=== PATIENT | male | born 1950 | race Caucasian/White ===

== ENCOUNTER 2016-09-15 16:57 | Emergency (ER) | payer OTHER, MEDICARE ==
[2016-09-15 17:01] VITALS: BMI 30.6
[2016-09-15] MEDS ORDERED: SODIUM CHLORIDE 1,000 ML IV STA (18:00)
[2016-09-15] MEDS ORDERED: ACETAMINOPHEN 500 MG TABLET (FP) PO ONE (18:12)
[2016-09-15] MEDS ORDERED: ACETAMINOPHEN 325 MG TABLET (FP) ONE (18:14)
--- NOTE | 2016-09-15 18:36 | PDOC ---
[id number] Source: Patient Exam Limitations: No Limitations - History of Present Illness Initial Comments: 09/15/16 18:06 65-year-old male presents to ED complaints of generalized fatigue, myalgia, and mild cough for the past few days. Patient states went to see his PCP Dr. Ro but with close so went to a nearby clinic noted patient having elevated heart rate and sent into the ER since he may require IV fluids and further workup. Patient denies chest pain, shortness of breath, abdominal pain, vomiting, diarrhea, dysuria, rash, or recent illness. Patient does complain of mild nausea and states has not ate or drank anything since yesterday at 4 PM. patient with history of diabetes, hypertension, and dyspidemia Timing/Duration: other Severity: moderate Associated Symptoms: reports: cough, loss of appetite, nausea/vomiting, weakness <Neyda Hernandez - Last Filed: 09/20/16 08:38> - General Chief Complaint: Weakness Stated Complaint: PAIN Time Seen by Provider: 09/15/16 17:22 Past History <Isak Lopez - Last Filed: 09/15/16 21:35> - Past Medical History Anemia: No Asthma: No Cancer: No Cardiac Disorders: No CVA: No COPD: No CHF: No Dementia: No Diabetes: Yes (PT HAS PUMP) GI Disorders: No Disorders: No HTN: Yes Hypercholesterolemia: Yes Liver Disease: No Seizures: No Thyroid Disease: No - Surgical History Abdominal Surgery: No Appendectomy: Yes Cardiac Surgery: No Cholecystectomy: No Lung Surgery: No Neurologic Surgery: No Orthopedic Surgery: Yes (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) - Psycho/Social/Smoking Cessation Hx Anxiety: No Suicidal Ideation: No Smoking History: Former smoker Have you smoked in the past 12 months: No If you are a former smoker, when did you quit?: 1973 Information on smoking cessation initiated: No Hx Alcohol Use: No Drug/Substance Use Hx: No Substance Use Type: None Hx Substance Use Treatment: No Patient Lives Alone: No <Neyda Hernandez - Last Filed: 09/20/16 08:38> - Past Medical History Allergies/Adverse Reactions: Allergies Allergy/AdvReac Type Severity Reaction Status Date / Time Penicillins Allergy Verified 09/15/16 16:58 ampicillin sodium AdvReac Verified 09/15/16 16:58 [From Unasyn] sulbactam sodium AdvReac Verified 09/15/16 16:58 [From Unasyn] Home Medications: Ambulatory Orders Cholecalciferol (Vitamin D3) [Vitamin D3] 1,000 unit PO DAILY 01/10/15 Cyanocobalamin [Vitamin B12 -] 2,000 mcg PO DAILY 01/10/15 Folic Acid 1 mg PO DAILY 01/10/15 Quinapril HCl [Accupril -] 5 mg PO DAILY 01/10/15 Simvastatin 10 mg PO DAILY 01/10/15 Insulin Pump Controller [Snap Insulin Pump Controller] 1 each MC DAILY 10/01/15 Review of Systems - Review of Systems Able to Perform ROS?: Yes Constitutional: Yes: Loss of Appetite, Weakness HEENTM: No: Symptoms Reported Respiratory: Yes: Cough Cardiac (ROS): No: Symptoms Reported ABD/GI: Yes: Nausea, Poor Appetite, Poor Fluid Intake Integumentary: No: Symptoms Reported Neurological: No: Symptoms reported Endocrine: No: Symptoms Reported Hematologic/Lymphatic: No: Symptoms Reported <Neyda Hernandez - Last Filed: 09/20/16 08:38> *Physical Exam - Vital Signs Last Vital Signs Temp Pulse Resp BP Pulse Ox 97.9 F 95 H 25 H 121/65 97 09/15/16 19:25 09/15/16 19:25 09/15/16 19:25 09/15/16 19:25 09/15/16 19:25 <Isak Lopez - Last Filed: 09/15/16 21:35> - Vital Signs Last Vital Signs Temp Pulse Resp BP Pulse Ox 100.8 F H 110 H 18 142/69 100 09/15/16 18:10 09/15/16 18:10 09/15/16 16:59 09/15/16 16:59 09/15/16 16:59 - Physical Exam General Appearance: Yes: Nourished, Appropriately Dressed. No: Apparent Distress HEENT: positive: EOMI, CIRILO, TMs Normal, Pharynx Normal. negative: Pale Conjunctivae Neck: positive: Supple Respiratory/Chest: positive: Lungs Clear, Normal Breath Sounds. negative: Respiratory Distress, Accessory Muscle Use Cardiovascular: positive: Regular Rhythm, Tachycardia. negative: Murmur Gastrointestinal/Abdominal: positive: Soft. negative: Tenderness Extremity: positive: Normal Capillary Refill. negative: Pedal Edema Integumentary: positive: Normal Color, Warm, Moist Neurologic: positive: Motor Strength 5/5 (ambulatory) <Neyda Hernandez - Last Filed: 09/20/16 08:38> Heart Score/ECG Review - ECG Intrepretation Rhythm: Regular Rhythm (sinus tachycardia at 110. No acute findings) <Neyda Hernandez - Last Filed: 09/20/16 08:38> ED Treatment Course - LABORATORY CBC & Chemistry Diagram: 09/15/16 18:23 09/15/16 18:23 - ADDITIONAL ORDERS Additional order review: Laboratory Results 09/15/16 09/15/16 09/15/16 20:00 18:23 18:23 Sodium 136 Potassium 4.4 Chloride 102 Carbon Dioxide 25 Anion Gap 9 BUN 24 H Creatinine 1.3 Creat Clearance w eGFR 55.23 Random Glucose 233 H Lactic Acid 1.335 1.483 Calcium 8.5 Total Bilirubin 0.6 AST 22 ALT 27 Alkaline Phosphatase 61 Creatine Kinase 159 Creatine Kinase Index 1.9 CK-MB (CK-2) 2.980 Troponin I < 0.02 Total Protein 6.6 Albumin 3.5 Urine Color Urine Appearance Urine pH Ur Specific [place] Urine Protein Urine Glucose (UA) Urine Ketones Urine Blood Urine Nitrite Urine Bilirubin Urine Urobilinogen Ur Leukocyte Esterase 09/15/16 18:23 Sodium Potassium Chloride Carbon Dioxide Anion Gap BUN Creatinine Creat Clearance w eGFR Random Glucose Lactic Acid Calcium Total Bilirubin AST ALT Alkaline Phosphatase Creatine Kinase Creatine Kinase Index CK-MB (CK-2) Troponin I Total Protein Albumin Urine Color Lt. yellow Urine Appearance Clear Urine pH 6.0 Ur Specific [place] 1.025 Urine Protein Negative Urine Glucose (UA) 2+ H Urine Ketones 1+ H Urine Blood Negative Urine Nitrite Negative Urine Bilirubin 1+ H Urine Urobilinogen 0.2 e.u/dl Ur Leukocyte Esterase Negative 09/15/16 18:00 Influenza Types A,B Antigen (ZENY) - Final Nasopharyngeal Swab - Final 09/15/16 18:23 RBC 5.35 MCV 86.8 MCHC 32.3 RDW 13.1 MPV 8.2 Neutrophils % 89.0 H Lymphocytes % 6.5 L Monocytes % 3.8 Eosinophils % 0.5 Basophils % 0.2 - Medications Given in the ED: ED Medications Discontinued Medications Generic Name Dose Route Start Last Admin Trade Name Freq PRN Reason Stop Dose Admin Acetaminophen 975 mg 09/15/16 18:12 09/15/16 18:15 Tylenol - PO 09/15/16 18:13 975 mg ONCE ONE Administration Sodium Chloride 1,000 mls @ 1,000 mls/hr 09/15/16 18:00 09/15/16 19:12 Normal Saline - IV 09/15/16 18:59 1,000 mls/hr ASDIR STA Administration <Isak Lopez - Last Filed: 09/15/16 21:35> - LABORATORY CBC & Chemistry Diagram: 09/15/16 18:23 09/15/16 18:23 - RADIOLOGY Radiology Studies Ordered: Category Date Time Status CHEST X-RAY PORTABLE* [RAD] Stat Radiology 09/15/16 18:00 Ordered - Medications Given in the ED: ED Medications Discontinued Medications Generic Name Dose Route Start Last Admin Trade Name Freq PRN Reason Stop Dose Admin Acetaminophen 975 mg 09/15/16 18:12 09/15/16 18:15 Tylenol - PO 09/15/16 18:13 975 mg ONCE ONE Administration <Neyda Hernandez - Last Filed: 09/20/16 08:38> Medical Decision Making - Medical Decision Making 09/15/16 21:35 Vitals: 128/87, HR-95 O2-99% <Isak Lopez - Last Filed: 09/15/16 21:35> - Medical Decision Making 09/15/16 18:09 patient presents with myalgia, weakness, cough, decreased appetite. Patient also arrived with a heart rate of 116. Septic workup was initiated including a rectal temperature. Patient was also swabbed for influenza. patient concerning for sepsis,dehydration, electrolyte imbalance. 09/15/16 18:40 Selected Entries 09/15/16 18:10 Temperature 100.8 F H Pulse Rate 110 H Tylenol ordered 09/15/16 18:41 Influenza negative 09/15/16 18:57 Laboratory Tests 09/15/16 09/15/16 18:23 18:23 WBC 9.6 Hgb 15.0 Hct 46.4 Neutrophils % 89.0 H Urine Glucose (UA) 2+ H Urine Ketones 1+ H Urine Bilirubin 1+ H Ur Leukocyte Esterase Negative chest x-ray shows no acute findings. Will endorse. <Neyda Hernandez - Last Filed: 09/20/16 08:38> *DC/Admit/Observation/Transfer - Discharge Dispostion Admit: No <Isak Lopez - Last Filed: 09/15/16 21:35> <Neyda Hernandez - Last Filed: 09/20/16 08:38> Diagnosis at time of Disposition: Dehydration - Discharge Dispostion Disposition: HOME Condition at time of disposition: Stable - Referrals Referrals: Nino Ro MD [Primary Care Provider] - - Patient Instructions Printed Discharge Instructions: DI for Dehydration -- Adult Additional Instructions: FOLLOW UP WITH YOUR PRIMARY CARE PROVIDER THIS WEEK. CALL TO SCHEDULE APPOINTMENT. RETURN IF SYMPTOMS WORSEN, OR ANY CONCERNS FOR FURTHER EVALUATION. Print Language: CUBAN
[2016-09-15 18:49] LABS: URINE APPEARANCE CLEAR; URINE BILIRUBIN 1+ (NEGATIVE); URINE BLOOD NEGATIVE (NEGATIVE); URINE COLOR LT. YELLOW; URINE GLUCOSE (UA) 2+ (NEGATIVE); URINE KETONE 1+ (NEGATIVE); URINE LEUK ESTERASE NEGATIVE (NEGATIVE); URINE NITRITE NEGATIVE (NEGATIVE); URINE PROTEIN NEGATIVE (NEGATIVE); URINE UROBILINOGEN 0.2 E.U/dl E.U./dl (0.2-1.0)
[2016-09-15 18:50] LABS: BASOPHIL 0.2 % (0-2.0); EOSINOPHIL 0.5 % (0-4.5); MCHC 32.3 g/dl (32.0-35.9); MEAN CELL VOLUME 86.8 fl (80-96); MEAN PLT VOLUME 8.2 fl (7.5-11.1); PLATELET COUNT 213 K/MM3 (134-434); RDW 13.1 % (11.9-15.9); WHITE BLOOD COUNT 9.6 K/mm3 (4.0-10.0)
[2016-09-15 19:14] LABS: ALBUMIN 3.5 g/dl (3.4-5.0); ANION GAP 9 (8-16); BILIRUBIN,TOTAL 0.6 mg/dL (0.2-1.0); CALCIUM 8.5 mg/dL (8.5-10.1); CO2 25 mmol/L (21-32); CREATININE 1.3 mg/dL (0.7-1.3); GLUCOSE,RANDOM 233 mg/dL (74-106); SGOT/AST 22 U/L (15-37); SGPT/ALT 27 U/L (12-78); TOT PROT 6.6 g/dl (6.4-8.2)
[2016-09-15 19:16] LABS: ALK PHOS 61 U/L (45-117); TROPONIN I < 0.02 ng/ml (0.00-0.05)
[2016-09-15 19:41] VITALS: TEMP 97.9
[2016-09-15 22:02] VITALS: BP 128/86; PULSE 92
--- NOTE | 2016-09-16 09:37 | EKG ---
Test Reason : Blood Pressure : / mmHG Vent. Rate : 110 BPM Atrial Rate : 110 BPM P-R Int : 174 ms QRS Dur : 076 ms QT Int : 326 ms P-R-T Axes : 058 006 075 degrees QTc Int : 441 ms SINUS TACHYCARDIA ANTEROSEPTAL INFARCT , AGE UNDETERMINED ABNORMAL ECG NO PREVIOUS ECGS AVAILABLE Confirmed by DINA VYAS MD ([id number]) on 09/16/2016 9:36:43 AM Referred By: Confirmed By:DINA VYAS MD
== END 2016-09-15 21:53 | disposition home or self-care (01) ==
LOC: JER 16:57
PROC: 3E0337Z Introduction of Electrolytic and Water Balance Substance into Peripheral Vein, Percutaneous Approach (ICD-10-PCS; principal; 2016-09-15)
DX: E86.0 Dehydration (principal); I10 Essential (primary) hypertension; E11.9 Type 2 diabetes mellitus without complications; Z79.4 Long term (current) use of insulin; Z96.41 Presence of insulin pump (external) (internal); E78.00 Pure hypercholesterolemia, unspecified
CPT/HCPCS: 36415; 71010-TC; 80053; 81003; 82550; 82553; 83605; 84484; 85025; 87040; 87086; 87804; 93005; 93010; 96360; 99285-25

== ENCOUNTER 2018-02-10 10:37 | Emergency (ER) | payer OTHER, MEDICARE ==
[2018-02-10 10:43] VITALS: TEMP 97.5; BMI 32.0
[2018-02-10] MEDS ORDERED: SODIUM CHLORIDE 1,000 ML IV STA ×2 (11:09→12:17)
[2018-02-10 11:41] LABS: BASO % 0.3 % (0-2.0); EOS % 0.4 % (0-4.5); HEMATOCRIT 45.1 % (35.4-49); LYMPH % 10.3 % (8-40); MCH 29.1 pg (25.7-33.7); MCHC 33.2 g/dl (32.0-35.9); MEAN CELL VOLUME 87.8 fl (80-96); MEAN PLT VOLUME 8.2 fl (7.5-11.1); MONO % 8.4 % (3.8-10.2); NEUT % 80.6 % (42.8-82.8); PLATELET COUNT 179 K/MM3 (134-434); RBC 5.13 M/mm3 (4.00-5.60); RDW 13.4 % (11.9-15.9); WHITE BLOOD COUNT 13.8 K/mm3 (4.0-10.0)
[2018-02-10 12:05] LABS: ALBUMIN 3.6 g/dl (3.4-5.0); ANION GAP 7 (8-16); BLOOD UREA NITROGEN 19 mg/dL (7-18); CALCIUM 8.8 mg/dL (8.5-10.1); CHLORIDE 101 mmol/L (98-107); CO2 26 mmol/L (21-32); GLUCOSE,RANDOM 164 mg/dL (74-106); SODIUM 134 mmol/L (136-145)
[2018-02-10 12:07] LABS: CREATININE 1.3 mg/dL (0.7-1.3); SGPT/ALT 33 U/L (12-78)
[2018-02-10 12:08] LABS: ALK PHOS 54 U/L (45-117); BILIRUBIN,TOTAL 0.7 mg/dL (0.2-1.0); TOT PROT 7.2 g/dl (6.4-8.2)
[2018-02-10 12:09] LABS: MAGNESIUM 2.5 mg/dL (1.8-2.4); POTASSIUM 4.5 mmol/L (3.5-5.1); SGOT/AST 35 U/L (15-37)
[2018-02-10 12:18] LABS: URINE APPEARANCE SLCLOUDY; URINE BILIRUBIN NEGATIVE (<2.0 mg/dL); URINE BLOOD NEGATIVE (NEGATIVE); URINE COLOR DKYELLOW; URINE GLUCOSE (UA) 1+ (NEGATIVE); URINE KETONE TRACE (NEGATIVE); URINE LEUK ESTERASE NEGATIVE (NEGATIVE); URINE NITRITE NEGATIVE (NEGATIVE); URINE PROTEIN NEGATIVE (NEGATIVE)
--- NOTE | 2018-02-10 13:26 | PDOC ---
History of Present Illness - General Chief Complaint: Weakness Stated Complaint: LETHARGIC, LIGHTHEADED (PCP SENT) Time Seen by Provider: 02/10/18 10:59 History Source: Patient Exam Limitations: No Limitations - History of Present Illness Initial Comments: 02/10/18 13:22 67-year-old male with history of hypertension diabetes presents to the ED for evaluation for generalized weakness, fatigue, and achy lower back and lower neck. Patient denies fever, chills, decreased appetite, decreased urine output, diarrhea, recent illness or recent travel. Patient states glucose was 150 this morning which he normally ranges anywhere from 105 to 1:15. Patient went to his primary care physician office today Dr. Ramirez who recommended he come to the ER for evaluation since he has blood pressure was borderline low and appeared weak Timing/Duration: constant, getting worse Severity: mild, moderate Associated Symptoms: reports: malaise, weakness Past History - Travel Traveled outside of the country in the last 30 days: No - Past Medical History Allergies/Adverse Reactions: Allergies Allergy/AdvReac Type Severity Reaction Status Date / Time Penicillins Allergy Verified 02/10/18 10:38 ampicillin sodium AdvReac Verified 02/10/18 10:38 [From Unasyn] sulbactam sodium AdvReac Verified 02/10/18 10:38 [From Unasyn] Home Medications: Ambulatory Orders Cholecalciferol (Vitamin D3) [Vitamin D3] 1,000 unit PO DAILY 01/10/15 Cyanocobalamin [Vitamin B12 -] 2,000 mcg PO DAILY 01/10/15 Folic Acid 1 mg PO DAILY 01/10/15 Quinapril HCl [Accupril -] 5 mg PO DAILY 01/10/15 Simvastatin 10 mg PO DAILY 01/10/15 Insulin Pump Controller [Snap Insulin Pump Controller] 1 each MC DAILY 10/01/15 Aripiprazole [Abilify -] 2 mg PO DAILY 02/10/18 Budesonide/Formeterol Fumarate [SYMBICORT 160/4.5mcg -] 1 inh PO BID 02/10/18 Fluticasone/Salmeterol [Advair Hfa 230-21 Mcg Inhaler] 1 inh PO BID 02/10/18 Insulin (LOG) Aspart [NovoLOG -] 0 unit SQ DAILY 02/10/18 Tamsulosin HCl 0.4 mg PO DAILY 02/10/18 Anemia: No Asthma: No Cancer: No Cardiac Disorders: No CVA: No COPD: No CHF: No Dementia: No Diabetes: Yes (PT HAS PUMP) GI Disorders: No Disorders: No HTN: Yes Hypercholesterolemia: Yes Liver Disease: No Seizures: No Thyroid Disease: No - Surgical History Abdominal Surgery: No Appendectomy: Yes Cardiac Surgery: No Cholecystectomy: No Lung Surgery: No Neurologic Surgery: No Orthopedic Surgery: Yes (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) - Suicide/Smoking/Psychosocial Hx Smoking History: Former smoker Have you smoked in the past 12 months: No If you are a former smoker, when did you quit?: 1973 Information on smoking cessation initiated: No Hx Alcohol Use: No Drug/Substance Use Hx: No Substance Use Type: None Hx Substance Use Treatment: No Patient Lives Alone: Yes Lives with/in: lives alone Review of Systems - Review of Systems Able to Perform ROS?: No Constitutional: Yes: Malaise, Weakness HEENTM: No: Symptoms Reported Respiratory: No: Symptoms reported Cardiac (ROS): No: Symptoms Reported ABD/GI: No: Symptoms Reported : No: Symptoms Reported Musculoskeletal: Yes: Neck Pain Integumentary: No: Symptoms Reported Neurological: Yes: Weakness Endocrine: No: Symptoms Reported Hematologic/Lymphatic: No: Symptoms Reported *Physical Exam - Vital Signs Last Vital Signs Temp Pulse Resp BP Pulse Ox 97.5 F L 88 18 110/60 100 02/10/18 10:39 02/10/18 10:43 02/10/18 10:39 02/10/18 10:43 02/10/18 10:39 - Physical Exam General Appearance: Yes: Nourished, Appropriately Dressed. No: Apparent Distress HEENT: positive: EOMI, CIRILO, TMs Normal, Pharynx Normal. negative: Pale Conjunctivae Neck: positive: Supple Respiratory/Chest: positive: Lungs Clear, Normal Breath Sounds. negative: Chest Tender, Respiratory Distress, Accessory Muscle Use Cardiovascular: positive: Regular Rhythm, Regular Rate. negative: Murmur Gastrointestinal/Abdominal: positive: Soft. negative: Tenderness Extremity: positive: Normal Capillary Refill. negative: Pedal Edema Integumentary: positive: Normal Color, Warm, Moist Neurologic: positive: Motor Strength 5/5 (ambulatory) Heart Score/ECG Review - ECG Intrepretation Rhythm: Regular Rhythm (rate 80. Normal sinus rhythm) ED Treatment Course - LABORATORY CBC & Chemistry Diagram: 02/10/18 11:13 02/10/18 11:13 - ADDITIONAL ORDERS Additional order review: Laboratory Results 02/10/18 02/10/18 12:06 11:13 Sodium 134 L Potassium 4.5 Chloride 101 Carbon Dioxide 26 Anion Gap 7 L BUN 19 H D Creatinine 1.3 Creat Clearance w eGFR 54.90 Random Glucose 164 H D Calcium 8.8 Magnesium 2.5 H Total Bilirubin 0.7 AST 35 D ALT 33 D Alkaline Phosphatase 54 Total Protein 7.2 Albumin 3.6 Urine Color Dkyellow Urine Appearance Slcloudy Urine pH 5.0 Ur Specific [place] 1.019 Urine Protein Negative Urine Glucose (UA) 1+ H Urine Ketones Trace H Urine Blood Negative Urine Nitrite Negative Urine Bilirubin Negative Urine Urobilinogen 2.0 Ur Leukocyte Esterase Negative 02/10/18 11:13 RBC 5.13 MCV 87.8 MCHC 33.2 RDW 13.4 MPV 8.2 Neutrophils % 80.6 Lymphocytes % 10.3 D Monocytes % 8.4 D Eosinophils % 0.4 Basophils % 0.3 - RADIOLOGY Radiology Studies Ordered: Category Date Time Status CHEST X-RAY PORTABLE* [RAD] Stat Radiology 02/10/18 11:09 Completed - Medications Given in the ED: ED Medications Discontinued Medications Generic Name Dose Route Start Last Admin Trade Name Freq PRN Reason Stop Dose Admin Sodium Chloride 1,000 mls @ 1,000 mls/hr 02/10/18 11:09 02/10/18 11:25 Normal Saline - IV 02/10/18 12:08 1,000 mls/hr ASDIR STA Administration Sodium Chloride 1,000 mls @ 1,000 mls/hr 02/10/18 12:17 02/10/18 12:28 Normal Saline - IV 02/10/18 13:16 1,000 mls/hr ASDIR STA Administration Medical Decision Making - Medical Decision Making 02/10/18 13:09 Patient here for evaluation generalized fatigue and weakness and malaise. Patient on exam with normal vital signs and mildly orthostatic. Patient concerning for electrolyte derangement, infection, uncontrolled diabetes, fluid depletion, or viral illness. Patient ordered for labs, EKG, urine and urine culture, IV fluids and after speaking with patient's family care physician he is requesting a lactic acid and blood culture. 02/10/18 13:31 Selected Entries 02/10/18 10:43 Blood Pressure 110/60 [Left Arm] Blood Pressure 134/55 [Right Arm] Laboratory Tests 09/15/16 02/10/18 02/10/18 18:23 11:13 11:13 WBC 13.8 H D Hgb 15.0 Hct 45.1 Plt Count 179 Absolute Neuts (auto) 11.1 Neutrophils % 80.6 Sodium 134 L Potassium 4.5 Chloride 101 Carbon Dioxide 26 BUN 19 H D Creatinine 1.3 1.3 Creat Clearance w eGFR 54.90 Random Glucose 164 H D Lactic Acid Calcium 8.8 Magnesium 2.5 H Urine Glucose (UA) Urine Ketones Urine Nitrite Ur Leukocyte Esterase 02/10/18 02/10/18 12:06 13:02 WBC Hgb Hct Plt Count Absolute Neuts (auto) Neutrophils % Sodium Potassium Chloride Carbon Dioxide BUN Creatinine Creat Clearance w eGFR Random Glucose Lactic Acid Pending Calcium Magnesium Urine Glucose (UA) 1+ H Urine Ketones Trace H Urine Nitrite Negative Ur Leukocyte Esterase Negative 02/10/18 14:06 Laboratory Tests 02/10/18 13:02 Lactic Acid 1.1 02/10/18 14:[address] ramirez and migt will f/u on wednesday in office with him. Pt has no complaints and states he feels much better after receiving ivf. Pt understands to eat small meals throughout the day and to stay well hydrated. pt understands to return to the E if s/s return/worsen. 02/10/18 14:44 Selected Entries 02/10/18 14:32 Pulse Rhythm [ Regular Apical] Blood Pressure 117/52 [Left Arm] Blood Pressure 117/52 [Right Arm] Blood Pressure 73 Mean [Right Arm ] *DC/Admit/Observation/Transfer Diagnosis at time of Disposition: Weak, Dehydration - Discharge Dispostion Disposition: HOME Condition at time of disposition: Improved - Referrals Referrals: Nino Ramirez MD [Primary Care Provider] - - Patient Instructions Printed Discharge Instructions: DI for Dehydration -- Adult Additional Instructions: Please eat small frequent meals and drink plenty of fluids. If symptoms return please go to the nearest ED. Otherwise follow up with Dr. Ramirez on Wednesday - Post Discharge Activity
[2018-02-10 14:33] VITALS: BP 117/52; PULSE 87
--- NOTE | 2018-02-10 16:10 | EKG ---
Test Reason : Blood Pressure : / mmHG Vent. Rate : 080 BPM Atrial Rate : 080 BPM P-R Int : 176 ms QRS Dur : 078 ms QT Int : 368 ms P-R-T Axes : 060 000 049 degrees QTc Int : 424 ms NORMAL SINUS RHYTHM MINIMAL VOLTAGE CRITERIA FOR LVH, MAY BE NORMAL VARIANT SEPTAL INFARCT (CITED ON OR BEFORE 15-SEP-2016) ABNORMAL ECG WHEN COMPARED WITH ECG OF 15-SEP-2016 17:42, QUESTIONABLE CHANGE IN INITIAL FORCES OF SEPTAL LEADS Confirmed by MILDRED SUBRAMANIAN MD ([id number]) on 02/10/2018 4:10:18 PM Referred By: Confirmed By:MILDRED SUBRAMANIAN MD
== END 2018-02-10 15:00 | disposition home or self-care (01) ==
LOC: JER 10:37
PROC: 3E0337Z Introduction of Electrolytic and Water Balance Substance into Peripheral Vein, Percutaneous Approach (ICD-10-PCS; principal; 2018-02-10)
DX: E86.0 Dehydration (principal); I10 Essential (primary) hypertension; E78.00 Pure hypercholesterolemia, unspecified; E11.9 Type 2 diabetes mellitus without complications; Z79.4 Long term (current) use of insulin; Z96.41 Presence of insulin pump (external) (internal)
CPT/HCPCS: 36415; 71045-TC-FY; 80053; 81003; 83605; 83735; 85025; 87040; 87086; 93005; 93010; 99283-25; J7030

== ENCOUNTER 2018-11-30 12:04 | Emergency (ER) | payer OTHER, MEDICARE ==
[2018-11-30 12:09] VITALS: TEMP 98.1; BMI 32.1
[2018-11-30] MEDS ORDERED: MAGNESIUM CITRATE 300 ML BOTTLE ONE (12:30)
[2018-11-30] MEDS ORDERED: SODIUM PHOSPHATE/NA BIPHOS 133 ML ENEMA PR ONE ×2 (12:31→14:39)
[2018-11-30] MEDS ORDERED: MAGNESIUM CITRATE 300 ML BOTTLE PO ONE (12:31)
[2018-11-30] MEDS ORDERED: BISACODYL 10 MG SUPP.RECT RC ONE (12:37)
[2018-11-30] MEDS ORDERED: BISACODYL 10 MG SUPP.RECT PR ONE (12:39)
--- NOTE | 2018-11-30 12:40 | PDOC ---
History of Present Illness - General Chief Complaint: Constipation Stated Complaint: constipation Time Seen by Provider: 11/30/18 12:14 - History of Present Illness Initial Comments: 11/30/18 12:40 Chief complaint: Constipation History of present illness: Patient complains of constipation since Wednesday. Last bowel movement was Wednesday, and he usually goes every 1-2 days. He has mild discomfort in the rectal area but no abdominal pain, nausea, or vomiting. He is eating normally. He is on no new medications, unknown narcotics, but recently switched from MiraLAX to another preparation due to insurance coverage. Since that his bowel movements have been erratic. Review of systems: Denies fever/chills, URI symptoms, sore throat, cough, chest pain, shortness of breath, abdominal pain, nausea, vomiting, diarrhea, visual or focal neurologic symptoms, unsteadiness of gait, urinary tract symptoms. Remainder systems reviewed and negative Past medical history: Insulin-dependent diabetes, high blood pressure, elevated cholesterol, and mood disorder. Medications: Accupril, simvastatin, Abilify, insulin pump Social history: Denies alcohol drugs or tobacco. Active and without significant disability. Cares for self Family history: Reviewed and significant for diabetes. No early coronary artery disease, other metabolic diseases, or cancer Physical exam: Alert, oriented, no acute distress, cheerful and cooperative. No pallor or icterus. PERRLA, ENT clear Neck supple without bruit mass or nodes Chest clear CV regular without murmur rub or gallop Abdomen nondistended. Bowel sounds normal. Soft without mass tenderness organomegaly. No CVAT Rectal exam: No masses, tenderness, or lesions. There does not appear to be an impaction, although there is a large amount of formed stool present at the tip of the finger. It is medium brown in color. Impression: Constipation, without abdominal pain or other sign or symptom of abdominal disease Plan: Dulcolax and magnesium citrate, further evaluation depending on results, consider enema Past History - Past Medical History Allergies/Adverse Reactions: Allergies Allergy/AdvReac Type Severity Reaction Status Date / Time Penicillins Allergy Severe Verified 11/30/18 12:38 ampicillin sodium AdvReac Verified 11/30/18 12:06 [From Unasyn] sulbactam sodium AdvReac Verified 11/30/18 12:06 [From Unasyn] Home Medications: Ambulatory Orders Cholecalciferol (Vitamin D3) [Vitamin D3] 1,000 unit PO DAILY 01/10/15 Cyanocobalamin [Vitamin B12 -] 2,000 mcg PO DAILY 01/10/15 Quinapril HCl [Accupril -] 5 mg PO DAILY 01/10/15 Simvastatin 10 mg PO DAILY 01/10/15 Insulin Pump Controller [Snap Insulin Pump Controller] 1 each MC DAILY 10/01/15 Aripiprazole [Abilify -] 2 mg PO DAILY 02/10/18 Insulin (LOG) Aspart [NovoLOG -] 0 unit SQ DAILY 02/10/18 Polyethylene Glycol 3350 [Miralax (For Bowel Prep) -] 17 gm PO DAILY #1 bottle 11/30/18 Anemia: No Asthma: No Cancer: No Cardiac Disorders: No CVA: No COPD: No CHF: No Dementia: No Diabetes: Yes (PT HAS INSULIN PUMP) GI Disorders: No Disorders: No HTN: Yes Hypercholesterolemia: Yes Liver Disease: No Seizures: No Thyroid Disease: No - Surgical History Abdominal Surgery: No Appendectomy: Yes Cardiac Surgery: No Cholecystectomy: No Lung Surgery: No Neurologic Surgery: No Orthopedic Surgery: Yes (KIRSTINA FOOT SURGERY DUE TO CHAROT FEET) - Suicide/Smoking/Psychosocial Hx Smoking History: Never smoked Have you smoked in the past 12 months: No If you are a former smoker, when did you quit?: 1974 Hx Alcohol Use: No Drug/Substance Use Hx: No Substance Use Type: None Hx Substance Use Treatment: No *Physical Exam - Vital Signs Last Vital Signs Temp Pulse Resp BP Pulse Ox 98.1 F 78 18 137/69 97 11/30/18 12:05 11/30/18 12:05 11/30/18 12:05 11/30/18 12:05 11/30/18 12:05 Medical Decision Making - Medical Decision Making 11/30/18 14:41 Patient administered Dulcolax suppository and magnesium citrate, without results A fleets saline enema was administered, after which the patient immediately had a large bowel movement, feels much better. Abdomen remains soft and nontender. No blood in the stool. Discharged with GI referral, refill of MiraLAX, and follow-up primary M.D. *DC/Admit/Observation/Transfer Diagnosis at time of Disposition: Constipation Qualifiers: Constipation type: chronic idiopathic constipation Qualified Code(s): K59.04 - Chronic idiopathic constipation - Discharge Dispostion Disposition: HOME Condition at time of disposition: Improved Decision to Admit order: No - Prescriptions Prescriptions: Polyethylene Glycol 3350 [Miralax (For Bowel Prep) -] 17 gm PO DAILY #1 bottle - Referrals Referrals: Nino Ro MD [Primary Care Provider] - Markie Riddle MD [Staff Physician] - - Patient Instructions Printed Discharge Instructions: DI for Constipation - Post Discharge Activity
[2018-11-30 14:45] VITALS: BP 123/64; PULSE 90
== END 2018-11-30 14:53 | disposition home or self-care (01) ==
LOC: FER 12:04
DX: K59.04 Chronic idiopathic constipation (principal); Z87.891 Personal history of nicotine dependence; E11.9 Type 2 diabetes mellitus without complications; I10 Essential (primary) hypertension; E78.00 Pure hypercholesterolemia, unspecified; Z96.41 Presence of insulin pump (external) (internal)
CPT/HCPCS: 36415; 82272; 99282-25

== ENCOUNTER 2019-06-25 12:09 | Inpatient (IN) | payer OTHER, MEDICARE ==
--- NOTE | 2019-06-25 13:19 | PDOC ---
History of Present Illness - General Chief Complaint: Weakness Stated Complaint: WEAKNESS/ FATIGUE Time Seen by Provider: 06/25/19 12:46 History Source: Patient, Family (Son) - History of Present Illness Initial Comments: 06/25/19 13:12 68 yo M PMH IDDM, HTN, HLD, anxiety, orthostatic hypotension, known heart murmur , presenting with fatigue and generalized weakness over the past 5 days. Patient states that it has been affecting his ability to do his ADLs, and further complains of feeling like "my joints are locking up". Reports that he stood up quickly yesterday, felt dizzy and like his joints "locked up", and fell , knocking over a lamp. Reports mild head trauma with no LOC. Son is in room and states that the family has been concerned about worsening tremors and deteriorating mental status over the past month, worst last night. Cites examples such as not knowing what day it is, or saying the year is 2010 instead of 2018. Reportedly patient went to restaurant last night with a friend, who also commented that he did not seem like himself. Last seen by PCP on 05/11/2019, before these worsening symptoms. Specifically CP, SOB, abd pain, urinary changes, constipation/diarrhea, fevers/ chills, WOLF, N/V, tingling, numbness. Endorses tremors, generalized fatigue, generalized weakness. Past History - Past Medical History Allergies/Adverse Reactions: Allergies Allergy/AdvReac Type Severity Reaction Status Date / Time Penicillins Allergy Severe Verified 06/25/19 12:16 ampicillin sodium AdvReac Verified 06/25/19 12:16 [From Unasyn] sulbactam sodium AdvReac Verified 06/25/19 12:16 [From Unasyn] Home Medications: Ambulatory Orders Cholecalciferol (Vitamin D3) [Vitamin D3] 1,000 unit PO DAILY 01/10/15 Cyanocobalamin [Vitamin B12 -] 2,000 mcg PO DAILY 01/10/15 Quinapril HCl [Accupril -] 5 mg PO DAILY 01/10/15 Simvastatin 10 mg PO DAILY 01/10/15 Insulin Pump Controller [Snap Insulin Pump Controller] 1 each MC DAILY 10/01/15 Insulin (LOG) Aspart [NovoLOG -] 0 unit SQ DAILY 02/10/18 Polyethylene Glycol 3350 [Miralax (For Bowel Prep) -] 17 gm PO DAILY #1 bottle 11/30/18 Benztropine Mesylate 1 mg PO DAILY 06/25/19 Diaplex 2 cap PO TIDCM 06/25/19 Escitalopram Oxalate [Lexapro -] 20 mg PO DAILY 06/25/19 Anemia: No Asthma: No Cancer: No Cardiac Disorders: No CVA: No COPD: No CHF: No Dementia: No Diabetes: Yes (PT HAS INSULIN PUMP) GI Disorders: No Disorders: No HTN: Yes Hypercholesterolemia: Yes Liver Disease: No Seizures: No Thyroid Disease: No - Surgical History Abdominal Surgery: No Appendectomy: Yes Cardiac Surgery: No Cholecystectomy: No Lung Surgery: No Neurologic Surgery: No Orthopedic Surgery: Yes (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) - Psycho Social/Smoking Cessation Hx Smoking History: Never smoked Have you smoked in the past 12 months: No If you are a former smoker, when did you quit?: 1974 Hx Alcohol Use: No Drug/Substance Use Hx: No Substance Use Type: None Hx Substance Use Treatment: No *Physical Exam - Vital Signs Last Vital Signs Temp Pulse Resp BP Pulse Ox 98.3 F 77 18 156/63 99 06/25/19 12:14 06/25/19 12:14 06/25/19 12:14 06/25/19 12:14 06/25/19 12:14 - Physical Exam Comments: 06/25/19 13:26 Gen: well-developed, well-nourished, NAD, appears pale Neuro: AAOX4, CN II-XII intact, FTN intact, baseline tremor worsened with activity, b/l clonus R>L, EOMI, PERRLA, 5/5 strength, SILT HEENT: atraumatic, normocephalic, dry mucous membranes Neck: trachea midline, supple CV: regular rate, regular rhythm, heart murmur Pulm: CTA b/l, no wheezing Abd: soft, non-distended, non-tender, red suprapubic rash MSK: full ROM, intact pulses Extr: no edema, no deformities Skin: warm, dry ED Treatment Course - LABORATORY CBC & Chemistry Diagram: 06/25/19 14:15 06/25/19 14:15 Medical Decision Making - Medical Decision Making 06/25/19 13:29 Patient with fatigue for 5 days, recent fall yesterday, also worsening mental status and tremors over last month. - Head CT w/o contrast - CBC, CMP, trop - EKG, chest PA + L - UA/UC - patient reports that he always gets this stomach rash - reassess 06/25/19 15:09 Patient with clonus in both feet, R>L. Patient on escitalopram, concerning for serotonin syndrome. No ocular clonus, hyperthermia, hypertension, tachycardia, hyperreflexia, increased bowel sonds, or diaphoresis, but meets Isidro criteria for serotonin syndrome with clonus alone. Will hold up on benzodiazepine for now , will f/u CT scan. 06/25/19 15:31 Labs unremarkable. 06/25/19 15:32 EKG normal sinus at 67 bpm, no ST segment elevations or T wave inversions. 06/25/19 16:03 CT scan shows no evidence of bleed, mass, or infarct. 06/25/19 16:[address] Gomez in neurology about tremors, will see inpatient tomorrow if patient is admitted or outpatient if patient is dc'd with close follow up. Phone number is [phone]. Discharge - Discharge Information Problems reviewed: Yes Clinical Impression/Diagnosis: Fatigue - Follow up/Referral Referrals: Nino Ro MD [Primary Care Provider] - - Patient Discharge Instructions - Post Discharge Activity
[2019-06-25 14:30] LABS: BASO % 0.4 % (0-2.0); EOS % 1.4 % (0-4.5); HEMATOCRIT 42.2 % (35.4-49); HEMOGLOBIN 14.5 GM/dL (11.7-16.9); LYMPH % 16.9 % (8-40); MCH 30.8 pg (25.7-33.7); MCHC 34.4 g/dl (32.0-35.9); MEAN CELL VOLUME 89.5 fl (80-96); MEAN PLT VOLUME 7.8 fl (7.5-11.1); MONO % 6.9 % (3.8-10.2); NEUT % 74.4 % (42.8-82.8); PLATELET COUNT 182 K/MM3 (134-434); RBC 4.71 M/mm3 (4.00-5.60); RDW 13.5 % (11.9-15.9); WHITE BLOOD COUNT 8.3 K/mm3 (4.0-10.0)
[2019-06-25 14:48] LABS: ALBUMIN 3.9 g/dl (3.4-5.0); ALK PHOS 57 U/L (45-117); ANION GAP 6 MMOL/L (8-16); BILIRUBIN,TOTAL 0.5 mg/dL (0.2-1); BLOOD UREA NITROGEN 21.5 mg/dL (7-18); CALCIUM 8.8 mg/dL (8.5-10.1); CHLORIDE 106 mmol/L (98-107); CO2 27 mmol/L (21-32); CREATININE 1.1 mg/dL (0.55-1.3); GLUCOSE,RANDOM 106 mg/dL (74-106); MAGNESIUM 2.4 mg/dL (1.8-2.4); PHOSPHOROUS 3.4 mg/dL (2.5-4.9); POTASSIUM 4.1 mmol/L (3.5-5.1); SGOT/AST 24 U/L (15-37); SGPT/ALT 22 U/L (13-61); SODIUM 140 mmol/L (136-145); TOT PROT 7.1 g/dl (6.4-8.2)
--- NOTE | 2019-06-25 15:16 | PDOC ---
Documentation entered by Jason Ocasio SCRIBE, acting as scribe for Jose Manuel Carbone MD. Jose Manuel Carbone MD: This documentation has been prepared by the Amarjit moctezuma Daniel, SCRIBE, under my direction and personally reviewed by me in its entirety. I confirm that the documentation accurately reflects all work, treatment, procedures, and medical decision making performed by me. Attending Attestation - Resident Resident Name: Kira Lepe - ED Attending Attestation I have performed the following: I have examined & evaluated the patient, The case was reviewed & discussed with the resident, I agree w/resident's findings & plan, Exceptions are as noted - HPI HPI: 06/25/19 13:52 The patient is a 68 year old male with a past medical history of insulin dependent diabetes, HTN, HLD and orthostatic hypotension here today for evaluation of generalized weakness. The patient reports that he has had 5 days of worsening generalized weakness. He notes that yesterday he stood up too quickly, felt lightheaded, and fell. He confirms hitting his head, denies any loss of consciousness, and states that this felt like his usual orthostatic hypotension. Patients family reports that the patient has had "quite a few months" of worsening b/l UE and LE tremors and progressive confusion. 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 Of note, pt was taken off abilify 1 month ago due to the tremors and was put on buproprion and benztropine instead. He was started on escitalopram 1 year ago for depression which he is still on. Patient denies headache, focal weakness/numbness, dizziness. Denies fever, chills, stiff neck. Denies chest pain, shortness of breath. Denies nausea, vomiting, abdominal pain. Allergies: penicillins, ampicillin sodium, sulbactam sodium PCP: Nino Ro - Physicial Exam PE: 06/25/19 13:53 GENERAL: Awake, alert, and fully oriented, in no acute distress HEAD: No signs of trauma EYES: PERRLA, EOMI, sclera anicteric, conjunctiva clear. ENT: Auricles normal inspection, hearing grossly normal, nares patent, oropharynx clear without exudates. Moist mucosa NECK: Normal ROM, supple, no lymphadenopathy, JVD, or masses LUNGS: Breath sounds equal, clear to auscultation bilaterally. No wheezes, and no crackles HEART: Regular rate and rhythm, normal S1 and S2, no murmurs, rubs or gallops ABDOMEN: Soft, nontender, normoactive bowel sounds. No guarding, no rebound. No masses EXTREMITIES: Normal range of motion, no edema. No clubbing or cyanosis. No cords , erythema, or tenderness BACK: No midline spinal tenderness in cervical/thoracic/lumbar region NEUROLOGICAL: Normal speech, cranial nerves intact, 5/5 strength in all 4 extremities, normal sensation to light touch in all 4 extremities, +b/l UE tremors at rest and with activity affecting FNF, +RLE>LLE spontaneous clonus, normal gait, mildly increased tone SKIN: +superficial abrasion to L elbow, L dorsum of hand. Warm, Dry, normal turgor, no rashes or lesions noted. - Medical Decision Making 06/25/19 15:14 68yo M presents to the emergency department with generalized weakness for 5 days in the setting of months of confusion and new tremors. Vitals unremarkable. Exam remarkable for bilateral upper extremity tremors with mildly increased tone and spontaneous clonus in the right lower extremity, less noticeable in the left lower extremity. We will plan for metabolic versus neurologic versus infectious versus ischemic work-up for evaluation of the symptoms. I suspect the initiation of the citalopram 1 year ago may be contributing to the symptoms, and patient may have mild serotonin syndrome. We will consult with neurology, hold SSRI for now. Anticipate admission. 06/25/19 16:[address] Gomez who will see the patient. Case discussed with Dr. Ro. Patient will be admitted to hospitalist, and he will take over tomorrow. Requests consult for patient's wire tinner which has been placed. Patient admitted to the hospitalist for further management. Case discussed in detail with admitting physician by Dr. Lepe including history, physical exam and ancillary studies. Admitting physician has assumed care for the patient, will follow all pending diagnostics and will complete the evaluation and treatment.
--- NOTE | 2019-06-25 17:09 | HP ---
CHIEF COMPLAINT: bilateral hand tremors and weakness, incoherance PCP:Dr. Ro Endocrinilogist: Dr. Fan HISTORY OF PRESENT ILLNESS: This is a 68 year old male with past medical history significant for IDDM(has insulin pump),hypertension, hyperlipidemia, depression, anxiety, orthostatic hypotension, and known heart murmur who presents with fatigue and generalized weakness over the past 5 days. He reports that he stood up quickly yesterday, felt dizzy and fell. He denied loss of consciousness. Son reports he has worsening bilateral hand tremors and deteriorating mental status over the past month, worst last night with incoherane. He denies chest pain, shortness of breath, fevers/chills, anorexia, or headache. He endorses bilateral hand tremors , generalized fatigue and weakness. 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 Social History: Smoking:denies Alcohol:denies Drugs: denies Allergies Penicillins Allergy (Severe, Verified 06/25/19 12:16) ampicillin sodium [From Unasyn] Adverse Reaction (Verified 06/25/19 12:16) sulbactam sodium [From Unasyn] Adverse Reaction (Verified 06/25/19 12:16) HOME MEDICATIONS: Home Medications Medication Instructions Recorded Cholecalciferol (Vitamin D3) 1,000 unit PO DAILY 01/10/15 [Vitamin D3] Cyanocobalamin [Vitamin B12 -] 2,000 mcg PO DAILY 01/10/15 Quinapril HCl [Accupril -] 5 mg PO DAILY 01/10/15 Simvastatin 10 mg PO DAILY 01/10/15 Insulin Pump Controller [Snap 1 each MC DAILY 10/01/15 Insulin Pump Controller] Insulin (LOG) Aspart [NovoLOG -] 0 unit SQ DAILY 02/10/18 Polyethylene Glycol 3350 [Miralax 17 gm PO DAILY #1 bottle 11/30/18 (For Bowel Prep) -] Benztropine Mesylate 1 mg PO DAILY 06/25/19 Diaplex 2 cap PO TIDCM 06/25/19 Escitalopram Oxalate [Lexapro -] 20 mg PO DAILY 06/25/19 REVIEW OF SYSTEMS CONSTITUTIONAL: Absent: fever, chills, diaphoresis, generalized weakness, malaise, loss of appetite, weight change HEENT: Absent: rhinorrhea, nasal congestion, throat pain, throat swelling, difficulty swallowing, mouth swelling, ear pain, eye pain, visual changes CARDIOVASCULAR: Absent: chest pain, syncope, palpitations, irregular heart rate, lightheadedness , peripheral edema RESPIRATORY: Absent: cough, shortness of breath, dyspnea with exertion, orthopnea, wheezing, stridor, hemoptysis GASTROINTESTINAL: Absent: abdominal pain, abdominal distension, nausea, vomiting, diarrhea, constipation, melena, hematochezia GENITOURINARY: Absent: dysuria, frequency, urgency, hesitancy, hematuria, flank pain, genital pain MUSCULOSKELETAL: Absent: myalgia, arthralgia, joint swelling, back pain, neck pain SKIN: Absent: rash, itching, pallor HEMATOLOGIC/IMMUNOLOGIC: Absent: easy bleeding, easy bruising, lymphadenopathy, frequent infections ENDOCRINE: Absent: unexplained weight gain, unexplained weight loss, heat intolerance, cold intolerance NEUROLOGIC: Absent: headache, focal weakness or paresthesias, dizziness, unsteady gait, seizure, mental status changes/incoherance bladder or bowel incontinence, tremors PSYCHIATRIC: Absent: anxiety, depression, suicidal or homicidal ideation, hallucinations. PHYSICAL EXAMINATION Vital Signs - 24 hr 06/25/19 12:14 Temperature 98.3 F Pulse Rate 77 Respiratory 18 Rate Blood Pressure 156/63 O2 Sat by Pulse 99 Oximetry (%) GENERAL: awake, alert, and fully oriented, no acute distress HEAD: normal no head trauma EYES: pupils equal round and reactive to light extraocular movements intact EARS, NOSE, THROAT: ears normal nares patent oropharynx clear without exudates NECK: normal range of motion LUNGS: breath sounds equal clear to auscultation bilaterally nolabored breathing effort no use of accessory muscles HEART: regular rate and rhythm normal S1 and S2 ABDOMEN: soft nontender not distended normoactive bowel sounds UPPER EXTREMITIES: 2+ pulses warm well-perfused LOWER EXTREMITIES: 2+ pulses warm no pitting edema clonus rt>lt NEUROLOGICAL: normal speech no facial droop or grimace bilateral hand tremors moving upper and lower extremities PSYCHIATRIC: cooperative good eye contact appropriate mood SKIN: warm dry normal turgor no rashes or lesions noted Laboratory Results - last 24 hr 06/25/19 06/25/19 14:15 14:15 WBC 8.3 RBC 4.71 Hgb 14.5 Hct 42.2 MCV 89.5 MCH 30.8 MCHC 34.4 RDW 13.5 Plt Count 182 MPV 7.8 Absolute Neuts (auto) 6.2 Neutrophils % 74.4 Lymphocytes % 16.9 D Monocytes % 6.9 Eosinophils % 1.4 D Basophils % 0.4 Nucleated RBC % 0 Sodium 140 Potassium 4.1 Chloride 106 Carbon Dioxide 27 Anion Gap 6 L BUN 21.5 H Creatinine 1.1 Est GFR (CKD-EPI)AfAm 78.97 Est GFR (CKD-EPI)NonAf 68.13 Random Glucose 106 Calcium 8.8 Phosphorus 3.4 Magnesium 2.4 Total Bilirubin 0.5 AST 24 ALT 22 Alkaline Phosphatase 57 Troponin I < 0.02 Total Protein 7.1 Albumin 3.9 ASSESSMENT/PLAN: 68 year old male with past medical history significant for IDDM(has insulin pump ),hypertension, hyperlipidemia, depression, anxiety, orthostatic hypotension, and known heart murmur who presented with fatigue and generalized weakness for the past 5 days. He reported worsening bilateral hand tremors and deteriorating mental status over the past month, worst last night with incoherance. #1 Altered Mental Status/ Weakness /Bilateral Hand Tremors secondary to possible Serotonin Syndrome CT scan of head negative for hemorrhage/ infarct. Hold escitalopram, bupropion and benztropine -Neuro checks q6hr -Neurology consulted- Dr. Gomez -Check thyroid profile and vitamin B12 #2 IDDM Accucheks before meals and at bedtime Novolin insulin as per sliding scale Check [id number] Endocrinology - Dr. Fan consulted to discontinue insulin pump #3 Hypertension SBP 150's Continue with quinapril #4 Hyperlipidemia Continue with statin therapy (LFT's normal) DVT SCD's Will hold on giving lovenox until cleared by Neuro FEN low sodium diet monitor electroytes daily Visit type - Emergency Visit Emergency Visit: Yes ED Registration Date: 06/25/19 Care time: The patient presented to the Emergency Department on the above date and was hospitalized for further evaluation of their emergent condition. - New Patient This patient is new to me today: Yes Date on this admission: 06/25/19 - Critical Care Critical Care patient: No
[2019-06-25] MEDS: ATORVASTATIN CA 10 MG TABLET (FP) PO SCH (21:12)
[2019-06-25] MEDS: INSULIN SLIDING SCALE (NOVOLOG) 1 VIAL SQ SCH (21:12)
[2019-06-25] MEDS ORDERED: INSULIN SLIDING SCALE (NOVOLOG) 1 VIAL SQ SCH (22:00)
[2019-06-25 23:23] LABS: URINE APPEARANCE CLEAR; URINE BILIRUBIN NEGATIVE (NEGATIVE); URINE COLOR YELLOW; URINE GLUCOSE (UA) TRACE (NEGATIVE); URINE KETONE NEGATIVE (NEGATIVE); URINE LEUK ESTERASE NEGATIVE (NEGATIVE); URINE NITRITE NEGATIVE (NEGATIVE); URINE PROTEIN NEGATIVE (NEGATIVE); URINE UROBILINOGEN 0.2 mg/dL (0.2-1.0)
[2019-06-26 02:46] VITALS: BMI 31.6
[2019-06-26] MEDS: INSULIN SLIDING SCALE (NOVOLOG) 1 VIAL SQ SCH ×4 (06:05→21:28)
--- NOTE | 2019-06-26 07:33 | PN ---
Progress Note, Physician Chief Complaint: 68 y.o M with T1DM was admitted to [facility] for 6 days confusion, tremors and worsening gait instability.. History of Present Illness: [id number] INSULIN PUMP WITH 1.6 UNITS/HR BASAL RATE AND 8-12 UNITS BOLUSES DURING MEALS. HIS A1C WAS 6.8 LAST TIME. THYROID NODULES. AUTONOMIC DYSFUNCTION, EPISODES OF ORTHOSTATIC HYPOTENSION, POLYNEUROPATHY, UNSTABLE GAIT. ASHD-FOLLOW BY DR YADAV. HTN. CONSTIPATION, EPISODES OF IMPACTION , FOLLOWED BY DR GORDON. MAJOR DEPRESSION-PREVIOUSLY ON ABILIFY, NOW ON CYTALOPRAM. BPH ON TAMSULOSIN - Current Medication List Current Medications: Active Medications Atorvastatin Calcium (Lipitor -) 10 mg PO HS RONNY Last Admin: 06/25/19 21:12 Dose: 10 mg Cholecalciferol (Vitamin D3 -) 1,000 unit PO DAILY [facility] Cyanocobalamin (Vitamin B12 -) 2,000 mcg PO DAILY [facility] Insulin Aspart (Novolog Vial Sliding Scale -) 1 vial SQ ACHS [facility]; Protocol Last Admin: 06/26/19 06:05 Dose: Not Given Insulin Detemir (Levemir Vial) 15 units SQ BID [facility] Polyethylene Glycol (Miralax (For Daily Use) -) 17 gm PO DAILY [facility] Quinapril HCl (Accupril -) 5 mg PO DAILY [facility] - Objective Vital Signs: Vital Signs Temperature 98 F 06/26/19 06:00 Pulse Rate 75 06/26/19 06:00 Respiratory Rate 18 06/26/19 06:00 Blood Pressure 151/76 06/26/19 06:00 O2 Sat by Pulse Oximetry (%) 96 06/25/19 20:26 Constitutional: Yes: Anxious, Mild Distress Eyes: Yes: Conjunctiva Clear, EOM Intact HENT: Yes: Atraumatic, Normocephalic Neck: Yes: Supple, Trachea Midline Cardiovascular: Yes: Regular Rate and Rhythm, Murmur (3-4/6 lsb AND AORTA). No : Bradycardia, Tachycardia Respiratory: Yes: Regular, CTA Bilaterally Gastrointestinal: Yes: Normal Bowel Sounds, Soft. No: Abdomen, Obese, Ascites, Palpable Mass Genitourinary: No: Anuria, Bladder Distention, CVA Tenderness - Left Breast(s): Yes: WNL Musculoskeletal: Yes: Joint Stiffness. No: Joint Swelling Extremities: No: Calf Tenderness, Cold, Cyanosis Peripheral Pulses WNL: No Integumentary: Yes: Pressure Ulcer (RIGHT FOOT-DRY UNDER 1ST METATARSAL HEAD) Neurological: Yes: Alert, Oriented (X1-2), Asterixis, Ataxia, Confusion, Tremors , Unsteady Gait. No: Aphasia, Dysarthria, Facial Droop, Lethargy, Seizure, Unresponsive Psychiatric: Yes: Alert, Oriented (X1). No: Agitated, Suicidal Ideation Labs: CBC, BMP 06/25/19 14:15 06/25/19 14:15 - ....Imaging Chest X-ray: Report Reviewed Cat Scan: Report Reviewed Problem List - Problems (1) Confusion and disorientation Assessment/Plan: ct-NEGATIVE. MRI BRAIN-P NEUROLOGY CONSULT Code(s): R41.0 - DISORIENTATION, UNSPECIFIED (2) Tremor due to disorder of central nervous system Assessment/Plan: DIFF DIAGNOSIS INCLUDES pARKINSONISM, TOXIX-METABOLIC ENCEPHALOPATHY JUSTINE EFFECTS. DR HINES CONSULT-PENDING. Code(s): R25.1 - TREMOR, UNSPECIFIED; G96.9 - DISORDER OF CENTRAL NERVOUS SYSTEM , UNSPECIFIED (3) Diabetes 1.5, managed as type 1 Assessment/Plan: lEVEMIR bid AND SLIDING SCALE ENDOCRINOLOGY CONSULT WITH SWITCH TO PUMP OUTPATIENT Problems reviewed: Yes Code(s): E13.9 - OTHER SPECIFIED DIABETES MELLITUS WITHOUT COMPLICATIONS (4) ASHD (arteriosclerotic heart disease) Assessment/Plan: ekg NOTED echo RE VALVULAR LESION, MURMUR Problems reviewed: Yes Code(s): I25.10 - ATHSCL HEART DISEASE OF [place] CORONARY ARTERY W/O ANG PCTRS (5) Disequilibrium syndrome Assessment/Plan: sTART pt nEUROLOGY EVAL. Problems reviewed: Yes Code(s): E87.8 - OTH DISORDERS OF ELECTROLYTE AND FLUID BALANCE, NEC
[2019-06-26] MEDS ORDERED: INSULIN (LEVEMIR) 100 UNITS/ML UNITS SQ SCH (08:30)
[2019-06-26 08:37] LABS: HEMATOCRIT 41.2 % (35.4-49); MCH 30.6 pg (25.7-33.7); MEAN CELL VOLUME 90.2 fl (80-96); MEAN PLT VOLUME 7.9 fl (7.5-11.1); PLATELET COUNT 170 K/MM3 (134-434); RBC 4.57 M/mm3 (4.00-5.60); RDW 13.1 % (11.9-15.9); WHITE BLOOD COUNT 8.4 K/mm3 (4.0-10.0)
[2019-06-26] MEDS ORDERED: PT OWN MED DRAWER 7, Y5N ONE (09:30)
[2019-06-26 09:31] LABS: BLOOD UREA NITROGEN 16.8 mg/dL (7-18); CALCIUM 8.8 mg/dL (8.5-10.1); MAGNESIUM 2.3 mg/dL (1.8-2.4); POTASSIUM 3.9 mmol/L (3.5-5.1)
[2019-06-26] MEDS: CHOLECALCIFEROL (VIT D3) 1,000 UNIT (25 MCG) TABLET PO SCH (09:40)
[2019-06-26] MEDS: CYANOCOBALAMIN 1,000 MCG TABLET (FP) PO SCH (09:40)
[2019-06-26] MEDS: POLYETHYLENE GLYCOL 3350 119 GM BTL PO SCH (09:41)
[2019-06-26] MEDS: QUINAPRIL HCL 5 MG TABLET (FP) PO SCH (10:35)
--- NOTE | 2019-06-26 11:23 | CON.NEURO ---
Consult - History of Present Illness History of Present Illness: 68 year old male with past medical history significant for IDDM(has insulin pump),hypertension, hyperlipidemia, depression, anxiety, orthostatic hypotension , and known heart murmur who presents with fatigue and generalized weakness over the past 5 days. He reports that he stood up quickly yesterday, felt dizzy and fell. He denied loss of consciousness. Son reports he has worsening bilateral hand tremors and deteriorating mental status over the past month, worst last night with incoherane. He denies chest pain, shortness of breath, fevers/chills, anorexia, or headache. He endorses bilateral hand tremors, generalized fatigue and weakness.recent psych RX were adjusted few weeks back by DR HINES. a1c 6.8, TSH NL, B12 WNL CT HD (-) - Alcohol/Substance Use Hx Alcohol Use: No - Smoking History Smoking history: Never smoked Have you smoked in the past 12 months: No If you are a former smoker, when did you quit?: 1973 Home Medications - Allergies Allergies/Adverse Reactions: Allergies Allergy/AdvReac Type Severity Reaction Status Date / Time Penicillins Allergy Severe Verified 06/25/19 12:16 ampicillin sodium AdvReac Verified 06/25/19 12:16 [From Unasyn] sulbactam sodium AdvReac Verified 06/25/19 12:16 [From Unasyn] - Home Medications Home Medications: Ambulatory Orders Cholecalciferol (Vitamin D3) [Vitamin D3] 1,000 unit PO DAILY 01/10/15 Cyanocobalamin [Vitamin B12 -] 2,000 mcg PO DAILY 01/10/15 Quinapril HCl [Accupril -] 5 mg PO DAILY 01/10/15 Simvastatin 10 mg PO DAILY 01/10/15 Insulin Pump Controller [Snap Insulin Pump Controller] 1 each MC DAILY 10/01/15 Insulin (LOG) Aspart [NovoLOG -] 0 unit SQ DAILY 02/10/18 Polyethylene Glycol 3350 [Miralax (For Bowel Prep) -] 17 gm PO DAILY #1 bottle 11/30/18 Benztropine Mesylate 1 mg PO DAILY 06/25/19 Diaplex 2 cap PO TIDCM 06/25/19 Escitalopram Oxalate [Lexapro -] 20 mg PO DAILY 06/25/19 Physical Exam-Neuro Vital Signs: Vital Signs Temperature 98.4 F 06/26/19 10:00 Pulse Rate 98 H 06/26/19 10:00 Respiratory Rate 18 06/26/19 10:00 Blood Pressure 161/100 06/26/19 10:00 O2 Sat by Pulse Oximetry (%) 96 06/25/19 20:26 Labs: CBC, BMP 06/26/19 07:00 06/26/19 07:00 - Neuro Exam Level Of Consciousness: Yes: Alert (awake, conversive, EOMI, mild tremor- positional, no cogwheeling, occ multifocal myoclonus ) Assessment/Plan 68 year old male with past medical history significant for IDDM(has insulin pump),hypertension, hyperlipidemia, depression, anxiety, orthostatic hypotension , and known heart murmur who presents with fatigue and generalized weakness over the past 5 days. He reports that he stood up quickly yesterday, felt dizzy and fell. He denied loss of consciousness. Son reports he has worsening bilateral hand tremors and deteriorating mental status over the past month, worst last night with incoherane. He denies chest pain, shortness of breath, fevers/chills, anorexia, or headache. He endorses bilateral hand tremors, generalized fatigue and weakness. a1c 6.8, TSH NL, B12 WNL CT HD (-) AP : tremor and occ myoclonus suspcious for metabolic /toxic effect -- ? RX induced superimposed depression , MRI BRAIN prelim -- mild to mod white matter changes , [facility] official possibility of LBD/ atypical PD -- will consider add on RX for this will consider CAMILLE scan as outpt will reassess status in AM , hopefully will imporve as RX clear DR VELEZ
--- NOTE | 2019-06-26 13:16 | CONSULT ---
Consultation: REQUESTING PROVIDER: Dr. Ro CONSULT REQUEST: We have been asked to medically evaluate this patient for Insulin management while inpatient. HISTORY OF PRESENT ILLNESS: This is a 68 y/o M with a PMH of IDDM (on insulin pump),hypertension, hyperlipidemia, depression, anxiety, orthostatic hypotension , and known heart murmur who presents with chronic fatigue and generalized weakness, associated with b/l intention hand tremor that have acutely worsened over the past few days. Pt presented to [facility] ED yesterday after falling a few days prior while he was exiting his car. He denies LOC, but admits to hitting his head. Denies any weakness in his legs at that time, moreso due to loss of balance. Pt had eaten a sandwich just prior to this event. He then walked into his house where he proceeded to fall again, in which he laid down and it improved. Pt is able to maintain blood sugars roughly around 80-140 with the medtronic insulin pump. Denies any polyuria, polydipsia, polyphagia, cp, sob. Pt admits to having recent worsening in his memory and ability to perform activities of daily living. REVIEW OF SYSTEMS: Negative except in HPI PHYSICAL EXAMINATION Vital Signs - 24 hr 06/25/19 06/25/19 06/25/19 18:00 19:10 19:53 Temperature 98.2 F 98.5 F Pulse Rate 68 Pulse Rate [ 64 71 Radial] Respiratory 18 16 18 Rate Blood Pressure 135/62 Blood Pressure 159/77 146/93 [Right Arm] O2 Sat by Pulse 95 96 Oximetry (%) 06/25/19 06/26/19 06/26/19 20:26 02:33 06:00 Temperature 97.2 F L 98 F Pulse Rate 61 75 Pulse Rate [ Radial] Respiratory 18 18 Rate Blood Pressure 144/74 151/76 Blood Pressure [Right Arm] O2 Sat by Pulse 96 Oximetry (%) 06/26/19 10:00 Temperature 98.4 F Pulse Rate 98 H Pulse Rate [ Radial] Respiratory 18 Rate Blood Pressure 161/100 Blood Pressure [Right Arm] O2 Sat by Pulse Oximetry (%) GENERAL: Awake, alert, and fully oriented, in no acute distress. HEAD: Normal with no signs of trauma. NECK: Normal range of motion, no thyromegaly, did not appreciate any thyroid nodules on exam LUNGS: Breath sounds equal, clear to auscultation bilaterally. No wheezes, and no crackles. No accessory muscle use. HEART: Regular rate and rhythm, normal S1 and S2 without murmur, rub or gallop. ABDOMEN: Soft, nontender, not distended, normoactive bowel sounds, no guarding, no rebound, no masses. MUSCULOSKELETAL: Normal range of motion at all joints. No bony deformities or tenderness. No CVA tenderness. UPPER EXTREMITIES: 2+ pulses, warm, well-perfused. No cyanosis. No clubbing. bruising on Left hand LOWER EXTREMITIES: 2+ pulses, warm, well-perfused. No calf tenderness. No peripheral edema. Bruising on LLE. NEUROLOGICAL: sensation intact b/l, 5/5 strength of upper and lower extremities b/l. Negative romberg test, finger to nose test negative. PSYCHIATRIC: Cooperative. Good eye contact. Appropriate mood and affect. Memory slightly declined SKIN: Warm, dry, some bruising on left hand and LLE s/p falls. Laboratory Results - last 24 hr 06/25/19 06/25/19 06/25/19 14:15 14:15 14:15 WBC 8.3 RBC 4.71 Hgb 14.5 Hct 42.2 MCV 89.5 MCH 30.8 MCHC 34.4 RDW 13.5 Plt Count 182 MPV 7.8 Absolute Neuts (auto) 6.2 Neutrophils % 74.4 Lymphocytes % 16.9 D Monocytes % 6.9 Eosinophils % 1.4 D Basophils % 0.4 Nucleated RBC % 0 Sodium 140 Potassium 4.1 Chloride 106 Carbon Dioxide 27 Anion Gap 6 L BUN 21.5 H Creatinine 1.1 Est GFR (CKD-EPI)AfAm 78.97 Est GFR (CKD-EPI)NonAf 68.13 POC Glucometer Random Glucose 106 Hemoglobin A1c % 6.8 H Calcium 8.8 Phosphorus 3.4 Magnesium 2.4 Total Bilirubin 0.5 AST 24 ALT 22 Alkaline Phosphatase 57 Creatine Kinase Creatine Kinase Index CK-MB (CK-2) Troponin I < 0.02 C-Reactive Protein Total Protein 7.1 Albumin 3.9 Vitamin B12 TSH Resin T3 Uptake Urine Color Urine Appearance Urine pH Ur Specific [place] Urine Protein Urine Glucose (UA) Urine Ketones Urine Blood Urine Nitrite Urine Bilirubin Urine Urobilinogen Ur Leukocyte Esterase 06/25/19 06/25/19 06/25/19 21:10 22:00 23:05 WBC RBC Hgb Hct MCV MCH MCHC RDW Plt Count MPV Absolute Neuts (auto) Neutrophils % Lymphocytes % Monocytes % Eosinophils % Basophils % Nucleated RBC % Sodium Potassium Chloride Carbon Dioxide Anion Gap BUN Creatinine Est GFR (CKD-EPI)AfAm Est GFR (CKD-EPI)NonAf POC Glucometer 160 Random Glucose Hemoglobin A1c % Calcium Phosphorus Magnesium Total Bilirubin AST ALT Alkaline Phosphatase Creatine Kinase 212 Creatine Kinase Index 0.8 CK-MB (CK-2) 1.8 Troponin I C-Reactive Protein Total Protein Albumin Vitamin B12 TSH Resin T3 Uptake Urine Color Yellow Urine Appearance Clear Urine pH 6.0 Ur Specific [place] 1.010 Urine Protein Negative Urine Glucose (UA) Trace Urine Ketones Negative Urine Blood Negative Urine Nitrite Negative Urine Bilirubin Negative Urine Urobilinogen 0.2 Ur Leukocyte Esterase Negative 06/26/19 06/26/19 06/26/19 05:37 07:00 07:00 WBC 8.4 RBC 4.57 Hgb 14.0 Hct 41.2 MCV 90.2 MCH 30.6 MCHC 34.0 RDW 13.1 Plt Count 170 MPV 7.9 Absolute Neuts (auto) Neutrophils % Lymphocytes % Monocytes % Eosinophils % Basophils % Nucleated RBC % Sodium 139 Potassium 3.9 Chloride 103 Carbon Dioxide 26 Anion Gap 9 BUN 16.8 Creatinine 1.0 Est GFR (CKD-EPI)AfAm 88.61 Est GFR (CKD-EPI)NonAf 76.45 POC Glucometer 103 Random Glucose 118 H Hemoglobin A1c % Calcium 8.8 Phosphorus Magnesium 2.3 Total Bilirubin AST ALT Alkaline Phosphatase Creatine Kinase Creatine Kinase Index CK-MB (CK-2) Troponin I C-Reactive Protein 1.6 H Total Protein Albumin Vitamin B12 472 TSH 0.79 Resin T3 Uptake 38.1 Urine Color Urine Appearance Urine pH Ur Specific [place] Urine Protein Urine Glucose (UA) Urine Ketones Urine Blood Urine Nitrite Urine Bilirubin Urine Urobilinogen Ur Leukocyte Esterase 06/26/19 06/26/19 09:37 11:46 WBC RBC Hgb Hct MCV MCH MCHC RDW Plt Count MPV Absolute Neuts (auto) Neutrophils % Lymphocytes % Monocytes % Eosinophils % Basophils % Nucleated RBC % Sodium Potassium Chloride Carbon Dioxide Anion Gap BUN Creatinine Est GFR (CKD-EPI)AfAm Est GFR (CKD-EPI)NonAf POC Glucometer 165 242 Random Glucose Hemoglobin A1c % Calcium Phosphorus Magnesium Total Bilirubin AST ALT Alkaline Phosphatase Creatine Kinase Creatine Kinase Index CK-MB (CK-2) Troponin I C-Reactive Protein Total Protein Albumin Vitamin B12 TSH Resin T3 Uptake Urine Color Urine Appearance Urine pH Ur Specific [place] Urine Protein Urine Glucose (UA) Urine Ketones Urine Blood Urine Nitrite Urine Bilirubin Urine Urobilinogen Ur Leukocyte Esterase Active Medications Generic Name Dose Route Start Last Admin Trade Name Chava PRN Reason Stop Dose Admin Atorvastatin Calcium 10 mg 06/25/19 22:00 06/25/19 21:12 Lipitor - PO 10 mg HS RONNY Administration Cholecalciferol 1,000 unit 06/26/19 10:00 06/26/19 09:40 Vitamin D3 - PO 1,000 unit DAILY RONNY Administration Cyanocobalamin 2,000 mcg 06/26/19 10:00 06/26/19 09:40 Vitamin B12 - PO 2,000 mcg DAILY RONNY Administration Insulin Aspart 1 vial 06/25/19 22:00 06/26/19 11:49 Novolog Vial Sliding Scale - SQ 2 units ACHS RONNY Administration Protocol Insulin Detemir 15 units 06/26/19 08:30 06/26/19 09:39 Levemir Vial SQ 15 units BID@0700,2200 RONNY Administration Polyethylene Glycol 17 gm 06/26/19 10:00 06/26/19 09:41 Miralax (For Daily Use) - PO 17 grams DAILY RONNY Administration Quinapril HCl 5 mg 06/26/19 10:00 06/26/19 10:35 Accupril - PO 5 mg DAILY RONNY Administration ASSESSMENT/PLAN: This is a 68 y/o M with a PMH of IDDM (on insulin pump),hypertension, hyperlipidemia, depression, anxiety, orthostatic hypotension, and known heart murmur who presents with chronic fatigue and generalized weakness, associated with b/l intention hand tremor that have acutely worsened over the past few days. The reason for consultation is due to insulin management while patient is inpatient. Endocrine ->TIDM/Hx of thyroid nodules - A1C: 6.8 06/25/19 - Pt maintaining HbA1C <7 - you may discontinue insulin sliding scale -can calculate the basal rate: 0.01->0.015 U/kg basal rate/hr giving you 1.8U/ hr however pt's glycemic control has been adequate at 1.6 so will not adjust acutely. - Can resume insulin pump regimen of 1.6U/hr basal rate and 8-12U boluses during meals. - ? Thyroid nodules unclear history provided by pt regarding this. - Last US 3 yrs ago per patient - would recommend TSH and follow up as o/p Dispo: We will continue to follow the patient. Thank you for this consultative opportunity. ATTENDING PHYSICIAN STATEMENT I saw and evaluated the patient. I reviewed the resident's note and discussed the case with the resident. I agree with the resident's findings and plan as documented. SUBJECTIVE: OBJECTIVE: ASSESSMENT AND PLAN:
--- NOTE | 2019-06-26 13:35 | ECHO ---
Name: RAUL CHENEY Exam:Adult Echocardiogram Study Date: 06/26/2019 08:36 AM Age: 68 yrs Reason For Study: CHF Height: 65 in Weight: 267 lb BSA: 2.2 m2 MMode/2D Measurements & Calculations IVSd: 0.79 cm Ao root diam: 2.8 cm LVIDd: 4.5 cm LA dimension: 3.7 cm LVIDs: 3.2 cm LVPWd: 0.81 cm EDV(Teich): 94.3 ml LVOT diam: 2.1 cm ESV(Teich): 40.5 ml Doppler Measurements & Calculations MV E max parish: 67.6 cm/sec Ao V2 max: 302.6 cm/sec MV A max parish: 87.4 cm/sec Ao max P.7 mmHg MV E/A: 0.77 Ao V2 mean: 195.0 cm/sec MV dec time: 0.18 sec Ao mean P.8 mmHg Ao V2 VTI: 51.8 cm FARHAN(I,D): 1.5 cm2 FARHAN(V,D): 1.2 cm2 LV V1 max P.3 mmHg SV(LVOT): 76.3 ml LV V1 mean P.4 mmHg LV V1 max: 103.3 cm/sec LV V1 mean: 72.4 cm/sec LV V1 VTI: 21.4 cm TR max parish: 201.2 cm/sec Med Peak E' Parish: 6.6 cm/sec TR max P.2 mmHg Med E/e': 10.2 Procedure A complete two-dimensional transthoracic echocardiogram was performed (2D, M-mode, Doppler and color flow Doppler). Technically limited study. Left Ventricle The left ventricle is normal in size. Left ventricular systolic function is normal. Ejection Fraction = 55- 60%. Grade I diastolic dysfunction, (abnormal relaxation pattern). Ratio E/E'= 10. No regional wall m otion abnormalities noted. Right Ventricle The right ventricle is normal size. The right ventricular systolic function is normal. RV systolic TD I is 19 cm/s. Atria The left atrial size is normal. Right atrial size is normal. Mitral Valve The mitral valve is normal in structure and function. There is no mitral regurgitation noted. Tricuspid Valve The tricuspid valve is normal in structure and function. There is mild tricuspid regurgitation. Aortic Valve There is mild to moderate aortic valve thickening. Mild to moderate valvular aortic stenosis. The dagoberto culated aortic valve area using the continuity equation is 1.2 cm2. Aortic max pressure gradient= 18 mmHg. DI (dimensionless index) is 0.36. No aortic regurgitation is present. Pulmonic Valve The pulmonic valve is not well visualized. Great Vessels The aortic root is normal size. Pericardium/Pleura There is no pericardial effusion. Interpretation Summary The left ventricle is normal in size. Left ventricular systolic function is normal. No regional wall motion abnormalities noted. Ejection Fraction = 55-60%. Grade I diastolic dysfunction, (abnormal relaxation pattern). Ratio E/E'= 10 The right ventricular systolic function is normal. The left atrial size is normal. Right atrial size is normal. There is mild tricuspid regurgitation. There is mild to moderate aortic valve thickening. Mild to moderate valvular aortic stenosis. The calculated aortic valve area using the continuity equation is 1.2 cm2. Aortic max pressure gradient= 18 mmHg DI (dimensionless index) is 0.36 No aortic regurgitation is present. There is no pericardial effusion. Previous study is not available for comparison Bello Álvarez MD 06/26/2019 01:34 PM
--- NOTE | 2019-06-26 15:57 | EKG ---
Test Reason : Blood Pressure : / mmHG Vent. Rate : 067 BPM Atrial Rate : 067 BPM P-R Int : 190 ms QRS Dur : 080 ms QT Int : 394 ms P-R-T Axes : 075 008 041 degrees QTc Int : 416 ms NORMAL SINUS RHYTHM POSSIBLE ANTERIOR INFARCT (CITED ON OR BEFORE 15-SEP-2016) ABNORMAL ECG WHEN COMPARED WITH ECG OF 10-FEB-2018 11:28, NO SIGNIFICANT CHANGE WAS FOUND Confirmed by FREDERICK ROY, ORAL ([id number]) on 06/26/2019 3:56:58 PM Referred By: Confirmed By:ORAL MACK MD
[2019-06-26] MEDS ORDERED: INSULIN (NOVOLOG) ASPART 100 UNITS/ML 10ML VIAL ONE (21:22)
[2019-06-26] MEDS: ATORVASTATIN CA 10 MG TABLET (FP) PO SCH (21:28)
[2019-06-27] MEDS: INSULIN SLIDING SCALE (NOVOLOG) 1 VIAL SQ SCH ×4 (06:48→21:10)
[2019-06-27] MEDS ORDERED: INSULIN (LEVEMIR) 100 UNITS/ML UNITS SQ ONE (09:12)
[2019-06-27] MEDS ORDERED: INSULIN (NOVOLOG) ASPART 100 UNITS/ML 10ML VIAL ONE (09:12)
[2019-06-27] MEDS ORDERED: PT OWN MED DRAWER 7, Y5N ONE (09:13)
[2019-06-27] MEDS: INSULIN (LEVEMIR) 100 UNITS/ML UNITS SQ SCH ×2 (09:45→21:10)
[2019-06-27] MEDS: CYANOCOBALAMIN 1,000 MCG TABLET (FP) PO SCH (09:47)
[2019-06-27] MEDS: QUINAPRIL HCL 5 MG TABLET (FP) PO SCH (09:48)
[2019-06-27] MEDS: CHOLECALCIFEROL (VIT D3) 1,000 UNIT (25 MCG) TABLET PO SCH (09:48)
[2019-06-27] MEDS: POLYETHYLENE GLYCOL 3350 119 GM BTL PO SCH (09:52)
[2019-06-27 10:55] LABS: BASO % 0.3 % (0-2.0); EOS % 1.6 % (0-4.5); HEMATOCRIT 43.4 % (35.4-49); HEMOGLOBIN 14.6 GM/dL (11.7-16.9); MCH 30.2 pg (25.7-33.7); MCHC 33.6 g/dl (32.0-35.9); MEAN CELL VOLUME 89.8 fl (80-96); MONO % 6.1 % (3.8-10.2); PLATELET COUNT 193 K/MM3 (134-434); RBC 4.84 M/mm3 (4.00-5.60); RDW 13.2 % (11.9-15.9)
[2019-06-27 11:25] LABS: ALBUMIN 3.8 g/dl (3.4-5.0); BILIRUBIN,TOTAL 0.7 mg/dL (0.2-1); BLOOD UREA NITROGEN 21.3 mg/dL (7-18); CALCIUM 8.8 mg/dL (8.5-10.1); CREATININE 1.2 mg/dL (0.55-1.3); POTASSIUM 4.2 mmol/L (3.5-5.1); TOT PROT 7.3 g/dl (6.4-8.2)
[2019-06-27 11:44] LABS: ERYTHROCYTE SEDIMENTATION RATE 6 mm/hr (0-20)
--- NOTE | 2019-06-27 13:00 | PN ---
Progress Note, Physician Chief Complaint: More confused and tremulous today. The daughter at the bedside. History of Present Illness: [id number] INSULIN PUMP WITH 1.6 UNITS/HR BASAL RATE AND 8-12 UNITS BOLUSES DURING MEALS. HIS A1C WAS 6.8 LAST TIME. THYROID NODULES. AUTONOMIC DYSFUNCTION, EPISODES OF ORTHOSTATIC HYPOTENSION, POLYNEUROPATHY, UNSTABLE GAIT. ASHD-FOLLOW BY DR YADAV. HTN. CONSTIPATION, EPISODES OF IMPACTION , FOLLOWED BY DR GORDON. MAJOR DEPRESSION-PREVIOUSLY ON ABILIFY, NOW ON CYTALOPRAM. BPH ON TAMSULOSIN - Current Medication List Current Medications: Active Medications Atorvastatin Calcium (Lipitor -) 10 mg PO HS [facility] Last Admin: 06/26/19 21:28 Dose: 10 mg Cholecalciferol (Vitamin D3 -) 1,000 unit PO DAILY [facility] Last Admin: 06/27/19 09:48 Dose: 1,000 unit Cyanocobalamin (Vitamin B12 -) 2,000 mcg PO DAILY [facility] Last Admin: 06/27/19 09:47 Dose: 2,000 mcg Insulin Aspart (Novolog Vial Sliding Scale -) 1 vial SQ [facility]; Protocol Last Admin: 06/27/19 11:58 Dose: 5 units Insulin Detemir (Levemir Vial) 15 units SQ BID@0700,2200 [facility] Last Admin: 06/27/19 09:45 Dose: 15 units Polyethylene Glycol (Miralax (For Daily Use) -) 17 gm PO DAILY [facility] Last Admin: 06/27/19 09:52 Dose: 17 grams Quinapril HCl (Accupril -) 5 mg PO DAILY [facility] Last Admin: 06/27/19 09:48 Dose: 5 mg - Objective Vital Signs: Vital Signs Temperature 97.4 F L 06/27/19 07:50 Pulse Rate 96 H 06/27/19 07:50 Respiratory Rate 20 06/27/19 07:50 Blood Pressure 144/79 06/27/19 07:50 O2 Sat by Pulse Oximetry (%) 94 L 06/26/19 21:00 Constitutional: Yes: Anxious, Moderate Distress, Other (perspiring.) Eyes: Yes: Conjunctiva Clear, EOM Intact HENT: Yes: Atraumatic, Normocephalic Neck: Yes: Supple, Trachea Midline Cardiovascular: Yes: Regular Rate and Rhythm, Murmur (FAVIOLA-Mild to moderate on ECHO), S1, S2. No: Bradycardia, Tachycardia Respiratory: Yes: Regular, CTA Bilaterally. No: Accessory Muscle Use Gastrointestinal: Yes: Normal Bowel Sounds, Soft ...Rectal Exam: Yes: Deferred Genitourinary: No: Anuria, Bladder Distention Breast(s): Yes: WNL Musculoskeletal: No: Back Pain, Joint Stiffness Extremities: No: Calf Tenderness, Cold, Cyanosis Edema: No Neurological: Yes: Alert, Oriented (x1-2) Psychiatric: Yes: Alert, Agitated. No: Oriented, Suicidal Ideation Labs: CBC, BMP 06/27/19 09:55 06/27/19 09:55 - ....Imaging Other: Report Reviewed (MRI noted ECHO noted) Problem List - Problems (1) Confusion and disorientation Assessment/Plan: CT-NEGATIVE. MRI AHMMD-qephs-zhdqihyh changes. NEUROLOGY CONSULT-noted Worsening tremors/diaphorrhesis-recent D/C SRI? Code(s): R41.0 - DISORIENTATION, UNSPECIFIED (2) Tremor due to disorder of central nervous system Assessment/Plan: DIFF DIAGNOSIS INCLUDES atypical pARKINSONISM, TOXIX-METABOLIC ENCEPHALOPATHY DRUG EFFECTS-all antidepressants d/c. DGulati consult noted. Code(s): R25.1 - TREMOR, UNSPECIFIED; G96.9 - DISORDER OF CENTRAL NERVOUS SYSTEM , UNSPECIFIED (3) Diabetes 1.5, managed as type 1 Assessment/Plan: lEVEMIR bid AND SLIDING SCALE-as suggested by Dr Fan. ENDOCRINOLOGY CONSULT f/u Code(s): E13.9 - OTHER SPECIFIED DIABETES MELLITUS WITHOUT COMPLICATIONS (4) ASHD (arteriosclerotic heart disease) Assessment/Plan: ekg NOTED echo RE VALVULAR LESION, MURMUR Code(s): I25.10 - ATHSCL HEART DISEASE OF [place] CORONARY ARTERY W/O ANG PCTRS (5) Disequilibrium syndrome Assessment/Plan: sTART pt nEUROLOGY EVAL. Code(s): E87.8 - OTH DISORDERS OF ELECTROLYTE AND FLUID BALANCE, NEC
--- NOTE | 2019-06-27 16:52 | PN ---
Progress Note (short form) - Note Progress Note: Pt. being rx. by myself x 1 year for depression, was on Abilify 10mg hs and Citalopram 30mg daily until last [id number] was doing well), a month ago developed a parkinsonian tremor in right hand, Abilify was d/kurt, i saw him last week Wednesday when he again had tremor and mild bradykinesia and was palced on sinemet 25/100, 1 tid to see if he had PD. He looked depressed but was not encephalopathic. Now admitted with encephalopathy/agitation. He has been disoriente and as per daughter mildly paranoid. Exam: Awake, alert, agitated, oriented to place/person only. Inattentive, no aphasia Motor- No bradykinesia at all, is able to propel self up from chair+RUE resting and postural tremor, no cogwheeling+ bilat UE myoclonic jerking. Sensory-intact touch/pin Coord-nl Gait- nl MRI brain yesterday reported with microangiopathic isch. changes A/P: Pt. is encephaliopathic given disorientation, myoclonic jerks. ?? underlying cause, there is some element of withdrawl from [id number] had been on it x 1 year, Suggest: restart Citalopram 20mg daily, cont. Sinemet 25/100, 1 tid. this change in MS is sudden, doubt underlying dementia.
[2019-06-27] MEDS: CITALOPRAM HYDROBROMIDE 20 MG TABLET (FP) PO SCH (18:23)
[2019-06-27] MEDS: ATORVASTATIN CA 10 MG TABLET (FP) PO SCH (21:03)
[2019-06-27] MEDS: ARIPiprazole 2 MG TABLET PO PRN (21:03)
[2019-06-28] MEDS ORDERED: LORazepam 2 MG/ML SDV VIAL IM ONE ×2 (02:42→18:59)
[2019-06-28] MEDS ORDERED: LORazepam 2 MG/ML SDV VIAL ONE (02:51)
[2019-06-28] MEDS: INSULIN (LEVEMIR) 100 UNITS/ML UNITS SQ SCH ×2 (06:56→23:00)
[2019-06-28] MEDS: INSULIN SLIDING SCALE (NOVOLOG) 1 VIAL SQ SCH ×4 (06:57→23:01)
[2019-06-28 07:58] LABS: BASO % 0.3 % (0-2.0); HEMATOCRIT 43.4 % (35.4-49); HEMOGLOBIN 14.7 GM/dL (11.7-16.9); LYMPH % 19.7 % (8-40); MCH 30.3 pg (25.7-33.7); MCHC 33.9 g/dl (32.0-35.9); MEAN CELL VOLUME 89.3 fl (80-96); MEAN PLT VOLUME 7.9 fl (7.5-11.1); MONO % 6.9 % (3.8-10.2); NEUT % 71.1 % (42.8-82.8); PLATELET COUNT 205 K/MM3 (134-434); RBC 4.86 M/mm3 (4.00-5.60); RDW 12.9 % (11.9-15.9); WHITE BLOOD COUNT 8.9 K/mm3 (4.0-10.0)
--- NOTE | 2019-06-28 08:06 | PN ---
Progress Note, Physician Chief Complaint: Agitated and delirious during night. Received 1 mg Lorazepam IM. Now sleeping comfortably in bed. Dr Gomez follow up appreciated. Acute development of the patient's confusion is suggestive of mental status changes due to medication change. When woken up by me today confused, but knows my name, oriented to himself. History of Present Illness: [id number] INSULIN PUMP WITH 1.6 UNITS/HR BASAL RATE AND 8-12 UNITS BOLUSES DURING MEALS. HIS A1C WAS 6.8 LAST TIME. THYROID NODULES. AUTONOMIC DYSFUNCTION, EPISODES OF ORTHOSTATIC HYPOTENSION, POLYNEUROPATHY, UNSTABLE GAIT. ASHD-FOLLOW BY DR YADAV. HTN. CONSTIPATION, EPISODES OF IMPACTION , FOLLOWED BY DR GORDON. MAJOR DEPRESSION-PREVIOUSLY ON ABILIFY, NOW ON CYTALOPRAM. BPH ON TAMSULOSIN - Current Medication List Current Medications: Active Medications Aripiprazole (Abilify) 2 mg PO HS PRN PRN Reason: AGITATION Last Admin: 06/27/19 21:03 Dose: 2 mg Atorvastatin Calcium (Lipitor -) 10 mg PO HS [facility] Last Admin: 06/27/19 21:03 Dose: 10 mg Cholecalciferol (Vitamin D3 -) 1,000 unit PO DAILY [facility] Last Admin: 06/27/19 09:48 Dose: 1,000 unit Citalopram Hydrobromide (Celexa -) 20 mg PO DAILY [facility] Last Admin: 06/27/19 18:23 Dose: 20 mg Cyanocobalamin (Vitamin B12 -) 2,000 mcg PO DAILY [facility] Last Admin: 06/27/19 09:47 Dose: 2,000 mcg Insulin Aspart (Novolog Vial Sliding Scale -) 1 vial SQ [facility]; Protocol Last Admin: 06/28/19 06:57 Dose: 2 units Insulin Detemir (Levemir Vial) 15 units SQ BID@0700,2200 [facility] Last Admin: 06/28/19 06:56 Dose: 15 units Polyethylene Glycol (Miralax (For Daily Use) -) 17 gm PO DAILY [facility] Last Admin: 06/27/19 09:52 Dose: 17 grams Quinapril HCl (Accupril -) 5 mg PO DAILY [facility] Last Admin: 06/27/19 09:48 Dose: 5 mg - Objective Vital Signs: Vital Signs Temperature 99.3 F 06/27/19 21:00 Pulse Rate 74 10/22/19 21:00 Respiratory Rate 18 06/27/19 21:00 Blood Pressure 149/75 06/27/19 21:00 O2 Sat by Pulse Oximetry (%) 94 L 06/27/19 21:00 Constitutional: Yes: Anxious, Moderate Distress Eyes: Yes: Conjunctiva Clear, EOM Intact HENT: Yes: Atraumatic, Normocephalic Neck: Yes: Supple, Trachea Midline Cardiovascular: Yes: Regular Rate and Rhythm, Murmur (of ), S1, S2. No: Bruit , JVD, Rub Respiratory: Yes: Regular, CTA Bilaterally Gastrointestinal: Yes: Normal Bowel Sounds, Soft. No: Abdomen, Obese ...Rectal Exam: Yes: Deferred Genitourinary: No: Anuria, Bladder Distention Breast(s): Yes: WNL Musculoskeletal: No: Muscle Pain Neurological: Yes: Alert, Confusion, Tremors, Other (MYOCLONUS bilaterally). No : Aphasia, Dysarthria, Facial Droop, Unresponsive Psychiatric: Yes: Alert, Oriented (X1), Agitated (occasionally). No: Suicidal Ideation Problem List - Problems (1) Confusion and disorientation Assessment/Plan: Citalopram 20 mg QD and Abilify restarted by psychiatry, Will follow MS Lina[place] for extreme agitation. 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 ENDOCRINOLOGY CONSULT f/u Code(s): E13.9 - OTHER SPECIFIED DIABETES MELLITUS WITHOUT COMPLICATIONS (4) ASHD (arteriosclerotic heart disease) Assessment/Plan: ekg NOTED echo RE VALVULAR LESION, MURMUR Code(s): I25.10 - ATHSCL HEART DISEASE OF [place] CORONARY ARTERY W/O ANG PCTRS (5) Disequilibrium syndrome Assessment/Plan: Continue PT, Rehab. NEUROLOGY F/U Code(s): E87.8 - OTH DISORDERS OF ELECTROLYTE AND FLUID BALANCE, NEC
[2019-06-28 08:19] LABS: ALBUMIN 4.1 g/dl (3.4-5.0); BILIRUBIN,TOTAL 0.8 mg/dL (0.2-1); BLOOD UREA NITROGEN 22.6 mg/dL (7-18); CALCIUM 9.6 mg/dL (8.5-10.1); CREATININE 1.3 mg/dL (0.55-1.3); POTASSIUM 4.1 mmol/L (3.5-5.1); TOT PROT 7.4 g/dl (6.4-8.2)
[2019-06-28] MEDS: CHOLECALCIFEROL (VIT D3) 1,000 UNIT (25 MCG) TABLET PO SCH (11:46)
[2019-06-28] MEDS: POLYETHYLENE GLYCOL 3350 119 GM BTL PO SCH (11:46)
[2019-06-28] MEDS: CYANOCOBALAMIN 1,000 MCG TABLET (FP) PO SCH (11:46)
[2019-06-28] MEDS: CITALOPRAM HYDROBROMIDE 20 MG TABLET (FP) PO SCH (11:46)
[2019-06-28] MEDS: QUINAPRIL HCL 5 MG TABLET (FP) PO SCH (11:47)
[2019-06-28 12:53] LABS: ACTIVATED PTT 28.3 SECONDS (25.2-36.5); INR 1.1 (0.83-1.09)
--- NOTE | 2019-06-28 13:38 | PN ---
Progress Note (short form) - Note Progress Note: 68 year old male with past medical history significant for IDDM(has insulin pump ),hypertension, hyperlipidemia, depression, anxiety, orthostatic hypotension, and known heart murmur who presents with fatigue and generalized weakness over the past 5 days. He reports that he stood up quickly yesterday, felt dizzy and fell. He denied loss of consciousness. Son reports he has worsening bilateral hand tremors and deteriorating mental status over the past month, worst last night with incoherane. He denies chest pain, shortness of breath, fevers/chills , anorexia, or headache. He endorses bilateral hand tremors, generalized fatigue and weakness.recent psych RX were adjusted few weeks back by DR HINES. a1c 6.8, TSH NL, B12 WNL CT HD (-) FU : pt awake, but as per family subacute decline still, still tremulous awith occ myoclonus was able to follow basic request celexa restarted today STUDIES MRI BRAION 06/26, moderate white matetr chnages , also involves CC - Alcohol/Substance Use Hx Alcohol Use: No - Smoking History Smoking history: Never smoked Have you smoked in the past 12 months: No If you are a former smoker, when did you quit?: 1973 Home Medications - Allergies Allergies/Adverse Reactions: Allergies Allergy/AdvReac Type Severity Reaction Status Date / Time Penicillins Allergy Severe Verified 06/25/19 12:16 ampicillin sodium AdvReac Verified 06/25/19 12:16 [From Unasyn] sulbactam sodium AdvReac Verified 06/25/19 12:16 [From Unasyn] - Home Medications Home Medications: Ambulatory Orders Cholecalciferol (Vitamin D3) [Vitamin D3] 1,000 unit PO DAILY 01/10/15 Cyanocobalamin [Vitamin B12 -] 2,000 mcg PO DAILY 01/10/15 Quinapril HCl [Accupril -] 5 mg PO DAILY 01/10/15 Simvastatin 10 mg PO DAILY 01/10/15 Insulin Pump Controller [Snap Insulin Pump Controller] 1 each MC DAILY 10/01/15 Insulin (LOG) Aspart [NovoLOG -] 0 unit SQ DAILY 02/10/18 Polyethylene Glycol 3350 [Miralax (For Bowel Prep) -] 17 gm PO DAILY #1 bottle 11/30/18 Benztropine Mesylate 1 mg PO DAILY 06/25/19 Diaplex 2 cap PO TIDCM 06/25/19 Escitalopram Oxalate [Lexapro -] 20 mg PO DAILY 06/25/19 Physical Exam-Neuro Vital Signs: Vital Signs Temperature 99.3 F 06/27/19 21:00 Pulse Rate 74 06/27/19 21:00 Respiratory Rate 18 06/27/19 21:00 Blood Pressure 149/75 06/27/19 21:00 O2 Sat by Pulse Oximetry (%) 94 L 06/27/19 21:00 CBC, BMP 06/26/19 07:00 06/26/19 07:00 - Neuro Exam Level Of Consciousness: Yes: Alert (awake, conversive, EOMI, mild tremor- positional, no cogwheeling, occ multifocal myoclonus ) Assessment/Plan 68 year old male with past medical history significant for IDDM(has insulin pump),hypertension, hyperlipidemia, depression, anxiety, orthostatic hypotension , and known heart murmur who presents with fatigue and generalized weakness over the past 5 days. He reports that he stood up quickly yesterday, felt dizzy and fell. He denied loss of consciousness. Son reports he has worsening bilateral hand tremors and deteriorating mental status over the past month, worst last night with incoherane. He denies chest pain, shortness of breath, fevers/chills, anorexia, or headache. He endorses bilateral hand tremors, generalized fatigue and weakness. a1c 6.8, TSH NL, B12 WNL CT HD (-) AP : tremor and occ myoclonus suspicious for metabolic /toxic effect -- SSRI SYNDROME ? RX induced vs atypical PD , LBD ?, vs limbic encephalitis ( viral/ paraneoplastic ) superimposed depression , MRI BRAIN -mod white matter changes , ? microangiopathic vs inflammatory / parainfectious restarted Celexa -- as was Dc upon admnission , though Sx began prior to DC , so SSRI SX may not be only issue at play will add low dose BENZO will set up for LP -- and send paraneoplastic ALEXIS spoke to son and PT re these rec DR VELEZ
[2019-06-28] MEDS ORDERED: PT OWN MED DRAWER 7, Y5N ONE ×2 (20:50→22:55)
[2019-06-28] MEDS: ARIPiprazole 2 MG TABLET PO PRN (22:58)
[2019-06-28] MEDS: ATORVASTATIN CA 10 MG TABLET (FP) PO SCH (22:58)
[2019-06-29] MEDS: INSULIN SLIDING SCALE (NOVOLOG) 1 VIAL SQ SCH ×4 (07:07→21:21)
[2019-06-29] MEDS: INSULIN (LEVEMIR) 100 UNITS/ML UNITS SQ SCH ×2 (07:08→21:20)
--- NOTE | 2019-06-29 07:54 | PN ---
Progress Note, Physician Chief Complaint: More calm today though still confused and anxious. Spoke to Dr Gomez last night Saw the patient last night and spoke to pt and son Magnus who was at the bedside. All questiones are answered. Magnus is concerned that Jesika F from Alzheimer's disease resembling his father's symptoms. Pending diagnostic LP discussed. Today mentioned to pt again re LP, pt understands and agrees. History of Present Illness: [id number] INSULIN PUMP WITH 1.6 UNITS/HR BASAL RATE AND 8-12 UNITS BOLUSES DURING MEALS. HIS A1C WAS 6.8 LAST TIME. THYROID NODULES. AUTONOMIC DYSFUNCTION, EPISODES OF ORTHOSTATIC HYPOTENSION, POLYNEUROPATHY, UNSTABLE GAIT. ASHD-FOLLOW BY DR YADAV. HTN. CONSTIPATION, EPISODES OF IMPACTION , FOLLOWED BY DR GORDON. MAJOR DEPRESSION-PREVIOUSLY ON ABILIFY, NOW ON CYTALOPRAM. BPH ON TAMSULOSIN - Current Medication List Current Medications: Active Medications Aripiprazole (Abilify) 2 mg PO HS PRN PRN Reason: AGITATION Last Admin: 06/28/19 22:58 Dose: 2 mg Atorvastatin Calcium (Lipitor -) 10 mg PO HS [facility] Last Admin: 06/28/19 22:58 Dose: 10 mg Cholecalciferol (Vitamin D3 -) 1,000 unit PO DAILY [facility] Last Admin: 06/28/19 11:46 Dose: 1,000 unit Citalopram Hydrobromide (Celexa -) 20 mg PO DAILY [facility] Last Admin: 06/28/19 11:46 Dose: 20 mg Cyanocobalamin (Vitamin B12 -) 2,000 mcg PO DAILY [facility] Last Admin: 06/28/19 11:46 Dose: 2,000 mcg Insulin Aspart (Novolog Vial Sliding Scale -) 1 vial SQ [facility]; Protocol Last Admin: 06/29/19 07:07 Dose: Not Given Insulin Detemir (Levemir Vial) 15 units SQ BID@0700,2200 [facility] Last Admin: 06/29/19 07:08 Dose: Not Given Lidocaine HCl (Xylocaine 2% Preserv-Free) 100 mg SQ ONCE ONE Stop: 06/29/19 08:01 Polyethylene Glycol (Miralax (For Daily Use) -) 17 gm PO DAILY [facility] Last Admin: 06/28/19 11:46 Dose: 17 grams Quinapril HCl (Accupril -) 5 mg PO DAILY [facility] Last Admin: 06/28/19 11:47 Dose: 5 mg - Objective Vital Signs: Vital Signs Temperature 97.7 F 06/29/19 06:00 Pulse Rate 80 06/29/19 06:00 Respiratory Rate 20 06/29/19 06:00 Blood Pressure 154/85 06/29/19 06:00 O2 Sat by Pulse Oximetry (%) 94 L 06/28/19 21:00 Constitutional: Yes: Anxious, Moderate Distress Eyes: Yes: Conjunctiva Clear, EOM Intact HENT: Yes: Atraumatic, Normocephalic Neck: Yes: Supple, Trachea Midline. No: Decreased ROM, Lymphadenopathy Cardiovascular: Yes: Regular Rate and Rhythm, Murmur (FAVIOLA of ), S1, S2. No: Bradycardia, Tachycardia Respiratory: Yes: Regular, CTA Bilaterally Gastrointestinal: Yes: Normal Bowel Sounds, Soft ...Rectal Exam: Yes: Deferred. No: Erythema Genitourinary: No: Anuria, Bladder Distention Breast(s): Yes: WNL Extremities: No: Amputation, Calf Tenderness Edema: No Peripheral Pulses WNL: No Integumentary: Yes: WNL Neurological: Yes: Alert, Oriented (X1-2), Tremors, Unsteady Gait, Other ( MYOCLONUS). No: Aphasia, Ataxia, Dysarthria, Seizure ...Motor Strength: WNL Psychiatric: Yes: Alert, Agitated (occasionally). No: Suicidal Ideation Labs: CBC, BMP 06/28/19 07:10 06/28/19 07:10 INR, PTT INR 1.10 (0.83-1.09) H 06/28/19 12:27 Problem List - Problems (1) Confusion and disorientation Assessment/Plan: Citalopram 20 mg QD and Abilify restarted by psychiatry, Will follow MS Linares for extreme agitation. 1:1 Observation for safety Code(s): R41.0 - DISORIENTATION, UNSPECIFIED (2) Diabetes 1.5, managed as type 1 Assessment/Plan: lEVEMIR bid AND SLIDING SCALE-as suggested by Dr Fan. ENDOCRINOLOGY CONSULT f/u Code(s): E13.9 - OTHER SPECIFIED DIABETES MELLITUS WITHOUT COMPLICATIONS (3) ASHD (arteriosclerotic heart disease) Assessment/Plan: ekg NOTED echo RE VALVULAR LESION, MURMUR Code(s): I25.10 - ATHSCL HEART DISEASE OF [place] CORONARY ARTERY W/O ANG PCTRS (4) Disequilibrium syndrome Assessment/Plan: Continue PT, Rehab. NEUROLOGY F/U Code(s): E87.8 - OTH DISORDERS OF ELECTROLYTE AND FLUID BALANCE, NEC (5) Myoclonus Assessment/Plan: diff dx include neurodegenerative disease, toxic-metabolic and drug -induced etiologies. infectious, paraneoplastic autoinflammatory disorders, metabolic, CJD etc LP scheduled by Dr Gomez. Problems reviewed: Yes Code(s): G25.3 - MYOCLONUS
[2019-06-29 07:59] LABS: INR 1.13 (0.83-1.09); PROTHROMBIN TIME (PATIENT) 13.3 SEC (9.7-13.0)
[2019-06-29] MEDS ORDERED: LIDOCAINE HCL/PF 2% SDV 5ML VIAL SQ ONE (08:00)
[2019-06-29] MEDS ORDERED: INSULIN (LEVEMIR) 100 UNITS/ML UNITS SQ ONE (09:30)
[2019-06-29] MEDS ORDERED: PT OWN MED DRAWER 7, Y5N ONE (09:30)
--- NOTE | 2019-06-29 10:16 | PN ---
Progress Note (short form) - Note Progress Note: PROCEDURE NOTE-LUMBAR PUNCTURE Copnsent obtained, procedure explained to patient/son. Position-left lateral recumbent lumbar region draped, asepsis with iodine Anesthesia-2% lidocaine infiltrated in L4/5 interspace,5 ccs 20 gauge spinal needle inserted in same space and 10ccs of clear fluid drained and sent to lab for tests including chenistry, cell count, encephalitis panel, protein 1433 prime, HSV pcr. Pt. tolerated procedure well. 06/29/19-pts. condition appears improved, he is alert, orientedx 3 , follows 2 step commands, gave consent for procedure. He remains with myoclonus but it appears less intense in arms, he has not been agitated. A: Pt. may have been encephalopathic 2/2 SSRI withdrawl, other transient metabolic abnormalities. await tap results, cont. all current meds. Plan: L/P performed as above
[2019-06-29 12:16] LABS: CSF APPEARANCE CLEAR; CSF COLOR COLORLESS; CSF WBC 2
[2019-06-29 12:28] LABS: BF GLUCOSE (CSF ONLY) 67 mg/dL (40-70)
--- NOTE | 2019-06-29 13:36 | PN ---
Progress Note (short form) - Note Progress Note: ID CONSULT DICTATED OBTAIN HIV TEST (PT CONSENTS), RPR, LYME CSF FOR HSV PCR, VIRAL ENCEPHALITIS PANEL,WNV,CSF-VDRL PARANEOPLASTIC PANEL OBSERVE OFF ANTIBIOTICS
[2019-06-29] MEDS: CYANOCOBALAMIN 1,000 MCG TABLET (FP) PO SCH (13:40)
[2019-06-29] MEDS: CHOLECALCIFEROL (VIT D3) 1,000 UNIT (25 MCG) TABLET PO SCH (13:41)
[2019-06-29] MEDS: QUINAPRIL HCL 5 MG TABLET (FP) PO SCH (13:42)
[2019-06-29] MEDS: CITALOPRAM HYDROBROMIDE 20 MG TABLET (FP) PO SCH (13:42)
--- NOTE | 2019-06-29 14:20 | CONS ---
INFECTIOUS DISEASE CONSULTATION DATE OF CONSULTATION: DATE OF DICTATION: 06/29/2019 The patient is a 68-year-old male evaluated for possible encephalitis. History was obtained from the chart as well as patient's son. He is unable to give a reliable history. According to the notes, he was admitted to the hospital on June 25, 2019, after worsening generalized weakness for the past 4-5 days. The patient felt dizzy and fell with head trauma. No loss of consciousness was reported. He was felt to have orthostatic hypotension. He was admitted to the hospital where a neurological workup was performed. According to the notes, he has had progressive decline in his cognitive and physical condition over the past several months with increasing confusion and bilateral upper and lower extremities weakness. An MRI of the brain showed some white matter disease. He is now status post lumbar puncture to rule out infectious or paraneoplastic etiology for his symptoms. At the present time, he is awake. He is supine in bed, in no acute distress. He denies any ill contacts. He lives at home alone. No recent travel. No known mosquito or tick bites. No rash. No fever or chills. His white blood cell count has been normal. Patient is originally from [place], has been living in the [facility] for many years. Denies history of HIV risk factors or sexually transmitted diseases. His HIV status is not known. PAST MEDICAL HISTORY: Positive for insulin-dependent diabetes mellitus, hypertension, hyperlipidemia, depression, BPH. PAST SURGICAL HISTORY: Status post insulin pump. ALLERGIES: PENICILLIN. Nature of the allergy not known. HOME MEDICATIONS: Include insulin, simvastatin, Accupril, Lexapro, NovoLog. SOCIAL HISTORY: As per HPI. LABORATORY DATA: White count 8.9, hematocrit 43.4, platelets 205. Creatinine 1.3. Liver enzymes normal. ESR 6. Urinalysis negative. Chest x-ray: No evidence of active disease. PHYSICAL EXAMINATION: General: He is awake and responsive. He answers questions appropriately. Vital Signs: He has been afebrile, temperature 97.7; blood pressure 154/85; pulse 80, regular; respirations 20 per minute. HEENT: Sclera anicteric. Neck: Supple. Heart: Sounds S1, S2. Lungs: Clear. Abdomen: Soft and nontender. Extremities: Edema 1+. Some bruises noted on the lower extremities bilaterally. IMPRESSION: Etiology of progressive worsening confusion and generalized weakness not clear. Infectious considerations include viral encephalitis, herpes encephalitis, neurosyphilis, Lyme disease, and human immunodeficiency virus related illness. Spinal fluid has been obtained. Viral encephalitis panel has been ordered as well as West Nile antibodies, herpes simplex virus 1 and 2, PCR. Obtain CSF VDRL. Will order HIV testing. Patient gives verbal consent. RPR and serum Lyme titer. Observe off antibiotic therapy. Discussed with the patient's son present at the time of the examination. Thank you for the kind referral. VIANNEY BARR M.D. [id number]
[2019-06-29] MEDS: POLYETHYLENE GLYCOL 3350 119 GM BTL PO SCH (16:28)
[2019-06-29] MEDS: ATORVASTATIN CA 10 MG TABLET (FP) PO SCH (21:13)
[2019-06-29] MEDS: ARIPiprazole 2 MG TABLET PO PRN (21:15)
[2019-06-30] MEDS: INSULIN SLIDING SCALE (NOVOLOG) 1 VIAL SQ SCH ×4 (06:32→21:30)
[2019-06-30] MEDS: INSULIN (LEVEMIR) 100 UNITS/ML UNITS SQ SCH ×2 (06:48→21:30)
[2019-06-30 08:36] LABS: BASO % 0.6 % (0-2.0); EOS % 3.8 % (0-4.5); HEMATOCRIT 42.7 % (35.4-49); HEMOGLOBIN 14.2 GM/dL (11.7-16.9); LYMPH % 26.6 % (8-40); MCHC 33.3 g/dl (32.0-35.9); MEAN CELL VOLUME 90.1 fl (80-96); MONO % 7.1 % (3.8-10.2); NEUT % 61.9 % (42.8-82.8); PLATELET COUNT 185 K/MM3 (134-434); RBC 4.73 M/mm3 (4.00-5.60); RDW 13.2 % (11.9-15.9); WHITE BLOOD COUNT 6.9 K/mm3 (4.0-10.0)
[2019-06-30 09:11] LABS: BLOOD UREA NITROGEN 19.3 mg/dL (7-18)
[2019-06-30 09:12] LABS: ALBUMIN 3.4 g/dl (3.4-5.0); BILIRUBIN,TOTAL 0.7 mg/dL (0.2-1); CALCIUM 8.8 mg/dL (8.5-10.1); POTASSIUM 4.1 mmol/L (3.5-5.1); TOT PROT 6.6 g/dl (6.4-8.2)
--- NOTE | 2019-06-30 09:41 | PN ---
Progress Note, Physician Chief Complaint: Less confused today. LP yesterday performed. Results pending. ID consult appreciated. Son Magnus at the bedside. Long discussion about differential diagnosis, treatments, prognosis. Questions answered. History of Present Illness: [id number] INSULIN PUMP WITH 1.6 UNITS/HR BASAL RATE AND 8-12 UNITS BOLUSES DURING MEALS. HIS A1C WAS 6.8 LAST TIME. THYROID NODULES. AUTONOMIC DYSFUNCTION, EPISODES OF ORTHOSTATIC HYPOTENSION, POLYNEUROPATHY, UNSTABLE GAIT. ASHD-FOLLOW BY DR YADAV. HTN. CONSTIPATION, EPISODES OF IMPACTION , FOLLOWED BY DR GORDON. MAJOR DEPRESSION-PREVIOUSLY ON ABILIFY, NOW ON CYTALOPRAM. BPH ON TAMSULOSIN - Current Medication List Current Medications: Active Medications Aripiprazole (Abilify) 2 mg PO HS PRN PRN Reason: AGITATION Last Admin: 06/29/19 21:15 Dose: 2 mg Atorvastatin Calcium (Lipitor -) 10 mg PO HS [facility] Last Admin: 06/29/19 21:13 Dose: 10 mg Cholecalciferol (Vitamin D3 -) 1,000 unit PO DAILY [facility] Last Admin: 06/29/19 13:41 Dose: 1,000 unit Citalopram Hydrobromide (Celexa -) 20 mg PO DAILY [facility] Last Admin: 06/29/19 13:42 Dose: 20 mg Cyanocobalamin (Vitamin B12 -) 2,000 mcg PO DAILY [facility] Last Admin: 06/29/19 13:40 Dose: 2,000 mcg Insulin Aspart (Novolog Vial Sliding Scale -) 1 vial SQ [facility]; Protocol Last Admin: 06/30/19 06:32 Dose: Not Given Insulin Detemir (Levemir Vial) 10 units SQ BID@0700,2200 [facility] Last Admin: 06/30/19 06:48 Dose: 10 units Polyethylene Glycol (Miralax (For Daily Use) -) 17 gm PO DAILY [facility] Last Admin: 06/29/19 16:28 Dose: 17 grams Quinapril HCl (Accupril -) 5 mg PO DAILY [facility] Last Admin: 06/29/19 13:42 Dose: 5 mg Silver Sulfadiazine (Silvadene -) 1 applic TP BID [facility] - Objective Vital Signs: Vital Signs Temperature 97.8 F 06/30/19 06:28 Pulse Rate 73 06/30/19 06:28 Respiratory Rate 18 06/30/19 06:28 Blood Pressure 154/80 06/30/19 06:28 O2 Sat by Pulse Oximetry (%) 96 06/29/19 21:00 Constitutional: Yes: Anxious, Mild Distress Eyes: Yes: Conjunctiva Clear, EOM Intact HENT: Yes: Atraumatic, Normocephalic Neck: Yes: Supple Cardiovascular: Yes: Regular Rate and Rhythm. No: Bradycardia, Tachycardia Respiratory: Yes: Regular, CTA Bilaterally Gastrointestinal: Yes: Normal Bowel Sounds, Soft. No: Abdomen, Obese ...Rectal Exam: Yes: Deferred Genitourinary: No: Anuria, Bladder Distention, CVA Tenderness - Left, CVA Tenderness - Right Breast(s): Yes: WNL Musculoskeletal: No: Joint Stiffness Extremities: Yes: Deformity (Both feet). No: Calf Tenderness, Cold, Cyanosis Edema: No Peripheral Pulses WNL: No Integumentary: Yes: Pressure Ulcer (LEFT FOOT UNDER HEAD OF 1ST METATARSAL) Neurological: Yes: Alert, Oriented. No: Aphasia ...Motor Strength: WNL Psychiatric: Yes: Alert, Oriented. No: Agitated, Suicidal Ideation Labs: CBC, BMP 06/30/19 07:25 06/30/19 07:25 INR, PTT INR 1.13 (0.83-1.09) H 06/29/19 06:45 Laboratory Results - last 24 hr 06/29/19 06/29/19 06/29/19 09:50 09:50 13:00 WBC RBC Hgb Hct MCV MCH MCHC RDW Plt Count MPV Absolute Neuts (auto) Neutrophils % Lymphocytes % Monocytes % Eosinophils % Basophils % Nucleated RBC % Sodium Potassium Chloride Carbon Dioxide Anion Gap BUN Creatinine Est GFR (CKD-EPI)AfAm Est GFR (CKD-EPI)NonAf POC Glucometer 164 Random Glucose Calcium Total Bilirubin AST ALT Alkaline Phosphatase Total Protein Albumin Fluid Source Cancelled Fluid WBC Cancelled Fluid RBC Cancelled Fluid Neutrophils Cancelled Fluid Lymphocytes Cancelled Fluid Other Cells Cancelled CSF Appearance Clear CSF Color Colorless CSF WBC 2 CSF RBC 0 CSF Neutrophils No Result Required. CSF Lymphocytes No Result Required. CSF Eosinophils No Result Required. CSF Basophils No Result Required. CSF Macrophages No Result Required. CSF Plasma Cells No Result Required. CSF Diff Comment No Result Required. CSF Comment Tube #3 CSF Glucose 67 CSF Total Protein 42 Pleural Monocytes Cancelled Pleural Eosinophils Cancelled Pleural Basophils Cancelled Pleural Plasma Cells Cancelled Pleural Histocytes Cancelled Pleural Macrophages Cancelled Pleural Mesothelial Cancelled Pleural Diff Comment Cancelled HIV 1&2 Antibody Screen HIV P24 Antigen 06/29/19 06/29/19 06/30/19 17:29 21:18 06:30 WBC RBC Hgb Hct MCV MCH MCHC RDW Plt Count MPV Absolute Neuts (auto) Neutrophils % Lymphocytes % Monocytes % Eosinophils % Basophils % Nucleated RBC % Sodium Potassium Chloride Carbon Dioxide Anion Gap BUN Creatinine Est GFR (CKD-EPI)AfAm Est GFR (CKD-EPI)NonAf POC Glucometer 208 176 149 Random Glucose Calcium Total Bilirubin AST ALT Alkaline Phosphatase Total Protein Albumin Fluid Source Fluid WBC Fluid RBC Fluid Neutrophils Fluid Lymphocytes Fluid Other Cells CSF Appearance CSF Color CSF WBC CSF RBC CSF Neutrophils CSF Lymphocytes CSF Eosinophils CSF Basophils CSF Macrophages CSF Plasma Cells CSF Diff Comment CSF Comment CSF Glucose CSF Total Protein Pleural Monocytes Pleural Eosinophils Pleural Basophils Pleural Plasma Cells Pleural Histocytes Pleural Macrophages Pleural Mesothelial Pleural Diff Comment HIV 1&2 Antibody Screen HIV P24 Antigen 06/30/19 06/30/19 06/30/19 07:25 07:25 07:25 WBC 6.9 RBC 4.73 Hgb 14.2 Hct 42.7 MCV 90.1 MCH 30.0 MCHC 33.3 RDW 13.2 Plt Count 185 MPV 8.0 Absolute Neuts (auto) 4.2 Neutrophils % 61.9 Lymphocytes % 26.6 D Monocytes % 7.1 Eosinophils % 3.8 D Basophils % 0.6 Nucleated RBC % 0 Sodium 138 Potassium 4.1 Chloride 102 Carbon Dioxide 28 Anion Gap 7 L BUN 19.3 H Creatinine 1.0 Est GFR (CKD-EPI)AfAm 88.61 Est GFR (CKD-EPI)NonAf 76.45 POC Glucometer Random Glucose 169 H Calcium 8.8 Total Bilirubin 0.7 AST 20 ALT 22 Alkaline Phosphatase 56 Total Protein 6.6 Albumin 3.4 Fluid Source Fluid WBC Fluid RBC Fluid Neutrophils Fluid Lymphocytes Fluid Other Cells CSF Appearance CSF Color CSF WBC CSF RBC CSF Neutrophils CSF Lymphocytes CSF Eosinophils CSF Basophils CSF Macrophages CSF Plasma Cells CSF Diff Comment CSF Comment CSF Glucose CSF Total Protein Pleural Monocytes Pleural Eosinophils Pleural Basophils Pleural Plasma Cells Pleural Histocytes Pleural Macrophages Pleural Mesothelial Pleural Diff Comment HIV 1&2 Antibody Screen Negative HIV P24 Antigen Negative Problem List - Problems (1) Confusion and disorientation Assessment/Plan: Citalopram 20 mg QD and Abilify restarted by psychiatry, MS IMPROVED. d/c 1:1 OBSERVATION d/c PLANNING DISCUSSED Code(s): R41.0 - DISORIENTATION, UNSPECIFIED (2) Diabetes 1.5, managed as type 1 Assessment/Plan: lEVEMIR bid AND SLIDING SCALE-as suggested by Dr Fan. ENDOCRINOLOGY CONSULT f/u Code(s): E13.9 - OTHER SPECIFIED DIABETES MELLITUS WITHOUT COMPLICATIONS (3) ASHD (arteriosclerotic heart disease) Assessment/Plan: ekg NOTED echo RE VALVULAR LESION, MURMUR Code(s): I25.10 - ATHSCL HEART DISEASE OF [place] CORONARY ARTERY W/O ANG PCTRS (4) Disequilibrium syndrome Assessment/Plan: Continue PT, Rehab. NEUROLOGY F/U Code(s): E87.8 - OTH DISORDERS OF ELECTROLYTE AND FLUID BALANCE, NEC (5) Myoclonus Assessment/Plan: fOLLOW LP RESULTS Code(s): G25.3 - MYOCLONUS (6) Pressure ulcer of left foot, stage 2 Assessment/Plan: vASCULAR/WOUND CARE EVAL SILVADENE CREAM AND dd. Problems reviewed: Yes Code(s): L89.892 - PRESSURE ULCER OF OTHER SITE, STAGE 2
--- NOTE | 2019-06-30 09:45 | DS ---
Physical Examination Vital Signs: Vital Signs Temperature 97.8 F 06/30/19 06:28 Pulse Rate 73 06/30/19 06:28 Respiratory Rate 18 06/30/19 06:28 Blood Pressure 154/80 06/30/19 06:28 O2 Sat by Pulse Oximetry (%) 96 06/29/19 21:00 Constitutional: Yes: No Distress, Anxious Eyes: Yes: Conjunctiva Clear, EOM Intact HENT: Yes: Atraumatic, Normocephalic Neck: Yes: Supple, Trachea Midline Cardiovascular: Yes: Regular Rate and Rhythm, Murmur (as), S1, S2. No: Bradycardia, Tachycardia Respiratory: Yes: Regular, CTA Bilaterally Gastrointestinal: Yes: Normal Bowel Sounds, Soft, Abdomen, Obese ...Rectal Exam: Yes: Deferred Renal/: No: Anuria Breast(s): Yes: WNL Extremities: No: Calf Tenderness, Cold, Cyanosis Edema: No Peripheral Pulses WNL: No Integumentary: Yes: Pressure Ulcer (LEFT FOOT BOTTOM) Neurological: Yes: Alert, Oriented, Tremors, Other (mYOCLONUS). No: Aphasia ...Motor Strength: WNL Psychiatric: Yes: Alert, Oriented. No: Agitated, Suicidal Ideation Labs: CBC, BMP 06/30/19 07:25 06/30/19 07:25 Discharge Summary Problems reviewed: Yes Reason For Visit: FATIGUE SEROTONIN SYNDROME TREMOR Current Active Problems ASHD (arteriosclerotic heart disease) (Acute) Confusion and disorientation (Acute) Diabetes 1.5, managed as type 1 (Acute) Disequilibrium syndrome (Acute) Fatigue (Acute) Myoclonus (Acute) Pressure ulcer of left foot, stage 2 (Acute) - Instructions Referrals: Nino Ro MD [Primary Care Provider] - - Home Medications Comprehensive Discharge Medication List: Ambulatory Orders Cholecalciferol (Vitamin D3) [Vitamin D3] 1,000 unit PO DAILY 01/10/15 Cyanocobalamin [Vitamin B12 -] 2,000 mcg PO DAILY 01/10/15 Quinapril HCl [Accupril -] 5 mg PO DAILY 01/10/15 Simvastatin 10 mg PO DAILY 01/10/15 Insulin Pump Controller [Snap Insulin Pump Controller] 1 each MC DAILY 10/01/15 Insulin (LOG) Aspart [NovoLOG -] 0 unit SQ DAILY 06/07/18 Polyethylene Glycol 3350 [Miralax (For Bowel Prep) -] 17 gm PO DAILY #1 bottle 11/30/18 Benztropine Mesylate 1 mg PO DAILY 06/25/19 Diaplex 2 cap PO TIDCM 06/25/19 Escitalopram Oxalate [Lexapro -] 20 mg PO DAILY 06/25/19
--- NOTE | 2019-06-30 11:00 | CONSULT ---
- Consultation REQUESTING PROVIDER: CONSULT REQUEST: We have been asked to surgically evaluate this patient for Left foot wound. PCP:Nino Ro HISTORY OF PRESENT ILLNESS: The patient is a 68 yo male who presented to the hospital for altered mental status. He is currently more alert, family at the bedside to help answer questions but pt able to answer questions appropriately today. 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 His incisions have all healed in the past from these procedures. Currently he has a left foot callous for approximately 7 weeks and is sen by his Forestry Engineer every 2 to 3 weeks for debridement of the callous. Yesterday the nursing staff noted a small amount of drainage from the wound on his sock. He does have diabetes and neuropathy. He ambulates without assistance and does wear orthotic footwear. PMHx: daibetes, charcots disease, neuropathy PSHx: bilateral foot surgery Home Medications Medication Instructions Recorded Cholecalciferol (Vitamin D3) 1,000 unit PO DAILY 01/10/15 [Vitamin D3] Cyanocobalamin [Vitamin B12 -] 2,000 mcg PO DAILY 01/10/15 Quinapril HCl [Accupril -] 5 mg PO DAILY 01/10/15 Simvastatin 10 mg PO DAILY 01/10/15 Insulin Pump Controller [Snap 1 each MC DAILY 10/01/15 Insulin Pump Controller] Insulin (LOG) Aspart [NovoLOG -] 0 unit SQ DAILY 02/10/18 Polyethylene Glycol 3350 [Miralax 17 gm PO DAILY #1 bottle 11/30/18 255 gm Btl -] Benztropine Mesylate 1 mg PO DAILY 06/25/19 Diaplex 2 cap PO TIDCM 06/25/19 Escitalopram Oxalate [Lexapro -] 20 mg PO DAILY 06/25/19 Aripiprazole [Abilify -] 2 mg PO HS PRN tablet 06/30/19 Insulin (Levemir) [Levemir Vial] 15 units SQ BID@0700,2200 units 06/30/19 Polyethylene Glycol 3350 [Miralax 17 gm PO DAILY bottle 06/30/19 119 gm Btl -] Silver Sulfadiazine 1% Top Cr 1 applic TP BID jar 06/30/19 [Silvadene -] Allergies Allergy/AdvReac Type Severity Reaction Status Date / Time Penicillins Allergy Severe Verified 06/25/19 12:16 ampicillin sodium AdvReac Verified 06/25/19 12:16 [From Unasyn] sulbactam sodium AdvReac Verified 06/25/19 12:16 [From Unasyn] REVIEW OF SYSTEMS: CONSTITUTIONAL: Absent: fever since admission to hospital PHYSICAL EXAM: GENERAL: Awake, alert, in no acute distress, follows commands. LOWER EXTREMITIES: 2+ pulses DP/PT, warm, well-perfused. No calf tenderness. No peripheral edema. Healed scars to b/l plantar surfaces. 2 x 2cm dry callous to left great toe plantar surface near metatarsal bone. No drainage noted with palpation or tenderness/ no erythema. Toes to bilateral feet contracted and deviated laterlally. Right leg/ankle with varicosities. Left leg with chronic venous stasis. NEUROLOGICAL: Normal speech, gait not observed. Vital Signs Temperature 97.8 F 06/30/19 06:28 Pulse Rate 73 06/30/19 06:28 Respiratory Rate 18 06/30/19 06:28 Blood Pressure 154/80 06/30/19 06:28 O2 Sat by Pulse Oximetry (%) 96 06/29/19 21:00 Lab Results WBC 6.9 K/mm3 (4.0-10.0) 06/30/19 07:25 RBC 4.73 M/mm3 (4.00-5.60) 06/30/19 07:25 Hgb 14.2 GM/dL (11.7-16.9) 06/30/19 07:25 Hct 42.7 % (35.4-49) 06/30/19 07:25 MCV 90.1 fl (80-96) 06/30/19 07:25 MCHC 33.3 g/dl (32.0-35.9) 06/30/19 07:25 RDW 13.2 % (11.9-15.9) 06/30/19 07:25 Plt Count 185 K/MM3 (134-434) 06/30/19 07:25 Sodium 138 mmol/L (136-145) 06/30/19 07:25 Potassium 4.1 mmol/L (3.5-5.1) 06/30/19 07:25 Chloride 102 mmol/L (98-107) 06/30/19 07:25 Carbon Dioxide 28 mmol/L (21-32) 06/30/19 07:25 Anion Gap 7 MMOL/L (8-16) L 06/30/19 07:25 BUN 19.3 mg/dL (7-18) H 06/30/19 07:25 Creatinine 1.0 mg/dL (0.55-1.3) 06/30/19 07:25 Random Glucose 169 mg/dL (74-106) H 06/30/19 07:25 Calcium 8.8 mg/dL (8.5-10.1) 06/30/19 07:25 INR 1.13 (0.83-1.09) H 06/29/19 06:45 Laboratory Tests 06/29/19 06/29/19 06/29/19 13:00 17:29 21:18 POC Glucometer 164 208 176 A/p: 68 yo male with charot foot b/l and chronic ulcer to left plantar surface D/w Dr. Alarcon, no evidence of acute infection to the chronic callous. Recommend consult with Podiatry for callous shaving/debridement
[2019-06-30] MEDS ORDERED: PT OWN MED DRAWER 7, Y5N ONE (11:18)
[2019-06-30] MEDS: CHOLECALCIFEROL (VIT D3) 1,000 UNIT (25 MCG) TABLET PO SCH (11:37)
[2019-06-30] MEDS: CYANOCOBALAMIN 1,000 MCG TABLET (FP) PO SCH (11:37)
[2019-06-30] MEDS: QUINAPRIL HCL 5 MG TABLET (FP) PO SCH (11:38)
[2019-06-30] MEDS: CITALOPRAM HYDROBROMIDE 20 MG TABLET (FP) PO SCH (11:38)
--- NOTE | 2019-06-30 11:48 | PN ---
Progress Note (short form) - Note Progress Note: 68 year old male with past medical history significant for IDDM(has insulin pump ),hypertension, hyperlipidemia, depression, anxiety, orthostatic hypotension, and known heart murmur who presents with fatigue and generalized weakness over the past 5 days. He reports that he stood up quickly yesterday, felt dizzy and fell. He denied loss of consciousness. Son reports he has worsening bilateral hand tremors and deteriorating mental status over the past month, worst last night with incoherane. He denies chest pain, shortness of breath, fevers/chills , anorexia, or headache. He endorses bilateral hand tremors, generalized fatigue and weakness.recent psych RX were adjusted few weeks back by DR HINES. a1c 6.8, TSH NL, B12 WNL CT HD (-) FU : doing much better, no more tremor LP reviewed-prelim result WNL celexa restarted STUDIES MRI BRAIN 06/26, moderate white matetr chnages , also involves CC - Alcohol/Substance Use Hx Alcohol Use: No - Smoking History Smoking history: Never smoked Have you smoked in the past 12 months: No If you are a former smoker, when did you quit?: 1974 Home Medications - Allergies Allergies/Adverse Reactions: Allergies Allergy/AdvReac Type Severity Reaction Status Date / Time Penicillins Allergy Severe Verified 06/25/19 12:16 ampicillin sodium AdvReac Verified 06/25/19 12:16 [From Unasyn] sulbactam sodium AdvReac Verified 06/25/19 12:16 [From Unasyn] - Home Medications Home Medications: Ambulatory Orders Cholecalciferol (Vitamin D3) [Vitamin D3] 1,000 unit PO DAILY 01/10/15 Cyanocobalamin [Vitamin B12 -] 2,000 mcg PO DAILY 01/10/15 Quinapril HCl [Accupril -] 5 mg PO DAILY 01/10/15 Simvastatin 10 mg PO DAILY 01/10/15 Insulin Pump Controller [Snap Insulin Pump Controller] 1 each MC DAILY 10/01/15 Insulin (LOG) Aspart [NovoLOG -] 0 unit SQ DAILY 02/10/18 Polyethylene Glycol 3350 [Miralax (For Bowel Prep) -] 17 gm PO DAILY #1 bottle 11/30/18 Benztropine Mesylate 1 mg PO DAILY 06/25/19 Diaplex 2 cap PO TIDCM 06/25/19 Escitalopram Oxalate [Lexapro -] 20 mg PO DAILY 06/25/19 Physical Exam-Neuro Vital Signs: Vital Signs Temperature 97.8 F 06/30/19 06:28 Pulse Rate 73 06/30/19 06:28 Respiratory Rate 18 06/30/19 06:28 Blood Pressure 154/80 06/30/19 06:28 O2 Sat by Pulse Oximetry (%) 96 06/29/19 21:00 CBCD WBC 6.9 K/mm3 (4.0-10.0) 06/30/19 07:25 RBC 4.73 M/mm3 (4.00-5.60) 06/30/19 07:25 Hgb 14.2 GM/dL (11.7-16.9) 06/30/19 07:25 Hct 42.7 % (35.4-49) 06/30/19 07:25 MCV 90.1 fl (80-96) 06/30/19 07:25 MCHC 33.3 g/dl (32.0-35.9) 06/30/19 07:25 RDW 13.2 % (11.9-15.9) 06/30/19 07:25 Plt Count 185 K/MM3 (134-434) 06/30/19 07:25 MPV 8.0 fl (7.5-11.1) 06/30/19 07:25 CMP Sodium 138 mmol/L (136-145) 06/30/19 07:25 Potassium 4.1 mmol/L (3.5-5.1) 06/30/19 07:25 Chloride 102 mmol/L (98-107) 06/30/19 07:25 Carbon Dioxide 28 mmol/L (21-32) 06/30/19 07:25 Anion Gap 7 MMOL/L (8-16) L 06/30/19 07:25 BUN 19.3 mg/dL (7-18) H 06/30/19 07:25 Creatinine 1.0 mg/dL (0.55-1.3) 06/30/19 07:25 Calcium 8.8 mg/dL (8.5-10.1) 06/30/19 07:25 Total Bilirubin 0.7 mg/dL (0.2-1) 06/30/19 07:25 AST 20 U/L (15-37) 06/30/19 07:25 ALT 22 U/L (13-61) 06/30/19 07:25 Alkaline Phosphatase 56 U/L (45-117) 06/30/19 07:25 Total Protein 6.6 g/dl (6.4-8.2) 06/30/19 07:25 Albumin 3.4 g/dl (3.4-5.0) 06/30/19 07:25 - Neuro Exam Level Of Consciousness: Yes: Alert (awake, conversive, EOMI, mild tremor- positional, no cogwheeling, occ multifocal myoclonus ) Assessment/Plan 68 year old male with past medical history significant for IDDM(has insulin pump),hypertension, hyperlipidemia, depression, anxiety, orthostatic hypotension , and known heart murmur who presents with fatigue and generalized weakness over the past 5 days. He reports that he stood up quickly yesterday, felt dizzy and fell. He denied loss of consciousness. Son reports he has worsening bilateral hand tremors and deteriorating mental status over the past month, worst last night with incoherane. He denies chest pain, shortness of breath, fevers/chills, anorexia, or headache. He endorses bilateral hand tremors, generalized fatigue and weakness. a1c 6.8, TSH NL, B12 WNL CT HD (-) AP : tremor and occ myoclonus suspicious for metabolic /toxic effect -- SSRI SYNDROME ? RX induced vs atypical PD , LBD ?, vs limbic encephalitis ( viral/ paraneoplastic ) ; suspect medications effects at play--doing much better MRI BRAIN -mod white matter changes , ? microangiopathic vs inflammatory / parainfectious LP (-), FU paraneoplastic panel neuro stable and Ok for dc planning DR VELEZ
[2019-06-30 11:56] LABS: RPR NONREACTIVE (NONREACTIVE)
[2019-06-30] MEDS: SILVER SULFADIAZINE 1% TOP CREAM 50 GM JAR TP SCH (12:05)
[2019-06-30] MEDS: POLYETHYLENE GLYCOL 3350 119 GM BTL PO SCH (12:09)
[2019-06-30] MEDS: ARIPiprazole 2 MG TABLET PO PRN (21:29)
[2019-06-30] MEDS: ATORVASTATIN CA 10 MG TABLET (FP) PO SCH (21:30)
[2019-07-01] MEDS: SILVER SULFADIAZINE 1% TOP CREAM 50 GM JAR TP SCH ×3 (03:22→22:00)
[2019-07-01] MEDS: INSULIN SLIDING SCALE (NOVOLOG) 1 VIAL SQ SCH ×4 (06:02→21:59)
[2019-07-01] MEDS: INSULIN (LEVEMIR) 100 UNITS/ML UNITS SQ SCH ×2 (06:34→21:58)
--- NOTE | 2019-07-01 08:16 | PN ---
Progress Note, Physician Chief Complaint: no complaints offered. Resting comfortably in bed with son at bedside History of Present Illness: 68 year old male with past medical history significant for IDDM(has insulin pump ),hypertension, hyperlipidemia, depression, anxiety, orthostatic hypotension, and known heart murmur who presents with fatigue and generalized weakness with syncopal episode at home He reports that he stood up quickly felt dizzy and fell. He denied loss of consciousness. Son reports he has worsening bilateral hand tremors and deteriorating mental status over the past month, worst last night with disorientation He denies chest pain, shortness of breath, fevers/ chills, anorexia, or headache. He endorses bilateral hand tremors, generalized fatigue and weakness. Coverage for Dr Ro - Current Medication List Current Medications: Active Medications Aripiprazole (Abilify) 2 mg PO HS PRN PRN Reason: AGITATION Last Admin: 06/30/19 21:29 Dose: 2 mg Atorvastatin Calcium (Lipitor -) 10 mg PO HS [facility] Last Admin: 06/30/19 21:30 Dose: 10 mg Cholecalciferol (Vitamin D3 -) 1,000 unit PO DAILY [facility] Last Admin: 06/30/19 11:37 Dose: 1,000 unit Citalopram Hydrobromide (Celexa -) 20 mg PO DAILY [facility] Last Admin: 06/30/19 11:38 Dose: 20 mg Cyanocobalamin (Vitamin B12 -) 2,000 mcg PO DAILY [facility] Last Admin: 06/30/19 11:37 Dose: 2,000 mcg Insulin Aspart (Novolog Vial Sliding Scale -) 1 vial SQ [facility]; Protocol Last Admin: 07/01/19 06:02 Dose: Not Given Insulin Detemir (Levemir Vial) 10 units SQ BID@0700,2200 [facility] Last Admin: 07/01/19 06:34 Dose: 10 units Polyethylene Glycol (Miralax (For Daily Use) -) 17 gm PO DAILY [facility] Last Admin: 06/30/19 12:09 Dose: 17 grams Quinapril HCl (Accupril -) 5 mg PO DAILY [facility] Last Admin: 06/30/19 11:38 Dose: 5 mg Silver Sulfadiazine (Silvadene -) 1 applic TP BID [facility] Last Admin: 07/01/19 03:22 Dose: Not Given - Objective Vital Signs: Vital Signs Temperature 98.3 F 10/26/19 06:00 Pulse Rate 59 L 06/30/19 21:21 Respiratory Rate 18 07/01/19 06:00 Blood Pressure 127/59 L 07/01/19 06:00 O2 Sat by Pulse Oximetry (%) 95 06/30/19 21:00 Additional Findings/Remarks: Constitutional: Yes: Resting comfortably in bed in NAD Eyes: Yes: Conjunctiva Clear, EOM Intact HENT: Yes: Atraumatic, Normocephalic Neck: Yes: Supple Cardiovascular: Yes: Regular Rate and Rhythm. No: Bradycardia, Tachycardia Respiratory: Yes: Regular, CTA Bilaterally Gastrointestinal: Yes: Normal Bowel Sounds, Soft. No: Abdomen, Obese ...Rectal Exam: Yes: Deferred Genitourinary: No: Anuria, Bladder Distention, CVA Tenderness - Left, CVA Tenderness - Right Breast(s): Yes: WNL Musculoskeletal: No: Joint Stiffness Extremities: Yes: Deformity (Both feet). No: Calf Tenderness, Cold, Cyanosis Edema: No Peripheral Pulses WNL: No Integumentary: Yes: Pressure Ulcer (LEFT FOOT UNDER HEAD OF 1ST METATARSAL) Serosang drainage noted to sock Neurological: Yes: Alert, Oriented. No: Aphasia ...Motor Strength: WNL Psychiatric: Yes: Alert, Oriented. 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 (2) Insulin pump in place Assessment/Plan: will resume on discharge Code(s): Z96.41 - PRESENCE OF INSULIN PUMP (EXTERNAL) (INTERNAL) (3) HTN (hypertension) Assessment/Plan: normotensive c/w quinipril continue to monitor Code(s): I10 - ESSENTIAL (PRIMARY) HYPERTENSION (4) HLD (hyperlipidemia) Assessment/Plan: c/w atrovastatin Code(s): E78.5 - HYPERLIPIDEMIA, UNSPECIFIED (5) Depression Assessment/Plan: c/w ability supportive care Code(s): F32.9 - MAJOR DEPRESSIVE DISORDER, SINGLE EPISODE, UNSPECIFIED (6) Anxiety Assessment/Plan: c/w abilify supportive care Code(s): F41.9 - ANXIETY DISORDER, UNSPECIFIED (7) Orthostatic hypotension Assessment/Plan: antihypertensives with hold parameters Code(s): I95.1 - ORTHOSTATIC HYPOTENSION (8) Charcot foot due to diabetes mellitus Assessment/Plan: followed in wound clinic Code(s): E11.610 - TYPE 2 DIABETES MELLITUS W DIABETIC NEUROPATHIC ARTHROPATHY (9) Preventive measure Assessment/Plan: FEN adequate Po intake diabetic diet monitor electrolytes DVT ambulating PT Dispo awaiting bed at SNF full code Code(s): Z29.9 - ENCOUNTER FOR PROPHYLACTIC MEASURES, UNSPECIFIED (10) Toxic metabolic encephalopathy Assessment/Plan: tremor and myoclonus suspcious for metabolic /toxic effect, medication induced induced MRI BRAIN prelim -- mild to mod white matter changes mental status improved and cleared for discharge when SNF bed available Code(s): G92 - TOXIC ENCEPHALOPATHY Visit type - Emergency Visit Emergency Visit: Yes ED Registration Date: 06/25/19 Care time: The patient presented to the Emergency Department on the above date and was hospitalized for further evaluation of their emergent condition. - New Patient This patient is new to me today: No - Critical Care Critical Care patient: No - Discharge Referral Referred to [facility] No
[2019-07-01] MEDS ORDERED: PT OWN MED DRAWER 7, Y5N ONE (09:34)
[2019-07-01] MEDS: CITALOPRAM HYDROBROMIDE 20 MG TABLET (FP) PO SCH (09:36)
[2019-07-01] MEDS: CHOLECALCIFEROL (VIT D3) 1,000 UNIT (25 MCG) TABLET PO SCH (09:36)
[2019-07-01] MEDS: CYANOCOBALAMIN 1,000 MCG TABLET (FP) PO SCH (09:37)
[2019-07-01] MEDS: QUINAPRIL HCL 5 MG TABLET (FP) PO SCH (09:37)
[2019-07-01] MEDS: POLYETHYLENE GLYCOL 3350 119 GM BTL PO SCH (09:38)
[2019-07-01] MEDS ORDERED: INSULIN (NOVOLOG) ASPART 100 UNITS/ML 10ML VIAL ONE (12:41)
[2019-07-01] MEDS: ATORVASTATIN CA 10 MG TABLET (FP) PO SCH (21:59)
[2019-07-02] MEDS: INSULIN (LEVEMIR) 100 UNITS/ML UNITS SQ SCH ×2 (06:51→21:26)
[2019-07-02] MEDS: INSULIN SLIDING SCALE (NOVOLOG) 1 VIAL SQ SCH ×4 (06:51→21:27)
[2019-07-02] MEDS ORDERED: SODIUM PHOSPHATE/NA BIPHOS 133 ML ENEMA PR ONE (08:00)
[2019-07-02 08:56] LABS: BASO % 0.5 % (0-2.0); EOS % 3.2 % (0-4.5); HEMATOCRIT 45.5 % (35.4-49); HEMOGLOBIN 15.1 GM/dL (11.7-16.9); LYMPH % 24.9 % (8-40); MCH 29.8 pg (25.7-33.7); MCHC 33.2 g/dl (32.0-35.9); MEAN CELL VOLUME 89.8 fl (80-96); MEAN PLT VOLUME 8.3 fl (7.5-11.1); MONO % 5.6 % (3.8-10.2); NEUT % 65.8 % (42.8-82.8); PLATELET COUNT 217 K/MM3 (134-434); RBC 5.07 M/mm3 (4.00-5.60); RDW 12.9 % (11.9-15.9); WHITE BLOOD COUNT 8.4 K/mm3 (4.0-10.0)
[2019-07-02 09:23] LABS: ALBUMIN 3.5 g/dl (3.4-5.0); BILIRUBIN,TOTAL 0.6 mg/dL (0.2-1); BLOOD UREA NITROGEN 19.3 mg/dL (7-18); CALCIUM 9.2 mg/dL (8.5-10.1); MAGNESIUM 2.4 mg/dL (1.8-2.4); POTASSIUM 4.5 mmol/L (3.5-5.1); TOT PROT 6.9 g/dl (6.4-8.2)
[2019-07-02] MEDS ORDERED: PT OWN MED DRAWER 7, Y5N ONE (10:25)
[2019-07-02] MEDS: CYANOCOBALAMIN 1,000 MCG TABLET (FP) PO SCH (10:26)
[2019-07-02] MEDS: POLYETHYLENE GLYCOL 3350 119 GM BTL PO SCH (10:26)
[2019-07-02] MEDS: CITALOPRAM HYDROBROMIDE 20 MG TABLET (FP) PO SCH (10:27)
[2019-07-02] MEDS: CHOLECALCIFEROL (VIT D3) 1,000 UNIT (25 MCG) TABLET PO SCH (10:27)
[2019-07-02] MEDS: QUINAPRIL HCL 5 MG TABLET (FP) PO SCH (10:29)
[2019-07-02] MEDS: SILVER SULFADIAZINE 1% TOP CREAM 50 GM JAR TP SCH ×2 (11:25→21:28)
[2019-07-02] MEDS ORDERED: MAGNESIUM CITRATE 300 ML BOTTLE PO PRN (11:37)
--- NOTE | 2019-07-02 14:49 | PN ---
Progress Note, Physician Chief Complaint: ambulating the hallway with son, no complaints offered History of Present Illness: 68 year old male with past medical history significant for IDDM(has insulin pump ),hypertension, hyperlipidemia, depression, anxiety, orthostatic hypotension, and known heart murmur who presents with fatigue and generalized weakness with syncopal episode at home He reports that he stood up quickly felt dizzy and fell. He denied loss of consciousness. Son reports he has worsening bilateral hand tremors and deteriorating mental status over the past month, worst last night with disorientation He denies chest pain, shortness of breath, fevers/ chills, anorexia, or headache. He endorses bilateral hand tremors, generalized fatigue and weakness. Coverage for Dr Ro - Current Medication List Current Medications: Active Medications Aripiprazole (Abilify) 2 mg PO HS PRN PRN Reason: AGITATION Last Admin: 06/30/19 21:29 Dose: 2 mg Atorvastatin Calcium (Lipitor -) 10 mg PO HS [facility] Last Admin: 07/01/19 21:59 Dose: 10 mg Cholecalciferol (Vitamin D3 -) 1,000 unit PO DAILY [facility] Last Admin: 07/02/19 10:27 Dose: 1,000 unit Citalopram Hydrobromide (Celexa -) 20 mg PO DAILY [facility] Last Admin: 07/02/19 10:27 Dose: 20 mg Cyanocobalamin (Vitamin B12 -) 2,000 mcg PO DAILY [facility] Last Admin: 07/02/19 10:26 Dose: 2,000 mcg Insulin Aspart (Novolog Vial Sliding Scale -) 1 vial SQ ACHS [facility]; Protocol Last Admin: 07/02/19 12:14 Dose: 5 units Insulin Detemir (Levemir Vial) 10 units SQ BID@0700,2200 [facility] Last Admin: 07/02/19 06:51 Dose: 10 units Magnesium Citrate (Citroma -) 300 ml PO PRN PRN PRN Reason: CONSTIPATION Last Admin: 07/02/19 13:03 Dose: 300 ml Polyethylene Glycol (Miralax (For Daily Use) -) 17 gm PO DAILY [facility] Last Admin: 07/02/19 10:26 Dose: 17 grams Quinapril HCl (Accupril -) 5 mg PO DAILY [facility] Last Admin: 07/02/19 10:29 Dose: 5 mg Silver Sulfadiazine (Silvadene -) 1 applic TP BID [facility] Last Admin: 07/02/19 11:25 Dose: Not Given - Objective Vital Signs: Vital Signs Temperature 98 F 07/02/19 06:00 Pulse Rate 60 07/02/19 10:00 Respiratory Rate 18 07/02/19 10:00 Blood Pressure 150/72 07/02/19 10:00 O2 Sat by Pulse Oximetry (%) 96 07/02/19 09:00 Additional Findings/Remarks: Constitutional: Yes: Resting comfortably in bed in NAD Eyes: Yes: Conjunctiva Clear, EOM Intact HENT: Yes: Atraumatic, Normocephalic Neck: Yes: Supple Cardiovascular: Yes: Regular Rate and Rhythm. No: Bradycardia, Tachycardia Respiratory: Yes: Regular, CTA Bilaterally Gastrointestinal: Yes: Normal Bowel Sounds, Soft. No: Abdomen, Obese ...Rectal Exam: Yes: Deferred Genitourinary: No: Anuria, Bladder Distention, CVA Tenderness - Left, CVA Tenderness - Right Breast(s): Yes: WNL Musculoskeletal: No: Joint Stiffness Extremities: Yes: Deformity (Both feet). No: Calf Tenderness, Cold, Cyanosis Edema: No Peripheral Pulses WNL: No Integumentary: Yes: Pressure Ulcer (LEFT FOOT UNDER HEAD OF 1ST METATARSAL) Serosang drainage noted to sock Neurological: Yes: Alert, Oriented. No: Aphasia. Gait steady ...Motor Strength: WNL Psychiatric: Yes: Alert, Oriented. 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 (2) Insulin pump in place Assessment/Plan: will resume on discharge Code(s): Z96.41 - PRESENCE OF INSULIN PUMP (EXTERNAL) (INTERNAL) (3) HTN (hypertension) Assessment/Plan: normotensive c/w quinipril continue to monitor Code(s): I10 - ESSENTIAL (PRIMARY) HYPERTENSION (4) HLD (hyperlipidemia) Assessment/Plan: c/w atrovastatin Code(s): E78.5 - HYPERLIPIDEMIA, UNSPECIFIED (5) Depression Assessment/Plan: c/w ability supportive care Code(s): F32.9 - MAJOR DEPRESSIVE DISORDER, SINGLE EPISODE, UNSPECIFIED (6) Anxiety Assessment/Plan: c/w abilify supportive care Code(s): F41.9 - ANXIETY DISORDER, UNSPECIFIED (7) Orthostatic hypotension Assessment/Plan: antihypertensives with hold parameters Code(s): I95.1 - ORTHOSTATIC HYPOTENSION (8) Charcot foot due to diabetes mellitus Assessment/Plan: followed in wound clinic Code(s): E11.610 - TYPE 2 DIABETES MELLITUS W DIABETIC NEUROPATHIC ARTHROPATHY (9) Preventive measure Assessment/Plan: FEN adequate Po intake diabetic diet monitor electrolytes DVT ambulating PT Dispo awaiting bed at SNF-if no bed available my tomorrow pt would like to return to home with services full code Code(s): Z29.9 - ENCOUNTER FOR PROPHYLACTIC MEASURES, UNSPECIFIED (10) Toxic metabolic encephalopathy Assessment/Plan: tremor and myoclonus suspcious for metabolic /toxic effect, medication induced induced MRI BRAIN prelim -- mild to mod white matter changes mental status improved and cleared for discharge when SNF bed available Code(s): G92 - TOXIC ENCEPHALOPATHY Visit type - Emergency Visit Emergency Visit: Yes ED Registration Date: 06/25/19 Care time: The patient presented to the Emergency Department on the above date and was hospitalized for further evaluation of their emergent condition. - New Patient This patient is new to me today: No - Critical Care Critical Care patient: No - Discharge Referral Referred to [facility] No
[2019-07-02] MEDS ORDERED: INSULIN (NOVOLOG) ASPART 100 UNITS/ML 10ML VIAL ONE (21:03)
[2019-07-02] MEDS: ATORVASTATIN CA 10 MG TABLET (FP) PO SCH (21:26)
[2019-07-03] MEDS: INSULIN SLIDING SCALE (NOVOLOG) 1 VIAL SQ SCH ×2 (06:24→11:07)
[2019-07-03] MEDS: INSULIN (LEVEMIR) 100 UNITS/ML UNITS SQ SCH (06:25)
[2019-07-03] MEDS ORDERED: PT OWN MED DRAWER 7, Y5N ONE (08:31)
--- NOTE | 2019-07-03 08:31 | PN ---
Progress Note (short form) - Note Progress Note: Feels better, not confused Ambulates in the room Vital Signs (72 hours) 06/30/19 06/30/19 06/30/19 09:00 10:00 14:36 Temperature 97.4 F L Pulse Rate 72 74 Respiratory 18 18 Rate Blood Pressure 138/72 135/61 O2 Sat by Pulse 95 Oximetry (%) 06/30/19 06/30/19 06/30/19 18:00 21:00 21:21 Temperature 98.7 F Pulse Rate 59 L Respiratory 18 18 Rate Blood Pressure 102/56 L O2 Sat by Pulse 95 Oximetry (%) 07/01/19 07/01/19 07/01/19 06:00 09:00 14:00 Temperature 98.3 F 98.1 F Pulse Rate 78 Respiratory 18 18 Rate Blood Pressure 127/59 L 133/66 O2 Sat by Pulse 98 Oximetry (%) 07/01/19 07/01/19 07/01/19 18:00 21:00 22:00 Temperature 97.8 F 98.5 F Pulse Rate 69 72 Respiratory 20 20 21 H Rate Blood Pressure 137/73 137/66 O2 Sat by Pulse 96 Oximetry (%) 07/02/19 07/02/19 07/02/19 06:00 09:00 10:00 Temperature 98 F Pulse Rate 60 Respiratory 18 18 Rate Blood Pressure 142/67 150/72 O2 Sat by Pulse 96 Oximetry (%) 07/02/19 07/02/19 07/02/19 14:00 18:00 21:00 Temperature 97.3 F L 97.8 F Pulse Rate 79 73 Respiratory 18 20 18 Rate Blood Pressure 119/61 133/70 O2 Sat by Pulse 96 Oximetry (%) 07/02/19 07/03/19 07/03/19 22:00 02:00 06:00 Temperature 97.8 F 97.6 F 98.9 F Pulse Rate 65 59 L 69 Respiratory 18 20 20 Rate Blood Pressure 137/63 129/59 L 146/65 O2 Sat by Pulse Oximetry (%) Lungs are Clear Heart S1S2 regular, FAVIOLA from mild-mod Abdomen soft, NT/ND Charcot feet deformities, bottom foot wound. Laboratory Results - last 24 hr 06/30/19 07/02/19 07/02/19 07:25 08:24 08:24 WBC 8.4 RBC 5.07 Hgb 15.1 Hct 45.5 MCV 89.8 MCH 29.8 MCHC 33.2 RDW 12.9 Plt Count 217 MPV 8.3 Absolute Neuts (auto) 5.5 Neutrophils % 65.8 Lymphocytes % 24.9 Monocytes % 5.6 Eosinophils % 3.2 Basophils % 0.5 Nucleated RBC % 0 Sodium 139 Potassium 4.5 Chloride 105 Carbon Dioxide 27 Anion Gap 7 L BUN 19.3 H Creatinine 1.0 Est GFR (CKD-EPI)AfAm 88.61 Est GFR (CKD-EPI)NonAf 76.45 POC Glucometer Random Glucose 147 H Calcium 9.2 Magnesium 2.4 Total Bilirubin 0.6 AST 21 ALT 26 Alkaline Phosphatase 64 Total Protein 6.9 Albumin 3.5 Lyme IgM 23 kDa Band No Result Required. Lyme IgM 39 kDa Band No Result Required. Lyme IgM 41 kDa Band No Result Required. 07/02/19 07/02/19 07/02/19 12:07 17:26 21:25 WBC RBC Hgb Hct MCV MCH MCHC RDW Plt Count MPV Absolute Neuts (auto) Neutrophils % Lymphocytes % Monocytes % Eosinophils % Basophils % Nucleated RBC % Sodium Potassium Chloride Carbon Dioxide Anion Gap BUN Creatinine Est GFR (CKD-EPI)AfAm Est GFR (CKD-EPI)NonAf POC Glucometer 207 182 305 Random Glucose Calcium Magnesium Total Bilirubin AST ALT Alkaline Phosphatase Total Protein Albumin Lyme IgM 23 kDa Band Lyme IgM 39 kDa Band Lyme IgM 41 kDa Band 07/03/19 06:08 WBC RBC Hgb Hct MCV MCH MCHC RDW Plt Count MPV Absolute Neuts (auto) Neutrophils % Lymphocytes % Monocytes % Eosinophils % Basophils % Nucleated RBC % Sodium Potassium Chloride Carbon Dioxide Anion Gap BUN Creatinine Est GFR (CKD-EPI)AfAm Est GFR (CKD-EPI)NonAf POC Glucometer 146 Random Glucose Calcium Magnesium Total Bilirubin AST ALT Alkaline Phosphatase Total Protein Albumin Lyme IgM 23 kDa Band Lyme IgM 39 kDa Band Lyme IgM 41 kDa Band IMP Current Active Problems Problem Status Onset ASHD (arteriosclerotic heart disease) Acute Anxiety Acute Charcot foot due to diabetes mellitus Acute Confusion and disorientation Acute Depression Acute Diabetes 1.5, 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 F/u as outpt follow with neurology Follow LP results. Problem List - Problems (1) Confusion and disorientation Code(s): R41.0 - DISORIENTATION, UNSPECIFIED (2) Diabetes 1.5, managed as type 1 Code(s): E13.9 - OTHER SPECIFIED DIABETES MELLITUS WITHOUT COMPLICATIONS (3) ASHD (arteriosclerotic heart disease) Code(s): I25.10 - ATHSCL HEART DISEASE OF [place] CORONARY ARTERY W/O ANG PCTRS (4) Disequilibrium syndrome Code(s): E87.8 - OTH DISORDERS OF ELECTROLYTE AND FLUID BALANCE, NEC (5) Myoclonus Code(s): G25.3 - MYOCLONUS (6) Pressure ulcer of left foot, stage 2 Code(s): L89.892 - PRESSURE ULCER OF OTHER SITE, STAGE 2
[2019-07-03] MEDS: SILVER SULFADIAZINE 1% TOP CREAM 50 GM JAR TP SCH (09:10)
[2019-07-03 09:32] VITALS: BP 159/85; PULSE 93; TEMP 97.9
[2019-07-03] MEDS: CHOLECALCIFEROL (VIT D3) 1,000 UNIT (25 MCG) TABLET PO SCH (10:20)
[2019-07-03] MEDS: CITALOPRAM HYDROBROMIDE 20 MG TABLET (FP) PO SCH (10:20)
[2019-07-03] MEDS: CYANOCOBALAMIN 1,000 MCG TABLET (FP) PO SCH (10:20)
[2019-07-03] MEDS: QUINAPRIL HCL 5 MG TABLET (FP) PO SCH (10:21)
[2019-07-03] MEDS: POLYETHYLENE GLYCOL 3350 119 GM BTL PO SCH (10:21)
[2019-07-03] MEDS ORDERED: INSULIN (NOVOLOG) ASPART 100 UNITS/ML 10ML VIAL ONE (11:07)
[2019-07-06 01:06] LABS: MUMPS AB IGG CSF < 5.0 AU/mL (<=10.9)
== END 2019-07-03 13:41 | disposition home or self-care (01) | DRG 91 ==
LOC: JER 12:09 → JERBED 16:26 → J5S 19:45
PROVIDERS: ADMIT Internal Medicine; ATTEND Internal Medicine
PROC: 009U3ZX Drainage of Spinal Canal, Percutaneous Approach, Diagnostic (ICD-10-PCS; principal; 2019-06-29)
DX: G25.1 Drug-induced tremor (principal); G92 Toxic encephalopathy; L97.929 Non-pressure chronic ulcer of unspecified part of left lower leg with unspecified severity; G20 Parkinson's disease; R41.0 Disorientation, unspecified; I10 Essential (primary) hypertension; E78.5 Hyperlipidemia, unspecified; E11.610 Type 2 diabetes mellitus with diabetic neuropathic arthropathy; F41.8 Other specified anxiety disorders; I95.1 Orthostatic hypotension; R26.9 Unspecified abnormalities of gait and mobility; I25.10 Atherosclerotic heart disease of native coronary artery without angina pectoris; T43.225A Adverse effect of selective serotonin reuptake inhibitors, initial encounter; K59.00 Constipation, unspecified; N40.0 Benign prostatic hyperplasia without lower urinary tract symptoms
CPT/HCPCS: 36415; 70450-TC; 70551-TC; 71046-TC-FY; 80048; 80053; 81003; 82550; 82553; 82607; 82945; 82962; 83036; 83519; 83520; 83735; 84100; 84157; 84436; 84443; 84479; 84484; 85025; 85027; 85610; 85651; 85730; 86140; 86255; 86592; 86593; 86618; 86694; 86735; 86765; 86787; 86788; 86789; 87086; 87389; 87529; 93005; 93010; 93306-TC; 97116-GP; 97162-GP; 99284-25

== ENCOUNTER 2020-03-25 07:03 | Inpatient (IN) | payer OTHER, MEDICARE ==
[2020-03-25 07:18] VITALS: BMI 32.0
--- NOTE | 2020-03-25 07:21 | PDOC ---
Rapid Medical Evaluation Chief Complaint: Wound Medical Evaluation: Allergies Allergy/AdvReac Type Severity Reaction Status Date / Time Penicillins Allergy Severe Verified 03/25/20 07:18 ampicillin sodium AdvReac Verified 03/25/20 07:18 [From Unasyn] sulbactam sodium AdvReac Verified 03/25/20 07:18 [From Unasyn] Vital Signs Temp Pulse Resp BP Pulse Ox 97.7 F 86 20 168/77 96 03/25/20 07:11 03/25/20 07:11 03/25/20 07:11 03/25/20 07:11 03/25/20 07:11 03/25/20 07:19 69 yo M h/o DM, HTN, HL sent from wound clinic for PICC line, IV antibiotics, admission. has wound to sole of R foot. denies f/c. allergic to pcn. VSS ambulatory A/P: R foot wound ordered labs Discharge Disposition - Referrals Referrals: Nino Ro MD [Primary Care Provider] - - Patient Instructions - Post Discharge Activity
--- NOTE | 2020-03-25 07:54 | PDOC ---
History of Present Illness - General Chief Complaint: Wound Stated Complaint: SENT BY PCP Time Seen by Provider: 03/25/20 07:24 - History of Present Illness Initial Comments: Pt is a 69yo M with PMH DM, HTN, HLD who presents for R foot infection and was sent by lighter captain for PICC line. Was seen by Dr. Garcia on and told he had right foot osteomyelitis, told to come to ED today, has not been on antibiotics. Has been treated in past for L and R foot infections due to charcot foot, including surgical debridement and has required PICC line twice in past. Denies any pain to R foot and has been able to ambulate on foot with boot. Reports discomfort in back from R foot. Reports increased fatigue over the last week. Denies f/c, redness or swelling, chest pain, SOB. PCP: Jayjay ID: Ramón Podiatry: Radha PMH: see HPI PSHx: debridement, appendectomy All: penicillin Past History - Medical History Allergies/Adverse Reactions: Allergies Allergy/AdvReac Type Severity Reaction Status Date / Time Penicillins Allergy Severe Verified 03/25/20 07:18 ampicillin sodium AdvReac Verified 03/25/20 07:18 [From Unasyn] sulbactam sodium AdvReac Verified 03/25/20 07:18 [From Unasyn] Home Medications: Ambulatory Orders Cholecalciferol (Vitamin D3) [Vitamin D3] 1,000 unit PO DAILY 01/10/15 Cyanocobalamin [Vitamin B12 -] 2,000 mcg PO DAILY 01/10/15 Quinapril HCl [Accupril -] 5 mg PO DAILY 01/10/15 Simvastatin 10 mg PO DAILY 01/10/15 Insulin Pump Controller [Snap Insulin Pump Controller] 1 each MC DAILY 10/01/15 Insulin (LOG) Aspart [NovoLOG -] 0 unit SQ DAILY 02/10/18 Polyethylene Glycol 3350 [Miralax 255 gm Btl -] 17 gm PO DAILY #1 bottle 11/30/18 Benztropine Mesylate 1 mg PO DAILY 03/25/20 Bupropion HCl [Wellbutrin -] 100 mg PO ASDIR 03/25/20 Anemia: No Asthma: No Cancer: No Cardiac Disorders: Yes (heart murmur) CVA: No COPD: No CHF: No Dementia: No Diabetes: Yes (PT HAS INSULIN PUMP) GI Disorders: No Disorders: No HTN: Yes Hypercholesterolemia: Yes Liver Disease: No Seizures: No Thyroid Disease: No - Surgical History Abdominal Surgery: No Appendectomy: No Cardiac Surgery: No Cholecystectomy: No Lung Surgery: No Neurologic Surgery: No Orthopedic Surgery: No - Psycho-Social/Smoking History Smoking History: Never smoked Have you smoked in the past 12 months: No If you are a former smoker, when did you quit?: 1973 Information on smoking cessation initiated: No - Substance Abuse Hx (Audit-C & DAST Scrn) How often the patient has a drink containing alcohol: Never Score: In Men: 4 or > Positive; In Women: 3 or > Positive: 0 Screen Result (Pos requires Nsg. Audit-10AR): Negative In the last yr the pt used illegal drug/Rx for NonMed reason: No Score: Yes response is considered Positive: 0 Screen Result (Positive result requires Nsg. DAST-10): Negative Review of Systems - Review of Systems Comments:: CONSTITUTIONAL: Reports fatigue,denies fever, chills, generalized weakness CARDIOVASCULAR:denies chest pain, syncope, palpitations RESPIRATORY:denies cough, shortness of breath, wheezing GASTROINTESTINAL: denies abdominal pain, nausea, vomiting, diarrhea, constipation, melena, hematochezia GENITOURINARY:denies dysuria, frequency, urgency, flank pain, genital pain NEUROLOGIC:denies headache, focal weakness or paresthesias *Physical Exam - Vital Signs Last Vital Signs Temp Pulse Resp BP Pulse Ox 97.7 F 86 20 168/77 96 03/25/20 07:11 03/25/20 07:11 03/25/20 07:11 03/25/20 07:11 03/25/20 07:11 - Physical Exam General: awake, alert, fully oriented, in no acute distress, well developed, well nourished Head: normocephalic, atraumatic Lung: equal breath sounds b/l, CTA b/l, no crackles, wheezes; no distress, speaks full sentences Heart: RRR, normal S1, S2, holosystolic murmur Abdomen: soft, non tender, normoactive bowel sounds, no guarding, rebound, masses Extremities: no edema, no erythema or tenderness of b/l calves. Skin: warm, diaphoretic, no rashes or lesions noted ED Treatment Course - LABORATORY CBC & Chemistry Diagram: 03/25/20 08:00 03/25/20 08:00 Medical Decision Making - Medical Decision Making Mr. Bose is a 69yo M with PMH DM, HTN, HLD, who presents with R foot osteomyelitis sent by lighter captain for PICC line. Vital Signs Period Temp Pulse Resp BP Sys/Castellano Pulse Ox Last 24 Hr 97.7 F 86 20 168/77 96 DDx including but not limited to: R osteomyelitis Plan: labs, cxr, ekg ED course - Patient well appearing and asymptomatic in ED CXR: no acute chest pathology, no significant change since 06/25/2019 EKG: HR 64, sinus rhythm with premature supraventricular complexes; NM 174ms, QRS 82ms, QTc 392ms labs: no leukocytosis, no anemia, electrolytes WNL Laboratory 03/25/20 03/25/20 03/25/20 08:00 08:00 08:00 WBC 6.0 K/mm3 K/mm3 (4.0-10.0) RBC 4.72 M/mm3 M/mm3 (4.00-5.60) Hgb 13.9 GM/dL GM/dL (11.7-16.9) Hct 41.4 % % (35.4-49) MCV 87.6 fl fl (80-96) MCH 29.5 pg pg (25.7-33.7) MCHC 33.6 g/dl g/dl (32.0-35.9) RDW 13.3 % % (11.9-15.9) Plt Count 193 K/MM3 K/MM3 (134-434) MPV 7.8 fl fl (7.5-11.1) Absolute Neuts (auto) 3.4 K/mm3 K/mm3 (1.5-8.0) Neutrophils % 57.1 % % (42.8-82.8) Lymphocytes % 30.1 % % (8-40) Monocytes % 5.9 % % (3.8-10.2) Eosinophils % 5.9 % H % (0-4.5) Basophils % 1.0 % % (0-2.0) Nucleated RBC % 0 % % (0-0) PT with INR 11.80 SEC SEC (9.7-13.0) INR 1.00 (0.83-1.09) PTT (Actin FS) 27.2 SECONDS SECONDS (25.2-36.5) Sodium 138 mmol/L mmol/L (136-145) Potassium 4.4 mmol/L mmol/L (3.5-5.1) Chloride 104 mmol/L mmol/L (98-107) Carbon Dioxide 25 mmol/L mmol/L (21-32) Anion Gap 9 MMOL/L MMOL/L (8-16) BUN 15.6 mg/dL mg/dL (7-18) Creatinine 1.1 mg/dL mg/dL (0.55-1.3) Est GFR (CKD-EPI)AfAm 78.41 Est GFR (CKD-EPI)NonAf 67.66 Random Glucose 245 mg/dL H mg/dL (74-106) Calcium 8.9 mg/dL mg/dL (8.5-10.1) Total Bilirubin 0.5 mg/dL mg/dL (0.2-1) AST 21 U/L U/L (15-37) ALT 23 U/L U/L (13-61) Alkaline Phosphatase 68 U/L U/L (45-117) Total Protein 7.0 g/dl g/dl (6.4-8.2) Albumin 3.4 g/dl g/dl (3.4-5.0) Pt discussed with Dr. Ro, who accepted care for patient. Disposition: Admit Discharge - Discharge Information Problems reviewed: Yes Clinical Impression/Diagnosis: Osteomyelitis of foot Condition: Stable - Admission Yes - Follow up/Referral - Patient Discharge Instructions - Post Discharge Activity
[2020-03-25 08:12] LABS: EOS % 5.9 % (0-4.5); HEMATOCRIT 41.4 % (35.4-49); HEMOGLOBIN 13.9 GM/dL (11.7-16.9); LYMPH % 30.1 % (8-40); MCH 29.5 pg (25.7-33.7); MCHC 33.6 g/dl (32.0-35.9); MEAN CELL VOLUME 87.6 fl (80-96); MEAN PLT VOLUME 7.8 fl (7.5-11.1); MONO % 5.9 % (3.8-10.2); NEUT % 57.1 % (42.8-82.8); PLATELET COUNT 193 K/MM3 (134-434); RBC 4.72 M/mm3 (4.00-5.60); RDW 13.3 % (11.9-15.9)
[2020-03-25 08:20] LABS: PROTHROMBIN TIME (PATIENT) 11.8 SEC (9.7-13.0)
[2020-03-25 08:23] LABS: ACTIVATED PTT 27.2 SECONDS (25.2-36.5)
[2020-03-25 08:44] LABS: ALBUMIN 3.4 g/dl (3.4-5.0); ALK PHOS 68 U/L (45-117); ANION GAP 9 MMOL/L (8-16); BILIRUBIN,TOTAL 0.5 mg/dL (0.2-1); BLOOD UREA NITROGEN 15.6 mg/dL (7-18); CALCIUM 8.9 mg/dL (8.5-10.1); CHLORIDE 104 mmol/L (98-107); CO2 25 mmol/L (21-32); CREATININE 1.1 mg/dL (0.55-1.3); GLUCOSE,RANDOM 245 mg/dL (74-106); POTASSIUM 4.4 mmol/L (3.5-5.1); SGOT/AST 21 U/L (15-37); SGPT/ALT 23 U/L (13-61); SODIUM 138 mmol/L (136-145)
--- NOTE | 2020-03-25 09:08 | EKG ---
Test Reason : Blood Pressure : / mmHG Vent. Rate : 064 BPM Atrial Rate : 064 BPM P-R Int : 174 ms QRS Dur : 082 ms QT Int : 380 ms P-R-T Axes : 000 014 068 degrees QTc Int : 392 ms SINUS RHYTHM WITH PREMATURE SUPRAVENTRICULAR COMPLEXES ABNORMAL ECG WHEN COMPARED WITH ECG OF 25-JUN-2019 13:35, PREMATURE SUPRAVENTRICULAR COMPLEXES ARE NOW PRESENT Confirmed by Todd Mena ([id number]) on 03/25/2020 9:08:05 AM Referred By: Confirmed By:Todd Mena
--- NOTE | 2020-03-25 10:15 | PDOC ---
Attending Attestation - Resident Resident Name: Hailee Peña - ED Attending Attestation I have performed the following: I have examined & evaluated the patient, The case was reviewed & discussed with the resident, I agree w/resident's findings & plan, Exceptions are as noted - HPI HPI: 03/25/20 09:54 Agree with resident HPI - Physicial Exam PE: 03/25/20 09:54 Agree with resident exam - Medical Decision Making 03/25/20 09:55 69yo M presents to the ED for admission for PICC line. Pt denies any symptoms. Pt admitted for further mgmt Case discussed in detail with admitting physician including history, physical exam and ancillary studies. Admitting physician has assumed care for the patient, will follow all pending diagnostics and will complete the evaluation and treatment. Discharge - Discharge Information Problems reviewed: Yes Clinical Impression/Diagnosis: Osteomyelitis of foot Condition: Stable - Follow up/Referral - Patient Discharge Instructions - Post Discharge Activity
[2020-03-25 10:24] LABS: ERYTHROCYTE SEDIMENTATION RATE 8 mm/hr (0-20)
[2020-03-25] MEDS ORDERED: VANCOMYCIN 1 GM in D5W (PRE-DOCKED) 1,000 MG/250 ML IVPB ONE (12:08)
[2020-03-25] MEDS ORDERED: VANCOMYCIN 1 GRAM (PRE-DOCKED) 1,000 MG/250 ML BAG IVPB ONE (12:09)
[2020-03-25] MEDS ORDERED: ERTAPENEM SODIUM 1 GM VIAL ONE (15:20)
[2020-03-25] MEDS: ERTAPENEM SODIUM 1 GM in SODIUM CHLORIDE 50 ML IVPB SCH (15:27)
--- NOTE | 2020-03-25 15:41 | CON.ID ---
Consult Consult Specialty:: infectious diseases Referred by:: Reason for Consultation:: osteo of the foot - History of Present Illness Chief Complaint: osteo of the foot History of Present Illness: 69 y.o M with osteomyelitis of the right foot with h/o MARTI -autoimmune diabetes of adults. HTN.BPH HLD Osteoporosis. Major depression Asthma.MNG. .Parkinson 's disease. patient has no complaints but wound not healing and was worked up and found to have osteo patient also allergic to lot of medications - History Source History Provided By: Patient Limitations to Obtaining History: No Limitations - Alcohol/Substance Use Hx Alcohol Use: No - Smoking History Smoking history: Never smoked Have you smoked in the past 12 months: No If you are a former smoker, when did you quit?: 1973 Home Medications - Allergies Allergies/Adverse Reactions: Allergies Allergy/AdvReac Type Severity Reaction Status Date / Time Penicillins Allergy Severe Verified 04/11/20 09:28 ampicillin sodium AdvReac Verified 04/11/20 09:28 [From Unasyn] sulbactam sodium AdvReac Verified 04/11/20 09:28 [From Unasyn] - Home Medications Home Medications: Ambulatory Orders RX: Cholecalciferol (Vitamin D3) [Vitamin D3] 1,000 unit PO DAILY 01/10/15 RX: Cyanocobalamin [Vitamin B12 -] 2,000 mcg PO DAILY 01/10/15 RX: Quinapril HCl [Accupril -] 5 mg PO DAILY 01/10/15 RX: Insulin Pump Controller [Snap Insulin Pump Controller] 1 each MC DAILY 10/01/15 RX: Insulin (LOG) Aspart [NovoLOG -] 0 unit SQ DAILY 02/10/18 RX: Polyethylene Glycol 3350 [Miralax 255 gm Btl -] 17 gm PO DAILY #1 bottle 11/30/18 RX: Atorvastatin Ca [Lipitor] 10 mg PO HS tablet 03/27/20 RX: Ertapenem Sodium [Invanz -] 1 gm IVPB DAILY 42 Days #42 vial 03/27/20 RX: Escitalopram Oxalate [Lexapro -] 20 mg PO DAILY tablet 03/27/20 RX: Pramipexole Dihydrochloride [Mirapex -] 1 mg PO TID tablet 03/27/20 RX: Vancomycin HCl 1,250 mg IVPB DAILY 42 Days #42 vial 03/27/20 Review of Systems - Review of Systems Constitutional: reports: No Symptoms Eyes: reports: No Symptoms HENT: reports: No Symptoms Neck: reports: No Symptoms Cardiovascular: reports: No Symptoms Respiratory: reports: No Symptoms Gastrointestinal: reports: No Symptoms Genitourinary: reports: No Symptoms Musculoskeletal: reports: Other Integumentary: reports: Erythema, Other Neurological: reports: No Symptoms Endocrine: reports: No Symptoms Hematology/Lymphatic: reports: No Symptoms Psychiatric: reports: No Symptoms Physical Exam Vital Signs: Vital Signs Temperature 97.7 F 03/25/20 07:11 Pulse Rate 86 03/25/20 07:11 Respiratory Rate 03/25/20 07:11 Blood Pressure 168/77 03/25/20 07:11 O2 Sat by Pulse Oximetry (%) 96 03/25/20 07:11 Constitutional: Yes: Well Nourished, No Distress, Anxious Eyes: Yes: Conjunctiva Clear HENT: Yes: Atraumatic, Normocephalic Neck: Yes: Supple, Trachea Midline Cardiovascular: Yes: Regular Rate and Rhythm Respiratory: Yes: Regular, CTA Bilaterally Gastrointestinal: Yes: Normal Bowel Sounds, Soft Musculoskeletal: Yes: WNL Extremities: Yes: Erythema, Other Neurological: Yes: Alert, Oriented Psychiatric: Yes: Alert, Oriented Labs: CBC, BMP 03/25/20 08:00 03/25/20 08:00 Imaging - Results MRI: Report Reviewed, Image Reviewed Assessment/Plan Problem List - Problems (1) Osteomyelitis of foot Problems reviewed: Yes Code(s): M86.9 - OSTEOMYELITIS, UNSPECIFIED Qualifiers: Osteomyelitis type: chronic multifocal Laterality: right Qualified Code (s): M86.371 - Chronic multifocal osteomyelitis, right ankle and foot (2) Constipation Problems reviewed: Yes Code(s): K59.00 - CONSTIPATION, UNSPECIFIED Qualifiers: Constipation type: chronic idiopathic constipation Qualified Code(s): K59.04 - Chronic idiopathic constipation (3) IDDM (insulin dependent diabetes mellitus) Problems reviewed: Yes Code(s): E11.9 - TYPE 2 DIABETES MELLITUS WITHOUT COMPLICATIONS; 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
--- NOTE | 2020-03-25 15:42 | HP ---
Admitting History and Physical - Admission Chief Complaint: 69 y.o M with osteomyelitis of the right foot was sent for ho spitalization, [facility], IV Abx, by Dr. Velazquez. History of Present Illness: MARTI -autoimmune diabetes of adults. HTN. Episodes of hypotension-autonomic dysfunction. BPH HLD Osteoporosis. Major depression managed by Dr Gomez.Status post ASWMI in 1994. ASHD Asthma. MNG. FENA negative 2013. Parkinson 's disease. CAMILLE scan positive 08/16/19. 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 Cardiovascular: Yes: CAD, HTN, DE Pulmonary: Yes: Asthma Renal/: Yes: BPH Heme/Onc: Yes: B12 Deficiency Psych: Yes: Depression Musculoskeletal: Yes: Other (Charcot's feet) Endocrine: Yes: Diabetes Mellitus - Smoking History Smoking history: Former smoker Have you smoked in the past 12 months: No If you are a former smoker, when did you quit?: 1973 - Alcohol/Substance Use Hx Alcohol Use: No Home Medications - Allergies Allergies/Adverse Reactions: Allergies Allergy/AdvReac Type Severity Reaction Status Date / Time Penicillins Allergy Severe Verified 03/25/20 07:18 ampicillin sodium AdvReac Verified 03/25/20 07:18 [From Unasyn] sulbactam sodium AdvReac Verified 03/25/20 07:18 [From Unasyn] - Home Medications Home Medications: Ambulatory Orders Cholecalciferol (Vitamin D3) [Vitamin D3] 1,000 unit PO DAILY 01/10/15 Cyanocobalamin [Vitamin B12 -] 2,000 mcg PO DAILY 01/10/15 Quinapril HCl [Accupril -] 5 mg PO DAILY 01/10/15 Simvastatin 10 mg PO DAILY 01/10/15 Insulin Pump Controller [Snap Insulin Pump Controller] 1 each MC DAILY 10/01/15 Insulin (LOG) Aspart [NovoLOG -] 0 unit SQ DAILY 02/10/18 Polyethylene Glycol 3350 [Miralax 255 gm Btl -] 17 gm PO DAILY #1 bottle 11/30/18 Benztropine Mesylate 1 mg PO DAILY 03/25/20 Bupropion HCl [Wellbutrin -] 100 mg PO ASDIR 03/25/20 Family Medical History Family History: Unremarkable Review of Systems - Review of Systems Constitutional: reports: No Symptoms Eyes: reports: No Symptoms HENT: reports: No Symptoms Neck: reports: No Symptoms Cardiovascular: reports: No Symptoms Respiratory: reports: Exercise Intolerance Gastrointestinal: reports: No Symptoms Genitourinary: reports: No Symptoms Neurological: reports: Confusion (occasionally), Tremors, Unsteady Gait. denies: Change in LOC, Change in Speech, Seizure Psychiatric: reports: Anxiety, Depression Physical Examination Vital Signs: Vital Signs Temperature 97.7 F 03/25/20 07:11 Pulse Rate 86 03/25/20 07:11 Respiratory Rate 03/25/20 07:11 Blood Pressure 168/77 03/25/20 07:11 O2 Sat by Pulse Oximetry (%) 96 03/25/20 07:11 Constitutional: Yes: Anxious, Mild Distress Eyes: Yes: Conjunctiva Clear, EOM Intact HENT: Yes: Atraumatic, Normocephalic. No: Drooling, Epistaxis, Hoarseness, Pharyngeal Erythema, Rhinnorhea Neck: Yes: Supple Cardiovascular: Yes: Regular Rate and Rhythm, S1, S2. No: Bradycardia, Tachy cardia, JVD Respiratory: Yes: Regular, CTA Bilaterally. No: Accessory Muscle Use Gastrointestinal: Yes: Normal Bowel Sounds, Soft. No: Abdomen, Obese, Ascites ...Rectal Exam: Yes: Deferred Renal/: No: Anuria, Bladder Distention, CVA Tenderness - Left, CVA Tenderness - Right Breast(s): Yes: WNL Musculoskeletal: No: Back Pain, Joint Stiffness, Joint Swelling Extremities: Yes: Other (Right foot dressings are clean, intact). No: Calf Tenderness, Cold Peripheral Pulses WNL: No Neurological: Yes: Alert, Oriented, Numbness (LE), Tremors. No: Aphasia, Dysarthria, Lethargy, Loss of Sensation ...Motor Strength: WNL Psychiatric: Yes: Alert, Oriented. No: Agitated, Suicidal Ideation Labs: CBC, BMP 03/25/20 08:00 03/25/20 08:00 Laboratory Results - last 24 hr 03/25/20 03/25/20 03/25/20 08:00 08:00 08:00 WBC 6.0 RBC 4.72 Hgb 13.9 Hct 41.4 MCV 87.6 MCH 29.5 MCHC 33.6 RDW 13.3 Plt Count 193 MPV 7.8 Absolute Neuts (auto) 3.4 Neutrophils % 57.1 Lymphocytes % 30.1 Monocytes % 5.9 Eosinophils % 5.9 H Basophils % 1.0 Nucleated RBC % 0 ESR 8 PT with INR 11.80 INR 1.00 PTT (Actin FS) 27.2 Sodium 138 Potassium 4.4 Chloride 104 Carbon Dioxide 25 Anion Gap 9 BUN 15.6 Creatinine 1.1 Est GFR (CKD-EPI)AfAm 78.41 Est GFR (CKD-EPI)NonAf 67.66 Random Glucose 245 H Calcium 8.9 Total Bilirubin 0.5 AST 21 ALT 23 Alkaline Phosphatase 68 Total Protein 7.0 Albumin 3.4 Blood Type Antibody Screen 03/25/20 08:00 WBC RBC Hgb Hct MCV MCH MCHC RDW Plt Count MPV Absolute Neuts (auto) Neutrophils % Lymphocytes % Monocytes % Eosinophils % Basophils % Nucleated RBC % ESR PT with INR INR PTT (Actin FS) Sodium Potassium Chloride Carbon Dioxide Anion Gap BUN Creatinine Est GFR (CKD-EPI)AfAm Est GFR (CKD-EPI)NonAf Random Glucose Calcium Total Bilirubin AST ALT Alkaline Phosphatase Total Protein Albumin Blood Type B NEGATIVE Antibody Screen Negative Imaging - Results Chest X-ray: Report Reviewed EKG: Image Reviewed Problem List - Problems (1) Osteomyelitis of foot Assessment/Plan: Podiatry f/u IV ABX. PICC by IR Discussed with Dr Melgar. Follow vanco levels Follow Renal fx Problems reviewed: Yes Code(s): M86.9 - OSTEOMYELITIS, UNSPECIFIED Qualifiers: Osteomyelitis type: chronic multifocal Laterality: right Qualified Code(s): M86.371 - Chronic multifocal osteomyelitis, right ankle and foot (2) Constipation Assessment/Plan: Continue Miralax, Problems reviewed: Yes Code(s): K59.00 - CONSTIPATION, UNSPECIFIED Qualifiers: Constipation type: chronic idiopathic constipation Qualified Code(s): K59.04 - Chronic idiopathic constipation (3) IDDM (insulin dependent diabetes mellitus) Assessment/Plan: Continue Pt's Paradigm pump with Novolog 1.5 u/hr Problems reviewed: Yes Code(s): E11.9 - TYPE 2 DIABETES MELLITUS WITHOUT COMPLICATIONS; 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 Problems reviewed: Yes Code(s): F32.9 - MAJOR DEPRESSIVE DISORDER, SINGLE EPISODE, UNSPECIFIED Qualifiers: Major depression episode severity: moderate (6) Parkinson disease Assessment/Plan: Pramipexole 1 gm Q 8 HR. Problems reviewed: Yes Code(s): G20 - PARKINSON'S DISEASE
[2020-03-25 16:36] LABS: PH,URINE 6.5 (5.0-8.0); URINE APPEARANCE CLEAR; URINE BILIRUBIN NEGATIVE (NEGATIVE); URINE COLOR YELLOW; URINE GLUCOSE (UA) 1+ (NEGATIVE); URINE KETONE NEGATIVE (NEGATIVE); URINE LEUK ESTERASE NEGATIVE (NEGATIVE); URINE NITRITE NEGATIVE (NEGATIVE); URINE PROTEIN TRACE (NEGATIVE); URINE UROBILINOGEN 0.2 mg/dL (0.2-1.0)
--- NOTE | 2020-03-25 16:37 | CONSULT ---
Consult Consult Specialty:: Podiatry - History of Present Illness History of Present Illness: OM right foot with grade 3 wound many months. 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 Cardio/Vascular: Yes: CAD, HTN, [place] Pulmonary: Yes: Asthma Renal/: Yes: BPH Psych: Yes: Depression Musculoskeletal: Yes: Other (Charcot's feet) Endocrine: Yes: Diabetes Mellitus - Alcohol/Substance Use Hx Alcohol Use: No - Smoking History Smoking history: Former smoker Have you smoked in the past 12 months: No If you are a former smoker, when did you quit?: 1974 Home Medications - Allergies Allergies/Adverse Reactions: Allergies Allergy/AdvReac Type Severity Reaction Status Date / Time Penicillins Allergy Severe Verified 03/25/20 07:18 ampicillin sodium AdvReac Verified 03/25/20 07:18 [From Unasyn] sulbactam sodium AdvReac Verified 03/25/20 07:18 [From Unasyn] - Home Medications Home Medications: Ambulatory Orders RX: Cholecalciferol (Vitamin D3) [Vitamin D3] 1,000 unit PO DAILY 01/10/15 RX: Cyanocobalamin [Vitamin B12 -] 2,000 mcg PO DAILY 01/10/15 RX: Quinapril HCl [Accupril -] 5 mg PO DAILY 01/10/15 RX: Simvastatin 10 mg PO DAILY 01/10/15 RX: Insulin Pump Controller [Snap Insulin Pump Controller] 1 each MC DAILY 10/01/15 RX: Insulin (LOG) Aspart [NovoLOG -] 0 unit SQ DAILY 02/10/18 RX: Polyethylene Glycol 3350 [Miralax 255 gm Btl -] 17 gm PO DAILY #1 bottle 11/30/18 Bupropion HCl [Wellbutrin -] 100 mg PO ASDIR 03/25/20 RX: Benztropine Mesylate 1 mg PO DAILY 03/25/20 Physical Exam Vital Signs: Vital Signs Temperature 97.7 F 03/25/20 07:11 Pulse Rate 86 03/25/20 07:11 Respiratory Rate 20 03/25/20 07:11 Blood Pressure 168/77 03/25/20 07:11 O2 Sat by Pulse Oximetry (%) 96 03/25/20 07:11 Wound/Incision: Yes: Other (grade 3 wound right foot, +om, -cellulitis,) Labs: CBC, BMP 03/25/20 08:00 07/20/20 08:00 Assessment/Plan om grade 3 wound IVABX as per ID. here for picc line insertion. HBO consult done and pt is scheduled. DO NOT REMOVE DRESSING PT HAS A 7 DAY GRAFT ON HIS RIGHT FOOT. Will follow till dc. Bone culture results Entero Cloace from 03/21/20. Follow up in [facility] upon dc.
[2020-03-25] MEDS ORDERED: ATORVASTATIN CA 10 MG TABLET (FP) ONE (22:17)
[2020-03-25] MEDS ORDERED: HEPARIN NA (PORCINE) 5,000 UNITS/ML 1ML VIAL ONE (22:17)
[2020-03-25] MEDS: ATORVASTATIN CA 10 MG TABLET (FP) PO SCH (22:23)
[2020-03-25] MEDS: HEPARIN NA (PORCINE) 5,000 UNITS/ML 1ML VIAL SQ SCH (22:23)
[2020-03-25] MEDS: PRAMIPEXOLE DIHYDROCHLORIDE 1 MG TABLET PO SCH (22:49)
[2020-03-25] MEDS: POLYETHYLENE GLYCOL 3350 255 GM BTL PO SCH (22:49)
[2020-03-26] MEDS: VANCOMYCIN HCL 1,250 MG in DEXTROSE 5%-WATER - 250 ML IVPB SCH ×2 (01:15→11:33)
[2020-03-26] MEDS: PRAMIPEXOLE DIHYDROCHLORIDE 1 MG TABLET PO SCH ×3 (06:28→22:06)
[2020-03-26 08:14] LABS: BASO % 0.6 % (0-2.0); EOS % 4.9 % (0-4.5); HEMATOCRIT 41.5 % (35.4-49); HEMOGLOBIN 13.6 GM/dL (11.7-16.9); LYMPH % 18.7 % (8-40); MCH 29.3 pg (25.7-33.7); MCHC 32.8 g/dl (32.0-35.9); MEAN CELL VOLUME 89.3 fl (80-96); MEAN PLT VOLUME 7.9 fl (7.5-11.1); MONO % 7.1 % (3.8-10.2); NEUT % 68.7 % (42.8-82.8); PLATELET COUNT 180 K/MM3 (134-434); RBC 4.64 M/mm3 (4.00-5.60); RDW 13.4 % (11.9-15.9); WHITE BLOOD COUNT 7.5 K/mm3 (4.0-10.0)
[2020-03-26 08:51] LABS: ALBUMIN 3.3 g/dl (3.4-5.0); BILIRUBIN,TOTAL 0.7 mg/dL (0.2-1); BLOOD UREA NITROGEN 15.2 mg/dL (7-18); CALCIUM 8.8 mg/dL (8.5-10.1); CREATININE 1.1 mg/dL (0.55-1.3); MAGNESIUM 2.4 mg/dL (1.8-2.4); TOT PROT 6.8 g/dl (6.4-8.2)
[2020-03-26] MEDS ORDERED: PATIENT'S OWN MEDICATION (NON-FORMULARY) (Insulin Pump Controller [Snap Insulin Pump Contr MC SCH (10:00)
[2020-03-26] MEDS ORDERED: POLYETHYLENE GLYCOL 3350 255 GM BTL PO SCH (10:00)
[2020-03-26] MEDS ORDERED: PATIENT'S OWN MEDICATION (NON-FORMULARY) (Simvastatin [Simvastatin] 10 MG) PO SCH (10:00)
--- NOTE | 2020-03-26 10:35 | PN ---
Progress Note, Physician History of Present Illness: OM right foot with grade 3 wound many months. - Current Medication List Current Medications: Active Medications Atorvastatin Calcium (Lipitor -) 10 mg PO HS [facility] Last Admin: 03/25/20 22:23 Dose: 10 mg Documented by: Cyanocobalamin (Vitamin B12 -) 2,000 mcg PO DAILY [facility] Escitalopram Oxalate (Lexapro -) 20 mg PO DAILY [facility] Heparin Sodium (Porcine) (Heparin -) 5,000 unit SQ BID [facility] Last Admin: 03/25/20 22:23 Dose: Not Given Documented by: Vancomycin HCl 1,250 mg/ (Dextrose) 250 mls @ 166.667 mls/hr IVPB Q12H [facility]; Protocol Last Admin: 03/26/20 01:15 Dose: 166.667 mls/hr Documented by: Ertapenem 1 gm/ Sodium (Chloride) 50 mls @ 100 mls/hr IVPB DAILY [facility] Last Admin: 03/25/20 15:27 Dose: 100 mls/hr Documented by: Non-Formulary Medication (Insulin Pump Controller [Snap Insulin Pump Controller]) 1 each MC DAILY [facility] Polyethylene Glycol (Miralax (For Bowel Prep) -) 17 gm PO BID [facility] Last Admin: 03/25/20 22:49 Dose: 17 gm Documented by: Pramipexole Dihydrochloride (Mirapex -) 1 mg PO TID [facility] Last Admin: 03/26/20 06:28 Dose: 1 mg Documented by: Quinapril HCl (Accupril -) 5 mg PO DAILY [facility] - Objective Vital Signs: Vital Signs Temperature 98 F 03/26/20 02:40 Pulse Rate 70 03/26/20 02:40 Respiratory Rate 18 03/26/20 02:40 Blood Pressure 140/62 03/26/20 02:40 O2 Sat by Pulse Oximetry (%) 96 03/26/20 03:25 Wound/Incision: Yes: Other (+wound right foot with positive culture on biopsy result) Labs: CBC, BMP 03/26/20 07:46 03/26/20 06:00 INR, PTT INR 1.00 (0.83-1.09) 03/25/20 08:00 Assessment/Plan om grade 3 wound IVABX as per ID. HBO. DO NOT REMOVE DRESSING PT HAS A 7 DAY GRAFT ON HIS RIGHT FOOT. Will follow till dc. Follow up in [facility] upon dc.
[2020-03-26] MEDS ORDERED: PT OWN MED DRAWER 7, Y5N ONE ×2 (11:05→21:04)
[2020-03-26] MEDS: CYANOCOBALAMIN 1,000 MCG TABLET (FP) PO SCH (11:06)
[2020-03-26] MEDS: ESCITALOPRAM OXALATE 20 MG TABLET PO SCH (11:07)
[2020-03-26] MEDS: POLYETHYLENE GLYCOL 3350 255 GM BTL PO SCH ×2 (11:08→22:05)
[2020-03-26] MEDS: ERTAPENEM SODIUM 1 GM in SODIUM CHLORIDE 50 ML IVPB SCH (11:10)
[2020-03-26] MEDS: HEPARIN NA (PORCINE) 5,000 UNITS/ML 1ML VIAL SQ SCH ×2 (11:20→22:06)
--- NOTE | 2020-03-26 13:11 | PN ---
Progress Note, Physician History of Present Illness: stable no new issues tolerated abx well - Current Medication List Current Medications: Active Medications Atorvastatin Calcium (Lipitor -) 10 mg PO HS [facility] Last Admin: 03/25/20 22:23 Dose: 10 mg Documented by: Cyanocobalamin (Vitamin B12 -) 2,000 mcg PO DAILY [facility] Last Admin: 03/26/20 11:06 Dose: 2,000 mcg Documented by: Escitalopram Oxalate (Lexapro -) 20 mg PO DAILY [facility] Last Admin: 03/26/20 11:07 Dose: 20 mg Documented by: Heparin Sodium (Porcine) (Heparin -) 5,000 unit SQ BID [facility] Last Admin: 03/26/20 11:20 Dose: 5,000 unit Documented by: Vancomycin HCl 1,250 mg/ (Dextrose) 250 mls @ 166.667 mls/hr IVPB Q12H [facility]; Protocol Last Admin: 03/26/20 11:33 Dose: 166.667 mls/hr Documented by: Ertapenem 1 gm/ Sodium (Chloride) 50 mls @ 100 mls/hr IVPB DAILY [facility] Last Admin: 03/26/20 11:10 Dose: 100 mls/hr Documented by: Non-Formulary Medication (Insulin Pump Controller [Snap Insulin Pump Controller]) 1 each MC DAILY [facility] Polyethylene Glycol (Miralax (For Bowel Prep) -) 17 gm PO BID [facility] Last Admin: 03/26/20 11:08 Dose: 17 gm Documented by: Pramipexole Dihydrochloride (Mirapex -) 1 mg PO TID [facility] Last Admin: 03/26/20 06:28 Dose: 1 mg Documented by: Quinapril HCl (Accupril -) 5 mg PO DAILY [facility] - Objective Vital Signs: Vital Signs Temperature 98.4 F 03/26/20 10:00 Pulse Rate 72 03/26/20 10:00 Respiratory Rate 18 03/26/20 10:00 Blood Pressure 131/72 03/26/20 10:00 O2 Sat by Pulse Oximetry (%) 95 03/26/20 10:00 Constitutional: Yes: No Distress, Calm Cardiovascular: Yes: S1, S2 Respiratory: Yes: Regular, CTA Bilaterally Gastrointestinal: Yes: Normal Bowel Sounds, Soft Musculoskeletal: Yes: WNL Extremities: Yes: Other Wound/Incision: Yes: Dressing Dry and Intact Neurological: Yes: Alert, Oriented Psychiatric: Yes: Alert, Oriented Labs: CBC, BMP 03/26/20 07:46 03/26/20 06:00 INR, PTT INR 1.00 (0.83-1.09) 03/25/20 08:00 Assessment/Plan Problem List - Problems (1) Osteomyelitis of foot Problems reviewed: Yes Code(s): M86.9 - OSTEOMYELITIS, UNSPECIFIED Qualifiers: Osteomyelitis type: chronic multifocal Laterality: right Qualified Code(s): M86.371 - Chronic multifocal osteomyelitis, right ankle and foot (2) Constipation Problems reviewed: Yes Code(s): K59.00 - CONSTIPATION, UNSPECIFIED Qualifiers: Constipation type: chronic idiopathic constipation Qualified Code(s): K59.04 - Chronic idiopathic constipation (3) IDDM (insulin dependent diabetes mellitus) Problems reviewed: Yes Code(s): E11.9 - TYPE 2 DIABETES MELLITUS WITHOUT COMPLICATIONS; Z79.4 - LONG T ERM (CURRENT) USE OF INSULIN (4) ASHD (arteriosclerotic heart disease) Problems reviewed: Yes Code(s): I25.10 - ATHSCL HEART DISEASE OF [place] CORONARY ARTERY W/O ANG PCTRS (5) Depression Problems reviewed: Yes Code(s): F32.9 - MAJOR DEPRESSIVE DISORDER, SINGLE EPISODE, UNSPECIFIED Qualifiers: Major depression episode severity: moderate (6) Parkinson disease Problems reviewed: Yes Code(s): G20 - PARKINSON'S DISEASE plan continue current abx on discharge patient can be send home on dapto 1000 mg daily and ertapenam 1 gm daily will need it for 6 week- to 8 weeks
[2020-03-26] MEDS: QUINAPRIL HCL 5 MG TABLET (FP) PO SCH (13:16)
--- NOTE | 2020-03-26 13:20 | PN ---
Progress Note, Physician Chief Complaint: Receiving Vanco/Ertapenem without complications. Seen by podiatry. Note appreciated. History of Present Illness: MARTI -autoimmune diabetes of adults. HTN. Episodes of hypotension-autonomic dysfunction. BPH HLD Osteoporosis. Major depression managed by Dr Gomez.Status post ASWMI in 1994. ASHD Asthma. MNG. FENA negative 2013. Parkinson 's disease. CAMILLE scan positive 08/16/19. - Current Medication List Current Medications: Active Medications Atorvastatin Calcium (Lipitor -) 10 mg PO HS [facility] Last Admin: 03/25/20 22:23 Dose: 10 mg Documented by: Cyanocobalamin (Vitamin B12 -) 2,000 mcg PO DAILY [facility] Last Admin: 03/26/20 11:06 Dose: 2,000 mcg Documented by: Escitalopram Oxalate (Lexapro -) 20 mg PO DAILY [facility] Last Admin: 03/26/20 11:07 Dose: 20 mg Documented by: Heparin Sodium (Porcine) (Heparin -) 5,000 unit SQ BID [facility] Last Admin: 03/26/20 11:20 Dose: 5,000 unit Documented by: Vancomycin HCl 1,250 mg/ (Dextrose) 250 mls @ 166.667 mls/hr IVPB Q12H [facility]; Protocol Last Admin: 03/26/20 11:33 Dose: 166.667 mls/hr Documented by: Ertapenem 1 gm/ Sodium (Chloride) 50 mls @ 100 mls/hr IVPB DAILY [facility] Last Admin: 03/26/20 11:10 Dose: 100 mls/hr Documented by: Insulin Aspart (Novolog Vial Sliding Scale -) vial SQ ACHS [facility]; Protocol Non-Formulary Medication (Insulin Pump Controller [Snap Insulin Pump Con troller]) 1 each MC DAILY [facility] Polyethylene Glycol (Miralax (For Bowel Prep) -) 17 gm PO BID [facility] Last Admin: 03/26/20 11:08 Dose: 17 gm Documented by: Pramipexole Dihydrochloride (Mirapex -) 1 mg PO TID [facility] Last Admin: 03/26/20 06:28 Dose: 1 mg Documented by: Quinapril HCl (Accupril -) 5 mg PO DAILY [facility] - Objective Vital Signs: Vital Signs Temperature 98.4 F 03/26/20 10:00 Pulse Rate 72 03/26/20 10:00 Respiratory Rate 18 03/26/20 10:00 Blood Pressure 131/72 03/26/20 10:00 O2 Sat by Pulse Oximetry (%) 95 03/26/20 10:00 Constitutional: Yes: No Distress, Anxious Eyes: Yes: Conjunctiva Clear, EOM Intact HENT: Yes: Atraumatic, Normocephalic Neck: Yes: Supple, Trachea Midline Cardiovascular: Yes: Regular Rate and Rhythm, S1, S2 Respiratory: Yes: Regular, CTA Bilaterally Gastrointestinal: Yes: Normal Bowel Sounds, Soft. No: Ascites, Distention, Hypoactive Bowel Sounds, Pulsatile Mass, Splenomegaly, Tenderness, Vomiting ...Rectal Exam: Yes: Deferred Genitourinary: No: Anuria, Bladder Distention, CVA Tenderness - Left, CVA Tenderness - Right Musculoskeletal: Yes: WNL Extremities: Yes: Other (Right foot dressing intact). No: Amputation, Calf Tenderness, Cold, Cyanosis Edema: No Peripheral Pulses WNL: No Neurological: Yes: Alert, Oriented, Tremors. No: Aphasia, Loss of Sensation, Seizure ...Motor Strength: WNL Psychiatric: Yes: Alert, Oriented. No: Agitated, Suicidal Ideation Labs: CBC, BMP 03/26/20 07:46 03/26/20 06:00 INR, PTT INR 1.00 (0.83-1.09) 03/25/20 08:00 Laboratory Results - last 24 hr 03/25/20 03/25/20 03/26/20 08:00 16:21 06:00 WBC RBC Hgb Hct MCV MCH MCHC RDW Plt Count MPV Absolute Neuts (auto) Neutrophils % Lymphocytes % Monocytes % Eosinophils % Basophils % Nucleated RBC % ESR Sodium 138 140 Potassium 4.4 4.0 Chloride 104 106 Carbon Dioxide 25 28 Anion Gap 9 6 L BUN 15.6 15.2 Creatinine 1.1 1.1 Est GFR (CKD-EPI)AfAm 78.41 78.41 Est GFR (CKD-EPI)NonAf 67.66 67.66 POC Glucometer Random Glucose 245 H 105 Hemoglobin A1c % Calcium 8.9 8.8 Magnesium 2.4 Total Bilirubin 0.5 0.7 AST 21 19 ALT 23 21 Alkaline Phosphatase 68 55 C-Reactive Protein < 0.3 Total Protein 7.0 6.8 Albumin 3.4 3.3 L Urine Color Yellow Urine Appearance Clear Urine pH 6.5 Ur Specific [place] 1.015 Urine Protein Trace Urine Glucose (UA) 1+ H Urine Ketones Negative Urine Blood Negative Urine Nitrite Negative Urine Bilirubin Negative Urine Urobilinogen 0.2 Ur Leukocyte Esterase Negative 03/26/20 03/26/20 03/26/20 06:24 07:46 07:46 WBC 7.5 RBC 4.64 Hgb 13.6 Hct 41.5 MCV 89.3 MCH 29.3 MCHC 32.8 RDW 13.4 Plt Count 180 MPV 7.9 Absolute Neuts (auto) 5.2 Neutrophils % 68.7 D Lymphocytes % 18.7 D Monocytes % 7.1 Eosinophils % 4.9 H Basophils % 0.6 Nucleated RBC % 0 ESR Sodium Potassium Chloride Carbon Dioxide Anion Gap BUN Creatinine Est GFR (CKD-EPI)AfAm Est GFR (CKD-EPI)NonAf POC Glucometer 102 Random Glucose Hemoglobin A1c % 8.5 H Calcium Magnesium Total Bilirubin AST ALT Alkaline Phosphatase C-Reactive Protein Total Protein Albumin Urine Color Urine Appearance Urine pH Ur Specific [place] Urine Protein Urine Glucose (UA) Urine Ketones Urine Blood Urine Nitrite Urine Bilirubin Urine Urobilinogen Ur Leukocyte Esterase 03/26/20 03/26/20 07:46 11:31 WBC RBC Hgb Hct MCV MCH MCHC RDW Plt Count MPV Absolute Neuts (auto) Neutrophils % Lymphocytes % Monocytes % Eosinophils % Basophils % Nucleated RBC % ESR 7 Sodium Potassium Chloride Carbon Dioxide Anion Gap BUN Creatinine Est GFR (CKD-EPI)AfAm Est GFR (CKD-EPI)NonAf POC Glucometer 180 Random Glucose Hemoglobin A1c % Calcium Magnesium Total Bilirubin AST ALT Alkaline Phosphatase C-Reactive Protein Total Protein Albumin Urine Color Urine Appearance Urine pH Ur Specific [place] Urine Protein Urine Glucose (UA) Urine Ketones Urine Blood Urine Nitrite Urine Bilirubin Urine Urobilinogen Ur Leukocyte Esterase Problem List - Problems (1) Osteomyelitis of foot Assessment/Plan: Podiatry f/u IV ABX to be decided by ID. Vanco/Ertapenem for now. PICC by IR Discussed with Dr Melgar. Follow vanco levels Follow Renal fx Code(s): M86.9 - OSTEOMYELITIS, UNSPECIFIED Qualifiers: Osteomyelitis type: chronic multifocal Laterality: right Qualified Code(s): M86.371 - Chronic multifocal osteomyelitis, right ankle and foot (2) Constipation Assessment/Plan: Continue Miralax, Code(s): K59.00 - CONSTIPATION, UNSPECIFIED Qualifiers: Constipation type: chronic idiopathic constipation Qualified Code(s): K59.04 - Chronic idiopathic constipation (3) IDDM (insulin dependent diabetes mellitus) Assessment/Plan: Levemir 20 units BID Insulin Novolog sliding scale. Code(s): E11.9 - TYPE 2 DIABETES MELLITUS WITHOUT COMPLICATIONS; Z79.4 - SENIOR FACILITIES MANAGER (CURRENT) USE OF INSULIN (4) ASHD (arteriosclerotic heart disease) Assessment/Plan: PO statins, Ramipril 5 mg QD Code(s): I25.10 - ATHSCL HEART DISEASE OF [place] CORONARY ARTERY W/O ANG PCTRS (5) Depression Assessment/Plan: Lexapro [address] Gomez. Code(s): F32.9 - MAJOR DEPRESSIVE DISORDER, SINGLE EPISODE, UNSPECIFIED Qualifiers: Major depression episode severity: moderate (6) Parkinson disease Assessment/Plan: Pramipexole 1 gm Q 8 HR. Code(s): G20 - PARKINSON'S DISEASE
[2020-03-26] MEDS: INSULIN (LEVEMIR) 100 UNITS/ML UNITS SQ SCH ×2 (14:00→22:06)
[2020-03-26] MEDS ORDERED: INSULIN (LEVEMIR) 100 UNITS/ML UNITS SQ ONE (16:30)
[2020-03-26] MEDS: INSULIN SLIDING SCALE (NOVOLOG) 1 VIAL SQ SCH ×2 (17:01→22:07)
[2020-03-26] MEDS ORDERED: INSULIN (NOVOLOG) ASPART 100 UNITS/ML 10ML VIAL ONE (21:05)
[2020-03-26] MEDS: ATORVASTATIN CA 10 MG TABLET (FP) PO SCH (22:06)
[2020-03-27] MEDS: VANCOMYCIN HCL 1,250 MG in DEXTROSE 5%-WATER - 250 ML IVPB SCH ×2 (00:14→15:04)
[2020-03-27] MEDS: PRAMIPEXOLE DIHYDROCHLORIDE 1 MG TABLET PO SCH ×2 (06:19→15:04)
[2020-03-27] MEDS: INSULIN (LEVEMIR) 100 UNITS/ML UNITS SQ SCH (06:19)
[2020-03-27] MEDS: INSULIN SLIDING SCALE (NOVOLOG) 1 VIAL SQ SCH ×3 (06:28→16:48)
[2020-03-27] MEDS ORDERED: INSULIN (NOVOLOG) ASPART 100 UNITS/ML 10ML VIAL ONE (06:46)
--- NOTE | 2020-03-27 07:40 | PN ---
Progress Note, Physician Chief Complaint: Awake, alert, NAD. Home antibiotics for 6 -8 weeks are recommended by Dr. Melgar Dapto/Ertapenem vs Vanco/ertapenem. History of Present Illness: MARTI -autoimmune diabetes of adults. HTN. Episodes of hypotension-autonomic dysfunction. BPH HLD Osteoporosis. Major depression managed by Dr Gomez.Status post ASWMI in 1994. ASHD Asthma. MNG. FENA negative 2013. Parkinson 's disease. CAMILLE scan positive 08/16/19. - Current Medication List Current Medications: Active Medications Atorvastatin Calcium (Lipitor -) 10 mg PO HS [facility] Last Admin: 03/26/20 22:06 Dose: 10 mg Documented by: Cyanocobalamin (Vitamin B12 -) 2,000 mcg PO DAILY [facility] Last Admin: 03/26/20 11:06 Dose: 2,000 mcg Documented by: Escitalopram Oxalate (Lexapro -) 20 mg PO DAILY [facility] Last Admin: 03/26/20 11:07 Dose: 20 mg Documented by: Heparin Sodium (Porcine) (Heparin -) 5,000 unit SQ BID [facility] Last Admin: 03/26/20 22:06 Dose: 5,000 unit Documented by: Vancomycin HCl 1,250 mg/ (Dextrose) 250 mls @ 166.667 mls/hr IVPB Q12H [facility]; Protocol Last Admin: 03/27/20 00:14 Dose: 166.667 mls/hr Documented by: Ertapenem 1 gm/ Sodium (Chloride) 50 mls @ 100 mls/hr IVPB DAILY [facility] Last Admin: 03/26/20 11:10 Dose: 100 mls/hr Documented by: Insulin Aspart (Novolog Vial Sliding Scale -) 1 vial SQ ACHS [facility]; Protocol Last Admin: 03/27/20 06:28 Dose: 2 units Documented by: Insulin Detemir (Levemir Vial) 20 units SQ BID@0700,2200 [facility] Last Admin: 03/27/20 06:19 Dose: 20 units Documented by: Polyethylene Glycol (Miralax (For Bowel Prep) -) 17 gm PO BID [facility] Last Admin: 03/26/20 22:05 Dose: 17 gm Documented by: Pramipexole Dihydrochloride (Mirapex -) 1 mg PO TID [facility] Last Admin: 03/27/20 06:19 Dose: 1 mg Documented by: Quinapril HCl (Accupril -) 5 mg PO DAILY [facility] Last Admin: 03/26/20 13:16 Dose: 5 mg Documented by: - Objective Vital Signs: Vital Signs Temperature 98.3 F 03/27/20 06:00 Pulse Rate 63 03/27/20 06:00 Respiratory Rate 18 03/27/20 06:00 Blood Pressure 143/59 L 03/27/20 06:00 O2 Sat by Pulse Oximetry (%) 98 03/27/20 06:00 Constitutional: Yes: No Distress, Anxious Eyes: Yes: Conjunctiva Clear, EOM Intact HENT: Yes: Atraumatic, Normocephalic Neck: Yes: Supple, Trachea Midline Cardiovascular: Yes: Regular Rate and Rhythm, S1, S2. No: Bradycardia, Tachycardia Respiratory: Yes: Regular, CTA Bilaterally ...Rectal Exam: Yes: Deferred Genitourinary: No: Anuria, Bladder Distention, CVA Tenderness - Left, CVA Tenderness - Right Breast(s): Yes: Gynecomastia Extremities: Yes: Other (right foot dressing in place). No: Amputation, Calf Tenderness, Cold, Cyanosis Peripheral Pulses WNL: Yes Peripheral Pulses: Left Femoral: 2+, Right Femoral: 2+ Neurological: Yes: Alert, Tremors ...Motor Strength: WNL Psychiatric: Yes: WNL. No: Agitated, Suicidal Ideation Additional Findings/Remarks: Blood cultures no growth Labs: CBC, BMP 03/26/20 07:46 03/26/20 06:00 INR, PTT INR 1.00 (0.83-1.09) 03/25/20 08:00 Problem List - Problems (1) Osteomyelitis of foot Assessment/Plan: Vanco ertapenem vs Dapto/ertapenem x 6 weeks Follow vanco levels. Wound care and podiatry f/u Code(s): M86.9 - OSTEOMYELITIS, UNSPECIFIED Qualifiers: Osteomyelitis type: chronic multifocal Laterality: right Qualified Code(s): M86.371 - Chronic multifocal osteomyelitis, right ankle and foot (2) Constipation Assessment/Plan: Continue Miralax, Code(s): K59.00 - CONSTIPATION, UNSPECIFIED Qualifiers: Constipation type: chronic idiopathic constipation Qualified Code(s): K59.04 - Chronic idiopathic constipation (3) IDDM (insulin dependent diabetes mellitus) Assessment/Plan: Levemir 20 units BID Insulin Novolog sliding scale. Code(s): E11.9 - TYPE 2 DIABETES MELLITUS WITHOUT COMPLICATIONS; Z79.4 - USP (CURRENT) USE OF INSULIN (4) ASHD (arteriosclerotic heart disease) Assessment/Plan: PO statins, Ramipril 5 mg QD Code(s): I25.10 - ATHSCL HEART DISEASE OF [place] CORONARY ARTERY W/O ANG PCTRS (5) Depression Assessment/Plan: Lexapro [address] Gomez. Code(s): F32.9 - MAJOR DEPRESSIVE DISORDER, SINGLE EPISODE, UNSPECIFIED Qualifiers: Major depression episode severity: moderate (6) Parkinson disease Assessment/Plan: Pramipexole 1 gm Q 8 HR. Code(s): G20 - PARKINSON'S DISEASE
--- NOTE | 2020-03-27 07:45 | DS ---
Physical Examination Vital Signs: Vital Signs Temperature 98.3 F 03/27/20 06:00 Pulse Rate 63 03/27/20 06:00 Respiratory Rate 18 03/27/20 06:00 Blood Pressure 143/59 L 03/27/20 06:00 O2 Sat by Pulse Oximetry (%) 98 03/27/20 06:00 Constitutional: Yes: No Distress, Anxious. No: Ashen, Cachectic, Thin Eyes: Yes: Conjunctiva Clear, EOM Intact HENT: Yes: Atraumatic, Normocephalic. No: Drooling, Epistaxis, Rhinnorhea, Thrush Neck: Yes: Supple, Trachea Midline Cardiovascular: Yes: Regular Rate and Rhythm, S1, S2. No: Bradycardia, Tachycardia Respiratory: Yes: Regular, CTA Bilaterally Gastrointestinal: Yes: Normal Bowel Sounds, Soft. No: Abdomen, Obese ...Rectal Exam: Yes: Deferred Renal/: No: Anuria, Bladder Distention, CVA Tenderness - Left, CVA Tenderness - Right Breast(s): Yes: WNL Musculoskeletal: No: Joint Stiffness, Joint Swelling Extremities: No: Calf Tenderness, Cold, Cyanosis Integumentary: No: Rash Wound/Incision: Yes: Dressing Dry and Intact (right foot) Neurological: Yes: Alert, Oriented, Numbness (LE), Tremors. No: Aphasia, Dysarthria, Lethargy ...Motor Strength: WNL Psychiatric: Yes: Alert, Oriented. No: Agitated, Suicidal Ideation Labs: CBC, BMP 03/26/20 07:46 03/26/20 06:00 Discharge Summary Problems reviewed: Yes Reason For Visit: OSTEOMYELITIS Current Active Problems Osteomyelitis of foot (Acute) Parkinson disease (Acute) Condition: Stable - Instructions Referrals: Nino Ro MD [Primary Care Provider] - Disposition: HOME - Home Medications Comprehensive Discharge Medication List: Ambulatory Orders Cholecalciferol (Vitamin D3) [Vitamin D3] 1,000 unit PO DAILY 01/10/15 Cyanocobalamin [Vitamin B12 -] 2,000 mcg PO DAILY 01/10/15 Quinapril HCl [Accupril -] 5 mg PO DAILY 01/10/15 Simvastatin 10 mg PO DAILY 01/10/15 Insulin Pump Controller [Snap Insulin Pump Controller] 1 each MC DAILY 10/01/15 Insulin (LOG) Aspart [NovoLOG -] 0 unit SQ DAILY 02/10/18 Polyethylene Glycol 3350 [Miralax 255 gm Btl -] 17 gm PO DAILY #1 bottle 11/30 Benztropine Mesylate 1 mg PO DAILY 03/25/20 Bupropion HCl [Wellbutrin -] 100 mg PO [facility] 03/25/20
[2020-03-27] MEDS ORDERED: PT OWN MED DRAWER 7, Y5N ONE ×2 (09:32→15:02)
[2020-03-27] MEDS: POLYETHYLENE GLYCOL 3350 255 GM BTL PO SCH (09:37)
[2020-03-27] MEDS: HEPARIN NA (PORCINE) 5,000 UNITS/ML 1ML VIAL SQ SCH (09:38)
[2020-03-27] MEDS: ESCITALOPRAM OXALATE 20 MG TABLET PO SCH (09:38)
[2020-03-27] MEDS: ERTAPENEM SODIUM 1 GM in SODIUM CHLORIDE 50 ML IVPB SCH (09:38)
[2020-03-27] MEDS: QUINAPRIL HCL 5 MG TABLET (FP) PO SCH (09:38)
[2020-03-27] MEDS: CYANOCOBALAMIN 1,000 MCG TABLET (FP) PO SCH (09:38)
--- NOTE | 2020-03-27 11:56 | PN ---
Progress Note, Physician History of Present Illness: stable no new issues - Current Medication List Current Medications: Active Medications Atorvastatin Calcium (Lipitor -) 10 mg PO HS [facility] Last Admin: 03/26/20 22:06 Dose: 10 mg Documented by: Cyanocobalamin (Vitamin B12 -) 2,000 mcg PO DAILY [facility] Last Admin: 03/27/20 09:38 Dose: 2,000 mcg Documented by: Escitalopram Oxalate (Lexapro -) 20 mg PO DAILY [facility] Last Admin: 03/27/20 09:38 Dose: 20 mg Documented by: Heparin Sodium (Porcine) (Heparin -) 5,000 unit SQ BID [facility] Last Admin: 03/27/20 09:38 Dose: 5,000 unit Documented by: Vancomycin HCl 1,250 mg/ (Dextrose) 250 mls @ 166.667 mls/hr IVPB Q12H [facility]; Protocol Last Admin: 03/27/20 00:14 Dose: 166.667 mls/hr Documented by: Ertapenem 1 gm/ Sodium (Chloride) 50 mls @ 100 mls/hr IVPB DAILY [facility] Last Admin: 03/27/20 09:38 Dose: 100 mls/hr Documented by: Insulin Aspart (Novolog Vial Sliding Scale -) 1 vial SQ ACHS [facility]; Protocol Last Admin: 03/27/20 06:28 Dose: 2 units Documented by: Insulin Detemir (Levemir Vial) 20 units SQ BID@0700,2200 [facility] Last Admin: 03/27/20 06:19 Dose: 20 units Documented by: Polyethylene Glycol (Miralax (For Bowel Prep) -) 17 gm PO BID [facility] Last Admin: 03/27/20 09:37 Dose: 17 gm Documented by: Pramipexole Dihydrochloride (Mirapex -) 1 mg PO TID [facility] Last Admin: 03/27/20 06:19 Dose: 1 mg Documented by: Quinapril HCl (Accupril -) 5 mg PO DAILY [facility] Last Admin: 03/27/20 09:38 Dose: 5 mg Documented by: - Objective Vital Signs: Vital Signs Temperature 98.3 F 03/27/20 06:00 Pulse Rate 63 03/27/20 06:00 Respiratory Rate 18 03/27/20 06:00 Blood Pressure 143/59 L 03/27/20 06:00 O2 Sat by Pulse Oximetry (%) 98 03/27/20 06:00 Constitutional: Yes: No Distress, Calm Cardiovascular: Yes: S1, S2 Respiratory: Yes: Regular, CTA Bilaterally Gastrointestinal: Yes: Normal Bowel Sounds, Soft Musculoskeletal: Yes: WNL Extremities: Yes: WNL Neurological: Yes: Alert, Oriented Psychiatric: Yes: Alert, Oriented Labs: CBC, BMP 03/26/20 07:46 03/26/20 06:00 INR, PTT INR 1.00 (0.83-1.09) 03/25/20 08:00 Assessment/Plan Problem List - Problems (1) Osteomyelitis of foot Problems reviewed: Yes Code(s): M86.9 - OSTEOMYELITIS, UNSPECIFIED Qualifiers: Osteomyelitis type: chronic multifocal Laterality: right Qualified Code(s): M86.371 - Chronic multifocal osteomyelitis, right ankle and foot (2) Constipation Problems reviewed: Yes Code(s): K59.00 - CONSTIPATION, UNSPECIFIED Qualifiers: Constipation type: chronic idiopathic constipation Qualified Code(s): K59.04 - Chronic idiopathic constipation (3) IDDM (insulin dependent diabetes mellitus) Problems reviewed: Yes Code(s): E11.9 - TYPE 2 DIABETES MELLITUS WITHOUT COMPLICATIONS; Z79.4 - 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
[2020-03-27 15:17] VITALS: BP 129/58; PULSE 65; TEMP 98
== END 2020-03-27 17:22 | disposition home or self-care (01) | DRG 638 ==
LOC: JER 07:03 → JERBED 09:37 → J5S 03-26 02:42
PROVIDERS: ADMIT Internal Medicine; ATTEND Internal Medicine
PROC: 02HV33Z Insertion of Infusion Device into Superior Vena Cava, Percutaneous Approach (ICD-10-PCS; principal; 2020-03-27)
PROC: B518ZZA Fluoroscopy of Superior Vena Cava, Guidance (ICD-10-PCS; 2020-03-27)
DX: E11.69 Type 2 diabetes mellitus with other specified complication (principal); M86.371 Chronic multifocal osteomyelitis, right ankle and foot; E11.610 Type 2 diabetes mellitus with diabetic neuropathic arthropathy; E78.5 Hyperlipidemia, unspecified; N40.0 Benign prostatic hyperplasia without lower urinary tract symptoms; M81.0 Age-related osteoporosis without current pathological fracture; I10 Essential (primary) hypertension; E11.621 Type 2 diabetes mellitus with foot ulcer; F41.8 Other specified anxiety disorders; K59.04 Chronic idiopathic constipation; R26.81 Unsteadiness on feet; G20 Parkinson's disease; J45.909 Unspecified asthma, uncomplicated; Z79.4 Long term (current) use of insulin; I25.2 Old myocardial infarction
CPT/HCPCS: 11042; 15275; 36415; 36569; 71045-TC-FY; 77001-TC-FY; 80053; 81003; 82962; 83036; 83735; 85025; 85610; 85651; 85730; 86140; 86850; 86900; 86901; 87040; 87070; 87086; 87186; 87205; 88304-TC; 88311-TC; 93005; 93010; 97597; 99285-25; C1751; J1644; Q4196; U0003

== ENCOUNTER 2020-03-28 10:19 | Day surgery (SDC) | payer OTHER, MEDICARE ==
[2020-03-28] MEDS ORDERED: ERTAPENEM SODIUM 1 GM in SODIUM CHLORIDE 50 ML IVPB ONE (11:00)
[2020-03-28] MEDS ORDERED: VANCOMYCIN HCL 1,500 MG/500 ML BAG IVPB ONE (11:00)
[2020-04-01 17:18] VITALS: BP 134/70; PULSE 76; TEMP 97.3
== END 2020-03-28 15:55 | disposition home or self-care (01) ==
LOC: J7W 10:19 → JINFUSION 10:19
PROVIDERS: ATTEND Internal Medicine Infectious Disease
DX: E11.621 Type 2 diabetes mellitus with foot ulcer (principal); M86.371 Chronic multifocal osteomyelitis, right ankle and foot; Z79.4 Long term (current) use of insulin
CPT/HCPCS: 96365; 96366; 96367

== ENCOUNTER 2020-03-29 09:11 | Day surgery (SDC) | payer OTHER, MEDICARE ==
[2020-03-29] MEDS ORDERED: ERTAPENEM SODIUM 1 GM in SODIUM CHLORIDE 50 ML IVPB ONE (09:45)
[2020-03-29] MEDS ORDERED: VANCOMYCIN HCL 1,500 MG in DEXTROSE 5%-WATER - 500 ML IVPB ONE (10:00)
[2020-03-29 11:18] VITALS: TEMP 98.3
[2020-03-29 13:54] VITALS: BP 155/68; PULSE 66
== END 2020-03-29 13:54 | disposition home or self-care (01) ==
LOC: JINFUSION 09:11 → J7W 09:32 → JINFUSION 13:54
PROVIDERS: ATTEND Internal Medicine Infectious Disease
DX: E11.621 Type 2 diabetes mellitus with foot ulcer (principal); M86.371 Chronic multifocal osteomyelitis, right ankle and foot; Z79.4 Long term (current) use of insulin
CPT/HCPCS: 96365; 96366; 96367

== ENCOUNTER 2020-03-30 10:06 | Day surgery (SDC) | payer OTHER, MEDICARE ==
[~2020-03-30 10:06] MED LIST: ERTAPENEM SODIUM 1 GM in SODIUM CHLORIDE 50 ML IVPB ONE; VANCOMYCIN HCL 1,500 MG in DEXTROSE 5%-WATER - 500 ML IVPB ONE
[2020-03-30 10:29] VITALS: TEMP 98.8
[2020-03-30] MEDS ORDERED: ERTAPENEM SODIUM 1 GM VIAL ONE (12:12)
[2020-03-30] MEDS ORDERED: SODIUM CHLORIDE 50 ML IVPB ONE (12:12)
[2020-03-30 14:30] VITALS: BP 138/68; PULSE 72
== END 2020-03-30 13:30 | disposition home or self-care (01) ==
LOC: JINFUSION 10:06 → J7W 10:07 → JINFUSION 13:30
PROVIDERS: ATTEND Internal Medicine Infectious Disease
DX: E11.621 Type 2 diabetes mellitus with foot ulcer (principal); M86.371 Chronic multifocal osteomyelitis, right ankle and foot
CPT/HCPCS: 96365; 96366; 96367

== ENCOUNTER 2020-03-31 09:30 | Day surgery (SDC) | payer OTHER, MEDICARE ==
[2020-03-31] MEDS ORDERED: SODIUM CHLORIDE 50 ML IVPB ONE (10:37)
[2020-03-31] MEDS ORDERED: ERTAPENEM SODIUM 1 GM VIAL ONE (10:37)
[2020-03-31] MEDS ORDERED: VANCOMYCIN HCL 1,500 MG in DEXTROSE 5%-WATER - 500 ML IVPB ONE (10:45)
[2020-03-31] MEDS ORDERED: ERTAPENEM SODIUM 1 GM in SODIUM CHLORIDE 50 ML IVPB ONE (10:45)
[2020-03-31 10:55] VITALS: BP 119/63; PULSE 75; TEMP 98.1
== END 2020-03-31 13:32 | disposition home or self-care (01) ==
LOC: JINFUSION 09:30 → J7W 09:31 → JINFUSION 13:32
PROVIDERS: ATTEND Internal Medicine Infectious Disease
DX: E11.621 Type 2 diabetes mellitus with foot ulcer (principal); M86.371 Chronic multifocal osteomyelitis, right ankle and foot; Z79.4 Long term (current) use of insulin
CPT/HCPCS: 96365; 96366; 96367

== ENCOUNTER 2020-04-01 08:29 | Day surgery (SDC) | payer OTHER, MEDICARE ==
[2020-04-01] MEDS ORDERED: VANCOMYCIN HCL 1,500 MG/500 ML BAG IVPB ONE (10:00)
[2020-04-01] MEDS ORDERED: ERTAPENEM SODIUM 1 GM in DEXTROSE 5%-WATER - 50 ML IVPB ONE (10:00)
[2020-04-01 11:37] VITALS: BP 135/75; PULSE 78; TEMP 98.1
[2020-04-01] MEDS ORDERED: ERTAPENEM SODIUM 1 GM VIAL ONE (13:33)
[2020-04-01] MEDS ORDERED: DEXTROSE 5%-WATER - 50 ML IVPB ONE (13:33)
== END 2020-04-01 14:15 | disposition home or self-care (01) ==
LOC: JINFUSION 08:29 → J7W 09:26 → JINFUSION 14:15
PROVIDERS: ATTEND Internal Medicine Infectious Disease
DX: E11.621 Type 2 diabetes mellitus with foot ulcer (principal); M86.371 Chronic multifocal osteomyelitis, right ankle and foot; Z79.4 Long term (current) use of insulin
CPT/HCPCS: 96365; 96366; 96367; G0480

== ENCOUNTER 2020-04-02 08:33 | Day surgery (SDC) | payer OTHER, MEDICARE ==
[2020-04-02] MEDS ORDERED: ERTAPENEM SODIUM 1 GM in DEXTROSE 5%-WATER - 50 ML IVPB ONE (10:00)
[2020-04-02] MEDS ORDERED: VANCOMYCIN HCL 1,500 MG/500 ML BAG IVPB ONE (10:00)
[2020-04-02 10:03] LABS: HEMATOCRIT 43.2 % (35.4-49); HEMOGLOBIN 14.5 GM/dL (11.7-16.9); MCH 29.9 pg (25.7-33.7); MCHC 33.6 g/dl (32.0-35.9); MEAN PLT VOLUME 8.1 fl (7.5-11.1); PLATELET COUNT 167 K/MM3 (134-434); RBC 4.85 M/mm3 (4.00-5.60); RDW 13.3 % (11.9-15.9); WHITE BLOOD COUNT 7.6 K/mm3 (4.0-10.0)
[2020-04-02 10:27] LABS: ALBUMIN 3.5 g/dl (3.4-5.0); BILIRUBIN,TOTAL 0.6 mg/dL (0.2-1); CREATININE 1.2 mg/dL (0.55-1.3); POTASSIUM 4.6 mmol/L (3.5-5.1); TOT PROT 7.4 g/dl (6.4-8.2)
[2020-04-02 10:53] LABS: ERYTHROCYTE SEDIMENTATION RATE 14 mm/hr (0-20)
[2020-04-02] MEDS ORDERED: ERTAPENEM SODIUM 1 GM in SODIUM CHLORIDE 50 ML IVPB ONE (11:00)
[2020-04-02] MEDS ORDERED: DEXTROSE 5%-WATER - 50 ML IVPB ONE (11:01)
[2020-04-02] MEDS ORDERED: ERTAPENEM SODIUM 1 GM VIAL ONE (11:01)
[2020-04-02 12:20] VITALS: TEMP 98.4
[2020-04-02 14:29] VITALS: BP 138/67; PULSE 68
== END 2020-04-02 14:30 | disposition home or self-care (01) ==
LOC: JINFUSION 08:33 → J7W 09:33 → JINFUSION 14:30
PROVIDERS: ATTEND Internal Medicine Infectious Disease
DX: E11.621 Type 2 diabetes mellitus with foot ulcer (principal); M86.371 Chronic multifocal osteomyelitis, right ankle and foot; Z79.4 Long term (current) use of insulin
CPT/HCPCS: 36415; 80053; 85027; 85651; 86140; 96365; 96366; 96367

== ENCOUNTER 2020-04-03 09:47 | Observation (INO) | payer OTHER, MEDICARE ==
--- NOTE | 2020-04-03 10:00 | PDOC ---
Rapid Medical Evaluation Time Seen by Provider: 04/03/20 09:57 Medical Evaluation: Allergies Allergy/AdvReac Type Severity Reaction Status Date / Time Penicillins Allergy Severe Verified 03/25/20 07:18 ampicillin sodium AdvReac Verified 03/25/20 07:18 [From Unasyn] sulbactam sodium AdvReac Verified 03/25/20 07:18 [From Unasyn] 04/03/20 09:57 Pt presents for PICC line replacement. He states it fell out in his sleep. Was placed in the R arm. Pt is due for his antibiotics to treat his osteomylitis as an outpatient Exam: No obvious bleeding or cellulitis to the R arm Orders: defer to provider Pt to proceed to the ER for further evaluation Discharge Disposition - Diagnosis Needs peripherally inserted central catheter (PICC) - Referrals Referrals: Nino Ro MD [Primary Care Provider] - - Patient Instructions - Post Discharge Activity
[2020-04-03] MEDS ORDERED: VANCOMYCIN HCL 1,500 MG in DEXTROSE 5%-WATER - 500 ML IVPB ONE (11:32)
[2020-04-03] MEDS ORDERED: ERTAPENEM SODIUM 1 GM in SODIUM CHLORIDE 50 ML IVPB ONE (11:32)
--- NOTE | 2020-04-03 11:45 | PDOC ---
Documentation entered by Tarun Alfaro SCRIBE, acting as scribe for Theo Boston MD. Theo Boston MD: This documentation has been prepared by the Dominic moctezuma Angel, SCRIBE, under my direction and personally reviewed by me in its entirety. I confirm that the documentation accurately reflects all work, treatment, procedures, and medical decision making performed by me. History of Present Illness - General Chief Complaint: PICC Line Insertion Stated Complaint: PICC LINE ISSUE Time Seen by Provider: 04/03/20 09:57 History Source: Patient Exam Limitations: No Limitations - History of Present Illness Initial Comments: 04/03/20 11:24 The patient is a 69 year old male with a significant past medical history of DM, HTN, HLD, Parkinson's and osteomyelitis who presents to the ED for a PICC line replacement. The PICC line was placed on the and the patient states it fell out during his sleep last night. The patient notes undergoing treatment for osteomyelitis and states he last received 1500gm of Vancomycin and 1gm of Ertrapenam yesterday which are due daily at 10am. The patient has no complaints here in the ED. Last infusions: Ertrapenam on April 02 at 11:05-11:40. Vancomycin on April 02 at 11:45-14:00 Past History - Medical History Allergies/Adverse Reactions: Allergies Allergy/AdvReac Type Severity Reaction Status Date / Time Penicillins Allergy Severe Verified 04/03/20 09:59 ampicillin sodium AdvReac Verified 04/03/20 09:59 [From Unasyn] sulbactam sodium AdvReac Verified 04/03/20 09:59 [From Unasyn] Home Medications: Ambulatory Orders Cholecalciferol (Vitamin D3) [Vitamin D3] 1,000 unit PO DAILY 01/10/15 Cyanocobalamin [Vitamin B12 -] 2,000 mcg PO DAILY 01/10/15 Quinapril HCl [Accupril -] 5 mg PO DAILY 01/10/15 Insulin Pump Controller [Snap Insulin Pump Controller] 1 each MC DAILY 10/01/15 Insulin (LOG) Aspart [NovoLOG -] 0 unit SQ DAILY 02/10/18 Polyethylene Glycol 3350 [Miralax 255 gm Btl -] 17 gm PO DAILY #1 bottle 11/30/18 Atorvastatin Ca [Lipitor] 10 mg PO HS tablet 03/27/20 Ertapenem Sodium [Invanz -] 1 gm IVPB DAILY 42 Days #42 vial 03/27/20 Escitalopram Oxalate [Lexapro -] 20 mg PO DAILY tablet 03/27/20 Pramipexole Dihydrochloride [Mirapex -] 1 mg PO TID tablet 03/27/20 Vancomycin HCl 1,250 mg IVPB DAILY 42 Days #42 vial 03/27/20 Anemia: No Asthma: No Cancer: No Cardiac Disorders: Yes (heart murmur) CVA: No COPD: No CHF: No Dementia: No Diabetes: Yes (PT HAS INSULIN PUMP) GI Disorders: No Disorders: No HTN: Yes Hypercholesterolemia: Yes Liver Disease: No Seizures: No Thyroid Disease: No Other medical history: osteomyelitis right foot - Surgical History Abdominal Surgery: No Appendectomy: No Cardiac Surgery: No Cholecystectomy: No Lung Surgery: No Neurologic Surgery: No Orthopedic Surgery: No - Psycho-Social/Smoking History Smoking History: Never smoked Have you smoked in the past 12 months: No If you are a former smoker, when did you quit?: 1974 - Substance Abuse Hx (Audit-C & DAST Scrn) How often the patient has a drink containing alcohol: Never Score: In Men: 4 or > Positive; In Women: 3 or > Positive: 0 Screen Result (Pos requires Nsg. Audit-10AR): Negative Review of Systems - Review of Systems Able to Perform ROS?: Yes Comments:: 04/03/20 11:50 "GENERAL/CONSTITUTIONAL: No fever or chills. No weakness. HEAD, EYES, EARS, NOSE AND THROAT: No change in vision. No ear pain or discharge. No sore throat. CARDIOVASCULAR: No chest pain, no shortness of breath, no loss of consciousness RESPIRATORY: No cough, wheezing, or hemoptysis. GASTROINTESTINAL: No nausea, vomiting, diarrhea or constipation. GENITOURINARY: No dysuria, frequency, or change in urination. MUSCULOSKELETAL: No joint or muscle swelling or pain. No neck or back pain. SKIN: No rash NEUROLOGIC: No vertigo, no change in strength/sensation. ENDOCRINE: No increased thirst. No abnormal weight change. HEMATOLOGIC/LYMPHATIC: No anemia, easy bleeding, or history of blood clots. ALLERGIC/IMMUNOLOGIC: No hives or skin allergy. All Other Systems: Reviewed and Negative *Physical Exam - Vital Signs Last Vital Signs Temp Pulse Resp BP Pulse Ox 98 F 69 18 126/85 96 04/03/20 09:58 04/03/20 09:58 04/03/20 09:58 04/03/20 09:58 04/03/20 09:58 - Physical Exam 04/03/20 11:51 "GENERAL: Awake, alert, and fully oriented, in no acute distress. HEAD: No signs of trauma EYES: PERRLA, EOMI, sclera anicteric, conjunctiva clear ENT: Auricles normal inspection, hearing grossly normal, nares patent, oropharynx clear without exudates. Moist mucosa NECK: Nontender, no stepoffs, Normal ROM, supple, no lymphadenopathy, JVD, or masses LUNGS: Breath sounds equal, clear to auscultation bilaterally. No wheezes, and no crackles HEART: Regular rate and rhythm, normal S1 and S2, no murmurs, rubs or gallops ABDOMEN: Soft, nontender, normoactive bowel sounds. No guarding, no rebound. No masses EXTREMITIES: Normal range of motion, no edema. No clubbing or cyanosis. No cords, erythema, or tenderness NEUROLOGICAL: Cranial nerves II through XII intact. 5/5 strength and sensation in all extremities, Normal speech, normal gait, normal cerebellar function SKIN: Warm, Dry, normal turgor, no rashes or lesions noted. ED Treatment Course - LABORATORY CBC & Chemistry Diagram: 04/03/20 11:20 04/03/20 11:20 Medical Decision Making - Medical Decision Making 04/03/20 11:51 69 M with dislodged PICC line. Per procedure note, PICC line was trimmed to 47 cm. On exam, removed PICC line appears to be intact. Pt with no complaints at this time. - Labs - Ertapenem and Vancomycin - Admit for PICC placement 04/03/20 12:[address] Ro Discharge - Discharge Information Problems reviewed: Yes Clinical Impression/Diagnosis: Needs peripherally inserted central catheter (PICC) - Admission Yes - Follow up/Referral Referrals: Nino Ro MD [Primary Care Provider] - - Patient Discharge Instructions - Post Discharge Activity
[2020-04-03 11:57] LABS: BASO % 0.5 % (0-2.0); EOS % 4.6 % (0-4.5); HEMOGLOBIN 14.2 GM/dL (11.7-16.9); LYMPH % 24.9 % (8-40); MCH 29.6 pg (25.7-33.7); MCHC 33.1 g/dl (32.0-35.9); MEAN CELL VOLUME 89.3 fl (80-96); MONO % 6.7 % (3.8-10.2); NEUT % 63.3 % (42.8-82.8); PLATELET COUNT 170 K/MM3 (134-434); RBC 4.82 M/mm3 (4.00-5.60); RDW 13.2 % (11.9-15.9); WHITE BLOOD COUNT 6.5 K/mm3 (4.0-10.0)
[2020-04-03] MEDS ORDERED: ERTAPENEM SODIUM 1 GM VIAL ONE (12:01)
[2020-04-03 12:02] LABS: INR 0.98 (0.83-1.09); PROTHROMBIN TIME (PATIENT) 11.6 SEC (9.7-13.0)
[2020-04-03 12:04] LABS: ACTIVATED PTT 29.4 SECONDS (25.2-36.5)
[2020-04-03 12:32] LABS: ALBUMIN 3.5 g/dl (3.4-5.0); BILIRUBIN,TOTAL 0.8 mg/dL (0.2-1); BLOOD UREA NITROGEN 16.4 mg/dL (7-18); CALCIUM 8.9 mg/dL (8.5-10.1); CREATININE 1.1 mg/dL (0.55-1.3); POTASSIUM 4.6 mmol/L (3.5-5.1); TOT PROT 7.1 g/dl (6.4-8.2)
[2020-04-03 16:49] VITALS: BMI 38.2
--- NOTE | 2020-04-03 19:00 | HP ---
Admitting History and Physical - Admission Chief Complaint: 69 y.o M with osteomyelitis right foot on Vanco/Ertapenem pre sented to the ER after PICC line came out. History of Present Illness: Osteomyelitis right foot on Vanco/Ertapenem. PCN allergy. MARTI -autoimmune diabetes of adults. HTN. Episodes of hypotension-autonomic dysfunction. BPH HLD Osteoporosis. Major depression managed by Dr Gomez.Status post ASWMI in 1994. ASHD Asthma. MNG. FENA negative 2013. Parkinson 's disease. CAMILLE scan positive 08/16/19. 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 Cardiovascular: Yes: CAD, HTN, CT Pulmonary: Yes: Asthma Renal/: Yes: BPH Heme/Onc: Yes: B12 Deficiency Psych: Yes: Depression Musculoskeletal: Yes: Other Endocrine: Yes: Diabetes Mellitus - Advance Directives Advance Directives: Yes: Health Care Proxy - Smoking History Smoking history: Never smoked Have you smoked in the past 12 months: No If you are a former smoker, when did you quit?: 1973 - Alcohol/Substance Use Hx Alcohol Use: No - Social History Usual Living Arrangement: Yes: Alone History of Recent Travel: No Home Medications - Allergies Allergies/Adverse Reactions: Allergies Allergy/AdvReac Type Severity Reaction Status Date / Time Penicillins Allergy Severe Verified 04/03/20 09:59 ampicillin sodium AdvReac Verified 04/03/20 09:59 [From Unasyn] sulbactam sodium AdvReac Verified 04/03/20 09:59 [From Unasyn] - Home Medications Home Medications: Ambulatory Orders Cholecalciferol (Vitamin D3) [Vitamin D3] 1,000 unit PO DAILY 01/10/15 Cyanocobalamin [Vitamin B12 -] 2,000 mcg PO DAILY 01/10/15 Quinapril HCl [Accupril -] 5 mg PO DAILY 01/10/15 Insulin Pump Controller [Snap Insulin Pump Controller] 1 each MC DAILY 10/01/15 Insulin (LOG) Aspart [NovoLOG -] 0 unit SQ DAILY 02/10/18 Polyethylene Glycol 3350 [Miralax 255 gm Btl -] 17 gm PO DAILY #1 bottle 11/30/18 Atorvastatin Ca [Lipitor] 10 mg PO HS tablet 03/27/20 Ertapenem Sodium [Invanz -] 1 gm IVPB DAILY 42 Days #42 vial 03/27/20 Escitalopram Oxalate [Lexapro -] 20 mg PO DAILY tablet 03/27/20 Pramipexole Dihydrochloride [Mirapex -] 1 mg PO TID tablet 03/27/20 Vancomycin HCl 1,250 mg IVPB DAILY 42 Days #42 vial 03/27/20 Family Medical History Family History: Unremarkable Review of Systems - Review of Systems Constitutional: denies: Chills, Diaphoresis, Weakness Eyes: reports: No Symptoms HENT: reports: No Symptoms Neck: reports: No Symptoms Cardiovascular: reports: No Symptoms Respiratory: reports: No Symptoms Gastrointestinal: reports: No Symptoms Genitourinary: reports: No Symptoms Integumentary: reports: Wound (Right foot), Other Hematology/Lymphatic: reports: No Symptoms Psychiatric: reports: Depression Physical Examination Vital Signs: Vital Signs Temperature 98.7 F 04/03/20 18:00 Pulse Rate 62 04/03/20 18:00 Respiratory Rate 18 04/03/20 18:00 Blood Pressure 144/59 L 04/03/20 18:00 O2 Sat by Pulse Oximetry (%) 93 L 04/03/20 18:00 Constitutional: Yes: No Distress, Anxious Eyes: Yes: Conjunctiva Clear, EOM Intact HENT: Yes: Atraumatic, Normocephalic Neck: Yes: Supple, Trachea Midline Cardiovascular: Yes: Regular Rate and Rhythm, S1, S2 Respiratory: Yes: Regular, CTA Bilaterally Gastrointestinal: Yes: Normal Bowel Sounds, Soft. No: Abdomen, Obese ...Rectal Exam: Yes: Deferred Renal/: No: Anuria, Bladder Distention, CVA Tenderness - Left, CVA Tenderness - Right Breast(s): Yes: WNL Musculoskeletal: No: Joint Stiffness, Joint Swelling Extremities: Yes: Erythema (right peng with skin abrasion.). No: Calf Tenderness, Cold, Cyanosis Edema: No Wound/Incision: Yes: Clean/Dry Neurological: Yes: Alert, Oriented. No: Aphasia, Dysarthria, Lethargy, Loss of Sensation, Numbness ...Motor Strength: WNL Psychiatric: Yes: Alert, Oriented. No: Agitated, Suicidal Ideation Labs: CBC, BMP 04/03/20 11:20 04/03/20 11:20 Problem List - Problems (1) Needs peripherally inserted central catheter (PICC) Assessment/Plan: Will meed PICC to complete 6 weeks at home Vanco/Ertapenem. Code(s): Z45.2 - ENCOUNTER FOR ADJUSTMENT AND MANAGEMENT OF VAD (2) Diabetes 1.5, managed as type 1 Assessment/Plan: Will switch PICC to Levemir 10 units BID and Novolog sliding scale. Code(s): E13.9 - OTHER SPECIFIED DIABETES MELLITUS WITHOUT COMPLICATIONS (3) Osteomyelitis of foot Assessment/Plan: Continue Vanco/Ertapenem Code(s): M86.9 - OSTEOMYELITIS, UNSPECIFIED Qualifiers: Osteomyelitis type: chronic multifocal Laterality: right Qualified Code(s): M86.371 - Chronic multifocal osteomyelitis, right ankle and foot (4) Parkinson disease Assessment/Plan: Mirapex PO Code(s): G20 - PARKINSON'S DISEASE
[2020-04-03] MEDS ORDERED: VANCOMYCIN HCL 1,250 MG in DEXTROSE 5%-WATER - 250 ML IVPB ONE (19:15)
[2020-04-03] MEDS ORDERED: INSULIN (NOVOLOG) ASPART 100 UNITS/ML 10ML VIAL ONE ×2 (21:27→21:59)
[2020-04-03] MEDS: PRAMIPEXOLE DIHYDROCHLORIDE 1 MG TABLET PO SCH (21:35)
[2020-04-03] MEDS: HEPARIN NA (PORCINE) 5,000 UNITS/ML 1ML VIAL SQ SCH (21:37)
[2020-04-03] MEDS: INSULIN (LEVEMIR) 100 UNITS/ML UNITS SQ SCH (21:39)
[2020-04-03] MEDS: INSULIN SLIDING SCALE (NOVOLOG) 1 VIAL SQ SCH (21:40)
[2020-04-03] MEDS ORDERED: INSULIN (LEVEMIR) 100 UNITS/ML UNITS SQ ONE (21:59)
[2020-04-03] MEDS ORDERED: PT OWN MED DRAWER 7, Y5N ONE (21:59)
[2020-04-03] MEDS ORDERED: ATORVASTATIN CA 10 MG TABLET (FP) PO SCH (22:00)
[2020-04-04] MEDS ORDERED: PT OWN MED DRAWER 7, Y5N ONE (05:07)
[2020-04-04] MEDS: PRAMIPEXOLE DIHYDROCHLORIDE 1 MG TABLET PO SCH ×2 (05:41→13:02)
[2020-04-04] MEDS: HEPARIN NA (PORCINE) 5,000 UNITS/ML 1ML VIAL SQ SCH ×2 (05:58→13:01)
[2020-04-04] MEDS: INSULIN (LEVEMIR) 100 UNITS/ML UNITS SQ SCH (06:02)
[2020-04-04] MEDS: INSULIN SLIDING SCALE (NOVOLOG) 1 VIAL SQ SCH ×2 (06:02→12:32)
[2020-04-04] MEDS ORDERED: INSULIN (LEVEMIR) 100 UNITS/ML UNITS SQ ONE (06:05)
[2020-04-04 08:10] VITALS: BP 152/79; PULSE 69; TEMP 97.8
[2020-04-04] MEDS ORDERED: ERTAPENEM SODIUM 1 GM VIAL ONE (08:18)
[2020-04-04] MEDS ORDERED: SODIUM CHLORIDE 50 ML IVPB ONE (08:18)
--- NOTE | 2020-04-04 08:23 | PN ---
Progress Note, Physician Chief Complaint: Awaiting PICC placement. Vanco/Ertapenem were given via peripheral IV yesterdar. Vanco level was high after infusion of Vanco. History of Present Illness: Osteomyelitis right foot on Vanco/ Ertapenem via PICC.. PCN allergy. MARTI -autoimmune diabetes of adults. HTN. Episodes of hypotension-autonomic dysfunction. BPH HLD Osteoporosis. Major depression managed by Dr Gomez.Status post ASWMI in 1994. ASHD Asthma. MNG. FENA negative 2013. Parkinson 's disease. CAMILLE scan positive 08/16/19. - Current Medication List Current Medications: Active Medications Atorvastatin Calcium (Lipitor -) 10 mg PO HS [facility] Last Admin: 04/03/20 21:37 Dose: 10 mg Documented by: Cholecalciferol (Vitamin D3 -) 1,000 unit PO DAILY [facility] Cyanocobalamin (Vitamin B12 -) 2,000 mcg PO DAILY [facility] Escitalopram Oxalate (Lexapro -) 20 mg PO DAILY [facility] Heparin Sodium (Porcine) (Heparin -) 5,000 unit SQ TID [facility] Last Admin: 04/04/20 05:58 Dose: 5,000 unit Documented by: Ertapenem 1 gm/ Sodium (Chloride) 50 mls @ 100 mls/hr IVPB DAILY [facility] Vancomycin HCl 1,250 mg/ (Dextrose) 250 mls @ 250 mls/2 hr IVPB Q24H [facility]; Protocol Insulin Aspart (Novolog Vial Sliding Scale -) 1 vial SQ ACHS [facility]; Protocol Last Admin: 04/04/20 06:02 Dose: Not Given Documented by: Insulin Detemir (Levemir Vial) 10 units SQ BID@0700,2200 [facility] Last Admin: 04/04/20 06:02 Dose: 10 units Documented by: Polyethylene Glycol (Miralax (For Bowel Prep) -) 17 gm PO DAILY [facility] Pramipexole Dihydrochloride (Mirapex -) 1 mg PO TID [facility] Last Admin: 04/04/20 05:41 Dose: 1 mg Documented by: Quinapril HCl (Accupril -) 5 mg PO DAILY [facility] - Objective Vital Signs: Vital Signs Temperature 97.8 F 04/04/20 08:09 Pulse Rate 69 04/04/20 08:09 Respiratory Rate 18 04/04/20 08:09 Blood Pressure 152/79 04/04/20 08:09 O2 Sat by Pulse Oximetry (%) 95 04/04/20 08:09 Constitutional: Yes: No Distress, Anxious Eyes: Yes: Conjunctiva Clear, EOM Intact HENT: Yes: Atraumatic, Normocephalic. No: Drooling Neck: Yes: Supple, Trachea Midline Cardiovascular: Yes: Regular Rate and Rhythm, S1, S2 Respiratory: Yes: Regular, CTA Bilaterally Gastrointestinal: Yes: Normal Bowel Sounds, Soft, Abdomen, Obese ...Rectal Exam: Yes: Deferred. No: Other Genitourinary: No: Anuria, Bladder Distention Breast(s): Yes: WNL Extremities: No: Calf Tenderness, Cold, Cyanosis Edema: No Integumentary: Yes: WNL Neurological: Yes: Alert, Oriented. No: Aphasia, Dysarthria, Lethargy, Seizure, Unresponsive ...Motor Strength: WNL Psychiatric: Yes: Alert, Oriented. No: Agitated, Suicidal Ideation Labs: CBC, BMP 04/03/20 11:20 04/03/20 11:20 INR, PTT INR 0.98 (0.83-1.09) 04/03/20 11:20 Laboratory Results - last 24 hr 04/03/20 04/03/20 04/03/20 11:20 11:20 11:20 WBC 6.5 RBC 4.82 Hgb 14.2 Hct 43.0 MCV 89.3 MCH 29.6 MCHC 33.1 RDW 13.2 Plt Count 170 MPV 8.0 Absolute Neuts (auto) 4.1 Neutrophils % 63.3 Lymphocytes % 24.9 D Monocytes % 6.7 Eosinophils % 4.6 H Basophils % 0.5 Nucleated RBC % 0 PT with INR 11.60 INR 0.98 PTT (Actin FS) 29.4 Sodium 137 Potassium 4.6 Chloride 103 Carbon Dioxide 27 Anion Gap 7 L BUN 16.4 Creatinine 1.1 Est GFR (CKD-EPI)AfAm 78.41 Est GFR (CKD-EPI)NonAf 67.66 POC Glucometer Random Glucose 207 H Calcium 8.9 Total Bilirubin 0.8 AST 21 ALT 27 Alkaline Phosphatase 81 Total Protein 7.1 Albumin 3.5 Random Vancomycin COVID-19 (TIO) Blood Type Antibody Screen 04/03/20 04/03/20 04/03/20 11:20 13:31 13:31 WBC RBC Hgb Hct MCV MCH MCHC RDW Plt Count MPV Absolute Neuts (auto) Neutrophils % Lymphocytes % Monocytes % Eosinophils % Basophils % Nucleated RBC % PT with INR INR PTT (Actin FS) Sodium Potassium Chloride Carbon Dioxide Anion Gap BUN Creatinine Est GFR (CKD-EPI)AfAm Est GFR (CKD-EPI)NonAf POC Glucometer Random Glucose Calcium Total Bilirubin AST ALT Alkaline Phosphatase Total Protein Albumin Random Vancomycin 46.0 H* COVID-19 (TIO) Not detected Blood Type B NEGATIVE Antibody Screen Negative 04/03/20 04/03/20 04/04/20 16:42 21:33 05:37 WBC RBC Hgb Hct MCV MCH MCHC RDW Plt Count MPV Absolute Neuts (auto) Neutrophils % Lymphocytes % Monocytes % Eosinophils % Basophils % Nucleated RBC % PT with INR INR PTT (Actin FS) Sodium Potassium Chloride Carbon Dioxide Anion Gap BUN Creatinine Est GFR (CKD-EPI)AfAm Est GFR (CKD-EPI)NonAf POC Glucometer 152 176 182 Random Glucose Calcium Total Bilirubin AST ALT Alkaline Phosphatase Total Protein Albumin Random Vancomycin COVID-19 ([facility]IO) Blood Type Antibody Screen Problem List - Problems (1) Needs peripherally inserted central catheter (PICC) Assessment/Plan: Will meed PICC to complete 6 weeks at home Vanco/Ertapenem. Code(s): Z45.2 - ENCOUNTER FOR ADJUSTMENT AND MANAGEMENT OF VAD (2) Diabetes 1.5, managed as type 1 Assessment/Plan: Will switch PICC to Levemir 10 units BID and Novolog sliding scale. Code(s): E13.9 - OTHER SPECIFIED DIABETES MELLITUS WITHOUT COMPLICATIONS (3) Osteomyelitis of foot Assessment/Plan: Continue Vanco/Ertapenem Code(s): M86.9 - OSTEOMYELITIS, UNSPECIFIED Qualifiers: Osteomyelitis type: chronic multifocal Laterality: right Qualified Code(s): M86.371 - Chronic multifocal osteomyelitis, right ankle and foot (4) Parkinson disease Assessment/Plan: Mirapex PO Code(s): G20 - PARKINSON'S DISEASE
--- NOTE | 2020-04-04 08:27 | DS ---
Physical Examination Vital Signs: Vital Signs Temperature 97.8 F 04/04/20 08:09 Pulse Rate 69 04/04/20 08:09 Respiratory Rate 18 04/04/20 08:09 Blood Pressure 152/79 04/04/20 08:09 O2 Sat by Pulse Oximetry (%) 95 04/04/20 08:09 Constitutional: Yes: No Distress, Calm Eyes: Yes: Conjunctiva Clear, EOM Intact HENT: Yes: Atraumatic, Normocephalic Neck: Yes: Supple, Trachea Midline Cardiovascular: Yes: Regular Rate and Rhythm, S1, S2. No: Rub Respiratory: Yes: Regular, CTA Bilaterally. No: Cough, Diminished, Dullness, Rales, Stridor Gastrointestinal: Yes: Normal Bowel Sounds, Soft, Abdomen, Obese. No: Tenderness, Tenderness, Epigastrium ...Rectal Exam: Yes: Deferred Renal/: No: Anuria, Bladder Distention Breast(s): Yes: WNL Musculoskeletal: No: Joint Stiffness Extremities: No: Amputation, Calf Tenderness, Cold, Cyanosis Edema: No Integumentary: Yes: WNL Wound/Incision: Yes: Clean/Dry Neurological: Yes: Alert, Oriented, Numbness (LE), Tremors. No: Aphasia, Seizure ...Motor Strength: WNL Psychiatric: Yes: WNL Labs: CBC, BMP 04/03/20 11:20 04/03/20 11:20 Discharge Summary Problems reviewed: Yes Reason For Visit: NEEDS PERIPHERALLY INSERTED CENTRAL CATHETER Current Active Problems Needs peripherally inserted central catheter (PICC) (Acute) Procedures: Principal: PICC Condition: Fair - Instructions Referrals: Nino Ro MD [Primary Care Provider] - - Home Medications Comprehensive Discharge Medication List: Ambulatory Orders Cholecalciferol (Vitamin D3) [Vitamin D3] 1,000 unit PO DAILY 01/10/15 Cyanocobalamin [Vitamin B12 -] 2,000 mcg PO DAILY 01/10/15 Quinapril HCl [Accupril -] 5 mg PO DAILY 01/10/15 Insulin Pump Controller [Snap Insulin Pump Controller] 1 each MC DAILY 10/01/15 Insulin (LOG) Aspart [NovoLOG -] 0 unit SQ DAILY 02/10/18 Polyethylene Glycol 3350 [Miralax 255 gm Btl -] 17 gm PO DAILY #1 bottle 11/30/18 Atorvastatin Ca [Lipitor] 10 mg PO HS tablet 03/27/20 Ertapenem Sodium [Invanz -] 1 gm IVPB DAILY 42 Days #42 vial 03/27/20 Escitalopram Oxalate [Lexapro -] 20 mg PO DAILY tablet 03/27/20 Pramipexole Dihydrochloride [Mirapex -] 1 mg PO TID tablet 03/27/20 Vancomycin HCl 1,250 mg IVPB DAILY 42 Days #42 vial 03/27/20
--- NOTE | 2020-04-04 09:27 | CON.ID ---
Consult Consult Specialty:: infectious diseases Referred by:: Reason for Consultation:: osteo of the foot/fall out of picc line - History of Present Illness Chief Complaint: picc line came out History of Present Illness: 69 y.o M with osteomyelitis right foot on Vanco/Ertapenem presented to the ER after PICC line came out. 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 Cardio/Vascular: Yes: CAD, HTN, [place] Pulmonary: Yes: Asthma Renal/: Yes: BPH Psych: Yes: Depression Musculoskeletal: Yes: Other Endocrine: Yes: Diabetes Mellitus - Alcohol/Substance Use Hx Alcohol Use: No - Smoking History Smoking history: Never smoked Have you smoked in the past 12 months: No If you are a former smoker, when did you quit?: 1973 - Social History History of Recent Travel: No Home Medications - Allergies Allergies/Adverse Reactions: Allergies Allergy/AdvReac Type Severity Reaction Status Date / Time Penicillins Allergy Severe Verified 04/03/20 09:59 ampicillin sodium AdvReac Verified 04/03/20 09:59 [From Unasyn] sulbactam sodium AdvReac Verified 04/03/20 09:59 [From Unasyn] - Home Medications Home Medications: Ambulatory Orders RX: Cholecalciferol (Vitamin D3) [Vitamin D3] 1,000 unit PO DAILY 01/10/15 RX: Cyanocobalamin [Vitamin B12 -] 2,000 mcg PO DAILY 01/10/15 RX: Quinapril HCl [Accupril -] 5 mg PO DAILY 01/10/15 RX: Insulin Pump Controller [Snap Insulin Pump Controller] 1 each MC DAILY 10/01/15 RX: Insulin (LOG) Aspart [NovoLOG -] 0 unit SQ DAILY 02/10/18 RX: Polyethylene Glycol 3350 [Miralax 255 gm Btl -] 17 gm PO DAILY #1 bottle 11/30/18 RX: Atorvastatin Ca [Lipitor] 10 mg PO HS tablet 03/27/20 RX: Ertapenem Sodium [Invanz -] 1 gm IVPB DAILY 42 Days #42 vial 03/27/20 RX: Escitalopram Oxalate [Lexapro -] 20 mg PO DAILY tablet 03/27/20 RX: Pramipexole Dihydrochloride [Mirapex -] 1 mg PO TID tablet 03/27/20 RX: Vancomycin HCl 1,250 mg IVPB DAILY 42 Days #42 vial 03/27/20 Review of Systems - Review of Systems Constitutional: reports: No Symptoms Eyes: reports: No Symptoms HENT: reports: No Symptoms Neck: reports: No Symptoms Cardiovascular: reports: No Symptoms Respiratory: reports: No Symptoms Gastrointestinal: reports: No Symptoms Genitourinary: reports: No Symptoms Musculoskeletal: reports: No Symptoms Integumentary: reports: No Symptoms Neurological: reports: No Symptoms Endocrine: reports: No Symptoms Hematology/Lymphatic: reports: No Symptoms Psychiatric: reports: No Symptoms Physical Exam Vital Signs: Vital Signs Temperature 97.8 F 04/04/20 08:09 Pulse Rate 69 04/04/20 08:09 Respiratory Rate 18 04/04/20 08:09 Blood Pressure 152/79 04/04/20 08:09 O2 Sat by Pulse Oximetry (%) 95 04/04/20 08:09 Constitutional: Yes: Well Nourished, No Distress, Calm Eyes: Yes: Conjunctiva Clear HENT: Yes: Atraumatic, Normocephalic Neck: Yes: Supple, Trachea Midline Cardiovascular: Yes: Regular Rate and Rhythm Respiratory: Yes: Regular, CTA Bilaterally Gastrointestinal: Yes: Normal Bowel Sounds, Soft Musculoskeletal: Yes: WNL Extremities: Yes: Other Wound/Incision: Yes: Other (picc line site looks good) Neurological: Yes: Alert, Oriented Psychiatric: Yes: Alert, Oriented Labs: CBC, BMP 04/03/20 11:20 04/03/20 11:20 Assessment/Plan Problem List - Problems (1) Needs peripherally inserted central catheter (PICC) Code(s): Z45.2 - ENCOUNTER FOR ADJUSTMENT AND MANAGEMENT OF VAD (2) Diabetes 1.5, managed as type 1 Code(s): E13.9 - OTHER SPECIFIED DIABETES MELLITUS WITHOUT COMPLICATIONS (3) Osteomyelitis of foot Code(s): M86.9 - OSTEOMYELITIS, UNSPECIFIED Qualifiers: Osteomyelitis type: chronic multifocal Laterality: right Qualified Code(s): M86.371 - Chronic multifocal osteomyelitis, right ankle and foot (4) Parkinson disease Code(s): G20 - PARKINSON'S DISEASE plan patient needs picc placed abx given follow up all the labs as advised rest as per the team
[2020-04-04] MEDS ORDERED: POLYETHYLENE GLYCOL 3350 255 GM BTL PO SCH (10:00)
[2020-04-04] MEDS ORDERED: QUINAPRIL HCL 5 MG TABLET (FP) PO SCH (10:00)
[2020-04-04] MEDS ORDERED: ESCITALOPRAM OXALATE 20 MG TABLET PO SCH (10:00)
[2020-04-04] MEDS ORDERED: CYANOCOBALAMIN (VITAMIN B-12) 100 MCG TABLET PO SCH (10:00)
[2020-04-04] MEDS ORDERED: ERTAPENEM SODIUM 1 GM VIAL IVPB SCH (10:00)
[2020-04-04] MEDS ORDERED: CHOLECALCIFEROL (VIT D3) 1,000 UNIT (25 MCG) TABLET PO SCH (10:00)
[2020-04-04] MEDS ORDERED: VANCOMYCIN HCL 1250 MG IVPB SCH (10:00)
[2020-04-04] MEDS ORDERED: VANCOMYCIN HCL 1,250 MG in DEXTROSE 5%-WATER - 250 ML IVPB SCH (10:00)
[2020-04-04] MEDS ORDERED: ERTAPENEM SODIUM 1 GM in SODIUM CHLORIDE 50 ML IVPB SCH (10:00)
[2020-04-04] MEDS ORDERED: CYANOCOBALAMIN 1,000 MCG TABLET (FP) PO SCH (11:59)
== END 2020-04-04 14:16 | disposition home or self-care (01) ==
LOC: JER 09:47 → JERBED 12:55 → INTOOBSV 12:55 → J7W 14:26
PROVIDERS: ADMIT Internal Medicine; ATTEND Internal Medicine
PROC: 3E03329 Introduction of Other Anti-infective into Peripheral Vein, Percutaneous Approach (ICD-10-PCS; principal; 2020-04-03)
PROC: 3E023GC Introduction of Other Therapeutic Substance into Muscle, Percutaneous Approach (ICD-10-PCS; 2020-04-03)
PROC: 3E013VG Introduction of Insulin into Subcutaneous Tissue, Percutaneous Approach (ICD-10-PCS; 2020-04-03)
PROC: 3E033GC Introduction of Other Therapeutic Substance into Peripheral Vein, Percutaneous Approach (ICD-10-PCS; 2020-04-03)
PROC: 0J2VXYZ Change Other Device in Upper Extremity Subcutaneous Tissue and Fascia, External Approach (ICD-10-PCS; 2020-04-03)
DX: Z45.2 Encounter for adjustment and management of vascular access device (principal); E13.8 Other specified diabetes mellitus with unspecified complications; G20 Parkinson's disease; I25.10 Atherosclerotic heart disease of native coronary artery without angina pectoris; N40.0 Benign prostatic hyperplasia without lower urinary tract symptoms; I10 Essential (primary) hypertension; M86.371 Chronic multifocal osteomyelitis, right ankle and foot; I25.2 Old myocardial infarction; F32.9 Major depressive disorder, single episode, unspecified; E78.5 Hyperlipidemia, unspecified; Z79.4 Long term (current) use of insulin; Z96.41 Presence of insulin pump (external) (internal); Z87.891 Personal history of nicotine dependence; E53.8 Deficiency of other specified B group vitamins; Z88.0 Allergy status to penicillin; Z88.8 Allergy status to other drugs, medicaments and biological substances; E66.01 Morbid (severe) obesity due to excess calories; Z68.38 Body mass index [BMI] 38.0-38.9, adult
CPT/HCPCS: 36415; 36569; 77001-TC-FY; 80053; 82962; 85025; 85610; 85730; 86850; 86900; 86901; 96365; 96368; 96372; 96375; 99285-25; C1751; G0378; G0480; J1644; U0003

== ENCOUNTER 2020-04-05 09:31 | Day surgery (SDC) | payer OTHER, MEDICARE ==
[2020-04-05] MEDS ORDERED: VANCOMYCIN HCL 1,500 MG in DEXTROSE 5%-WATER - 500 ML IVPB ONE (10:15)
[2020-04-05] MEDS ORDERED: ERTAPENEM SODIUM 1 GM in SODIUM CHLORIDE 50 ML IVPB ONE (10:30)
[2020-04-05 16:49] VITALS: BP 133/79; PULSE 67; TEMP 97.6
== END 2020-04-05 14:15 | disposition home or self-care (01) ==
LOC: JINFUSION 09:31 → J7W 09:31 → JINFUSION 14:10
PROVIDERS: ATTEND Internal Medicine Infectious Disease
DX: E11.621 Type 2 diabetes mellitus with foot ulcer (principal); M86.371 Chronic multifocal osteomyelitis, right ankle and foot; Z79.4 Long term (current) use of insulin; Z88.0 Allergy status to penicillin
CPT/HCPCS: 96365; 96366; 96367

== ENCOUNTER 2020-04-06 09:54 | Day surgery (SDC) | payer OTHER, MEDICARE ==
[2020-04-06] MEDS ORDERED: VANCOMYCIN HCL 1,500 MG/500 ML BAG IVPB ONE (10:00)
[2020-04-06] MEDS ORDERED: ERTAPENEM SODIUM 1 GM in DEXTROSE 5%-WATER - 50 ML IVPB ONE (10:00)
[2020-04-06] MEDS ORDERED: ERTAPENEM SODIUM 1 GM in SODIUM CHLORIDE 50 ML IVPB ONE (10:01)
[2020-04-06] MEDS ORDERED: ERTAPENEM SODIUM 1 GM VIAL ONE (11:15)
[2020-04-06] MEDS ORDERED: SODIUM CHLORIDE 50 ML IVPB ONE (11:15)
[2020-04-06 14:44] VITALS: BP 139/78; PULSE 79; TEMP 98.5
== END 2020-04-06 14:00 | disposition home or self-care (01) ==
LOC: JINFUSION 09:54 → J7W 09:55 → JINFUSION 14:00
PROVIDERS: ATTEND Internal Medicine Infectious Disease
DX: E11.621 Type 2 diabetes mellitus with foot ulcer (principal); M86.371 Chronic multifocal osteomyelitis, right ankle and foot; Z79.4 Long term (current) use of insulin; Z88.0 Allergy status to penicillin
CPT/HCPCS: 96365; 96366; 96367

== ENCOUNTER 2020-04-07 09:15 | Day surgery (SDC) | payer OTHER, MEDICARE ==
[2020-04-07] MEDS ORDERED: ERTAPENEM SODIUM 1 GM in SODIUM CHLORIDE 50 ML IVPB ONE (09:30)
[2020-04-07] MEDS ORDERED: VANCOMYCIN HCL 1,500 MG in DEXTROSE 5%-WATER - 500 ML IVPB ONE (09:45)
[2020-04-07 09:49] VITALS: BP 116/61; PULSE 80; TEMP 98.2
[2020-04-07] MEDS ORDERED: SODIUM CHLORIDE 50 ML IVPB ONE (09:55)
[2020-04-07] MEDS ORDERED: ERTAPENEM SODIUM 1 GM VIAL ONE (09:55)
== END 2020-04-07 11:46 | disposition home or self-care (01) ==
LOC: JINFUSION 09:15 → J7W 09:26 → JINFUSION 11:46
PROVIDERS: ATTEND Internal Medicine Infectious Disease
DX: E11.621 Type 2 diabetes mellitus with foot ulcer (principal); M86.371 Chronic multifocal osteomyelitis, right ankle and foot; Z79.4 Long term (current) use of insulin; Z88.0 Allergy status to penicillin
CPT/HCPCS: 96365

== ENCOUNTER 2020-04-08 08:05 | Day surgery (SDC) | payer OTHER, MEDICARE ==
[2020-04-08 09:50] VITALS: TEMP 98.2
[2020-04-08] MEDS ORDERED: ERTAPENEM SODIUM 1 GM in SODIUM CHLORIDE 50 ML IVPB ONE (10:30)
[2020-04-08] MEDS ORDERED: SODIUM CHLORIDE 50 ML IVPB ONE (10:33)
[2020-04-08] MEDS ORDERED: ERTAPENEM SODIUM 1 GM VIAL ONE (10:33)
[2020-04-08] MEDS ORDERED: VANCOMYCIN HCL 1,500 MG in DEXTROSE 5%-WATER - 500 ML IVPB ONE (12:00)
[2020-04-08 14:40] VITALS: BP 140/64; PULSE 67
== END 2020-04-08 15:19 | disposition home or self-care (01) ==
LOC: J7W 08:05 → JINFUSION 08:05
PROVIDERS: ATTEND Internal Medicine Infectious Disease
DX: E11.621 Type 2 diabetes mellitus with foot ulcer (principal); M86.371 Chronic multifocal osteomyelitis, right ankle and foot; Z79.4 Long term (current) use of insulin; Z88.0 Allergy status to penicillin
CPT/HCPCS: 96365; 96366; 96367; G0480

== ENCOUNTER 2020-04-09 08:04 | Day surgery (SDC) | payer OTHER, MEDICARE ==
[2020-04-09] MEDS ORDERED: ERTAPENEM SODIUM 1 GM VIAL ONE (09:14)
[2020-04-09] MEDS ORDERED: SODIUM CHLORIDE 50 ML IVPB ONE (09:14)
[2020-04-09] MEDS ORDERED: ERTAPENEM SODIUM 1 GM in SODIUM CHLORIDE 50 ML IVPB ONE (09:15)
[2020-04-09] MEDS ORDERED: VANCOMYCIN 1,500 MG in DEXTROSE 5%-WATER - 500 ML IVPB ONE (09:15)
[2020-04-09 11:18] LABS: HEMOGLOBIN 13.5 GM/dL (11.7-16.9); MCH 29.1 pg (25.7-33.7); MEAN CELL VOLUME 88.2 fl (80-96); PLATELET COUNT 176 K/MM3 (134-434); RBC 4.64 M/mm3 (4.00-5.60); RDW 12.9 % (11.9-15.9); WHITE BLOOD COUNT 6.9 K/mm3 (4.0-10.0)
[2020-04-09 11:54] LABS: ALBUMIN 3.4 g/dl (3.4-5.0); BILIRUBIN,TOTAL 0.4 mg/dL (0.2-1); BLOOD UREA NITROGEN 14.3 mg/dL (7-18); CALCIUM 8.9 mg/dL (8.5-10.1); CREATININE 1.1 mg/dL (0.55-1.3); POTASSIUM 4.5 mmol/L (3.5-5.1); TOT PROT 7.1 g/dl (6.4-8.2)
[2020-04-09 12:14] LABS: ERYTHROCYTE SEDIMENTATION RATE 16 mm/hr (0-20)
[2020-04-09 12:45] VITALS: BP 136/63; PULSE 61; TEMP 98.4
== END 2020-04-09 12:46 | disposition home or self-care (01) ==
LOC: JINFUSION 08:04 → J7W 08:05 → JINFUSION 12:46
PROVIDERS: ATTEND Internal Medicine Infectious Disease
DX: E11.621 Type 2 diabetes mellitus with foot ulcer (principal); M86.371 Chronic multifocal osteomyelitis, right ankle and foot; Z79.4 Long term (current) use of insulin; Z88.0 Allergy status to penicillin
CPT/HCPCS: 36415; 80053; 85027; 85651; 86140; 96365; 96366; 96367

== ENCOUNTER 2020-04-10 08:48 | Day surgery (SDC) | payer OTHER, MEDICARE ==
[2020-04-10] MEDS ORDERED: VANCOMYCIN HCL 1,500 MG/500 ML BAG IVPB ONE (09:00)
[2020-04-10] MEDS ORDERED: ERTAPENEM SODIUM 1 GM in SODIUM CHLORIDE 50 ML IVPB ONE (09:00)
[2020-04-10 09:46] VITALS: TEMP 98.1
[2020-04-10] MEDS ORDERED: ERTAPENEM SODIUM 1 GM VIAL ONE (09:48)
[2020-04-10] MEDS ORDERED: SODIUM CHLORIDE 50 ML IVPB ONE (09:48)
[2020-04-10 13:19] VITALS: BP 108/57; PULSE 67
== END 2020-04-10 15:03 | disposition home or self-care (01) ==
LOC: JINFUSION 08:48 → J7W 08:50 → JINFUSION 15:03
PROVIDERS: ATTEND Internal Medicine Infectious Disease
DX: E11.621 Type 2 diabetes mellitus with foot ulcer (principal); M86.371 Chronic multifocal osteomyelitis, right ankle and foot; Z79.4 Long term (current) use of insulin; Z88.0 Allergy status to penicillin
CPT/HCPCS: 96365; 96366; 96367

== ENCOUNTER 2020-04-11 08:37 | Day surgery (SDC) | payer OTHER, MEDICARE ==
[2020-04-11] MEDS ORDERED: VANCOMYCIN HCL 1,500 MG/500 ML BAG IVPB ONE (09:00)
[2020-04-11] MEDS ORDERED: WATER IVPB ONE ×2 (09:00→16:45)
[2020-04-11] MEDS ORDERED: ERTAPENEM SODIUM IVPB ONE ×2 (09:00→16:45)
[2020-04-11] MEDS ORDERED: DEXTROSE 5% IVPB ONE ×2 (09:00→16:45)
[2020-04-11 14:38] VITALS: BP 123/67; PULSE 63; TEMP 97.9
[2020-04-11] MEDS ORDERED: ERTAPENEM SODIUM 1 GM VIAL ONE (16:35)
[2020-04-11] MEDS ORDERED: DEXTROSE 5%-WATER 100 ML IVPB ONE (16:36)
== END 2020-04-11 17:45 | disposition home or self-care (01) ==
LOC: JINFUSION 08:37 → J7W 08:38 → JINFUSION 17:45
PROVIDERS: ATTEND Internal Medicine Infectious Disease
DX: E11.621 Type 2 diabetes mellitus with foot ulcer (principal); M86.371 Chronic multifocal osteomyelitis, right ankle and foot; Z79.4 Long term (current) use of insulin; Z88.0 Allergy status to penicillin
CPT/HCPCS: 96365; 96366; 96367

== ENCOUNTER 2020-04-11 09:19 | Emergency (ER) | payer OTHER, MEDICARE ==
[2020-04-11 09:28] VITALS: BP 114/60; PULSE 76; TEMP 98.5; BMI 33.5
--- NOTE | 2020-04-11 09:34 | PDOC ---
History of Present Illness - General Chief Complaint: Bleeding from PICC Line Stated Complaint: PICC LINE ISSUE Time Seen by Provider: 04/11/20 09:33 History Source: Patient Exam Limitations: No Limitations - History of Present Illness Initial Comments: 04/11/20 09:35 69 year old male with a significant past medical history of DM, HTN, HLD, Parkinson's, chronic foot ulcers, and R foot osteomyelitis presenting w R PICC line partially dislodged after waking up this morning w R PICC line partially dislodged, attributes it to movement during sleep. Receiving 1.5 vanc and 1 erta penam daily for osteomyelitis for 6 weeks, follows w Dr Melgar ID. PICC line placed 03/27, replaced 04/[address] Denson IR. Went to clinic today, didnt get meds today. Not on AC. Denies line bleeding, pain, fevers, n/v Past History - Medical History Allergies/Adverse Reactions: Allergies Allergy/AdvReac Type Severity Reaction Status Date / Time Penicillins Allergy Severe Verified 04/11/20 09:28 ampicillin sodium AdvReac Verified 04/11/20 09:28 [From Unasyn] sulbactam sodium AdvReac Verified 04/11/20 09:28 [From Unasyn] Home Medications: Ambulatory Orders Cholecalciferol (Vitamin D3) [Vitamin D3] 1,000 unit PO DAILY 01/10/15 Cyanocobalamin [Vitamin B12 -] 2,000 mcg PO DAILY 01/10/15 Quinapril HCl [Accupril -] 5 mg PO DAILY 01/10/15 Insulin Pump Controller [Snap Insulin Pump Controller] 1 each MC DAILY 10/01/15 Insulin (LOG) Aspart [NovoLOG -] 0 unit SQ DAILY 02/10/18 Polyethylene Glycol 3350 [Miralax 255 gm Btl -] 17 gm PO DAILY #1 bottle 11/30/18 Atorvastatin Ca [Lipitor] 10 mg PO HS tablet 03/27/20 Ertapenem Sodium [Invanz -] 1 gm IVPB DAILY 42 Days #42 vial 03/27/20 Escitalopram Oxalate [Lexapro -] 20 mg PO DAILY tablet 03/27/20 Pramipexole Dihydrochloride [Mirapex -] 1 mg PO TID tablet 03/27/20 Vancomycin HCl 1,250 mg IVPB DAILY 42 Days #42 vial 03/27/20 Anemia: No Asthma: No Cancer: No Cardiac Disorders: Yes (heart murmur) CVA: No COPD: No CHF: No Dementia: No Diabetes: Yes (PT HAS INSULIN PUMP) GI Disorders: No Disorders: No HTN: Yes Hypercholesterolemia: Yes Liver Disease: No Seizures: No Thyroid Disease: No - Surgical History Abdominal Surgery: No Appendectomy: No Cardiac Surgery: No Cholecystectomy: No Lung Surgery: No Neurologic Surgery: No Orthopedic Surgery: No - Psycho-Social/Smoking History Smoking History: Former smoker Have you smoked in the past 12 months: No If you are a former smoker, when did you quit?: 1973 Information on smoking cessation initiated: No - Substance Abuse Hx (Audit-C & DAST Scrn) How often the patient has a drink containing alcohol: Never Score: In Men: 4 or > Positive; In Women: 3 or > Positive: 0 Screen Result (Pos requires Nsg. Audit-10AR): Negative In the last yr the pt used illegal drug/Rx for NonMed reason: No Score: Yes response is considered Positive: 0 Screen Result (Positive result requires Nsg. DAST-10): Negative Review of Systems - Review of Systems Constitutional: No: Chills, Fever HEENTM: No: Eye Pain, Nose Congestion Respiratory: No: Cough, Shortness of Breath Cardiac (ROS): No: Chest Pain, Palpitations ABD/GI: No: Constipated, Diarrhea : No: Burning, Dysuria Musculoskeletal: No: Back Pain, Joint Pain Integumentary: No: Bruising, Flushing Neurological: No: Headache, Seizure Psychiatric: No: Anxiety, Depression Endocrine: No: Intolerance to Cold, Intolerance to Heat Hematologic/Lymphatic: No: Anemia, Blood Clots *Physical Exam - Vital Signs Last Vital Signs Temp Pulse Resp BP Pulse Ox 98.5 F 76 18 114/60 100 04/11/20 09:26 04/11/20 09:26 04/11/20 09:26 04/11/20 09:04/11/20 09:26 - Physical Exam General Appearance: Yes: Nourished, Appropriately Dressed. No: Apparent Distress HEENT: positive: EOMI, CIRILO, Normal Voice, Hearing Grossly Normal. negative: Scleral Icterus (R), Scleral Icterus (L) Respiratory/Chest: positive: Lungs Clear, Normal Breath Sounds. negative: Chest Tender, Respiratory Distress Cardiovascular: positive: Regular Rhythm, Regular Rate, S1, S2. negative: Edema, Murmur Gastrointestinal/Abdominal: positive: Normal Bowel Sounds, Flat, Soft. negative: Tender, Organomegaly Extremity: positive: Other (R PICC line partially dislodged. No site insertion bleeding/tenderness/erythema) Integumentary: positive: Normal Color, Warm Neurologic: positive: Fully Oriented, Alert, Normal Mood/Affect, Normal Response ED Treatment Course - LABORATORY CBC & Chemistry Diagram: 04/11/20 10:38 04/11/20 10:38 Medical Decision Making - Medical Decision Making 04/11/20 10:30 69 year old male with a significant past medical history of DM, HTN, HLD, Parkinson's, chronic foot ulcers, and R foot osteomyelitis presenting w R PICC line partially dislodged after waking up this morning w R PICC line partially dislodged. No sign of infection/bleeding. PICC line replaced by Dr Denson Consulted Dr Melgar ID - advised replace line, give meds, hopefully DC from ED Consulted Dr Denson IR - do not remove line, place PICC line replacement order, will bring to OR today DC to infusion clinic Discharge - Discharge Information Problems reviewed: Yes Clinical Impression/Diagnosis: S/P PICC central line placement Condition: Improved Disposition: HOME - Follow up/Referral Referrals: Nino Ro MD [Primary Care Provider] - - Patient Discharge Instructions Patient Printed Discharge Instructions: Peripherally Inserted Central Catheter - Post Discharge Activity
[2020-04-11] MEDS ORDERED: DIPHTH,PERTUSS(ACELL),TET 0.5 ML DISP.SYRIN IM ONE (10:08)
[2020-04-11 11:13] LABS: BASO % 0.7 % (0-2.0); EOS % 4.8 % (0-4.5); HEMATOCRIT 40.2 % (35.4-49); HEMOGLOBIN 13.1 GM/dL (11.7-16.9); LYMPH % 24.1 % (8-40); MCH 28.9 pg (25.7-33.7); MCHC 32.6 g/dl (32.0-35.9); MEAN CELL VOLUME 88.7 fl (80-96); MEAN PLT VOLUME 8.1 fl (7.5-11.1); NEUT % 63.4 % (42.8-82.8); PLATELET COUNT 180 K/MM3 (134-434); RBC 4.53 M/mm3 (4.00-5.60); RDW 13.2 % (11.9-15.9); WHITE BLOOD COUNT 6.5 K/mm3 (4.0-10.0)
[2020-04-11 11:22] LABS: INR 1.01 (0.83-1.09); PROTHROMBIN TIME (PATIENT) 11.9 SEC (9.7-13.0)
[2020-04-11 11:55] LABS: ALBUMIN 3.3 g/dl (3.4-5.0); BILIRUBIN,TOTAL 0.5 mg/dL (0.2-1); BLOOD UREA NITROGEN 16.4 mg/dL (7-18); CALCIUM 8.6 mg/dL (8.5-10.1); CREATININE 1.1 mg/dL (0.55-1.3); POTASSIUM 4.5 mmol/L (3.5-5.1); TOT PROT 6.9 g/dl (6.4-8.2)
--- NOTE | 2020-04-11 12:30 | PDOC ---
Attending Attestation - Resident Resident Name: Fawad Bettencourt - ED Attending Attestation I have performed the following: I have examined & evaluated the patient, The case was reviewed & discussed with the resident, I agree w/resident's findings & plan - HPI HPI: 04/11/20 12:29 69-year-old male presents for dislodged PICC line, placed for IV antibiotics for osteomyelitis. No other complaints, no motor or sensory deficits, no fevers or chills. - Physicial Exam PE: 04/11/20 12:29 Vital signs stable Right upper extremity PICC line partially dislodged, otherwise neurovascularly intact without evidence of infection or bleeding - Medical Decision Making 04/11/20 12:30 69-year-old male with dislodged PIC line, needs replacement. Hemodynamically stable and neurovascularly intact. IR consulted, will replace PICC line disposition accordingly 04/11/20 13:36 picc line replaced, uncomplicated. has appt with infusion center, will d/c to receive abx Discharge - Discharge Information Problems reviewed: Yes Clinical Impression/Diagnosis: S/P PICC central line placement Condition: Improved Disposition: HOME - Follow up/Referral Referrals: Nino Ro MD [Primary Care Provider] - - Patient Discharge Instructions Patient Printed Discharge Instructions: Peripherally Inserted Central Catheter - Post Discharge Activity
== END 2020-04-11 13:49 | disposition home or self-care (01) ==
LOC: JER 09:19
PROC: 3E0234Z Introduction of Serum, Toxoid and Vaccine into Muscle, Percutaneous Approach (ICD-10-PCS; principal; 2020-04-11)
DX: T82.524A Displacement of infusion catheter, initial encounter (principal); Z45.2 Encounter for adjustment and management of vascular access device
CPT/HCPCS: 36415; 36584; 80053; 82962; 85025; 85610; 86850; 86900; 86901; 99284-25

== ENCOUNTER 2020-04-12 09:24 | Day surgery (SDC) | payer OTHER, MEDICARE ==
[2020-04-12 09:36] VITALS: TEMP 98.8
[2020-04-12] MEDS ORDERED: VANCOMYCIN HCL 1,500 MG in DEXTROSE 5%-WATER - 500 ML IVPB ONE (10:15)
[2020-04-12] MEDS ORDERED: ERTAPENEM SODIUM 1 GM in SODIUM CHLORIDE 50 ML IVPB ONE (11:00)
[2020-04-12 14:20] VITALS: BP 133/65; PULSE 64
== END 2020-04-12 14:28 | disposition home or self-care (01) ==
LOC: JINFUSION 09:24 → J7W 09:24 → JINFUSION 14:28
PROVIDERS: ATTEND Internal Medicine Infectious Disease
DX: E11.621 Type 2 diabetes mellitus with foot ulcer (principal); M86.371 Chronic multifocal osteomyelitis, right ankle and foot; Z79.4 Long term (current) use of insulin; Z88.0 Allergy status to penicillin
CPT/HCPCS: 96365; 96366; 96367

== ENCOUNTER 2020-04-13 09:18 | Day surgery (SDC) | payer OTHER, MEDICARE ==
[2020-04-13] MEDS ORDERED: ERTAPENEM SODIUM 1 GM in SODIUM CHLORIDE 50 ML IVPB ONE (10:45)
[2020-04-13] MEDS ORDERED: VANCOMYCIN HCL 1,500 MG/500 ML BAG IVPB ONE (10:45)
[2020-04-13] MEDS ORDERED: SODIUM CHLORIDE 50 ML IVPB ONE (10:50)
[2020-04-13] MEDS ORDERED: ERTAPENEM SODIUM 1 GM VIAL ONE (10:50)
[2020-04-13 11:25] VITALS: TEMP 98.2
[2020-04-13 14:15] VITALS: BP 134/68; PULSE 66
== END 2020-04-13 14:15 | disposition home or self-care (01) ==
LOC: JINFUSION 09:18 → J7W 09:19 → JINFUSION 14:15
PROVIDERS: ATTEND Internal Medicine Infectious Disease
DX: E11.621 Type 2 diabetes mellitus with foot ulcer (principal); M86.371 Chronic multifocal osteomyelitis, right ankle and foot; Z79.4 Long term (current) use of insulin; Z88.0 Allergy status to penicillin
CPT/HCPCS: 96365; 96366; 96367

== ENCOUNTER 2020-04-14 09:37 | Day surgery (SDC) | payer OTHER, MEDICARE ==
[2020-04-14] MEDS ORDERED: VANCOMYCIN HCL 1,500 MG in DEXTROSE 5%-WATER - 500 ML IVPB ONE (10:00)
[2020-04-14] MEDS ORDERED: ERTAPENEM SODIUM 1 GM in DEXTROSE 5%-WATER - 50 ML IVPB ONE (10:00)
[2020-04-14] MEDS ORDERED: DEXTROSE 5%-WATER - 50 ML IVPB ONE (10:01)
[2020-04-14] MEDS ORDERED: ERTAPENEM SODIUM 1 GM VIAL ONE (10:01)
[2020-04-14 10:15] VITALS: TEMP 98.1
[2020-04-14 13:20] VITALS: BP 135/57; PULSE 69
== END 2020-04-14 13:20 | disposition home or self-care (01) ==
LOC: JINFUSION 09:37 → J7W 09:38 → JINFUSION 13:20
PROVIDERS: ATTEND Internal Medicine Infectious Disease
DX: E11.621 Type 2 diabetes mellitus with foot ulcer (principal); M86.371 Chronic multifocal osteomyelitis, right ankle and foot; Z79.4 Long term (current) use of insulin; Z88.0 Allergy status to penicillin
CPT/HCPCS: 96365; 96366; 96367

== ENCOUNTER 2020-04-15 09:10 | Day surgery (SDC) | payer OTHER, MEDICARE ==
[2020-04-15] MEDS ORDERED: ERTAPENEM SODIUM 1 GM VIAL ONE (09:16)
[2020-04-15] MEDS ORDERED: SODIUM CHLORIDE 50 ML IVPB ONE (09:16)
[2020-04-15] MEDS ORDERED: VANCOMYCIN 1,500 MG in DEXTROSE 5%-WATER - 500 ML IVPB ONE (09:30)
[2020-04-15] MEDS ORDERED: ERTAPENEM SODIUM 1 GM in SODIUM CHLORIDE 50 ML IVPB ONE (09:30)
[2020-04-15 13:08] VITALS: BP 133/77; PULSE 68; TEMP 98.1
== END 2020-04-15 13:24 | disposition home or self-care (01) ==
LOC: JINFUSION 09:10 → J7W 09:10 → JINFUSION 13:24
PROVIDERS: ATTEND Internal Medicine Infectious Disease
DX: E11.621 Type 2 diabetes mellitus with foot ulcer (principal); M86.371 Chronic multifocal osteomyelitis, right ankle and foot; Z79.4 Long term (current) use of insulin
CPT/HCPCS: 96365; 96366; 96367

== ENCOUNTER 2020-04-16 09:01 | Day surgery (SDC) | payer OTHER, MEDICARE ==
[2020-04-16 09:40] LABS: HEMATOCRIT 41.7 % (35.4-49); HEMOGLOBIN 13.9 GM/dL (11.7-16.9); MCH 29.1 pg (25.7-33.7); MCHC 33.2 g/dl (32.0-35.9); MEAN CELL VOLUME 87.8 fl (80-96); MEAN PLT VOLUME 7.8 fl (7.5-11.1); PLATELET COUNT 180 K/MM3 (134-434); RBC 4.75 M/mm3 (4.00-5.60); RDW 13.1 % (11.9-15.9); WHITE BLOOD COUNT 7.2 K/mm3 (4.0-10.0)
[2020-04-16] MEDS ORDERED: ERTAPENEM SODIUM 1 GM VIAL ONE (09:48)
[2020-04-16] MEDS ORDERED: SODIUM CHLORIDE 50 ML IVPB ONE (09:48)
[2020-04-16] MEDS ORDERED: ERTAPENEM SODIUM 1 GM in SODIUM CHLORIDE 50 ML IVPB ONE (10:00)
[2020-04-16] MEDS ORDERED: VANCOMYCIN HCL 1,500 MG in DEXTROSE 5%-WATER - 500 ML IVPB ONE (10:00)
[2020-04-16 10:02] LABS: ALBUMIN 3.4 g/dl (3.4-5.0); BILIRUBIN,TOTAL 0.5 mg/dL (0.2-1); BLOOD UREA NITROGEN 14.7 mg/dL (7-18); CALCIUM 8.8 mg/dL (8.5-10.1); CREATININE 1.1 mg/dL (0.55-1.3); POTASSIUM 4.4 mmol/L (3.5-5.1); TOT PROT 7.3 g/dl (6.4-8.2)
[2020-04-16 12:01] LABS: ERYTHROCYTE SEDIMENTATION RATE 12 mm/hr (0-20)
[2020-04-16 12:53] VITALS: TEMP 98
[2020-04-16 13:18] VITALS: BP 130/67; PULSE 70
== END 2020-04-16 13:17 | disposition home or self-care (01) ==
LOC: JINFUSION 09:01 → J7W 09:08 → JINFUSION 13:17
PROVIDERS: ATTEND Internal Medicine Infectious Disease
DX: E11.621 Type 2 diabetes mellitus with foot ulcer (principal); M86.371 Chronic multifocal osteomyelitis, right ankle and foot; Z79.4 Long term (current) use of insulin
CPT/HCPCS: 36415; 80053; 85027; 85651; 86140; 96365; 96366; 96367

== ENCOUNTER 2020-04-21 09:05 | Day surgery (SDC) | payer OTHER, MEDICARE ==
[2020-04-21 09:15] VITALS: BP 117/68; PULSE 77; TEMP 98.3
[2020-04-21] MEDS ORDERED: SODIUM CHLORIDE 50 ML IVPB ONE (10:15)
[2020-04-21] MEDS ORDERED: VANCOMYCIN HCL 1,500 MG/500 ML BAG IVPB ONE (10:15)
[2020-04-21] MEDS ORDERED: ERTAPENEM SODIUM 1 GM VIAL ONE (10:15)
[2020-04-21] MEDS ORDERED: ERTAPENEM SODIUM 1 GM in SODIUM CHLORIDE 50 ML IVPB ONE (10:15)
== END 2020-04-21 14:30 | disposition home or self-care (01) ==
LOC: J7W 09:05 → JINFUSION 09:05
PROVIDERS: ATTEND Internal Medicine Infectious Disease
DX: E11.621 Type 2 diabetes mellitus with foot ulcer (principal); M86.371 Chronic multifocal osteomyelitis, right ankle and foot; Z79.4 Long term (current) use of insulin
CPT/HCPCS: 96365; 96366; 96367

== ENCOUNTER 2020-04-22 09:26 | Day surgery (SDC) | payer OTHER, MEDICARE ==
[2020-04-22 09:53] VITALS: BP 124/62; PULSE 71; TEMP 98.2
[2020-04-22] MEDS ORDERED: VANCOMYCIN 1,500 MG in DEXTROSE 5%-WATER - 500 ML IVPB ONE (10:00)
[2020-04-22] MEDS ORDERED: ERTAPENEM SODIUM 1 GM in SODIUM CHLORIDE 50 ML IVPB ONE (10:00)
[2020-04-22] MEDS ORDERED: SODIUM CHLORIDE 50 ML IVPB ONE (10:43)
[2020-04-22] MEDS ORDERED: ERTAPENEM SODIUM 1 GM VIAL ONE (10:43)
== END 2020-04-22 13:40 | disposition home or self-care (01) ==
LOC: J7W 09:26 → JINFUSION 09:26
PROVIDERS: ATTEND Internal Medicine Infectious Disease
DX: E11.621 Type 2 diabetes mellitus with foot ulcer (principal); M86.371 Chronic multifocal osteomyelitis, right ankle and foot; Z79.4 Long term (current) use of insulin
CPT/HCPCS: 96365; 96366; 96367

== ENCOUNTER 2020-04-23 08:09 | Day surgery (SDC) | payer OTHER, MEDICARE ==
[2020-04-23] MEDS ORDERED: ERTAPENEM SODIUM IVPB ONE (08:45)
[2020-04-23] MEDS ORDERED: DEXTROSE 5% IVPB ONE (08:45)
[2020-04-23] MEDS ORDERED: WATER IVPB ONE (08:45)
[2020-04-23] MEDS ORDERED: VANCOMYCIN HCL 1,500 MG in DEXTROSE 5%-WATER - 500 ML IVPB ONE (08:45)
[2020-04-23 10:57] LABS: BASO % 0.8 % (0-2.0); EOS % 3.7 % (0-4.5); HEMATOCRIT 42.4 % (35.4-49); HEMOGLOBIN 14.1 GM/dL (11.7-16.9); LYMPH % 25.1 % (8-40); MCH 28.9 pg (25.7-33.7); MCHC 33.1 g/dl (32.0-35.9); MEAN CELL VOLUME 87.2 fl (80-96); MEAN PLT VOLUME 7.8 fl (7.5-11.1); MONO % 7.8 % (3.8-10.2); NEUT % 62.6 % (42.8-82.8); PLATELET COUNT 179 K/MM3 (134-434); RBC 4.86 M/mm3 (4.00-5.60); RDW 13.3 % (11.9-15.9); WHITE BLOOD COUNT 5.7 K/mm3 (4.0-10.0)
[2020-04-23 11:25] LABS: ALBUMIN 3.7 g/dl (3.4-5.0); BILIRUBIN,TOTAL 0.5 mg/dL (0.2-1); BLOOD UREA NITROGEN 17.2 mg/dL (7-18); CREATININE 1.1 mg/dL (0.55-1.3); POTASSIUM 4.4 mmol/L (3.5-5.1); TOT PROT 7.2 g/dl (6.4-8.2)
[2020-04-23 12:37] LABS: ERYTHROCYTE SEDIMENTATION RATE 2 mm/hr (0-20)
[2020-04-23] MEDS ORDERED: ERTAPENEM SODIUM 1 GM VIAL ONE (12:50)
[2020-04-23] MEDS ORDERED: DEXTROSE 5%-WATER 100 ML IVPB ONE (12:51)
[2020-04-23 13:48] VITALS: BP 125/85; PULSE 62; TEMP 98.6
== END 2020-04-23 15:11 | disposition home or self-care (01) ==
LOC: J7W 08:09 → JINFUSION 08:09
PROVIDERS: ATTEND Internal Medicine Infectious Disease
DX: E11.621 Type 2 diabetes mellitus with foot ulcer (principal); M86.371 Chronic multifocal osteomyelitis, right ankle and foot; Z79.4 Long term (current) use of insulin
CPT/HCPCS: 36415; 80053; 85025; 85651; 86140; 96365; 96366; 96367

== ENCOUNTER 2020-04-24 09:00 | Day surgery (SDC) | payer OTHER, MEDICARE ==
[2020-04-24] MEDS ORDERED: ERTAPENEM SODIUM 1 GM in SODIUM CHLORIDE 50 ML IVPB ONE (09:15)
[2020-04-24] MEDS ORDERED: VANCOMYCIN HCL 1,500 MG in DEXTROSE 5%-WATER - 500 ML IVPB ONE (09:15)
[2020-04-24] MEDS ORDERED: SODIUM CHLORIDE 50 ML IVPB ONE (10:04)
[2020-04-24] MEDS ORDERED: ERTAPENEM SODIUM 1 GM VIAL ONE (10:04)
[2020-04-24 13:39] VITALS: BP 130/78; PULSE 93; TEMP 98
== END 2020-04-24 13:00 | disposition home or self-care (01) ==
LOC: JINFUSION 09:00 → J7W 09:01 → JINFUSION 13:00
PROVIDERS: ATTEND Internal Medicine Infectious Disease
DX: E11.621 Type 2 diabetes mellitus with foot ulcer (principal); M86.371 Chronic multifocal osteomyelitis, right ankle and foot; Z79.4 Long term (current) use of insulin
CPT/HCPCS: 96365; 96366; 96367

== ENCOUNTER 2020-04-25 08:40 | Day surgery (SDC) | payer OTHER, MEDICARE ==
[2020-04-25] MEDS ORDERED: VANCOMYCIN HCL 1,500 MG in DEXTROSE 5%-WATER - 500 ML IVPB ONE (09:00)
[2020-04-25] MEDS ORDERED: ERTAPENEM SODIUM 1 GM VIAL ONE (09:07)
[2020-04-25] MEDS ORDERED: SODIUM CHLORIDE 50 ML IVPB ONE (09:07)
[2020-04-25] MEDS: ERTAPENEM SODIUM 1 GM in SODIUM CHLORIDE 50 ML IVPB ONE ×2 (09:11→09:37)
[2020-04-25 13:40] VITALS: BP 138/75; PULSE 79; TEMP 98
== END 2020-04-25 14:59 | disposition home or self-care (01) ==
LOC: J7W 08:40 → JINFUSION 08:40
PROVIDERS: ATTEND Internal Medicine Infectious Disease
DX: E11.621 Type 2 diabetes mellitus with foot ulcer (principal); M86.371 Chronic multifocal osteomyelitis, right ankle and foot; Z79.4 Long term (current) use of insulin; L97.512 Non-pressure chronic ulcer of other part of right foot with fat layer exposed; L97.521 Non-pressure chronic ulcer of other part of left foot limited to breakdown of skin; M86.171 Other acute osteomyelitis, right ankle and foot; M14.60 Charcot's joint, unspecified site; E78.00 Pure hypercholesterolemia, unspecified; I10 Essential (primary) hypertension
CPT/HCPCS: 15275; 96365; 96366; 96367; 97597; Q4106

== ENCOUNTER 2020-04-26 09:01 | Day surgery (SDC) | payer OTHER, MEDICARE ==
[2020-04-26] MEDS ORDERED: ERTAPENEM SODIUM 1 GM in SODIUM CHLORIDE 50 ML IVPB ONE (09:30)
[2020-04-26] MEDS ORDERED: VANCOMYCIN HCL 1,500 MG in DEXTROSE 5%-WATER - 500 ML IVPB ONE (09:30)
[2020-04-26] MEDS ORDERED: ERTAPENEM SODIUM 1 GM VIAL ONE (09:37)
[2020-04-26] MEDS ORDERED: SODIUM CHLORIDE 50 ML IVPB ONE (09:37)
[2020-04-26 09:55] VITALS: TEMP 98
[2020-04-26 13:21] VITALS: BP 130/86; PULSE 67
== END 2020-04-26 13:21 | disposition home or self-care (01) ==
LOC: J7W 09:01 → JINFUSION 09:01
PROVIDERS: ATTEND Internal Medicine Infectious Disease
DX: E11.621 Type 2 diabetes mellitus with foot ulcer (principal); M86.371 Chronic multifocal osteomyelitis, right ankle and foot; Z79.4 Long term (current) use of insulin
CPT/HCPCS: 96365; 96366; 96367

== ENCOUNTER 2020-04-27 09:22 | Day surgery (SDC) | payer OTHER, MEDICARE ==
[2020-04-27] MEDS ORDERED: ERTAPENEM SODIUM 1 GM in SODIUM CHLORIDE 50 ML IVPB ONE (10:00)
[2020-04-27] MEDS ORDERED: VANCOMYCIN HCL 1,500 MG/500 ML BAG IVPB ONE (10:00)
[2020-04-27] MEDS ORDERED: ERTAPENEM SODIUM 1 GM VIAL ONE (10:01)
[2020-04-27] MEDS ORDERED: SODIUM CHLORIDE 50 ML IVPB ONE (10:02)
[2020-04-27 16:00] VITALS: TEMP 97.8
[2020-04-27 16:06] VITALS: BP 144/75; PULSE 67
== END 2020-04-27 13:30 | disposition home or self-care (01) ==
LOC: JINFUSION 09:22 → J7W 09:25 → JINFUSION 13:30
PROVIDERS: ATTEND Internal Medicine Infectious Disease
DX: E11.621 Type 2 diabetes mellitus with foot ulcer (principal); M86.371 Chronic multifocal osteomyelitis, right ankle and foot; Z79.4 Long term (current) use of insulin
CPT/HCPCS: 96365; 96366; 96367

== ENCOUNTER 2020-04-28 09:11 | Day surgery (SDC) | payer OTHER, MEDICARE ==
[2020-04-28] MEDS ORDERED: SODIUM CHLORIDE 50 ML IVPB ONE (09:25)
[2020-04-28] MEDS ORDERED: ERTAPENEM SODIUM 1 GM VIAL ONE (09:25)
[2020-04-28] MEDS ORDERED: VANCOMYCIN HCL 1,500 MG in DEXTROSE 5%-WATER - 500 ML IVPB ONE (09:30)
[2020-04-28] MEDS ORDERED: ERTAPENEM SODIUM 1 GM in SODIUM CHLORIDE 50 ML IVPB ONE (09:30)
[2020-04-28] MEDS ORDERED: PT OWN MED DRAWER 7, Y5N ONE (10:25)
[2020-04-28 13:34] VITALS: TEMP 97.9
[2020-04-28 13:36] VITALS: BP 121/57; PULSE 69
== END 2020-04-28 13:00 | disposition home or self-care (01) ==
LOC: JINFUSION 09:11 → J7W 09:12 → JINFUSION 13:00
PROVIDERS: ATTEND Internal Medicine Infectious Disease
DX: E11.621 Type 2 diabetes mellitus with foot ulcer (principal); M86.371 Chronic multifocal osteomyelitis, right ankle and foot; Z79.4 Long term (current) use of insulin
CPT/HCPCS: 96365; 96366; 96367

== ENCOUNTER 2020-04-29 09:05 | Day surgery (SDC) | payer OTHER, MEDICARE ==
[2020-04-29] MEDS ORDERED: VANCOMYCIN HCL 1,500 MG in DEXTROSE 5%-WATER - 500 ML IVPB ONE (09:45)
[2020-04-29] MEDS ORDERED: ERTAPENEM SODIUM 1 GM in SODIUM CHLORIDE 50 ML IVPB ONE (10:00)
[2020-04-29] MEDS ORDERED: SODIUM CHLORIDE 50 ML IVPB ONE (10:03)
[2020-04-29] MEDS ORDERED: ERTAPENEM SODIUM 1 GM VIAL ONE (10:03)
[2020-04-29 10:15] VITALS: BP 120/57; PULSE 67; TEMP 98.7
== END 2020-04-29 14:44 | disposition home or self-care (01) ==
LOC: JINFUSION 09:05 → J7W 09:22 → JINFUSION 14:44
PROVIDERS: ATTEND Internal Medicine Infectious Disease
DX: E11.621 Type 2 diabetes mellitus with foot ulcer (principal); M86.371 Chronic multifocal osteomyelitis, right ankle and foot; Z79.4 Long term (current) use of insulin
CPT/HCPCS: 96365; 96366; 96367

== ENCOUNTER 2020-04-30 08:19 | Day surgery (SDC) | payer OTHER, MEDICARE ==
[2020-04-30 09:26] LABS: HEMATOCRIT 43.4 % (35.4-49); HEMOGLOBIN 14.5 GM/dL (11.7-16.9); MCH 29.4 pg (25.7-33.7); MCHC 33.4 g/dl (32.0-35.9); MEAN CELL VOLUME 88.1 fl (80-96); MEAN PLT VOLUME 7.9 fl (7.5-11.1); PLATELET COUNT 183 K/MM3 (134-434); RBC 4.92 M/mm3 (4.00-5.60); RDW 13.2 % (11.9-15.9); WHITE BLOOD COUNT 5.5 K/mm3 (4.0-10.0)
[2020-04-30 09:54] LABS: ALBUMIN 3.6 g/dl (3.4-5.0); BILIRUBIN,TOTAL 0.6 mg/dL (0.2-1); CALCIUM 8.8 mg/dL (8.5-10.1); CREATININE 1.1 mg/dL (0.55-1.3); POTASSIUM 4.2 mmol/L (3.5-5.1); TOT PROT 7.3 g/dl (6.4-8.2)
[2020-04-30] MEDS ORDERED: ERTAPENEM SODIUM 1 GM in SODIUM CHLORIDE 50 ML IVPB ONE (10:00)
[2020-04-30] MEDS ORDERED: VANCOMYCIN HCL 1,500 MG in DEXTROSE 5%-WATER - 500 ML IVPB ONE (10:00)
[2020-04-30] MEDS ORDERED: ERTAPENEM SODIUM 1 GM VIAL ONE (10:15)
[2020-04-30] MEDS ORDERED: SODIUM CHLORIDE 50 ML IVPB ONE (10:16)
[2020-04-30 10:41] LABS: ERYTHROCYTE SEDIMENTATION RATE 14 mm/hr (0-20)
[2020-04-30 14:22] VITALS: BP 130/86; PULSE 86; TEMP 98
== END 2020-04-30 12:00 | disposition home or self-care (01) ==
LOC: JINFUSION 08:19 → J7W 08:20 → JINFUSION 12:00
PROVIDERS: ATTEND Internal Medicine Infectious Disease
DX: E11.621 Type 2 diabetes mellitus with foot ulcer (principal); M86.371 Chronic multifocal osteomyelitis, right ankle and foot; Z79.4 Long term (current) use of insulin
CPT/HCPCS: 36415; 80053; 85027; 85651; 86140; 96365; G0480

== ENCOUNTER 2020-05-01 09:02 | Day surgery (SDC) | payer OTHER, MEDICARE ==
[2020-05-01] MEDS ORDERED: ERTAPENEM SODIUM 1 GM in SODIUM CHLORIDE 50 ML IVPB ONE (09:15)
[2020-05-01] MEDS ORDERED: SODIUM CHLORIDE 50 ML IVPB ONE (09:30)
[2020-05-01] MEDS ORDERED: ERTAPENEM SODIUM 1 GM VIAL ONE (09:30)
[2020-05-01 12:42] VITALS: BP 133/75; PULSE 71; TEMP 98
== END 2020-05-01 12:51 | disposition home or self-care (01) ==
LOC: JINFUSION 09:02 → J7W 09:03 → JINFUSION 12:51
PROVIDERS: ATTEND Internal Medicine Infectious Disease
DX: E11.621 Type 2 diabetes mellitus with foot ulcer (principal); M86.371 Chronic multifocal osteomyelitis, right ankle and foot; Z79.4 Long term (current) use of insulin
CPT/HCPCS: 96365

== ENCOUNTER 2020-05-02 09:11 | Day surgery (SDC) | payer OTHER, MEDICARE ==
[2020-05-02] MEDS ORDERED: ERTAPENEM SODIUM 1 GM in SODIUM CHLORIDE 50 ML IVPB ONE (09:45)
[2020-05-02] MEDS ORDERED: VANCOMYCIN 1,500 MG in DEXTROSE 5%-WATER - 500 ML IVPB ONE (09:45)
[2020-05-02] MEDS ORDERED: SODIUM CHLORIDE 50 ML IVPB ONE (10:09)
[2020-05-02] MEDS ORDERED: ERTAPENEM SODIUM 1 GM VIAL ONE (10:09)
[2020-05-02] MEDS ORDERED: VANCOMYCIN HCL 1,250 MG in DEXTROSE 5%-WATER - 250 ML IVPB ONE (11:45)
[2020-05-02 14:49] VITALS: PULSE 86; TEMP 98
[2020-05-02 14:59] VITALS: BP 135/86
== END 2020-05-02 14:55 | disposition home or self-care (01) ==
LOC: JINFUSION 09:11 → J7W 09:12 → JINFUSION 14:55
PROVIDERS: ATTEND Internal Medicine Infectious Disease
DX: E11.621 Type 2 diabetes mellitus with foot ulcer (principal); M86.371 Chronic multifocal osteomyelitis, right ankle and foot; Z79.4 Long term (current) use of insulin
CPT/HCPCS: 96365; 96366; 96367; G0480

== ENCOUNTER 2020-05-03 09:05 | Day surgery (SDC) | payer OTHER, MEDICARE ==
[2020-05-03] MEDS ORDERED: VANCOMYCIN HCL 1,250 MG in DEXTROSE 5%-WATER - 250 ML IVPB ONE (10:15)
[2020-05-03] MEDS ORDERED: ERTAPENEM SODIUM 1 GM in DEXTROSE 5%-WATER - 50 ML IVPB ONE (10:15)
[2020-05-03] MEDS ORDERED: DEXTROSE 5%-WATER - 50 ML IVPB ONE (10:30)
[2020-05-03] MEDS ORDERED: ERTAPENEM SODIUM 1 GM VIAL ONE (10:30)
[2020-05-03] MEDS ORDERED: PT OWN MED DRAWER 7, Y5N ONE (11:17)
[2020-05-03 11:26] VITALS: PULSE 86; TEMP 98
[2020-05-03 14:50] VITALS: BP 120/85
== END 2020-05-03 14:00 | disposition home or self-care (01) ==
LOC: JINFUSION 09:05 → J7W 09:06 → JINFUSION 14:00
PROVIDERS: ATTEND Internal Medicine Infectious Disease
DX: E11.621 Type 2 diabetes mellitus with foot ulcer (principal); M86.371 Chronic multifocal osteomyelitis, right ankle and foot; Z79.4 Long term (current) use of insulin
CPT/HCPCS: 87324; 87449; 96365; 96366; 96367

== ENCOUNTER 2020-05-04 09:47 | Day surgery (SDC) | payer OTHER, MEDICARE ==
[2020-05-04] MEDS ORDERED: ERTAPENEM SODIUM 1 GM in SODIUM CHLORIDE 50 ML IVPB ONE (10:00)
[2020-05-04] MEDS ORDERED: SODIUM CHLORIDE 50 ML IVPB ONE (10:03)
[2020-05-04] MEDS ORDERED: ERTAPENEM SODIUM 1 GM VIAL ONE (10:03)
[2020-05-04] MEDS ORDERED: VANCOMYCIN 1,250 MG in DEXTROSE 5%-WATER - 250 ML IVPB ONE (10:30)
[2020-05-04 13:01] VITALS: BP 137/78; PULSE 80; TEMP 98
== END 2020-05-04 13:02 | disposition home or self-care (01) ==
LOC: JINFUSION 09:47 → J7W 09:48 → JINFUSION 13:01
PROVIDERS: ATTEND Internal Medicine Infectious Disease
DX: E11.621 Type 2 diabetes mellitus with foot ulcer (principal); M86.371 Chronic multifocal osteomyelitis, right ankle and foot; Z79.4 Long term (current) use of insulin
CPT/HCPCS: 96365; 96366; 96367

== ENCOUNTER 2020-05-05 09:52 | Day surgery (SDC) | payer OTHER, MEDICARE ==
[2020-05-05] MEDS ORDERED: ERTAPENEM SODIUM 1 GM VIAL ONE (10:15)
[2020-05-05] MEDS ORDERED: SODIUM CHLORIDE 50 ML IVPB ONE (10:15)
[2020-05-05] MEDS ORDERED: ERTAPENEM SODIUM 1 GM in SODIUM CHLORIDE 50 ML IVPB ONE (10:15)
[2020-05-05] MEDS ORDERED: VANCOMYCIN 1,250 MG in DEXTROSE 5%-WATER - 250 ML IVPB ONE (10:30)
[2020-05-05 11:34] VITALS: BP 146/77; PULSE 80; TEMP 98.2
== END 2020-05-05 12:30 | disposition home or self-care (01) ==
LOC: JINFUSION 09:52 → J7W 09:53 → JINFUSION 12:30
PROVIDERS: ATTEND Internal Medicine Infectious Disease
DX: E11.621 Type 2 diabetes mellitus with foot ulcer (principal); M86.371 Chronic multifocal osteomyelitis, right ankle and foot; Z79.4 Long term (current) use of insulin
CPT/HCPCS: 96365; 96366; 96367

== ENCOUNTER 2020-05-06 08:57 | Day surgery (SDC) | payer OTHER, MEDICARE ==
[2020-05-06] MEDS ORDERED: ERTAPENEM SODIUM 1 GM in SODIUM CHLORIDE 50 ML IVPB ONE (09:45)
[2020-05-06] MEDS ORDERED: VANCOMYCIN 1,250 MG in DEXTROSE 5%-WATER - 250 ML IVPB ONE (10:00)
[2020-05-06] MEDS ORDERED: SODIUM CHLORIDE 50 ML IVPB ONE (10:07)
[2020-05-06] MEDS ORDERED: ERTAPENEM SODIUM 1 GM VIAL ONE (10:07)
[2020-05-06] MEDS ORDERED: PT OWN MED DRAWER 7, Y5N ONE (10:44)
[2020-05-06 11:54] VITALS: BP 122/68; PULSE 78; TEMP 97.8
== END 2020-05-06 14:09 | disposition home or self-care (01) ==
LOC: JINFUSION 08:57 → J7W 08:58 → JINFUSION 14:09
PROVIDERS: ATTEND Internal Medicine Infectious Disease
DX: E11.621 Type 2 diabetes mellitus with foot ulcer (principal); M86.371 Chronic multifocal osteomyelitis, right ankle and foot; Z79.4 Long term (current) use of insulin
CPT/HCPCS: 96365; 96366; 96367

== ENCOUNTER 2020-05-07 08:53 | Day surgery (SDC) | payer OTHER, MEDICARE ==
[2020-05-07] MEDS ORDERED: ERTAPENEM SODIUM 1 GM in SODIUM CHLORIDE 50 ML IVPB ONE (09:15)
[2020-05-07 09:21] LABS: HEMATOCRIT 41.9 % (35.4-49); HEMOGLOBIN 14.2 GM/dL (11.7-16.9); MCH 29.6 pg (25.7-33.7); MCHC 33.9 g/dl (32.0-35.9); MEAN CELL VOLUME 87.5 fl (80-96); PLATELET COUNT 194 K/MM3 (134-434); RBC 4.79 M/mm3 (4.00-5.60); RDW 13.3 % (11.9-15.9); WHITE BLOOD COUNT 5.9 K/mm3 (4.0-10.0)
[2020-05-07] MEDS ORDERED: VANCOMYCIN 1,250 MG in DEXTROSE 5%-WATER - 250 ML IVPB ONE (09:30)
[2020-05-07] MEDS ORDERED: ERTAPENEM SODIUM 1 GM VIAL ONE (09:43)
[2020-05-07] MEDS ORDERED: SODIUM CHLORIDE 50 ML IVPB ONE (09:43)
[2020-05-07 09:50] LABS: ALBUMIN 3.5 g/dl (3.4-5.0); BILIRUBIN,TOTAL 0.5 mg/dL (0.2-1); BLOOD UREA NITROGEN 15.3 mg/dL (7-18); CALCIUM 8.9 mg/dL (8.5-10.1); CREATININE 1.1 mg/dL (0.55-1.3); POTASSIUM 4.4 mmol/L (3.5-5.1); TOT PROT 7.2 g/dl (6.4-8.2)
[2020-05-07 10:13] LABS: ERYTHROCYTE SEDIMENTATION RATE 12 mm/hr (0-20)
[2020-05-07 10:28] VITALS: TEMP 98.2
[2020-05-07 12:47] VITALS: BP 116/54; PULSE 76
== END 2020-05-07 12:48 | disposition home or self-care (01) ==
LOC: JINFUSION 08:53 → J7W 08:57 → JINFUSION 12:48
PROVIDERS: ATTEND Internal Medicine Infectious Disease
DX: E11.621 Type 2 diabetes mellitus with foot ulcer (principal); M86.371 Chronic multifocal osteomyelitis, right ankle and foot; Z79.4 Long term (current) use of insulin
CPT/HCPCS: 36415; 80053; 85027; 85651; 86140; 96365; 96367; G0480

== ENCOUNTER 2020-05-08 08:52 | Day surgery (SDC) | payer OTHER, MEDICARE ==
[2020-05-08] MEDS ORDERED: VANCOMYCIN HCL 1,250 MG in DEXTROSE 5%-WATER - 250 ML IVPB ONE (09:45)
[2020-05-08] MEDS ORDERED: ERTAPENEM SODIUM 1 GM in SODIUM CHLORIDE 50 ML IVPB ONE (11:15)
[2020-05-08] MEDS ORDERED: SODIUM CHLORIDE 50 ML IVPB ONE (12:03)
[2020-05-08] MEDS ORDERED: ERTAPENEM SODIUM 1 GM VIAL ONE (12:03)
[2020-05-08 14:52] VITALS: BP 120/75; PULSE 76; TEMP 98
== END 2020-05-08 14:52 | disposition home or self-care (01) ==
LOC: JINFUSION 08:52 → J7W 08:57 → JINFUSION 14:52
PROVIDERS: ATTEND Internal Medicine Infectious Disease
DX: E11.621 Type 2 diabetes mellitus with foot ulcer (principal); M86.371 Chronic multifocal osteomyelitis, right ankle and foot; Z79.4 Long term (current) use of insulin; Z88.0 Allergy status to penicillin
CPT/HCPCS: 96365; 96366; 96367; G0480

== ENCOUNTER 2020-05-09 08:58 | Day surgery (SDC) | payer OTHER, MEDICARE ==
[2020-05-09] MEDS ORDERED: ERTAPENEM SODIUM 1 GM in SODIUM CHLORIDE 50 ML IVPB ONE (09:15)
[2020-05-09] MEDS ORDERED: VANCOMYCIN HCL 1,250 MG in DEXTROSE 5%-WATER - 250 ML IVPB ONE (09:15)
[2020-05-09] MEDS ORDERED: ERTAPENEM SODIUM 1 GM VIAL ONE (09:48)
[2020-05-09] MEDS ORDERED: SODIUM CHLORIDE 50 ML IVPB ONE (09:48)
[2020-05-09 13:49] VITALS: BP 135/73; PULSE 79; TEMP 98.1
== END 2020-05-09 13:58 | disposition home or self-care (01) ==
LOC: JINFUSION 08:58 → J7W 08:58 → JINFUSION 13:58
PROVIDERS: ATTEND Internal Medicine Infectious Disease
DX: E11.621 Type 2 diabetes mellitus with foot ulcer (principal); M86.371 Chronic multifocal osteomyelitis, right ankle and foot; Z79.4 Long term (current) use of insulin
CPT/HCPCS: 96365; 96366; 96367; 97597

== ENCOUNTER 2020-06-06 04:19 | Day surgery (SDC) | payer OTHER, MEDICARE ==
[2020-06-04 16:37] VITALS: BMI 34.0
[2020-06-06 08:01] VITALS: TEMP 97
[2020-06-06] MEDS ORDERED: BENZOIN/ALOE VERA/STORAX/TOLU 58 ML BOTTLE ONE (08:31)
[2020-06-06] MEDS ORDERED: DEXAMETHASONE SOD PHOSPHATE 4 MG/1 ML VIAL ONE ×2 (08:31→08:57)
[2020-06-06] MEDS ORDERED: LIDOCAINE HCL 1%, 10 MG/ML (20ML VIAL) ONE (08:31)
[2020-06-06] MEDS ORDERED: SODIUM CHLORIDE 0.9% P/F 10 ML VIAL IJ ONE (08:36)
[2020-06-06] MEDS ORDERED: PROPOFOL 20 ML ONE (08:57)
[2020-06-06] MEDS ORDERED: MIDAZOLAM HCL 2 MG/2 ML SINGLE DOSE VIAL ONE ×2 (08:57)
[2020-06-06] MEDS ORDERED: SUCCINYLCHOLINE CHLORIDE 200 MG/10 ML SYRINGE ONE (08:58)
[2020-06-06] MEDS ORDERED: BACITRACIN 50,000 UNITS VIAL NR ONE (09:19)
[2020-06-06] MEDS ORDERED: BUPIVACAINE HCL/PF 0.5% (5 MG/ML) 30 ML VIAL IJ ONE (09:19)
[2020-06-06] MEDS ORDERED: LIDOCAINE HCL 1%, 10 MG/ML (20ML VIAL) NR ONE (09:19)
[2020-06-06 13:40] VITALS: BP 135/70; PULSE 69
--- NOTE | 2020-06-07 15:11 | OP ---
DATE OF OPERATION: 06/06/2020 SURGEON: Tal Velazquez DPM CO-SURGEON: Álvaro Escamilla DPM CRAPS MANAGER: , DENICE, PGY3. PREOPERATIVE DIAGNOSES: 1. Right foot submetatarsal one nonhealing ulcer. 2. Right foot submetatarsal one exostosis. 3. Left foot submetatarsal one ulcer. POSTPROCEDURE DIAGNOSES: 1. Right foot submetatarsal one nonhealing ulcer. 2. Right foot submetatarsal one exostosis. 3. Left foot submetatarsal one ulcer. PROCEDURE: 1. Right foot excision of ulcer. 2. Right foot exostectomy. 3. Left foot debridement of ulcer. PATHOLOGY: Soft tissue. ANESTHESIA: Local with MAC. HEMOSTASIS: Pneumatic right ankle tourniquet at 250 mmHg. ESTIMATED BLOOD LOSS: Minimal. MATERIALS: 3-0 nylon, Iodoform packing, Betadine-soaked Adaptic, 4 x 4, Kerlix, and Jose. INJECTABLES: Preoperative 20 mL total with a 1:1 mixture of lidocaine 1% plain and Marcaine 0.5% plain. CONDITION: Stable. COMPLICATIONS: None. DESCRIPTION OF THE PROCEDURE: The patient was brought to the operating room and placed on the operating room table in the supine position. After appropriate time-out procedure, administration of preoperative antibiotics, and identification of the procedures, MAC anesthesia was initiated with the anesthesia team. After adequate sedation, a local anesthetic block was administered to the right foot utilizing a 1:1 mixture of lidocaine 1% plain and 0.5% Marcaine plain for a total of 20 mL being used. A well-padded pneumatic ankle tourniquet was then applied to the right ankle. The right and left feet were then prepped and draped in the usual aseptic manner. An Esmarch bandage was then utilized to exsanguinate the patients right foot and a tourniquet was then inflated to 250 mmHg. Surgery began in the following manner. Attention was directed to the plantar aspect to the right foot in which a 0.5 cm x 0.5 cm x 1 cm open ulcer was identified. Utilizing the No. 15 blade the ulcer was well circumscribed down to the periosteum. The ulcer was then sharply dissected and passed from the operative field for pathology. Attention was then directed to the plantar aspect of the first metatarsal where a palpable plantar exostosis was identified. The was monitored through the x-ray images acquired prior to the procedure. Using a rotator thong the exostosis was then removed in such a manner that the prominence was then no longer probable through the overlying soft tissue and skin. The surgical site was then flushed with a normal saline and bacitracin solution. The surgical site was then packed Iodoform packing and closed with 3-0 nylon in an alternating simple one vertical mattress fashion. The surgical site was then dressed with Betadine soaked Adaptic, 4 x 4 gauze, Sultana and Jose. The pneumatic ankle tourniquet was then deflated and a prompt hyperemic response was noted to all the digits of the right foot. Attention was then directed to the left foot where a 3 cm area of hyperkeratotic tissue was noted to the plantar aspect of the first metatarsal head. Utilizing a No. 15 blade the hyperkeratotic tissue was debrided to the level of the subcutaneous tissue where a 0.5 cm x 0.5 cm x 0.2 cm ulcer was revealed. The old surgical site was dressed with Betadine, 4 x 4 gauze, Sultana, and Jose. The patient tolerated the procedure and anesthesia well and left the operating room to the recovery room with all of the vital signs stable and neurovascular status intact through the bilateral foot. DENICE Joshi/[id number]
--- NOTE | 2020-06-10 18:43 | PATH ---
Surgical Pathology Report Patient Name: RAUL CHENEY [facility]. Rec. #: [id number] /Age/Gender: 1950 (Age: 69) / M Account: [id number] Location: [facility] Taken: 06/06/2020 Received: 06/06/2020 Reported: 06/10/2020 Physicians: Tal Velazquez DPM Specimen(s) Received A: ULCER RIGHT FOOT B: SOFT TISSUE, SECOND METARTASAL Clinical History Ulcer with bone spur right foot Final Diagnosis A. ULCER, FOOT, RIGHT, DEBRIDEMENT: SKIN AND SOFT TISSUE WITH MARKED ACUTE INFLAMMATION, ULCERATION, AND NECROSIS. B. SOFT TISSUE, SECOND METATARSAL, EXCISION: SKIN AND DENSE FIBROCONNECTIVE TISSUE WITH MARKED ACUTE INFLAMMATION, ULCERATION, NECROSIS, AND REACTIVE CHANGES. Electronically Signed Karoline Dia M.D. Gross Description A. Received in formalin labeled "ulcer right foot," is a 2.4 x 1.1 cm lyons, elliptical, unoriented portion of skin excised to depth of 0.7 cm. The epidermal surface displays a central defect, consistent with an ulcer. Parts Coordinator sections are submitted in one cassette. B. Received in formalin labeled "soft tissue second metatarsal," is a 1.6 x 1.0 x 0.2 cm aggregate of lyons-brown portions of soft tissue. The larger portion is sectioned and the specimen is entirely submitted in one cassette. DL/06/07/2020 saudi/06/07/2020
== END 2020-06-06 13:00 | disposition home or self-care (01) ==
LOC: JASU-SURG 04:19
PROVIDERS: ATTEND Podiatrist Foot Surgery
PROC: 0QBP0ZZ Excision of Left Metatarsal, Open Approach (ICD-10-PCS; 2020-06-06)
PROC: 0JBQ0ZZ Excision of Right Foot Subcutaneous Tissue and Fascia, Open Approach (ICD-10-PCS; principal; 2020-06-06 09:00)
DX: E11.621 Type 2 diabetes mellitus with foot ulcer (principal); L97.514 Non-pressure chronic ulcer of other part of right foot with necrosis of bone; M77.52 Other enthesopathy of left foot and ankle
CPT/HCPCS: 73630-TC-RT-FY; 82962; 88304-TC

== ENCOUNTER 2020-08-06 16:04 | Emergency (ER) | payer OTHER, MEDICARE | END 2020-08-06 16:39 | disposition home or self-care (01) | LOC: JVIRT 16:04 | DX: Z11.59 Encounter for screening for other viral diseases (principal) | CPT/HCPCS: C9803; Q3014-GT; U0003 ==

== ENCOUNTER 2021-01-09 10:26 | Inpatient (IN) | payer OTHER, MEDICARE ==
[2021-01-09] MEDS ORDERED: CEFEPIME HCL/D5W 1 GM/50 ML BAG IVPB ONE (12:16)
[2021-01-09] MEDS ORDERED: MEROPENEM 1 GM VIAL (RESTRICTED TO ID) IVPB ONE (12:31)
[2021-01-09 12:38] LABS: BASO % 0.3 % (0-2.0); EOS % 0.3 % (0-4.5); HEMATOCRIT 40.3 % (35.4-49); HEMOGLOBIN 13.6 GM/dL (11.7-16.9); LYMPH % 8.9 % (8-40); MCH 29.6 pg (25.7-33.7); MCHC 33.7 g/dl (32.0-35.9); MEAN CELL VOLUME 87.8 fl (80-96); MEAN PLT VOLUME 8.4 fl (7.5-11.1); MONO % 6.9 % (3.8-10.2); NEUT % 83.6 % (42.8-82.8); PLATELET COUNT 196 K/MM3 (134-434); RBC 4.59 M/mm3 (4.00-5.60); RDW 13.9 % (11.9-15.9); WHITE BLOOD COUNT 11.2 K/mm3 (4.0-10.0)
[2021-01-09 13:00] LABS: ALBUMIN 3.6 g/dl (3.4-5.0); BLOOD UREA NITROGEN 15.1 mg/dL (7-18); CALCIUM 8.8 mg/dL (8.5-10.1)
[2021-01-09 13:04] LABS: CREATININE 1.1 mg/dL (0.55-1.3)
[2021-01-09 13:05] LABS: BILIRUBIN,TOTAL 0.8 mg/dL (0.2-1); TOT PROT 7.3 g/dl (6.4-8.2)
[2021-01-09 13:55] LABS: ERYTHROCYTE SEDIMENTATION RATE 14 mm/hr (0-20)
[2021-01-09] MEDS ORDERED: ACETAMINOPHEN 325 MG TABLET (FP) PO PRN (14:41)
[2021-01-09] MEDS ORDERED: CEFEPIME HCL/D5W 1 GM/50 ML BAG IVPB SCH (18:00)
[2021-01-09] MEDS ORDERED: PRAMIPEXOLE DIHYDROCHLORIDE 1 MG TABLET PO SCH (22:00)
[2021-01-09] MEDS ORDERED: HEPARIN NA (PORCINE) 5,000 UNITS/ML 1ML VIAL SQ SCH (22:00)
[2021-01-09] MEDS ORDERED: CEFEPIME HCL 1 GM VIAL (RESTRICTED TO ID) ONE (22:17)
[2021-01-09] MEDS: ATORVASTATIN CA 10 MG TABLET (FP) PO SCH (22:27)
[2021-01-09] MEDS: PRAMIPEXOLE DIHYDROCHLORIDE 1 MG TABLET PO SCH (22:27)
[2021-01-09] MEDS: HEPARIN NA (PORCINE) 5,000 UNITS/ML 1ML VIAL SQ SCH (22:28)
[2021-01-09] MEDS: INSULIN SLIDING SCALE (NOVOLOG) 1 VIAL SQ SCH (22:29)
[2021-01-10] MEDS: CEFEPIME 1 GM in DEXTROSE 5%-WATER 100 ML IVPB SCH ×3 (01:12→18:36)
[2021-01-10] MEDS: INSULIN SLIDING SCALE (NOVOLOG) 1 VIAL SQ SCH ×4 (06:39→21:05)
[2021-01-10] MEDS: PRAMIPEXOLE DIHYDROCHLORIDE 1 MG TABLET PO SCH ×3 (06:39→21:04)
[2021-01-10 08:17] LABS: BASO % 0.4 % (0-2.0); EOS % 0.8 % (0-4.5); HEMATOCRIT 38.8 % (35.4-49); HEMOGLOBIN 13.4 GM/dL (11.7-16.9); LYMPH % 17.5 % (8-40); MCH 30.2 pg (25.7-33.7); MCHC 34.6 g/dl (32.0-35.9); MEAN CELL VOLUME 87.3 fl (80-96); MEAN PLT VOLUME 8.3 fl (7.5-11.1); MONO % 7.8 % (3.8-10.2); NEUT % 73.5 % (42.8-82.8); PLATELET COUNT 180 K/MM3 (134-434); RBC 4.45 M/mm3 (4.00-5.60); RDW 13.7 % (11.9-15.9); WHITE BLOOD COUNT 9.3 K/mm3 (4.0-10.0)
[2021-01-10 08:19] LABS: INR 1.18 (0.83-1.09); PROTHROMBIN TIME (PATIENT) 14.2 SEC (9.7-13.0)
[2021-01-10 08:33] LABS: ALBUMIN 3.3 g/dl (3.4-5.0); BLOOD UREA NITROGEN 15.7 mg/dL (7-18); CALCIUM 8.3 mg/dL (8.5-10.1)
[2021-01-10 08:36] LABS: CREATININE 1.1 mg/dL (0.55-1.3)
[2021-01-10 08:38] LABS: BILIRUBIN,TOTAL 0.8 mg/dL (0.2-1); TOT PROT 7.1 g/dl (6.4-8.2)
[2021-01-10] MEDS ORDERED: CHOLECALCIFEROL (VIT D3) 1,000 UNIT (25 MCG) TABLET PO SCH (10:00)
[2021-01-10] MEDS ORDERED: QUINAPRIL HCL 5 MG TABLET PO SCH (10:00)
[2021-01-10] MEDS ORDERED: ESCITALOPRAM OXALATE 20 MG TABLET PO SCH (10:00)
[2021-01-10] MEDS ORDERED: PT OWN MED DRAWER 7, Y5N ONE (10:34)
[2021-01-10] MEDS ORDERED: CEFEPIME HCL 1 GM VIAL (RESTRICTED TO ID) ONE ×2 (10:34→18:33)
[2021-01-10] MEDS ORDERED: DEXTROSE 5%-WATER 100 ML IVPB ONE ×2 (10:35→18:33)
[2021-01-10] MEDS: TAMSULOSIN HCL 0.4 MG CAP PO SCH (10:46)
[2021-01-10] MEDS: CHOLECALCIFEROL (VIT D3) 1,000 UNIT (25 MCG) TABLET PO SCH (10:46)
[2021-01-10] MEDS: ESCITALOPRAM OXALATE 20 MG TABLET PO SCH (10:46)
[2021-01-10] MEDS: CYANOCOBALAMIN 1,000 MCG TABLET (FP) PO SCH (10:46)
[2021-01-10] MEDS: HEPARIN NA (PORCINE) 5,000 UNITS/ML 1ML VIAL SQ SCH ×2 (10:47→21:04)
[2021-01-10] MEDS: VANCOMYCIN 1 GM in D5W (PRE-DOCKED) 1,000 MG/250 ML IVPB SCH ×2 (12:04→21:04)
[2021-01-10] MEDS: QUINAPRIL HCL 5 MG TABLET PO SCH (15:45)
[2021-01-10] MEDS: FLUTICASONE/UMECLIDIN/VILANTER (TRELEGY ELLIPTA 100-62.5-25) INAHLER IH SCH (15:46)
[2021-01-10] MEDS ORDERED: INSULIN (LEVEMIR) 100 UNITS/ML UNITS SQ ONE (20:57)
[2021-01-10] MEDS: ATORVASTATIN CA 10 MG TABLET (FP) PO SCH (21:04)
[2021-01-11] MEDS ORDERED: DEXTROSE 5%-WATER 100 ML IVPB ONE ×3 (02:37→17:02)
[2021-01-11] MEDS ORDERED: CEFEPIME HCL 1 GM VIAL (RESTRICTED TO ID) ONE ×3 (02:37→17:02)
[2021-01-11] MEDS: CEFEPIME 1 GM in DEXTROSE 5%-WATER 100 ML IVPB SCH ×3 (02:48→17:14)
[2021-01-11] MEDS: INSULIN SLIDING SCALE (NOVOLOG) 1 VIAL SQ SCH ×4 (06:17→22:13)
[2021-01-11] MEDS: PRAMIPEXOLE DIHYDROCHLORIDE 1 MG TABLET PO SCH ×3 (06:17→22:43)
[2021-01-11] MEDS ORDERED: PT OWN MED DRAWER 7, Y5N ONE (09:22)
[2021-01-11] MEDS: TAMSULOSIN HCL 0.4 MG CAP PO SCH (09:27)
[2021-01-11] MEDS: CYANOCOBALAMIN 1,000 MCG TABLET (FP) PO SCH (09:27)
[2021-01-11] MEDS: HEPARIN NA (PORCINE) 5,000 UNITS/ML 1ML VIAL SQ SCH ×2 (09:27→22:04)
[2021-01-11] MEDS: CHOLECALCIFEROL (VIT D3) 1,000 UNIT (25 MCG) TABLET PO SCH (09:27)
[2021-01-11] MEDS: ESCITALOPRAM OXALATE 20 MG TABLET PO SCH (09:27)
[2021-01-11] MEDS: QUINAPRIL HCL 5 MG TABLET PO SCH (09:28)
[2021-01-11] MEDS: VANCOMYCIN 1 GM in D5W (PRE-DOCKED) 1,000 MG/250 ML IVPB SCH ×2 (09:29→22:02)
[2021-01-11] MEDS: FLUTICASONE/UMECLIDIN/VILANTER (TRELEGY ELLIPTA 100-62.5-25) INAHLER IH SCH (09:30)
[2021-01-11] MEDS: COLLAGENASE CLOSTRIDIUM HIST. 30 GRAMS TUBE TP SCH (15:00)
[2021-01-11] MEDS: ATORVASTATIN CA 10 MG TABLET (FP) PO SCH (22:04)
[2021-01-12] MEDS ORDERED: DEXTROSE 5%-WATER 100 ML IVPB ONE ×3 (01:17→17:20)
[2021-01-12] MEDS ORDERED: CEFEPIME HCL 1 GM VIAL (RESTRICTED TO ID) ONE ×3 (01:17→17:20)
[2021-01-12] MEDS: CEFEPIME 1 GM in DEXTROSE 5%-WATER 100 ML IVPB SCH ×3 (01:21→17:23)
[2021-01-12] MEDS: PRAMIPEXOLE DIHYDROCHLORIDE 1 MG TABLET PO SCH ×3 (05:36→21:19)
[2021-01-12] MEDS: INSULIN SLIDING SCALE (NOVOLOG) 1 VIAL SQ SCH ×4 (06:11→21:21)
[2021-01-12] MEDS ORDERED: ESCITALOPRAM OXALATE 10 MG TABLET ONE (08:35)
[2021-01-12] MEDS: TAMSULOSIN HCL 0.4 MG CAP PO SCH (08:47)
[2021-01-12] MEDS: CHOLECALCIFEROL (VIT D3) 1,000 UNIT (25 MCG) TABLET PO SCH (09:20)
[2021-01-12] MEDS: CYANOCOBALAMIN 1,000 MCG TABLET (FP) PO SCH (09:20)
[2021-01-12] MEDS: HEPARIN NA (PORCINE) 5,000 UNITS/ML 1ML VIAL SQ SCH ×2 (09:21→21:19)
[2021-01-12] MEDS: ESCITALOPRAM OXALATE 20 MG TABLET PO SCH (09:21)
[2021-01-12] MEDS: COLLAGENASE CLOSTRIDIUM HIST. 30 GRAMS TUBE TP SCH (09:22)
[2021-01-12] MEDS: FLUTICASONE/UMECLIDIN/VILANTER (TRELEGY ELLIPTA 100-62.5-25) INAHLER IH SCH (09:23)
[2021-01-12] MEDS ORDERED: PT OWN MED DRAWER 7, Y5N ONE ×3 (09:29→12:46)
[2021-01-12] MEDS: QUINAPRIL HCL 5 MG TABLET PO SCH (09:30)
[2021-01-12] MEDS: VANCOMYCIN 1 GM in D5W (PRE-DOCKED) 1,000 MG/250 ML IVPB SCH (10:30)
[2021-01-12] MEDS: ATORVASTATIN CA 10 MG TABLET (FP) PO SCH (21:23)
[2021-01-12] MEDS: VANCOMYCIN 1,000 MG in SODIUM CHLORIDE 1,000 MG/250 ML INFUS.BAG IVPB SCH (21:58)
[2021-01-13] MEDS ORDERED: DEXTROSE 5%-WATER 100 ML IVPB ONE ×3 (00:57→17:48)
[2021-01-13] MEDS ORDERED: CEFEPIME HCL 1 GM VIAL (RESTRICTED TO ID) ONE ×3 (00:57→17:47)
[2021-01-13] MEDS: CEFEPIME 1 GM in DEXTROSE 5%-WATER 100 ML IVPB SCH ×3 (01:38→18:01)
[2021-01-13] MEDS: PRAMIPEXOLE DIHYDROCHLORIDE 1 MG TABLET PO SCH ×3 (05:42→21:08)
[2021-01-13] MEDS: INSULIN SLIDING SCALE (NOVOLOG) 1 VIAL SQ SCH ×4 (06:03→21:09)
[2021-01-13] MEDS ORDERED: PT OWN MED DRAWER 7, Y5N ONE ×2 (09:10→11:44)
[2021-01-13] MEDS ORDERED: ESCITALOPRAM OXALATE 10 MG TABLET ONE (09:10)
[2021-01-13] MEDS: TAMSULOSIN HCL 0.4 MG CAP PO SCH (09:17)
[2021-01-13] MEDS: ESCITALOPRAM OXALATE 20 MG TABLET PO SCH (09:17)
[2021-01-13] MEDS: CHOLECALCIFEROL (VIT D3) 1,000 UNIT (25 MCG) TABLET PO SCH (09:17)
[2021-01-13] MEDS: HEPARIN NA (PORCINE) 5,000 UNITS/ML 1ML VIAL SQ SCH ×2 (09:17→21:09)
[2021-01-13] MEDS: CYANOCOBALAMIN 1,000 MCG TABLET (FP) PO SCH (09:17)
[2021-01-13] MEDS: QUINAPRIL HCL 5 MG TABLET PO SCH (09:18)
[2021-01-13] MEDS: FLUTICASONE/UMECLIDIN/VILANTER (TRELEGY ELLIPTA 100-62.5-25) INAHLER IH SCH (09:19)
[2021-01-13] MEDS: COLLAGENASE CLOSTRIDIUM HIST. 30 GRAMS TUBE TP SCH (09:19)
[2021-01-13] MEDS: ESCITALOPRAM OXALATE 10 MG TABLET PO SCH (10:18)
[2021-01-13] MEDS: VANCOMYCIN 1,000 MG in SODIUM CHLORIDE 1,000 MG/250 ML INFUS.BAG IVPB SCH ×2 (11:51→21:05)
[2021-01-13] MEDS: ATORVASTATIN CA 10 MG TABLET (FP) PO SCH (21:08)
[2021-01-14] MEDS ORDERED: CEFEPIME HCL 1 GM VIAL (RESTRICTED TO ID) ONE ×3 (00:39→17:26)
[2021-01-14] MEDS ORDERED: DEXTROSE 5%-WATER 100 ML IVPB ONE ×3 (00:40→17:26)
[2021-01-14] MEDS: CEFEPIME 1 GM in DEXTROSE 5%-WATER 100 ML IVPB SCH ×3 (01:19→17:35)
[2021-01-14] MEDS: PRAMIPEXOLE DIHYDROCHLORIDE 1 MG TABLET PO SCH ×3 (05:59→21:44)
[2021-01-14] MEDS: INSULIN SLIDING SCALE (NOVOLOG) 1 VIAL SQ SCH ×4 (06:00→21:43)
[2021-01-14 07:55] LABS: BASO % 0.7 % (0-2.0); EOS % 4.9 % (0-4.5); HEMATOCRIT 39.6 % (35.4-49); HEMOGLOBIN 13.4 GM/dL (11.7-16.9); LYMPH % 25.9 % (8-40); MCH 29.6 pg (25.7-33.7); MCHC 33.8 g/dl (32.0-35.9); MEAN CELL VOLUME 87.6 fl (80-96); MEAN PLT VOLUME 8.2 fl (7.5-11.1); MONO % 6.7 % (3.8-10.2); NEUT % 61.8 % (42.8-82.8); PLATELET COUNT 211 K/MM3 (134-434); RBC 4.52 M/mm3 (4.00-5.60); RDW 13.3 % (11.9-15.9); WHITE BLOOD COUNT 5.6 K/mm3 (4.0-10.0)
[2021-01-14 07:59] LABS: CALCIUM 8.4 mg/dL (8.5-10.1)
[2021-01-14 08:00] LABS: ALBUMIN 3.2 g/dl (3.4-5.0); BLOOD UREA NITROGEN 15.2 mg/dL (7-18)
[2021-01-14 08:05] LABS: BILIRUBIN,TOTAL 0.5 mg/dL (0.2-1); TOT PROT 7.1 g/dl (6.4-8.2)
[2021-01-14] MEDS ORDERED: PT OWN MED DRAWER 7, Y5N ONE ×3 (09:05→14:19)
[2021-01-14 09:11] LABS: INR 1.29 (0.83-1.09); PROTHROMBIN TIME (PATIENT) 15.5 SEC (9.7-13.0)
[2021-01-14] MEDS: ESCITALOPRAM OXALATE 10 MG TABLET PO SCH (09:13)
[2021-01-14] MEDS: CHOLECALCIFEROL (VIT D3) 1,000 UNIT (25 MCG) TABLET PO SCH (09:13)
[2021-01-14] MEDS: TAMSULOSIN HCL 0.4 MG CAP PO SCH (09:13)
[2021-01-14] MEDS: QUINAPRIL HCL 5 MG TABLET PO SCH (09:14)
[2021-01-14] MEDS: CYANOCOBALAMIN 1,000 MCG TABLET (FP) PO SCH (09:14)
[2021-01-14] MEDS: COLLAGENASE CLOSTRIDIUM HIST. 30 GRAMS TUBE TP SCH (09:15)
[2021-01-14] MEDS: FLUTICASONE/UMECLIDIN/VILANTER (TRELEGY ELLIPTA 100-62.5-25) INAHLER IH SCH (09:15)
[2021-01-14] MEDS: VANCOMYCIN 1,000 MG in SODIUM CHLORIDE 1,000 MG/250 ML INFUS.BAG IVPB SCH ×2 (10:45→22:50)
[2021-01-14] MEDS ORDERED: INSULIN (NOVOLOG) ASPART 100 UNITS/ML 10ML VIAL ONE (11:42)
[2021-01-14] MEDS: ATORVASTATIN CA 10 MG TABLET (FP) PO SCH (21:44)
[2021-01-15] MEDS ORDERED: CEFEPIME HCL 1 GM VIAL (RESTRICTED TO ID) ONE ×2 (01:04→09:47)
[2021-01-15] MEDS ORDERED: DEXTROSE 5%-WATER 100 ML IVPB ONE ×2 (01:05→09:47)
[2021-01-15] MEDS: CEFEPIME 1 GM in DEXTROSE 5%-WATER 100 ML IVPB SCH ×2 (01:12→20:08)
[2021-01-15] MEDS: PRAMIPEXOLE DIHYDROCHLORIDE 1 MG TABLET PO SCH ×3 (05:36→21:55)
[2021-01-15] MEDS: INSULIN SLIDING SCALE (NOVOLOG) 1 VIAL SQ SCH ×4 (06:19→21:54)
[2021-01-15] MEDS ORDERED: PT OWN MED DRAWER 7, Y5N ONE ×3 (09:46→15:18)
[2021-01-15] MEDS: QUINAPRIL HCL 5 MG TABLET PO SCH (09:49)
[2021-01-15] MEDS ORDERED: LIDOCAINE HCL 1%, 10 MG/ML (20ML VIAL) ONE (10:20)
[2021-01-15] MEDS ORDERED: PROPOFOL 20 ML ONE ×2 (10:46)
[2021-01-15] MEDS ORDERED: MIDAZOLAM HCL 2 MG/2 ML SINGLE DOSE VIAL ONE ×2 (10:47→11:14)
[2021-01-15] MEDS ORDERED: VANCOMYCIN 1 GM in NS (PRE-DOCKED) 1,000 MG/250 ML IVPB ONE (11:00)
[2021-01-15] MEDS ORDERED: LIDOCAINE HCL 1% PRESERVATIVE FREE - 30ML VIAL IJ ONE (11:15)
[2021-01-15] MEDS ORDERED: BUPIVACAINE HCL/PF 0.5% (5 MG/ML) 30 ML VIAL IJ ONE (11:15)
[2021-01-15] MEDS ORDERED: ONDANSETRON 4 MG/2 ML VIAL IVPUSH PRN ×2 (11:27→12:40)
[2021-01-15] MEDS ORDERED: oxyCODONE HCL 5 MG TABLET PO PRN (11:27)
[2021-01-15] MEDS ORDERED: LACTATED RINGERS SOLUTION 1,000 ML IV SCH (11:30)
[2021-01-15] MEDS: LACTATED RINGERS SOLUTION 1,000 ML IV SCH ×2 (12:40→13:10)
[2021-01-15 13:50] LABS: BASO % 0.5 % (0-2.0); EOS % 3.6 % (0-4.5); HEMATOCRIT 39.6 % (35.4-49); HEMOGLOBIN 13.3 GM/dL (11.7-16.9); LYMPH % 20.8 % (8-40); MCH 29.8 pg (25.7-33.7); MCHC 33.6 g/dl (32.0-35.9); MEAN CELL VOLUME 88.5 fl (80-96); MEAN PLT VOLUME 8.4 fl (7.5-11.1); MONO % 5.3 % (3.8-10.2); NEUT % 69.8 % (42.8-82.8); PLATELET COUNT 205 K/MM3 (134-434); RBC 4.48 M/mm3 (4.00-5.60); RDW 13.5 % (11.9-15.9); WHITE BLOOD COUNT 6.4 K/mm3 (4.0-10.0)
[2021-01-15] MEDS: ESCITALOPRAM OXALATE 10 MG TABLET PO SCH (15:04)
[2021-01-15] MEDS: TAMSULOSIN HCL 0.4 MG CAP PO SCH (15:04)
[2021-01-15] MEDS: FLUTICASONE/UMECLIDIN/VILANTER (TRELEGY ELLIPTA 100-62.5-25) INAHLER IH SCH (15:05)
[2021-01-15] MEDS: COLLAGENASE CLOSTRIDIUM HIST. 30 GRAMS TUBE TP SCH (15:05)
[2021-01-15] MEDS: CHOLECALCIFEROL (VIT D3) 1,000 UNIT (25 MCG) TABLET PO SCH (15:06)
[2021-01-15] MEDS: VANCOMYCIN 1,000 MG in SODIUM CHLORIDE 1,000 MG/250 ML INFUS.BAG IVPB SCH ×2 (15:06→21:58)
[2021-01-15] MEDS: CYANOCOBALAMIN 1,000 MCG TABLET (FP) PO SCH (15:06)
[2021-01-15] MEDS ORDERED: INSULIN (NOVOLOG) ASPART 100 UNITS/ML 10ML VIAL ONE (21:20)
[2021-01-15] MEDS: ATORVASTATIN CA 10 MG TABLET (FP) PO SCH (21:55)
[2021-01-16] MEDS: PRAMIPEXOLE DIHYDROCHLORIDE 1 MG TABLET PO SCH ×3 (05:50→22:07)
[2021-01-16] MEDS: INSULIN SLIDING SCALE (NOVOLOG) 1 VIAL SQ SCH ×4 (06:27→22:06)
[2021-01-16 08:51] LABS: BASO % 0.5 % (0-2.0); EOS % 2.6 % (0-4.5); HEMATOCRIT 39.8 % (35.4-49); HEMOGLOBIN 13.6 GM/dL (11.7-16.9); LYMPH % 19.5 % (8-40); MCHC 34.1 g/dl (32.0-35.9); MEAN CELL VOLUME 88.1 fl (80-96); MEAN PLT VOLUME 8.2 fl (7.5-11.1); MONO % 6.8 % (3.8-10.2); NEUT % 70.6 % (42.8-82.8); PLATELET COUNT 214 K/MM3 (134-434); RBC 4.52 M/mm3 (4.00-5.60); RDW 13.5 % (11.9-15.9); WHITE BLOOD COUNT 8.9 K/mm3 (4.0-10.0)
[2021-01-16] MEDS: TAMSULOSIN HCL 0.4 MG CAP PO SCH (08:53)
[2021-01-16 09:07] LABS: ALBUMIN 3.4 g/dl (3.4-5.0); BLOOD UREA NITROGEN 13.3 mg/dL (7-18); CALCIUM 8.8 mg/dL (8.5-10.1)
[2021-01-16 09:10] LABS: CREATININE 0.9 mg/dL (0.55-1.3)
[2021-01-16 09:11] LABS: BILIRUBIN,TOTAL 0.6 mg/dL (0.2-1)
[2021-01-16] MEDS ORDERED: PT OWN MED DRAWER 7, Y5N ONE ×2 (09:19→21:19)
[2021-01-16] MEDS: CHOLECALCIFEROL (VIT D3) 1,000 UNIT (25 MCG) TABLET PO SCH (09:26)
[2021-01-16] MEDS: ESCITALOPRAM OXALATE 10 MG TABLET PO SCH (09:26)
[2021-01-16] MEDS: QUINAPRIL HCL 5 MG TABLET PO SCH (09:27)
[2021-01-16] MEDS: CYANOCOBALAMIN 1,000 MCG TABLET (FP) PO SCH (09:27)
[2021-01-16] MEDS: FLUTICASONE/UMECLIDIN/VILANTER (TRELEGY ELLIPTA 100-62.5-25) INAHLER IH SCH (09:27)
[2021-01-16] MEDS: VANCOMYCIN 1,000 MG in SODIUM CHLORIDE 1,000 MG/250 ML INFUS.BAG IVPB SCH ×2 (13:14→22:06)
[2021-01-16 15:01] VITALS: BMI 36.5
[2021-01-16] MEDS: ATORVASTATIN CA 10 MG TABLET (FP) PO SCH (22:07)
[2021-01-16] MEDS: LACTATED RINGERS SOLUTION 1,000 ML IV SCH (22:08)
[2021-01-17] MEDS: LACTATED RINGERS SOLUTION 1,000 ML IV SCH ×3 (02:10→13:04)
[2021-01-17] MEDS: INSULIN SLIDING SCALE (NOVOLOG) 1 VIAL SQ SCH ×3 (06:29→17:01)
[2021-01-17] MEDS: PRAMIPEXOLE DIHYDROCHLORIDE 1 MG TABLET PO SCH ×2 (06:29→13:25)
[2021-01-17 07:49] VITALS: TEMP 97.6
[2021-01-17 09:10] LABS: BASO % 0.7 % (0-2.0); EOS % 2.9 % (0-4.5); HEMATOCRIT 40.9 % (35.4-49); HEMOGLOBIN 13.9 GM/dL (11.7-16.9); LYMPH % 17.3 % (8-40); MCH 29.8 pg (25.7-33.7); MCHC 33.9 g/dl (32.0-35.9); MEAN CELL VOLUME 87.8 fl (80-96); MEAN PLT VOLUME 8.1 fl (7.5-11.1); MONO % 6.8 % (3.8-10.2); NEUT % 72.3 % (42.8-82.8); PLATELET COUNT 215 K/MM3 (134-434); RBC 4.66 M/mm3 (4.00-5.60); RDW 13.5 % (11.9-15.9)
[2021-01-17] MEDS: ESCITALOPRAM OXALATE 10 MG TABLET PO SCH (09:56)
[2021-01-17] MEDS: TAMSULOSIN HCL 0.4 MG CAP PO SCH (09:56)
[2021-01-17] MEDS: CYANOCOBALAMIN 1,000 MCG TABLET (FP) PO SCH (09:56)
[2021-01-17] MEDS: CHOLECALCIFEROL (VIT D3) 1,000 UNIT (25 MCG) TABLET PO SCH (09:56)
[2021-01-17] MEDS: QUINAPRIL HCL 5 MG TABLET PO SCH (09:57)
[2021-01-17] MEDS: FLUTICASONE/UMECLIDIN/VILANTER (TRELEGY ELLIPTA 100-62.5-25) INAHLER IH SCH (09:58)
[2021-01-17] MEDS ORDERED: PT OWN MED DRAWER 7, Y5N ONE ×2 (12:13→13:25)
[2021-01-17] MEDS: VANCOMYCIN 1,000 MG in SODIUM CHLORIDE 1,000 MG/250 ML INFUS.BAG IVPB SCH (13:04)
[2021-01-17] MEDS ORDERED: VANCOMYCIN HCL 1,500 MG in SODIUM CHLORIDE 500 ML IVPB SCH (15:00)
[2021-01-17 16:05] VITALS: BP 138/59; PULSE 68
[2021-01-17] MEDS ORDERED: PICC LINE 8 ML FLUSH PROTOCOL IVPUSH PRN (18:11)
== END 2021-01-17 19:31 | disposition home health service (06) | DRG 617 ==
LOC: JER 10:26 → JERBED 12:28 → J5S 19:37 → J8W 01-11 15:39
PROVIDERS: ADMIT Internal Medicine; ATTEND Internal Medicine
PROC: 3E0102A Introduction of Anti-Infective Envelope into Subcutaneous Tissue, Open Approach (ICD-10-PCS; 2021-01-15)
PROC: 0Y6P0Z0 Detachment at Right 1st Toe, Complete, Open Approach (ICD-10-PCS; principal; 2021-01-15 11:00)
PROC: 02HV33Z Insertion of Infusion Device into Superior Vena Cava, Percutaneous Approach (ICD-10-PCS; 2021-01-17)
PROC: B548ZZA Ultrasonography of Superior Vena Cava, Guidance (ICD-10-PCS; 2021-01-17)
DX: E11.69 Type 2 diabetes mellitus with other specified complication (principal); L03.115 Cellulitis of right lower limb; R78.81 Bacteremia; M86.671 Other chronic osteomyelitis, right ankle and foot; E11.610 Type 2 diabetes mellitus with diabetic neuropathic arthropathy; E11.621 Type 2 diabetes mellitus with foot ulcer; L97.519 Non-pressure chronic ulcer of other part of right foot with unspecified severity; I25.10 Atherosclerotic heart disease of native coronary artery without angina pectoris; N40.0 Benign prostatic hyperplasia without lower urinary tract symptoms; F32.9 Major depressive disorder, single episode, unspecified; Z79.4 Long term (current) use of insulin; I10 Essential (primary) hypertension; G20 Parkinson's disease; E78.5 Hyperlipidemia, unspecified
CPT/HCPCS: 36415; 36569; 71045-TC-FY; 73560-TC-RT-FY; 73590-TC-RT-FY; 73610-TC-RT-FY; 73630-TC-RT-FY; 80053; 82962; 84443; 85025; 85610; 85651; 86140; 86850; 86900; 86901; 87040; 87070; 87077; 87186; 87205; 88305-TC; 88311-TC; 93005; 93010; 94760; 99285-25; C9803; G0277; G0463-25; G0480; J1644; U0003; U0005

== ENCOUNTER 2021-01-19 20:32 | Emergency (ER) | payer OTHER, MEDICARE ==
[2021-01-19 20:47] VITALS: BP 164/61; PULSE 76; TEMP 97.2; BMI 36.5
== END 2021-01-19 22:17 | disposition home or self-care (01) ==
LOC: JER 20:32
DX: Z48.00 Encounter for change or removal of nonsurgical wound dressing (principal)
CPT/HCPCS: 82962; 99282-25

== ENCOUNTER 2021-01-30 10:54 | Emergency (ER) | payer OTHER, MEDICARE ==
[2021-01-30 11:02] VITALS: BP 137/68; PULSE 87; TEMP 98.4; BMI 36.5
[2021-01-30] MEDS ORDERED: CLINDAMYCIN IVPB 300 MG in DEXTROSE 5%-WATER - 48 ML IVPB ONE (12:53)
[2021-01-30] MEDS ORDERED: CLINDAMYCIN PHOSPHATE 600 MG/4 ML VIAL ONE (13:07)
== END 2021-01-30 16:40 | disposition home or self-care (01) ==
LOC: JER 10:54
DX: T82.898A Other specified complication of vascular prosthetic devices, implants and grafts, initial encounter (principal)
CPT/HCPCS: 15275; 71046-TC-FY; 73630-TC-RT-FY; 97597; 99285-25; Q4137

== ENCOUNTER 2021-05-18 14:33 | Observation (INO) | payer OTHER, MEDICARE ==
[2021-05-18] MEDS ORDERED: EPINEPHrine/PF 1 MG/1 ML (1:1,000) AMPULE ONE (14:43)
[2021-05-18] MEDS ORDERED: methylPREDNISolone NA SUCC 125 MG/2 ML VIAL ONE (14:44)
[2021-05-18] MEDS ORDERED: FAMOTIDINE 20 MG/50 ML IVPB 20 MG/50 ML MG IVPB ONE ×2 (14:44→14:47)
[2021-05-18] MEDS ORDERED: methylPREDNISolone NA SUCC 125 MG/2 ML VIAL IVPUSH ONE (14:47)
[2021-05-18 15:28] LABS: BASO % 0.3 % (0-2.0); EOS % 2.2 % (0-4.5); HEMATOCRIT 47.8 % (35.4-49); HEMOGLOBIN 16.2 GM/dL (11.7-16.9); MCH 29.1 pg (25.7-33.7); MCHC 33.9 g/dl (32.0-35.9); MEAN CELL VOLUME 85.9 fl (80-96); MEAN PLT VOLUME 8.3 fl (7.5-11.1); NEUT % 63.5 % (42.8-82.8); PLATELET COUNT 197 10^3/uL (134-434); RBC 5.56 M/mm3 (4.00-5.60); RDW 14.1 % (11.9-15.9); WHITE BLOOD COUNT 8.8 K/mm3 (4.0-10.0)
[2021-05-18 15:43] LABS: CALCIUM 9.2 mg/dL (8.5-10.1)
[2021-05-18 15:44] LABS: BLOOD UREA NITROGEN 18.5 mg/dL (7-18); MAGNESIUM 2.2 mg/dL (1.8-2.4)
[2021-05-18 15:47] LABS: CREATININE 1.1 mg/dL (0.55-1.3)
[2021-05-18 15:49] LABS: BILIRUBIN,TOTAL 0.5 mg/dL (0.2-1); TOT PROT 8.2 g/dl (6.4-8.2)
[2021-05-18] MEDS ORDERED: methylPREDNISolone NA SUCC 40 MG/1 ML VIAL IVPUSH SCH (23:45)
[2021-05-19 07:10] LABS: HEMATOCRIT 45.7 % (35.4-49); HEMOGLOBIN 15.6 GM/dL (11.7-16.9); LYMPH % 10.8 % (8-40); MCH 29.4 pg (25.7-33.7); MCHC 34.1 g/dl (32.0-35.9); MEAN CELL VOLUME 86.2 fl (80-96); MEAN PLT VOLUME 8.4 fl (7.5-11.1); MONO % 1.5 % (3.8-10.2); NEUT % 87.7 % (42.8-82.8); PLATELET COUNT 195 10^3/uL (134-434); RBC 5.31 M/mm3 (4.00-5.60); WHITE BLOOD COUNT 12.2 K/mm3 (4.0-10.0)
[2021-05-19] MEDS: PRAMIPEXOLE DIHYDROCHLORIDE 1 MG TABLET PO SCH ×2 (07:30→15:17)
[2021-05-19] MEDS ORDERED: PT OWN MED DRAWER 7, Y5N ONE (07:34)
[2021-05-19 07:35] LABS: BLOOD UREA NITROGEN 24.2 mg/dL (7-18); CALCIUM 8.9 mg/dL (8.5-10.1)
[2021-05-19 07:36] LABS: ALBUMIN 3.5 g/dl (3.4-5.0)
[2021-05-19 07:39] LABS: CREATININE 1.1 mg/dL (0.55-1.3); PHOSPHOROUS 3.9 mg/dL (2.5-4.9)
[2021-05-19 07:40] LABS: BILIRUBIN,TOTAL 0.6 mg/dL (0.2-1); MAGNESIUM 2.2 mg/dL (1.8-2.4); TOT PROT 7.4 g/dl (6.4-8.2)
[2021-05-19] MEDS: INSULIN SLIDING SCALE (NOVOLOG) 1 VIAL SQ SCH ×2 (08:30→12:14)
[2021-05-19] MEDS ORDERED: Insulin (LOG) Aspart 100 UNITS/ML VIAL SQ ONE (08:31)
[2021-05-19] MEDS ORDERED: ENOXAPARIN NA (PORCINE) 40 MG/0.4 ML DISP.SYRIN SQ ONE (09:25)
[2021-05-19] MEDS ORDERED: FAMOTIDINE 20 MG/50 ML IVPB 20 MG/50 ML MG IVPB ONE (09:25)
[2021-05-19] MEDS ORDERED: ESCITALOPRAM OXALATE 10 MG TABLET ONE (09:25)
[2021-05-19] MEDS ORDERED: methylPREDNISolone NA SUCC 40 MG/1 ML VIAL ONE (09:25)
[2021-05-19] MEDS ORDERED: LABETALOL HCL 5 MG/1 ML (100MG/20 ML VIAL) IVPUSH ONE (09:30)
[2021-05-19] MEDS ORDERED: ENOXAPARIN NA (PORCINE) 40 MG/0.4 ML DISP.SYRIN SQ SCH (10:00)
[2021-05-19] MEDS ORDERED: ESCITALOPRAM OXALATE 20 MG TABLET PO SCH (10:00)
[2021-05-19] MEDS ORDERED: FAMOTIDINE 20 MG/50 ML IVPB 20 MG/50 ML MG IVPB SCH (10:00)
[2021-05-19] MEDS ORDERED: methylPREDNISolone NA SUCC 40 MG/1 ML VIAL IVPUSH SCH (10:00)
[2021-05-19] MEDS ORDERED: HYDROCHLOROTHIAZIDE 25 MG TABLET (FP) PO SCH (11:00)
[2021-05-19] MEDS ORDERED: HYDROCHLOROTHIAZIDE 25 MG TABLET (FP) ONE (12:04)
[2021-05-19 12:17] VITALS: PULSE 97
[2021-05-19 16:11] VITALS: BP 165/81; TEMP 98.3
[2021-05-19] MEDS ORDERED: ATORVASTATIN CA 10 MG TABLET (FP) PO SCH (22:00)
== END 2021-05-19 16:12 | disposition home or self-care (01) ==
LOC: JER 14:33 → JERBED 19:51
PROVIDERS: ADMIT Internal Medicine; ATTEND Internal Medicine
PROC: 3E033GC Introduction of Other Therapeutic Substance into Peripheral Vein, Percutaneous Approach (ICD-10-PCS; principal; 2021-05-18)
PROC: 3E023GC Introduction of Other Therapeutic Substance into Muscle, Percutaneous Approach (ICD-10-PCS; 2021-05-18)
PROC: 3E033GC Introduction of Other Therapeutic Substance into Peripheral Vein, Percutaneous Approach (ICD-10-PCS; 2021-05-18)
PROC: 3E013VG Introduction of Insulin into Subcutaneous Tissue, Percutaneous Approach (ICD-10-PCS; 2021-05-18)
PROC: 3E033GC Introduction of Other Therapeutic Substance into Peripheral Vein, Percutaneous Approach (ICD-10-PCS; 2021-05-18)
DX: T78.3XXA Angioneurotic edema, initial encounter (principal); E11.9 Type 2 diabetes mellitus without complications; Z96.41 Presence of insulin pump (external) (internal); E78.5 Hyperlipidemia, unspecified; I10 Essential (primary) hypertension; M86.9 Osteomyelitis, unspecified; Z89.421 Acquired absence of other right toe(s); L98.499 Non-pressure chronic ulcer of skin of other sites with unspecified severity; Z79.4 Long term (current) use of insulin; E66.9 Obesity, unspecified; Z68.35 Body mass index [BMI] 35.0-35.9, adult; Z88.0 Allergy status to penicillin
CPT/HCPCS: 36415; 36430; 71045-TC-FY; 80053; 82962; 83735; 84100; 85025; 86850; 86900; 86901; 93005; 93010; 96365; 96366; 96367; 96372; 96375; 99291; C9803; G0378; P9017; U0003; U0005

== ENCOUNTER 2021-08-12 05:26 | Day surgery (SDC) | payer OTHER, MEDICARE ==
[2021-08-11 10:00] VITALS: BMI 33.7
[2021-08-12] MEDS ORDERED: BUPIVACAINE HCL/PF 0.5% (5MG/ML) 10 ML VIAL ONE ×2 (07:14→09:40)
[2021-08-12] MEDS ORDERED: LIDOCAINE 1%/EPI 1:100000 (20 ML MULTI DOSE VIAL) ONE (07:14)
[2021-08-12] MEDS ORDERED: VANCOMYCIN 1,000 MG VIAL (RESTRICTED TO ID ONLY) ONE ×2 (07:14→09:40)
[2021-08-12] MEDS ORDERED: MIDAZOLAM HCL 2 MG/2 ML SINGLE DOSE VIAL ONE ×2 (07:29→07:58)
[2021-08-12] MEDS ORDERED: PROPOFOL 20 ML ONE ×3 (07:29)
[2021-08-12] MEDS ORDERED: CLINDAMYCIN PHOSPHATE 600 MG/4 ML VIAL ONE (07:45)
[2021-08-12] MEDS ORDERED: BUPIVACAINE HCL/PF 0.5% (5MG/ML) 10 ML VIAL IJ ONE (08:07)
[2021-08-12] MEDS ORDERED: LIDOCAINE HCL 1%, 10 MG/ML (20ML VIAL) PNB ONE (08:07)
[2021-08-12] MEDS ORDERED: CLINDAMYCIN PHOSPHATE 900 MG/6 ML VIAL IVPB ONE (08:14)
[2021-08-12] MEDS ORDERED: BENZOIN/ALOE VERA/STORAX/TOLU 58 ML BOTTLE ONE (08:26)
[2021-08-12] MEDS ORDERED: LIDOCAINE HCL 1%, 10 MG/ML (20ML VIAL) ONE (09:40)
[2021-08-12] MEDS ORDERED: ONDANSETRON 4 MG/2 ML VIAL IVPUSH PRN (10:22)
[2021-08-12] MEDS ORDERED: oxyCODONE HCL 5 MG TABLET PO PRN ×2 (10:22)
[2021-08-12] MEDS ORDERED: LACTATED RINGERS SOLUTION 1,000 ML IV SCH (10:30)
[2021-08-12 11:21] LABS: BASO % 0.5 % (0-2.0); EOS % 2.4 % (0-4.5); HEMOGLOBIN 13.5 GM/dL (11.7-16.9); LYMPH % 22.4 % (8-40); MCH 29.4 pg (25.7-33.7); MCHC 33.7 g/dl (32.0-35.9); MEAN CELL VOLUME 87.4 fl (80-96); MEAN PLT VOLUME 7.8 fl (7.5-11.1); MONO % 6.3 % (3.8-10.2); NEUT % 68.4 % (42.8-82.8); PLATELET COUNT 201 10^3/uL (134-434); RBC 4.58 M/mm3 (4.00-5.60); RDW 13.5 % (11.9-15.9); WHITE BLOOD COUNT 8.3 K/mm3 (4.0-10.0)
[2021-08-12] MEDS: HYDROCHLOROTHIAZIDE 25 MG TABLET (FP) PO SCH (13:38)
[2021-08-12] MEDS: ESCITALOPRAM OXALATE 20 MG TABLET PO SCH (13:39)
[2021-08-12] MEDS: FLUTICASONE/UMECLIDIN/VILANTER(100-62.5-25 TRELEGY ELLIPTA) INAHLER IH SCH (13:45)
[2021-08-12] MEDS: PRAMIPEXOLE DIHYDROCHLORIDE 1 MG TABLET PO SCH ×2 (15:13→21:36)
[2021-08-12] MEDS ORDERED: PT OWN MED DRAWER 7, Y5N ONE ×2 (20:54→21:42)
[2021-08-12] MEDS: INSULIN SLIDING SCALE (NOVOLOG) 1 VIAL SQ SCH (21:38)
[2021-08-13] MEDS ORDERED: PT OWN MED DRAWER 7, Y5N ONE ×2 (05:44→09:13)
[2021-08-13] MEDS: PRAMIPEXOLE DIHYDROCHLORIDE 1 MG TABLET PO SCH (05:46)
[2021-08-13] MEDS: INSULIN SLIDING SCALE (NOVOLOG) 1 VIAL SQ SCH ×2 (06:01→11:22)
[2021-08-13 07:09] VITALS: BP 131/69; PULSE 67; TEMP 99.5
[2021-08-13] MEDS ORDERED: TAMSULOSIN HCL 0.4 MG CAP PO SCH (08:30)
[2021-08-13] MEDS ORDERED: ESCITALOPRAM OXALATE 10 MG TABLET ONE (09:12)
[2021-08-13] MEDS: ESCITALOPRAM OXALATE 20 MG TABLET PO SCH (09:31)
[2021-08-13] MEDS: HYDROCHLOROTHIAZIDE 25 MG TABLET (FP) PO SCH (09:31)
[2021-08-13] MEDS: FLUTICASONE/UMECLIDIN/VILANTER(100-62.5-25 TRELEGY ELLIPTA) INAHLER IH SCH (11:22)
== END 2021-08-13 11:28 | disposition home or self-care (01) ==
LOC: JASUSAT 05:26 → JASU-SURG 05:26 → J8W 16:29 → JASUSAT 08-13 11:28
PROVIDERS: ATTEND Podiatrist Foot Surgery
PROC: 0QBP0ZZ Excision of Left Metatarsal, Open Approach (ICD-10-PCS; 2021-08-12)
PROC: 0Y6Q0Z0 Detachment at Left 1st Toe, Complete, Open Approach (ICD-10-PCS; principal; 2021-08-12 07:30)
PROC: 0JBR0ZZ Excision of Left Foot Subcutaneous Tissue and Fascia, Open Approach (ICD-10-PCS; 2021-08-12 07:30)
DX: S93.322A Subluxation of tarsometatarsal joint of left foot, initial encounter (principal); M89.9 Disorder of bone, unspecified; X58.XXXA Exposure to other specified factors, initial encounter; Y93.9 Activity, unspecified; Y92.9 Unspecified place or not applicable
CPT/HCPCS: 36415; 73630-TC-LT; 82962; 85025; 94760

== ENCOUNTER 2021-08-18 13:42 | Inpatient (IN) | payer OTHER, MEDICARE ==
[2021-08-18 13:52] VITALS: BMI 33.2
[2021-08-18] MEDS ORDERED: CEFEPIME HCL/D5W 1 GM/50 ML BAG IVPB ONE (15:13)
[2021-08-18] MEDS ORDERED: VANCOMYCIN 1,000 MG in DEXTROSE 5%-WATER - 250 ML IVPB ONE (15:13)
[2021-08-18] MEDS ORDERED: CEFEPIME 1 GM/100 ML BAG IVPB ONE (15:28)
[2021-08-18] MEDS ORDERED: VANCOMYCIN 1 GRAM (PRE-DOCKED) 1,000 MG/250 ML BAG IVPB ONE (15:56)
[2021-08-18 16:45] LABS: BASO % 0.4 % (0-2.0); EOS % 2.9 % (0-4.5); HEMATOCRIT 37.7 % (35.4-49); HEMOGLOBIN 12.7 GM/dL (11.7-16.9); LYMPH % 15.4 % (8-40); MCH 29.5 pg (25.7-33.7); MCHC 33.6 g/dl (32.0-35.9); MEAN CELL VOLUME 87.7 fl (80-96); MONO % 7.9 % (3.8-10.2); NEUT % 73.4 % (42.8-82.8); PLATELET COUNT 255 10^3/uL (134-434); RDW 13.8 % (11.9-15.9); WHITE BLOOD COUNT 9.4 K/mm3 (4.0-10.0)
[2021-08-18 16:51] LABS: INR 1.08 (0.83-1.09); PROTHROMBIN TIME (PATIENT) 12.1 SEC (9.7-13.0)
[2021-08-18 17:07] LABS: ALBUMIN 2.9 g/dl (3.4-5.0); BLOOD UREA NITROGEN 13.7 mg/dL (7-18); CALCIUM 8.8 mg/dL (8.5-10.1)
[2021-08-18 17:10] LABS: CREATININE 0.9 mg/dL (0.55-1.3)
[2021-08-18 17:12] LABS: BILIRUBIN,TOTAL 0.5 mg/dL (0.2-1); TOT PROT 7.4 g/dl (6.4-8.2)
[2021-08-18] MEDS ORDERED: ACETAMINOPHEN 1000 MG/100 ML VIAL IVPB PRN (18:35)
[2021-08-18] MEDS ORDERED: INSULIN SLIDING SCALE (NOVOLOG) 1 VIAL SQ SCH (18:45)
[2021-08-19] MEDS ORDERED: CEFEPIME 1 GM in DEXTROSE 5%-WATER 100 ML IVPB SCH ×3 (03:00→19:30)
[2021-08-19] MEDS ORDERED: VANCOMYCIN 1 GRAM (PRE-DOCKED) 1,000 MG/250 ML BAG IVPB ONE (03:55)
[2021-08-19] MEDS ORDERED: VANCOMYCIN 1 GM in D5W (PRE-DOCKED) 1,000 MG/250 ML IVPB SCH ×2 (04:00→16:00)
[2021-08-19 08:41] LABS: BASO % 0.3 % (0-2.0); EOS % 2.8 % (0-4.5); HEMATOCRIT 37.1 % (35.4-49); HEMOGLOBIN 12.5 GM/dL (11.7-16.9); LYMPH % 13.3 % (8-40); MCH 29.7 pg (25.7-33.7); MCHC 33.8 g/dl (32.0-35.9); MEAN PLT VOLUME 8.1 fl (7.5-11.1); MONO % 8.8 % (3.8-10.2); NEUT % 74.8 % (42.8-82.8); PLATELET COUNT 248 10^3/uL (134-434); RBC 4.21 M/mm3 (4.00-5.60); RDW 13.8 % (11.9-15.9); WHITE BLOOD COUNT 7.2 K/mm3 (4.0-10.0)
[2021-08-19 08:43] LABS: CALCIUM 8.4 mg/dL (8.5-10.1)
[2021-08-19 08:44] LABS: ALBUMIN 2.4 g/dl (3.4-5.0); BLOOD UREA NITROGEN 13.7 mg/dL (7-18); MAGNESIUM 2.4 mg/dL (1.8-2.4)
[2021-08-19 08:45] LABS: PHOSPHOROUS 2.7 mg/dL (2.5-4.9)
[2021-08-19 08:47] LABS: BILIRUBIN,TOTAL 0.6 mg/dL (0.2-1); CREATININE 0.9 mg/dL (0.55-1.3); TOT PROT 6.4 g/dl (6.4-8.2)
[2021-08-19] MEDS ORDERED: VANCOMYCIN 1,000 MG VIAL (RESTRICTED TO ID ONLY) ONE (08:52)
[2021-08-19] MEDS ORDERED: LIDOCAINE HCL 1%, 10 MG/ML (20ML VIAL) ONE ×2 (08:52)
[2021-08-19] MEDS ORDERED: BUPIVACAINE HCL/PF 0.5% (5MG/ML) 10 ML VIAL ONE (08:52)
[2021-08-19] MEDS: INSULIN SLIDING SCALE (NOVOLOG) 1 VIAL SQ SCH ×5 (09:23→23:43)
[2021-08-19] MEDS ORDERED: MIDAZOLAM HCL 2 MG/2 ML SINGLE DOSE VIAL ONE (10:51)
[2021-08-19] MEDS ORDERED: SUCCINYLCHOLINE CHLORIDE 200 MG/10 ML SYRINGE ONE (10:51)
[2021-08-19] MEDS ORDERED: BUPIVACAINE HCL/PF 0.5% (5 MG/ML) 30 ML VIAL IJ ONE (11:15)
[2021-08-19] MEDS ORDERED: LIDOCAINE HCL 1%, 10 MG/ML (20ML VIAL) INF ONE (11:15)
[2021-08-19] MEDS ORDERED: GENTAMICIN SO4 80 MG/2 ML VIAL ONE (11:17)
[2021-08-19] MEDS ORDERED: VANCOMYCIN 500 MG VIAL (RESTRICTED TO ID ONLY) IVPB ONE ×2 (11:27)
[2021-08-19] MEDS ORDERED: GENTAMICIN SO4 80 MG/2 ML VIAL IVPB ONE (11:30)
[2021-08-19] MEDS ORDERED: ONDANSETRON 4 MG/2 ML VIAL IVPUSH PRN ×2 (12:02→12:16)
[2021-08-19] MEDS ORDERED: LACTATED RINGERS SOLUTION 1,000 ML IV SCH (12:15)
[2021-08-19] MEDS ORDERED: ACETAMINOPHEN 1000 MG/100 ML VIAL IVPB PRN (12:16)
[2021-08-19] MEDS ORDERED: ROPIVACAINE HCL 0.5% 30ML VIAL ONE (12:48)
[2021-08-19] MEDS ORDERED: VANCOMYCIN PREMIX 1.5 GM 1,500 MG/300 ML BAG IVPB ONE (16:00)
[2021-08-19] MEDS: LACTATED RINGERS SOLUTION 1,000 ML IV SCH (16:00)
[2021-08-19] MEDS ORDERED: ACETAMINOPHEN INJECTION 100 ML IVPB ONE (17:13)
[2021-08-19] MEDS ORDERED: VANCOMYCIN 1,000 MG in DEXTROSE 5%-WATER - 250 ML IVPB SCH (17:15)
[2021-08-19] MEDS ORDERED: PATIENT'S OWN MEDICATION (NON-FORMULARY) (Carbidopa/Levodopa [Rytary Er 48.75 Mg-195 Mg Ca PO SCH (22:00)
[2021-08-19] MEDS: ATORVASTATIN CA 10 MG TABLET (FP) PO SCH (22:31)
[2021-08-19] MEDS: PRAMIPEXOLE DIHYDROCHLORIDE 1 MG TABLET PO SCH (22:31)
[2021-08-19] MEDS: VANCOMYCIN 1 GM in D5W (PRE-DOCKED) 1,000 MG/250 ML IVPB SCH (23:43)
[2021-08-19] MEDS: CEFEPIME 1 GM in DEXTROSE 5%-WATER 100 ML IVPB SCH (23:44)
[2021-08-20] MEDS ORDERED: ACETAMINOPHEN 1000 MG/100 ML VIAL IVPB ONE (00:24)
[2021-08-20] MEDS: LACTATED RINGERS SOLUTION 1,000 ML IV SCH ×2 (02:43→14:22)
[2021-08-20] MEDS: PRAMIPEXOLE DIHYDROCHLORIDE 1 MG TABLET PO SCH ×3 (06:12→21:28)
[2021-08-20] MEDS: INSULIN SLIDING SCALE (NOVOLOG) 1 VIAL SQ SCH ×3 (06:13→17:36)
[2021-08-20 08:20] LABS: HEMATOCRIT 35.7 % (35.4-49); HEMOGLOBIN 12.1 GM/dL (11.7-16.9); MCH 30.2 pg (25.7-33.7); MEAN CELL VOLUME 88.9 fl (80-96); RBC 4.02 M/mm3 (4.00-5.60); RDW 13.8 % (11.9-15.9); WHITE BLOOD COUNT 7.7 K/mm3 (4.0-10.0)
[2021-08-20 08:25] LABS: MEAN PLT VOLUME 8.8 fl (7.5-11.1); PLATELET COUNT 208 10^3/uL (134-434)
[2021-08-20 08:29] LABS: CALCIUM 8.6 mg/dL (8.5-10.1)
[2021-08-20 08:30] LABS: ALBUMIN 2.4 g/dl (3.4-5.0); BLOOD UREA NITROGEN 11.9 mg/dL (7-18); MAGNESIUM 2.5 mg/dL (1.8-2.4)
[2021-08-20 08:32] LABS: PHOSPHOROUS 2.4 mg/dL (2.5-4.9)
[2021-08-20 08:33] LABS: CREATININE 0.8 mg/dL (0.55-1.3)
[2021-08-20 08:34] LABS: BILIRUBIN,TOTAL 0.4 mg/dL (0.2-1); TOT PROT 6.3 g/dl (6.4-8.2)
[2021-08-20] MEDS ORDERED: ACETAMINOPHEN WITH CODEINE 300MG/30MG TABLET PO PRN (10:02)
[2021-08-20 10:58] LABS: ANISOCYTOSIS 0; HELMET CELLS 0; HOWELL-JOLLY BODIES 0; MACROCYTOSIS 0; OVALOCYTE 0; PLATELET ESTIMATE NORMAL; ROULEAU 0; SICKELED CELLS 0; TARGET CELLS 0; TEAR DROP CELLS 0; TOXIC GRANULATION 0
[2021-08-20] MEDS: TAMSULOSIN HCL 0.4 MG CAP PO SCH (11:44)
[2021-08-20] MEDS: CHOLECALCIFEROL (VIT D3) 1,000 UNIT (25 MCG) TABLET PO SCH (11:44)
[2021-08-20] MEDS: CYANOCOBALAMIN 1,000 MCG TABLET (FP) PO SCH (11:44)
[2021-08-20] MEDS: LOSARTAN POTASSIUM 25 MG TABLET PO SCH (11:44)
[2021-08-20] MEDS: VANCOMYCIN/WATER BAGS 1,250 MG/250 ML BAG IVPB SCH (14:23)
[2021-08-20] MEDS: FLUTICASONE/UMECLIDIN/VILANTER(100-62.5-25 TRELEGY ELLIPTA) INAHLER IH SCH (14:23)
[2021-08-20] MEDS: ATORVASTATIN CA 10 MG TABLET (FP) PO SCH (21:28)
[2021-08-21] MEDS: VANCOMYCIN/WATER BAGS 1,250 MG/250 ML BAG IVPB SCH ×2 (01:47→12:47)
[2021-08-21] MEDS: INSULIN SLIDING SCALE (NOVOLOG) 1 VIAL SQ SCH ×4 (06:02→18:33)
[2021-08-21] MEDS: PRAMIPEXOLE DIHYDROCHLORIDE 1 MG TABLET PO SCH ×2 (06:36→14:16)
[2021-08-21 09:26] LABS: BASO % 0.5 % (0-2.0); EOS % 4.3 % (0-4.5); HEMATOCRIT 38.5 % (35.4-49); HEMOGLOBIN 13.1 GM/dL (11.7-16.9); LYMPH % 21.2 % (8-40); MCH 29.6 pg (25.7-33.7); MCHC 33.9 g/dl (32.0-35.9); MEAN CELL VOLUME 87.2 fl (80-96); MEAN PLT VOLUME 7.4 fl (7.5-11.1); MONO % 7.3 % (3.8-10.2); NEUT % 66.7 % (42.8-82.8); PLATELET COUNT 283 10^3/uL (134-434); RBC 4.42 M/mm3 (4.00-5.60); RDW 13.6 % (11.9-15.9); WHITE BLOOD COUNT 6.6 K/mm3 (4.0-10.0)
[2021-08-21] MEDS ORDERED: PT OWN MED DRAWER 7, Y5N ONE ×2 (09:28→12:43)
[2021-08-21] MEDS: CHOLECALCIFEROL (VIT D3) 1,000 UNIT (25 MCG) TABLET PO SCH (09:31)
[2021-08-21] MEDS: TAMSULOSIN HCL 0.4 MG CAP PO SCH (09:31)
[2021-08-21] MEDS: CYANOCOBALAMIN 1,000 MCG TABLET (FP) PO SCH (09:31)
[2021-08-21] MEDS: LOSARTAN POTASSIUM 25 MG TABLET PO SCH (09:31)
[2021-08-21] MEDS: FLUTICASONE/UMECLIDIN/VILANTER(100-62.5-25 TRELEGY ELLIPTA) INAHLER IH SCH (09:32)
[2021-08-21 09:48] LABS: CALCIUM 8.7 mg/dL (8.5-10.1)
[2021-08-21 09:49] LABS: ALBUMIN 2.6 g/dl (3.4-5.0); BLOOD UREA NITROGEN 11.7 mg/dL (7-18); MAGNESIUM 2.4 mg/dL (1.8-2.4)
[2021-08-21 09:52] LABS: BILIRUBIN,TOTAL 0.4 mg/dL (0.2-1); CREATININE 0.9 mg/dL (0.55-1.3); PHOSPHOROUS 2.6 mg/dL (2.5-4.9); TOT PROT 6.9 g/dl (6.4-8.2)
[2021-08-21] MEDS ORDERED: INSULIN SLIDING SCALE (NOVOLOG) 1 VIAL SQ SCH (16:32)
[2021-08-21] MEDS: INSULIN (LEVEMIR) 100 UNITS/ML UNITS SQ SCH (21:59)
[2021-08-21] MEDS: ATORVASTATIN CA 10 MG TABLET (FP) PO SCH (21:59)
[2021-08-22] MEDS ORDERED: PT OWN MED DRAWER 7, Y5N ONE ×2 (02:00→19:07)
[2021-08-22] MEDS: VANCOMYCIN/WATER BAGS 1,250 MG/250 ML BAG IVPB SCH ×2 (02:15→13:52)
[2021-08-22] MEDS: INSULIN SLIDING SCALE (NOVOLOG) 1 VIAL SQ SCH ×3 (06:19→16:56)
[2021-08-22] MEDS: INSULIN (LEVEMIR) 100 UNITS/ML UNITS SQ SCH ×2 (06:20→22:11)
[2021-08-22] MEDS: TAMSULOSIN HCL 0.4 MG CAP PO SCH (08:44)
[2021-08-22 09:38] LABS: BLOOD UREA NITROGEN 14.6 mg/dL (7-18); CALCIUM 8.6 mg/dL (8.5-10.1)
[2021-08-22 09:39] LABS: MAGNESIUM 2.3 mg/dL (1.8-2.4)
[2021-08-22 09:42] LABS: CREATININE 0.9 mg/dL (0.55-1.3); PHOSPHOROUS 2.8 mg/dL (2.5-4.9)
[2021-08-22] MEDS: FLUTICASONE/UMECLIDIN/VILANTER(100-62.5-25 TRELEGY ELLIPTA) INAHLER IH SCH (09:56)
[2021-08-22] MEDS: CYANOCOBALAMIN 1,000 MCG TABLET (FP) PO SCH (09:57)
[2021-08-22] MEDS: CHOLECALCIFEROL (VIT D3) 1,000 UNIT (25 MCG) TABLET PO SCH (09:57)
[2021-08-22] MEDS: LOSARTAN POTASSIUM 25 MG TABLET PO SCH (09:57)
[2021-08-22 11:10] LABS: HEMATOCRIT 38.4 % (35.4-49); HEMOGLOBIN 13.1 GM/dL (11.7-16.9); MCH 29.4 pg (25.7-33.7); MCHC 34.1 g/dl (32.0-35.9); MEAN CELL VOLUME 86.2 fl (80-96); MEAN PLT VOLUME 7.7 fl (7.5-11.1); PLATELET COUNT 294 10^3/uL (134-434); RBC 4.45 M/mm3 (4.00-5.60); RDW 13.6 % (11.9-15.9); WHITE BLOOD COUNT 8.3 K/mm3 (4.0-10.0)
[2021-08-22] MEDS: ATORVASTATIN CA 10 MG TABLET (FP) PO SCH (21:46)
[2021-08-23] MEDS ORDERED: PT OWN MED DRAWER 7, Y5N ONE ×3 (01:20→16:01)
[2021-08-23] MEDS: VANCOMYCIN/WATER BAGS 1,250 MG/250 ML BAG IVPB SCH ×2 (01:35→16:21)
[2021-08-23] MEDS: INSULIN (LEVEMIR) 100 UNITS/ML UNITS SQ SCH ×2 (06:13→21:29)
[2021-08-23] MEDS: INSULIN SLIDING SCALE (NOVOLOG) 1 VIAL SQ SCH ×3 (06:14→16:53)
[2021-08-23] MEDS: FLUTICASONE/UMECLIDIN/VILANTER(100-62.5-25 TRELEGY ELLIPTA) INAHLER IH SCH (09:16)
[2021-08-23] MEDS: TAMSULOSIN HCL 0.4 MG CAP PO SCH (09:16)
[2021-08-23] MEDS: CHOLECALCIFEROL (VIT D3) 1,000 UNIT (25 MCG) TABLET PO SCH (09:16)
[2021-08-23] MEDS: CYANOCOBALAMIN 1,000 MCG TABLET (FP) PO SCH (09:16)
[2021-08-23] MEDS: ESCITALOPRAM OXALATE 20 MG TABLET PO SCH (09:16)
[2021-08-23] MEDS: LOSARTAN POTASSIUM 25 MG TABLET PO SCH (09:16)
[2021-08-23 10:34] LABS: HEMATOCRIT 39.4 % (35.4-49); HEMOGLOBIN 13.5 GM/dL (11.7-16.9); MCH 29.5 pg (25.7-33.7); MCHC 34.3 g/dl (32.0-35.9); MEAN PLT VOLUME 7.2 fl (7.5-11.1); PLATELET COUNT 283 10^3/uL (134-434); RBC 4.58 M/mm3 (4.00-5.60); RDW 13.4 % (11.9-15.9); WHITE BLOOD COUNT 7.8 K/mm3 (4.0-10.0)
[2021-08-23 11:07] LABS: CALCIUM 8.7 mg/dL (8.5-10.1); MAGNESIUM 2.4 mg/dL (1.8-2.4)
[2021-08-23] MEDS: PATIENT'S OWN MEDICATION (NON-FORMULARY) (Cariprazine Hcl [Vraylar] 1.5 MG Capsule) PO SCH (11:08)
[2021-08-23 11:10] LABS: PHOSPHOROUS 2.4 mg/dL (2.5-4.9)
[2021-08-23] MEDS: ENOXAPARIN NA (PORCINE) 40 MG/0.4 ML DISP.SYRIN SQ SCH (16:21)
[2021-08-23] MEDS: ATORVASTATIN CA 10 MG TABLET (FP) PO SCH (21:28)
[2021-08-23] MEDS: CARIPRAZINE HCL PO SCH (21:30)
[2021-08-24] MEDS: VANCOMYCIN/WATER BAGS 1,250 MG/250 ML BAG IVPB SCH ×2 (01:19→13:14)
[2021-08-24] MEDS: INSULIN SLIDING SCALE (NOVOLOG) 1 VIAL SQ SCH ×5 (06:04→21:28)
[2021-08-24] MEDS: INSULIN (LEVEMIR) 100 UNITS/ML UNITS SQ SCH (06:05)
[2021-08-24 10:18] LABS: HEMATOCRIT 37.8 % (35.4-49); HEMOGLOBIN 13.1 GM/dL (11.7-16.9); MCHC 34.6 g/dl (32.0-35.9); MEAN CELL VOLUME 86.8 fl (80-96); MEAN PLT VOLUME 7.4 fl (7.5-11.1); PLATELET COUNT 266 10^3/uL (134-434); RBC 4.35 M/mm3 (4.00-5.60); RDW 13.2 % (11.9-15.9); WHITE BLOOD COUNT 8.1 K/mm3 (4.0-10.0)
[2021-08-24] MEDS ORDERED: INSULIN (LEVEMIR) 100 UNITS/ML UNITS SQ ONE (10:28)
[2021-08-24 10:42] LABS: CHLORIDE 99 mmol/L (98-107); SODIUM 134 mmol/L (136-145)
[2021-08-24 10:44] LABS: ANION GAP 7 MMOL/L (8-16); BLOOD UREA NITROGEN 16.7 mg/dL (7-18); CALCIUM 8.3 mg/dL (8.5-10.1); CO2 28 mmol/L (21-32); MAGNESIUM 2.2 mg/dL (1.8-2.4)
[2021-08-24] MEDS: TAMSULOSIN HCL 0.4 MG CAP PO SCH (10:44)
[2021-08-24] MEDS: ENOXAPARIN NA (PORCINE) 40 MG/0.4 ML DISP.SYRIN SQ SCH (10:44)
[2021-08-24] MEDS: LOSARTAN POTASSIUM 25 MG TABLET PO SCH (10:44)
[2021-08-24] MEDS: ESCITALOPRAM OXALATE 20 MG TABLET PO SCH (10:44)
[2021-08-24] MEDS: CHOLECALCIFEROL (VIT D3) 1,000 UNIT (25 MCG) TABLET PO SCH (10:44)
[2021-08-24] MEDS: FLUTICASONE/UMECLIDIN/VILANTER(100-62.5-25 TRELEGY ELLIPTA) INAHLER IH SCH (10:45)
[2021-08-24] MEDS: CYANOCOBALAMIN 1,000 MCG TABLET (FP) PO SCH (10:45)
[2021-08-24 10:48] LABS: CREATININE 1.1 mg/dL (0.55-1.3); PHOSPHOROUS 2.5 mg/dL (2.5-4.9)
[2021-08-24 10:54] LABS: GLUCOSE,RANDOM 459 mg/dL (74-106)
[2021-08-24] MEDS ORDERED: INSULIN SLIDING SCALE (NOVOLOG) 1 VIAL SQ ONE (11:05)
[2021-08-24] MEDS ORDERED: PT OWN MED DRAWER 7, Y5N ONE (13:07)
[2021-08-24] MEDS ORDERED: MELATONIN 5 MG TABLETS PO PRN (20:25)
[2021-08-24] MEDS: ATORVASTATIN CA 10 MG TABLET (FP) PO SCH (21:27)
[2021-08-24] MEDS: CARIPRAZINE HCL PO SCH (21:32)
[2021-08-25] MEDS ORDERED: PT OWN MED DRAWER 7, Y5N ONE (00:58)
[2021-08-25] MEDS: VANCOMYCIN/WATER BAGS 1,250 MG/250 ML BAG IVPB SCH ×2 (01:00→12:44)
[2021-08-25] MEDS: INSULIN SLIDING SCALE (NOVOLOG) 1 VIAL SQ SCH ×4 (06:21→21:29)
[2021-08-25] MEDS: INSULIN (LEVEMIR) 100 UNITS/ML UNITS SQ SCH (06:22)
[2021-08-25 09:27] LABS: HEMATOCRIT 39.2 % (35.4-49); HEMOGLOBIN 13.4 GM/dL (11.7-16.9); MCH 29.8 pg (25.7-33.7); MCHC 34.2 g/dl (32.0-35.9); MEAN CELL VOLUME 87.3 fl (80-96); MEAN PLT VOLUME 7.6 fl (7.5-11.1); PLATELET COUNT 311 10^3/uL (134-434); RBC 4.49 M/mm3 (4.00-5.60); RDW 13.3 % (11.9-15.9); WHITE BLOOD COUNT 9.1 K/mm3 (4.0-10.0)
[2021-08-25 09:54] LABS: CALCIUM 8.8 mg/dL (8.5-10.1)
[2021-08-25 09:55] LABS: BLOOD UREA NITROGEN 14.5 mg/dL (7-18); MAGNESIUM 2.4 mg/dL (1.8-2.4)
[2021-08-25 09:58] LABS: CREATININE 0.9 mg/dL (0.55-1.3); PHOSPHOROUS 2.5 mg/dL (2.5-4.9)
[2021-08-25] MEDS: TAMSULOSIN HCL 0.4 MG CAP PO SCH (11:21)
[2021-08-25] MEDS: LOSARTAN POTASSIUM 25 MG TABLET PO SCH (11:21)
[2021-08-25] MEDS: CYANOCOBALAMIN 1,000 MCG TABLET (FP) PO SCH (11:21)
[2021-08-25] MEDS: ESCITALOPRAM OXALATE 20 MG TABLET PO SCH (11:21)
[2021-08-25] MEDS: CHOLECALCIFEROL (VIT D3) 1,000 UNIT (25 MCG) TABLET PO SCH (11:22)
[2021-08-25] MEDS: ENOXAPARIN NA (PORCINE) 40 MG/0.4 ML DISP.SYRIN SQ SCH (11:22)
[2021-08-25] MEDS: FLUTICASONE/UMECLIDIN/VILANTER(100-62.5-25 TRELEGY ELLIPTA) INAHLER IH SCH (11:23)
[2021-08-25] MEDS: ATORVASTATIN CA 10 MG TABLET (FP) PO SCH (21:23)
[2021-08-25] MEDS: CARIPRAZINE HCL PO SCH (21:24)
[2021-08-25] MEDS ORDERED: INSULIN (LEVEMIR) 100 UNITS/ML UNITS SQ SCH (22:00)
[2021-08-26] MEDS ORDERED: PT OWN MED DRAWER 7, Y5N ONE ×2 (00:16→13:24)
[2021-08-26] MEDS: VANCOMYCIN/WATER BAGS 1,250 MG/250 ML BAG IVPB SCH ×2 (00:48→13:33)
[2021-08-26] MEDS: INSULIN SLIDING SCALE (NOVOLOG) 1 VIAL SQ SCH ×4 (06:16→21:24)
[2021-08-26] MEDS: INSULIN (LEVEMIR) 100 UNITS/ML UNITS SQ SCH (06:17)
[2021-08-26 09:59] LABS: BLOOD UREA NITROGEN 16.2 mg/dL (7-18); CALCIUM 8.6 mg/dL (8.5-10.1); MAGNESIUM 2.2 mg/dL (1.8-2.4)
[2021-08-26 10:01] LABS: CREATININE 0.9 mg/dL (0.55-1.3)
[2021-08-26 10:02] LABS: PHOSPHOROUS 2.9 mg/dL (2.5-4.9)
[2021-08-26] MEDS: CYANOCOBALAMIN 1,000 MCG TABLET (FP) PO SCH (10:03)
[2021-08-26] MEDS: ENOXAPARIN NA (PORCINE) 40 MG/0.4 ML DISP.SYRIN SQ SCH (10:03)
[2021-08-26] MEDS: TAMSULOSIN HCL 0.4 MG CAP PO SCH (10:04)
[2021-08-26] MEDS: ESCITALOPRAM OXALATE 20 MG TABLET PO SCH (10:04)
[2021-08-26] MEDS: FLUTICASONE/UMECLIDIN/VILANTER(100-62.5-25 TRELEGY ELLIPTA) INAHLER IH SCH (10:04)
[2021-08-26] MEDS: CHOLECALCIFEROL (VIT D3) 1,000 UNIT (25 MCG) TABLET PO SCH (10:04)
[2021-08-26] MEDS: LOSARTAN POTASSIUM 25 MG TABLET PO SCH (10:04)
[2021-08-26 10:33] LABS: BASO % 0.3 % (0-2.0); EOS % 2.1 % (0-4.5); HEMATOCRIT 38.1 % (35.4-49); HEMOGLOBIN 12.9 GM/dL (11.7-16.9); LYMPH % 18.2 % (8-40); MCH 29.5 pg (25.7-33.7); MCHC 33.9 g/dl (32.0-35.9); MEAN CELL VOLUME 86.9 fl (80-96); MONO % 4.7 % (3.8-10.2); NEUT % 74.7 % (42.8-82.8); PLATELET COUNT 279 10^3/uL (134-434); RBC 4.39 M/mm3 (4.00-5.60); RDW 13.4 % (11.9-15.9); WHITE BLOOD COUNT 9.9 K/mm3 (4.0-10.0)
[2021-08-26] MEDS ORDERED: INSULIN (LEVEMIR) 100 UNITS/ML UNITS SQ SCH (19:42)
[2021-08-26] MEDS: ATORVASTATIN CA 10 MG TABLET (FP) PO SCH (21:23)
[2021-08-26] MEDS: CARIPRAZINE HCL PO SCH (21:24)
[2021-08-27] MEDS: VANCOMYCIN/WATER BAGS 1,250 MG/250 ML BAG IVPB SCH ×2 (00:52→12:21)
[2021-08-27] MEDS: INSULIN (LEVEMIR) 100 UNITS/ML UNITS SQ SCH (06:03)
[2021-08-27] MEDS: INSULIN SLIDING SCALE (NOVOLOG) 1 VIAL SQ SCH ×2 (06:04→12:21)
[2021-08-27] MEDS: LOSARTAN POTASSIUM 25 MG TABLET PO SCH ×2 (10:15→12:21)
[2021-08-27] MEDS: CYANOCOBALAMIN 1,000 MCG TABLET (FP) PO SCH (10:15)
[2021-08-27] MEDS: CHOLECALCIFEROL (VIT D3) 1,000 UNIT (25 MCG) TABLET PO SCH (10:15)
[2021-08-27] MEDS: TAMSULOSIN HCL 0.4 MG CAP PO SCH (10:15)
[2021-08-27] MEDS: ESCITALOPRAM OXALATE 20 MG TABLET PO SCH (10:15)
[2021-08-27] MEDS: FLUTICASONE/UMECLIDIN/VILANTER(100-62.5-25 TRELEGY ELLIPTA) INAHLER IH SCH (10:15)
[2021-08-27] MEDS: ENOXAPARIN NA (PORCINE) 40 MG/0.4 ML DISP.SYRIN SQ SCH (10:16)
[2021-08-27] MEDS ORDERED: PT OWN MED DRAWER 7, Y5N ONE (12:07)
[2021-08-27 13:25] VITALS: BP 128/51; PULSE 76; TEMP 98.1
== END 2021-08-27 15:33 | disposition home health service (06) | DRG 857 ==
LOC: JOR 13:42 → JERBED 14:43 → J5S 08-19 20:22
PROVIDERS: ADMIT Internal Medicine; ATTEND Internal Medicine
PROC: 0JBR0ZZ Excision of Left Foot Subcutaneous Tissue and Fascia, Open Approach (ICD-10-PCS; 2021-08-19)
PROC: 3E10X8X Irrigation of Skin and Mucous Membranes using Irrigating Substance, Diagnostic (ICD-10-PCS; 2021-08-19)
PROC: 0Y9N0ZX Drainage of Left Foot, Open Approach, Diagnostic (ICD-10-PCS; 2021-08-19)
PROC: 3E0V329 Introduction of Other Anti-infective into Bones, Percutaneous Approach (ICD-10-PCS; 2021-08-19)
PROC: 0HBNXZZ Excision of Left Foot Skin, External Approach (ICD-10-PCS; principal; 2021-08-19 11:30)
DX: T81.49XA Infection following a procedure, other surgical site, initial encounter (principal); L03.116 Cellulitis of left lower limb; A52.16 Charcot's arthropathy (tabetic); B95.62 Methicillin resistant Staphylococcus aureus infection as the cause of diseases classified elsewhere; E11.610 Type 2 diabetes mellitus with diabetic neuropathic arthropathy; I10 Essential (primary) hypertension; G20 Parkinson's disease; E78.00 Pure hypercholesterolemia, unspecified; I25.10 Atherosclerotic heart disease of native coronary artery without angina pectoris; I25.2 Old myocardial infarction; N40.0 Benign prostatic hyperplasia without lower urinary tract symptoms; F32.A Depression, unspecified; E11.621 Type 2 diabetes mellitus with foot ulcer; E11.65 Type 2 diabetes mellitus with hyperglycemia; Z89.432 Acquired absence of left foot; Z79.4 Long term (current) use of insulin; Y83.8 Other surgical procedures as the cause of abnormal reaction of the patient, or of later complication, without mention of misadventure at the time of the procedure
CPT/HCPCS: 36415; 71045-TC-FY; 73630-TC-LT; 80048; 80053; 82962; 83735; 84100; 85025; 85027; 85610; 85730; 86850; 86900; 86901; 87040; 87070; 87186; 87205; 88304-TC; 93005; 93010; 94760; 97116-GP; 97161-GP; 99285-25; C9803; G0480; J0131; U0003; U0005

== ENCOUNTER 2021-08-28 10:39 | Day surgery (SDC) | payer OTHER, MEDICARE ==
[2021-08-28 11:12] VITALS: TEMP 98.7
[2021-08-28] MEDS ORDERED: DALBAVANCIN HCL 1,500 MG in DEXTROSE 5%-WATER - 500 ML IVPB ONE (11:30)
[2021-08-28 12:27] VITALS: BP 129/75; PULSE 87
== END 2021-08-28 14:00 | disposition home or self-care (01) ==
LOC: FINFUSION 10:39 → FM/S 10:43 → FINFUSION 14:00
PROVIDERS: ATTEND Internal Medicine Infectious Disease
DX: L03.116 Cellulitis of left lower limb (principal); B95.62 Methicillin resistant Staphylococcus aureus infection as the cause of diseases classified elsewhere; E11.9 Type 2 diabetes mellitus without complications; I10 Essential (primary) hypertension; Z79.4 Long term (current) use of insulin
CPT/HCPCS: 96365; J0875

== ENCOUNTER 2021-09-06 10:39 | Day surgery (SDC) | payer OTHER, MEDICARE ==
[2021-09-06] MEDS ORDERED: DALBAVANCIN HCL 1,500 MG in DEXTROSE 5%-WATER - 500 ML IVPB ONE (11:30)
[2021-09-06 14:51] VITALS: BP 144/51; PULSE 80; TEMP 97.7
== END 2021-09-06 14:51 | disposition home or self-care (01) ==
LOC: FINFUSION 10:39 → FM/S 10:41 → FINFUSION 14:51
PROVIDERS: ATTEND Internal Medicine Infectious Disease
DX: L03.116 Cellulitis of left lower limb (principal); B95.62 Methicillin resistant Staphylococcus aureus infection as the cause of diseases classified elsewhere; E11.9 Type 2 diabetes mellitus without complications; I10 Essential (primary) hypertension; Z79.4 Long term (current) use of insulin
CPT/HCPCS: 96365; J0875